=== PATIENT | male | born 1935 | race Caucasian/White ===

== ENCOUNTER 2021-08-17 06:39 | Inpatient (IN) | payer OTHER, MEDICARE ==
[~2021-08-17] VITALS: Ht 175.3 cm; Wt 100.8 kg
[2021-08-17] MEDS ORDERED: DOCUSATE SODIUM 100 MG (COLACE) CAP PO PRN (07:30)
[2021-08-17] MEDS ORDERED: MELATONIN 3 MG TABLET PO PRN (07:30)
[2021-08-17] MEDS ORDERED: morphine INJ 10 MG/ML 1ML (SYR OR VIAL) IVP PRN (07:30)
[2021-08-17] MEDS ORDERED: HYDROcodone/APAP 5 MG/325 MG (LORTAB) TAB PO PRN (07:30)
[2021-08-17] MEDS ORDERED: CALCIUM CARBONATE 500 MG (TUMS) TAB.CHEW PO PRN (07:30)
[2021-08-17] MEDS ORDERED: ACETAMINOPHEN 500 MG TAB (TYLENOL) PO PRN (07:30)
[2021-08-17] MEDS ORDERED: diphenhydrAMINE 25 MG TAB (BENADRYL) PO PRN (07:30)
[2021-08-17] MEDS ORDERED: LOPERAMIDE 2 MG (IMODIUM) TABLET PO PRN (07:30)
[2021-08-17] MEDS ORDERED: ALPRAZolam 0.25 MG (XANAX) TAB PO PRN (07:30)
[2021-08-17] MEDS ORDERED: ENOXAPARIN 100 MG/1 ML (LOVENOX) SYR SC SCH (07:30)
[2021-08-17] MEDS ORDERED: ONDANSETRON 4 MG/2 ML (SDV) Z0FRAN IVP PRN (07:30)
--- OUTSIDE RECORDS SUMMARY | 2021-08-17 08:42 | XMS REPORT | Clinical Summary ---
Author Author [facility] Organization [facility] Address Unknown Phone Unavailable Care Team Providers Care Electrical Accessories Ii Assembler Name Role Phone Ramone Davis MD Unavailable Source Comments Some departments are not documenting in the electronic medical record. If you d o not see the information that you expected, contact Release of Information in [facility] [employer] Information Management department at [phone] for further assistan ce in locating additional records.[facility] Allergies Comments Active Allergy Reactions Severity Noted Date Ciprofloxacin HIVES Medium 01/09/2015 Metformin HIVES Medium 01/09/2015 Benzalkonium Chloride HIVES Medium 01/10/20 15 Sulfa (Sulfonamide [facility] Medium 01/09/2015 Antibiotics) Medications End Date Status Medication Sig Dispensed Refills Start Date Active isosorbide mononitrate CR Take 120 mg 0 (IMDUR) 120 mg tablet by mouth every morning. Active clopiDOGrel (PLAVIX) 75 Take 75 mg by 0 mg tablet mouth daily. Active metoprolol (LOPRESSOR) 50 Take 50 mg by 0 mg tablet mouth twice daily. Active pioglitazone (ACTOS) 45 Take 45 mg by 0 mg tablet mouth daily. Active INSULIN Inject into 0 GLARGINE,HUM.REC.ANLOG area(s) as (LANTUS SC) directed. Active tamsulosin (FLOMAX) 0.4 Take 0.4 mg 0 mg capsule by mouth daily. Active pantoprazole DR Take 20 mg by 0 (PROTONIX) 20 mg tablet mouth daily. Active glipiZIDE CR (GLUCOTROL Take 10 mg by 0 XL) 10 mg tablet mouth daily. Active atorvastatin (LIPITOR) 40 Take 40 mg by 0 mg tablet mouth daily. Active aspirin EC 81 mg tablet Take 81 mg by 0 mouth daily. Active artificial Place 1 Drop 0 tears/hypromellose into or (ISOPTO TEARS) 0.5 % around eye(s) ophthalmic solution four times daily. Active DOCOSAHEXANOIC ACID/EPA Take by 0 (FISH OIL PO) mouth. 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 Surgical History Surgery Date Site/Laterality Comments TONSILLECTOMY APPENDECTOMY ANGIOPLASTY CORONARY ARTERY BYPASS GRAFT SEPTOPLASTY SPINAL FUSION PROSTATECTOMY HERNIA REPAIR CATARACT REMOVAL WITH IMPLANT PENILE PROSTHESIS Medical History Medical History Date Comments CAD (coronary artery disease) Diabetes (HCC) Polycythemia Hypertension Hiatal hernia PTSD (post-traumatic stress disorder) Depression Peripheral neuropathy Macular degeneration Gout Herniated disc Skin cancer Cataracts, bilateral ED (erectile dysfunction) Social History Date Tobacco Use Types Packs/Day Years Used Quit: 09/11/1986 Former Smoker Cigarettes 1 50 Smokeless Tobacco: Never Used Comments Alcohol Use Standard Drinks/Week No 0 (1 standard drink = 0.6 o z pure alcohol) Sex Assigned at Date Recorded Not on file Last Filed Vital Signs Reading Time Taken Comments Vital Sign 123/75 01/09/2015 2:26 PM CDT Blood Pressure 66 01/09/2015 2:26 PM CDT Pulse - - Temperature - - Respiratory Rate - - Oxygen Saturation - - Inhaled Oxygen Concentration 95.3 kg (210 lb) 01/09/2015 2:26 PM CDT Weight 175.3 cm (5' 9") 01/09/2015 2:26 PM CDT Height 31.01 01/09/2015 2:26 PM CDT Body Mass Index Plan of Treatment Health Maintenance Due Date Last Done Comments DTAP/TDAP VACCINES (1 - 1955 Tdap) PHYSICAL (COMPREHENSIVE) 1955 EXAM SHINGLES RECOMBINANT 1987 VACCINE (1 of 2) PNEUMONIA (PPSV23) 2002 VACCINE (1 of 1 - PPSV23) INFLUENZA VACCINE 04/11/2021 Results Not on filefrom Last 3 Months Care Teams Start Date End Date Electrical Accessories Ii Assembler Relationship Specialty 01/09/15 Ramone Davis MD [facility] [address] [address]
[2021-08-17] MEDS ORDERED: ASPIRIN E.C. 81 MG (ECOTRIN) TAB PO SCH (09:00)
[2021-08-17 09:03] VITALS: BP 183/87
[2021-08-17 09:12] LABS: BASOPHILS % (AUTO) 1 % (0-10); MEAN CORPUSCULAR VOLUME 96 fL (80-99)
[2021-08-17 09:14] LABS: EOSINOPHILS # (AUTO) 0.4 10^3/uL (0.0-0.3); EOSINOPHILS % (AUTO) 7 % (0-10); HEMATOCRIT 43 % (40-54); HEMOGLOBIN 14.7 g/dL (13.3-17.7); LYMPHOCYTES # (AUTO) 1.2 10^3/uL (1.0-4.0); LYMPHOCYTES % (AUTO) 24 % (12-44); MEAN CORPUSCULAR HEMOGLOBIN 33 pg (25-34); MEAN CORPUSCULAR HGB CONC 35 g/dL (32-36); MEAN PLATELET VOLUME 10.5 fL (9.0-12.2); MONOCYTES # (AUTO) 0.6 10^3/uL (0.0-1.0); MONOCYTES % (AUTO) 12 % (0-12); NEUTROPHILS # (AUTO) 2.7 10^3/uL (1.8-7.8); NEUTROPHILS % (AUTO) 55 % (42-75); PLATELET COUNT 103 10^3/uL (130-400); WHITE BLOOD COUNT 4.9 10^3/uL (4.3-11.0)
--- NOTE | 2021-08-17 09:15 | Consultation-Cardiology ---
HPI-Cardiology Cardiology Consultation: Date of Consultation 08/17/21 Time Seen by a Provider: 09:20 Date of Admission 08-17-21 Attending Physician Opal Leroy DO Admitting Physician Darline Preciado MD Consulting Physician ERIKA HOOKS HPI: Chief Complaint: Chest pain Mr. Carrasco is an 85 yr old male admitted to [facility] as a transfer from [facility]. 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 Willett whom he just saw in f/u last week. He states he woke up from sleep this morning around 2:30 with chest pressure radiating across his chest and down into both his upper arms. He reports he has chronic angina, but this discomfort felt different. He states he took 2 sublingual nitro and chewed 2 baby ASA. He reports by the time he arrived at the ED in [place] the discomfort was "almost gone". He is currently pain free. He denies any c/o SOB, palpitations, diaphoresis, nausea. He reports the discomfort was constant and did not change in relation to activity. No c/o LE swelling. He is a poor historian. He has an extensive list of his health conditions and surgeries with him. Review of Systems-Cardiology Review of Systems Constitutional: No chills, No lightheadedness, No malaise Eyes: No vision change Ears/Nose/Throat: No epistaxis, No recent hearing loss Respiratory: As described under HPI Cardiovascular: As described under HPI Gastrointestinal: As described under HPI Genitourinary: No dysuria, No hematuria Musculoskeletal: no symptoms reported Skin: No rash on exposed areas, No ulcerations on exposed areas Psychiatric/Neurological: No anxiety, No depression, No seizure, No focal weakness, No syncope Hematologic: No bleeding abnormalities CHZ-Sleprv-Ehlwly Hx Past Medical History PMH As described under Assessment. Family Medical History Family Medical History: He reports his father had CAD. Allergies and Home Medications Allergies Coded Allergies: ciprofloxacin (Verified Allergy, Severe, 08/17/21) Sulfa (Sulfonamide Antibiotics) (Verified Allergy, Unknown, 08/17/21) bacitracin (Verified Allergy, Unknown, 08/17/21) metformin (Verified Allergy, Unknown, 08/17/21) neomycin (Verified Allergy, Unknown, 08/17/21) polymyxin B (Verified Allergy, Unknown, 08/17/21) Patient Home Medication List Acetaminophen (Tylenol Arthritis) 650 Mg Tablet.er, 650-1,300 MG PO Q8H PRN for PAIN-MILD (1-4), (Reported) Entered as Reported by: CHELA MCCOY on 08/17/211424 Last Action: Reviewed Aspirin (Aspirin EC) 81 Mg Tablet.dr, 81 MG PO HS, (Reported) Entered as Reported by: CHELA MCCOY on 08/17/211424 Last Action: Reviewed Atorvastatin Calcium (Atorvastatin Calcium) 40 Mg Tablet, 40 MG PO HS, (Reported) Entered as Reported by: CHELA MCCOY on 08/17/211424 Last Action: Reviewed Buspirone HCl (Buspirone HCl) 10 Mg Tablet, 20 MG PO HS, (Reported) Entered as Reported by: CHELA MCCOY on 08/17/211424 Last Action: Reviewed Carboxymethylcellulose Sodium (Refresh Tears) 15 Ml Drops, 2 DROPS OU UD PRN for DRY EYES, (Reported) Entered as Reported by: CHELA MCCOY on 08/17/211424 Last Action: Reviewed Clopidogrel Bisulfate (Clopidogrel) 75 Mg Tablet, 75 MG PO HS, (Reported) Entered as Reported by: CHELA MCCOY on 08/17/211424 Last Action: Reviewed Diphenhydramine HCl (Benadryl Allergy) 25 Mg Tablet, 25 MG PO HS, (Reported) Entered as Reported by: CHELA MCCOY on 08/17/211424 Last Action: Reviewed Docusate Sodium (Docusate Sodium) 100 Mg Capsule, 100-200 MG PO BID, (Reported) Entered as Reported by: CHELA MCCOY on 08/17/211424 Last Action: Reviewed Ergocalciferol (Vitamin D2) (Vitamin D2) 1,250 Mcg Capsule, 1,250 MCG PO TUE, (Reported) Entered as Reported by: CHELA MCCOY on 08/17/211424 Last Action: Reviewed Fluticasone Propionate (Fluticasone Propionate) 16 Gm [place].susp, 2 SPRAYS NSEACH DAILY PRN for CONGESTION, (Reported) Entered as Reported by: CHELA MCCOY on 08/17/211424 Last Action: Reviewed Glipizide (Glipizide Xl) 10 Mg Tab.er.24, 10 MG PO BID, (Reported) Entered as Reported by: CHELA MCCOY on 08/17/211424 Last Action: Reviewed Imipramine HCl (Imipramine HCl) 10 Mg Tablet, 10 MG PO HS, (Reported) Entered as Reported by: CHELA MCCOY on 08/17/211424 Last Action: Reviewed Insulin Glargine,Hum.rec.anlog (Lantus Solostar) 100 Unit/1 Ml Insuln.pen, 45 UNITS SC HS, (Reported) Entered as Reported by: CHELA MCCOY on 08/17/211424 Last Action: Reviewed Isosorbide Mononitrate (Isosorbide Mononitrate ER) 120 Mg Tab.er.24h, 120 MG PO DAILY, (Reported) Entered as Reported by: CHELA MCCOY on 08/17/211424 Last Action: Reviewed Lansoprazole (Lansoprazole) 15 Mg Capsule.dr, 15 MG PO DAILY, (Reported) Entered as Reported by: CHELA MCCOY on 08/17/211424 Last Action: Reviewed Metoprolol Tartrate (Metoprolol Tartrate) 25 Mg Tablet, 25 MG PO BID, (Reported) Entered as Reported by: CHELA MCCOY on 08/17/211424 Last Action: Reviewed Multivitamin (Multivitamin) 1 Each Tablet, 1 EACH PO DAILY, (Reported) Entered as Reported by: CHELA MCCOY on 08/17/211424 Last Action: Reviewed Pioglitazone HCl (Pioglitazone HCl) 45 Mg Tablet, 45 MG PO DAILY, (Reported) Entered as Reported by: CHELA MCCOY on 08/17/211424 Last Action: Reviewed Ranolazine (Ranolazine ER) 1,000 Mg Tab.er.12h, 1,000 MG PO BID, (Reported) Entered as Reported by: CHELA MCCOY on 08/17/211424 Last Action: Reviewed Sertraline HCl (Sertraline HCl) 100 Mg Tablet, 50 MG PO HS, (Reported) Entered as Reported by: CHELA MCCOY on 08/17/211424 Last Action: Reviewed Physical Exam-Cardiology Physical Exam Vital Signs/I&O 08/17/21 08/18/21 08/18/21 08/18/21 23:51 01:00 04:00 07:00 Temp 36.2 Pulse 77 75 74 70 Resp 20 20 B/P (MAP) 172/83 (112) 156/70 (98) Pulse Ox 96 96 O2 Delivery Room Air Room Air 08/18/21 08/18/21 08/18/21 08:00 08:00 09:54 Temp 35.6 35.6 Pulse 75 75 Resp 14 B/P (MAP) 165/91 (115) Pulse Ox 97 97 O2 Delivery Room Air Room Air FiO2 21 08/18/21 00:00 Intake Total 840 ml Output Total 700 ml Balance 140 ml Capillary Refill : Constitutional: AAO x 3, well-developed, well-nourished HEENT: PERRL, hearing is well preserved Neck: No carotid bruit; carotid pulses are 2 + bilaterally Respiratory: No accessory muscle use, No respiratory distress; chest expansion is symmetric, chest is bilaterally symmetric, lungs clear to auscultation Cardiovascular: regular rate-rhythm; No JVD; S1 and S2, systolic murmur Gastrointestinal: No tender; soft, round, audible bowel sounds Extremities: no lower extremity edema bilateral Neurologic/Psychiatric: grossly intact (moves all extremities) Skin: No rash on exposed areas, No ulcerations on exposed areas Data Review Labs Laboratory Tests 08/17/21 11:09: Glucometer 84 08/17/21 16:32: Glucometer 169H 08/17/21 20:09: Glucometer 163H 08/18/21 05:23: Glucometer 147H 08/18/21 05:50: White Blood Count 5.8, Red Blood Count 5.05, Hemoglobin 16.6, Hematocrit 48, Mean Corpuscular Volume 96, Mean Corpuscular Hemoglobin 33, Mean Corpuscular Hemoglobin Concent 34, Red Cell Distribution Width 12.4, Platelet Count 114L, Mean Platelet Volume 10.5, Immature Granulocyte % (Auto) 1, Neutrophils (%) (Auto) 59, Lymphocytes (%) (Auto) 24, Monocytes (%) (Auto) 9, Eosinophils (%) (Auto) 7, Basophils (%) (Auto) 1, Neutrophils # (Auto) 3.4, Lymphocytes # (Auto) 1.4, Monocytes # (Auto) 0.5, Eosinophils # (Auto) 0.4H, Basophils # (Auto) 0.0, Immature Granulocyte # (Auto) 0.1, Percent Immature Platelet Fraction 3.4, Sodium Level 137, Potassium Level 4.1, Chloride Level 103, Carbon Dioxide Level 22, Anion Gap 12, Blood Urea Nitrogen 20H, Creatinine 1.62H, Estimat Glomerular Filtration Rate 41, BUN/Creatinine Ratio 12, Glucose Level 156H, Calcium Level 9.2, Corrected Calcium 9.4, Total Bilirubin 0.9, Aspartate Amino Transf (AST/SGOT) 21, Alanine Aminotransferase (ALT/SGPT) 26, Alkaline Phosphatase 57, Troponin I 0.212H, Total Protein 6.6, Albumin 3.8 Microbiology 08/17/21 MRSA Screen - Final, Complete MRSA not isolated A/P-Cardiology Assessment/Admission Diagnosis NSTEMI CAD (per pt report) - H/O CABG 2 vessel Sep 10, 1987 - H/O stent placement Oct 2004, March 2005, Jul 2005, Sep 2012. Most recent stent placement Sep 09, 2019 - reported 3 stents placed - H/O balloon angioplasty Jul 2017, November 2017, March 2019 Chronic angina - Imdur and Ranexa - managed by Dr. 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 Gallo Oncology - multiple skin melanoma removals - most recent to the left side of his face (stitches in place) Back surgeries - Yadav lynette in place Discussion and Recomendations NSTEMI - treat with BB, antiplatelet tx - advise cardiac cath. We have discussed the procedure, risks, benefits and potential complications of cardiac cath with possible ad hoc coronary intervention including worsening of renal function in the face CKD. He verbalizes understanding and provides informed consent. Echocardiogram today to eval structure and function Extensive cardiac history with numerous coronary interventions as noted above - request records Monitor lab closely Resume home medications Further recs will be based on his hospital course We have reviewed the records from [place] ED We would like to thank medical services for this consult ERIKA QUESADA Aug 17, 2021 09:15
[2021-08-17 09:44] LABS: ALBUMIN 3.5 GM/DL (3.2-4.5); BILIRUBIN,TOTAL 0.6 MG/DL (0.1-1.0); CALCIUM 8.7 MG/DL (8.5-10.1); CREATININE SERUM 1.63 MG/DL (0.60-1.30); POTASSIUM 4.2 MMOL/L (3.6-5.0); TOTAL PROTEIN 5.8 GM/DL (6.4-8.2)
[2021-08-17] MEDS ORDERED: CLOPIDOGREL 75 MG (PLAVIX) TABLET PO ONE (09:45)
[2021-08-17] MEDS ORDERED: meTOproloL SUCCINATE 50 MG (TOPROL XL) TAB PO SCH ×2 (09:45→21:00)
[2021-08-17] MEDS: NS IV 1000 ML 1,000 ML IV SCH ×2 (10:15→23:51)
[2021-08-17] MEDS: SENNA W/DOCUSATE (SENOKOT S) TABLET PO SCH ×2 (10:19→21:18)
[2021-08-17] MEDS ORDERED: NS IV 1000 ML 1,000 ML IV SCH (11:30)
[2021-08-17] MEDS: inSUlin ASPART (NovoLOG) 1 UNIT/0.01 ML (CHARGE PER UNIT) SC SCH ×3 (11:51→20:09)
[2021-08-17 12:00] VITALS: BP 173/85
--- NOTE | 2021-08-17 13:39 | Consultation-Cardiology ---
HPI-Cardiology Cardiology Consultation: Date of Consultation 08/17/21 Time Seen by a Provider: 11:00 Date of Admission Attending Physician Opal Leroy DO Admitting Physician Darline Preciado MD Consulting Physician STACEY STEVENSON MD, FACP, FACC, [facility], CCD[facility] HPI: Chief Complaint: Chest pain Mr. Carrasco is an 85 yr old male admitted to [facility] as a transfer from [facility]. He reports his primary oil burner installer is Dr. Willett whom he just saw in f/u last week. He states he woke up from sleep this morning around 2:30 with chest pressure radiating across his chest and down into both his upper arms. He reports he has chronic angina, but this discomfort felt different. He states he took 2 sublingual nitro and chewed 2 baby ASA. He reports by the time he arrived at the ED in [place] the discomfort was "almost gone". He is currently pain free. He denies any c/o SOB, palpitations, diaphoresis, nausea. He reports the discomfort was constant and did not change in relation to activity. No c/o LE swelling. He is a poor historian. He has an extensive list of his health conditions and surgeries with him. Review of Systems-Cardiology Review of Systems Constitutional: No chills, No lightheadedness, No malaise Eyes: No vision change Ears/Nose/Throat: No epistaxis, No recent hearing loss Respiratory: As described under HPI Cardiovascular: As described under HPI Gastrointestinal: As described under HPI Genitourinary: No dysuria, No hematuria Musculoskeletal: no symptoms reported Skin: No rash on exposed areas, No ulcerations on exposed areas Psychiatric/Neurological: No anxiety, No depression, No seizure, No focal weakness, No syncope Hematologic: No bleeding abnormalities QNB-Vrxpwy-Wgeoqd Hx Patient Social History Have you traveled recently?: No Alcohol Use?: No Pt feels they are or have been: No Immunizations Up To Date Date of Influenza Vaccine: Jul 29, 2021 Past Medical History PMH As described under Assessment. Family Medical History Family Medical History: He reports his father had CAD. Allergies and Home Medications Allergies Coded Allergies: ciprofloxacin (Verified Allergy, Severe, 08/17/21) Sulfa (Sulfonamide Antibiotics) (Verified Allergy, Unknown, 08/17/21) bacitracin (Verified Allergy, Unknown, 08/17/21) metformin (Verified Allergy, Unknown, 08/17/21) neomycin (Verified Allergy, Unknown, 08/17/21) polymyxin B (Verified Allergy, Unknown, 08/17/21) Patient Home Medication List Home Medication List Reviewed: Yes Physical Exam-Cardiology Physical Exam Vital Signs/I&O 08/17/21 08/17/21 08/17/21 08/17/21 09:03 11:09 11:23 12:00 Temp 35.9 35.8 Pulse 76 77 77 Resp 16 20 B/P (MAP) 183/87 (119) 173/85 (114) Pulse Ox 99 99 98 O2 Delivery Room Air Room Air Room Air 08/17/21 12:56 Pulse 70 Capillary Refill : Constitutional: AAO x 3, well-developed, well-nourished HEENT: PERRL, hearing is well preserved Neck: No carotid bruit; carotid pulses are 2 + bilaterally Respiratory: No accessory muscle use, No respiratory distress; chest expansion is symmetric, chest is bilaterally symmetric, lungs clear to auscultation Cardiovascular: regular rate-rhythm; No JVD; S1 and S2, systolic murmur Gastrointestinal: No tender; soft, round, audible bowel sounds Extremities: no lower extremity edema bilateral Neurologic/Psychiatric: grossly intact (moves all extremities) Skin: No rash on exposed areas, No ulcerations on exposed areas Data Review Labs Laboratory Tests 08/17/21 09:03: White Blood Count 4.9, Red Blood Count 4.43, Hemoglobin 14.7, Hematocrit 43, Mean Corpuscular Volume 96, Mean Corpuscular Hemoglobin 33, Mean Corpuscular Hemoglobin Concent 35, Red Cell Distribution Width 12.5, Platelet Count 103L, Mean Platelet Volume 10.5, Immature Granulocyte % (Auto) 1, Neutrophils (%) (Auto) 55, Lymphocytes (%) (Auto) 24, Monocytes (%) (Auto) 12, Eosinophils (%) (Auto) 7, Basophils (%) (Auto) 1, Neutrophils # (Auto) 2.7, Lymphocytes # (Auto) 1.2, Monocytes # (Auto) 0.6, Eosinophils # (Auto) 0.4H, Basophils # (Auto) 0.0, Immature Granulocyte # (Auto) 0.0, Percent Immature Platelet Fraction 4.0, Sodium Level 138, Potassium Level 4.2, Chloride Level 106, Carbon Dioxide Level 22, Anion Gap 10, Blood Urea Nitrogen 24H, Creatinine 1.63H, Estimat Glomerular Filtration Rate 41, BUN/Creatinine Ratio 15, Glucose Level 109H, Calcium Level 8.7, Corrected Calcium 9.1, Total Bilirubin 0.6, Aspartate Amino Transf (AST/SGOT) 21, Alanine Aminotransferase (ALT/SGPT) 22, Alkaline Phosphatase 63, Troponin I 0.271H, Total Protein 5.8L, Albumin 3.5, Triglycerides Level 167H, Cholesterol Level 142, LDL Cholesterol Direct 78, VLDL Cholesterol 33, HDL Cholesterol 30L 08/17/21 11:09: Glucometer 84 Laboratory Tests 08/17/21 09:03 A/P-Cardiology Assessment/Admission Diagnosis NSTEMI CAD (per pt report) - H/O CABG 2 vessel Sep 10, 1987 - H/O stent placement Oct 2004, March 2005, Jul 2005, Sep 2012. Most recent stent placement Sep 09, 2019 - he reports 3 stents placed - H/O balloon angioplasty Jul 2017, November 2017, March 2019 Chronic angina - Imdur and Ranexa - managed by Dr. 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 Gallo Oncology - multiple skin melanoma removals - most recent to the left side of his face (stitches in place) Back surgeries - Yadav lynette in place Discussion and Recomendations NSTEMI - treat with BB, antiplatelet tx. We discussed invasive and noninvasive treatment options. Risk of invasive management higher than usual, given CKD 3 and thrombocytopenia. All issues discussed. He wishes to wait on invasive management. We are trying to get records of his rather extensive cardiac history from [facility]. Will revisit the issue of invasive management once we have all records or if he has recurrent symptoms Echocardiogram today to eval structure and function Add beta-jono and amlodipine to regimen. Continue nitro and Ranexa. Continue DAPT while closely monitoring CBC Continue statins Monitor labs Further recs will be based on his hospital course We have reviewed the records from [place] ED We would like to thank Medical services for this consult STACEY STEVENSON MD FACP FAC CCDS Aug 17, 2021 13:39
--- NOTE | 2021-08-17 14:17 | History & Physical-Hospitalist ---
TAVIA PETERSEN 08/17/21 1417: History of Present Illness HPI/Chief Complaint The patient is an 85 YO male with a history of CAD, DM2, HTN, HLD, TIA, hiatal hernia, GERD, RODY, CKD3 and prostate cancer, who is in the hospital for chest pain. The patient reports that at 0230 this morning experiencing chest pain that radiated down both of his arms. He describes the pain as feeling like an elephant sitting on his chest. He reports taking two sublingual nitro, and two baby ASA after the pain started at home. He then went to the ER in [place], where his chest pain improved. The patient denies shortness of breath, chills, and fevers. Date Seen 08/17/21 Attending Physician Opal Leroy Gloria J MD Referring Physician Date of Admission Aug 17, 2021 at 08:25 Home Medications & Allergies Home Medications Reviewed patient Home Medication Reconciliation performed by pharmacy medication reconciliations central sterilization technician and/or nursing. Patients Allergies have been reviewed. Allergies Allergies Coded Allergies ciprofloxacin (Verified Allergy, Severe, 08/17/21) Sulfa (Sulfonamide Antibiotics) (Verified Allergy, Unknown, 08/17/21) bacitracin (Verified Allergy, Unknown, 08/17/21) metformin (Verified Allergy, Unknown, 08/17/21) neomycin (Verified Allergy, Unknown, 08/17/21) polymyxin B (Verified Allergy, Unknown, 08/17/21) Past Yxfgokv-Rovolx-Ykzijc Hx Patient Social History Tobacco Use?: No Use of E-Cig and/or Vaping dev: No Substance use?: No Alcohol Use?: No Pt feels they are or have been: No Immunizations Up To Date Date of Influenza Vaccine: Jul 29, 2021 First/Initial COVID19 Vaccinat: SEPTEMBER 2020 Second COVID19 Vaccination Sherif: 2020 Tetanus Booster (TDap): More Than 5 Years Hepatitis A: No Hepatitis B: No Current Status Advance Directives: No Communicates: Verbally Primary Language: [place] Preferred Spoken Language: [place] Is interpretation needed?: No Implanted or Applied Medical D: None Past Medical History Surgeries: CABG Sleep Apnea Coronary Artery Disease, Hypertension TIA Gastroesophageal Reflux, Hiatal Hernia Diabetes, Insulin dep Prostate Review of Systems Constitutional: No chills, No diaphoresis, No fever EENTM: No blurred vision, No double vision Respiratory: No cough, No dyspnea on exertion Cardiovascular: chest pain (early this morning); No palpitations Gastrointestinal: No constipation, No diarrhea, No nausea, No vomiting Musculoskeletal: No joint pain, No muscle pain Skin: No change in color, No rash Psychiatric/Neurological: Denies Anxiety, Denies Depressed, Denies Emotional Problems Physical Exam Physical Exam Vital Signs Vital Signs - First Documented 08/17/21 09:03 Temp 35.9 Pulse 76 Resp 16 B/P (MAP) 183/87 (119) Pulse Ox 99 O2 Delivery Room Air Capillary Refill : Height, Weight, BMI Height: '" Weight: lbs. oz. kg; 32.80 BMI Method: General Appearance: No Apparent Distress, WD/WN Eyes: Bilateral Eye Normal Inspection, Bilateral Eye PERRL, Bilateral Eye EOMI HEENT: PERRL/EOMI, Pharynx Normal, Moist Mucous Membranes Respiratory: Chest Non Tender, Lungs Clear, Normal Breath Sounds, No Accessory Muscle Use, No Respiratory Distress Cardiovascular: Regular Rate, Rhythm, No Edema, No Murmur Gastrointestinal: Normal Bowel Sounds, No Organomegaly, No Pulsatile Mass, Non Tender, Soft Rectal: Deferred Extremity: No Calf Tenderness, No Pedal Edema Neurologic/Psychiatric: Alert, Oriented x3, No Motor/Sensory Deficits, Normal Mood/Affect Skin: Normal Color, Warm/Dry Results Results/Procedures Labs Laboratory Tests 08/17/21 09:03 Patient resulted labs reviewed. Assessment/Plan Assessment and Plan 85 YO male with chest pain secondary to NSTEMI, CAD, DM2, HTN, HLD, TIA, hiatal hernia, GERD, RODY, CKD3 and prostate cancer. Chest pain secondary to NSTEMI CAD Continue ASA, Plavix, Lovenox. Cardiology consulted. Repeat Troponin tomorrow. Likely will undergo cardiac catheterization tomorrow. CKD3 DM2 Monitor labs, continue home meds HTN HLD GERD Continue home meds Hiatal hernia RODY Prostate cancer no acute management needed at this time LIAN MORALES MD 08/17/21 1740: History of Present Illness Source: patient Exam Limitations: no limitations Time Seen by a Provider: 12:30 Past Giejlfj-Qusndo-Facscb Hx Family Medical History No Pertinent Family Hx Assessment/Plan Admission Diagnosis NSTEMI Admission Status: Inpatient Order (span 2 midnights) Reason for Inpatient Admission: Acute coronary syndrome Cardiology evaluation Assessment and Plan Transferred with chest pain and mildly elevated troponin. Repeat troponin on arrival trending up. Cardiology following. Likely left heart cath tomorrow. Continue ASA and Lovenox. NPO at midnight. Diagnosis/Problems Diagnosis/Problems (1) NSTEMI (non-ST elevation myocardial infarction) Status: Acute (2) CAD (coronary artery disease) Status: Acute (3) HTN (hypertension) Status: Chronic (4) T2DM (type 2 diabetes mellitus) Status: Chronic (5) HLD (hyperlipidemia) Status: Chronic (6) GERD (gastroesophageal reflux disease) Status: Chronic (7) Obesity Status: Chronic Supervisory-Addendum Brief Verification & Attestation Participated in pt care: history, MDM, physical Personally performed: exam, history, MDM, supervision of care Care discussed with: Medical Student Procedures: n/a Results interpretation: Verified all documentation A medical student performed and documented this service in my presence. I reviewed and verified all information documented by the medical student and made modifications to such information, when appropriate. I personally performed the physical exam and medical decision making. TAVIA PETERSEN Aug 17, 2021 14:17 LIAN MORALES MD Aug 17, 2021 17:40
[2021-08-17] MEDS ORDERED: SERT-414 PO (14:25)
[2021-08-17] MEDS ORDERED: INSU100I10 SC (14:25)
[2021-08-17] MEDS ORDERED: CLOP75TA28 PO (14:25)
[2021-08-17] MEDS ORDERED: PIOG45TA65 PO (14:25)
[2021-08-17] MEDS ORDERED: ATOR40TA70 PO (14:25)
[2021-08-17] MEDS ORDERED: ASPI-1238 PO (14:25)
[2021-08-17] MEDS ORDERED: RANO10005 PO (14:25)
[2021-08-17] MEDS ORDERED: METO-333 PO (14:25)
[2021-08-17] MEDS ORDERED: DIPH25TA65 PO (14:25)
[2021-08-17] MEDS ORDERED: ERGO1250 PO (14:25)
[2021-08-17] MEDS ORDERED: LANS15CA5 PO (14:25)
[2021-08-17] MEDS ORDERED: CARB15DR OU (14:25)
[2021-08-17] MEDS ORDERED: MULT-1136 PO (14:25)
[2021-08-17] MEDS ORDERED: DOCU100C37 PO (14:25)
[2021-08-17] MEDS ORDERED: IMIP10TA3 PO (14:25)
[2021-08-17] MEDS ORDERED: GLIP-173 PO (14:25)
[2021-08-17] MEDS ORDERED: ACET-2650 PO (14:25)
[2021-08-17] MEDS ORDERED: FLUT16SP22 NSEACH (14:25)
[2021-08-17] MEDS ORDERED: ISOS120T9 PO (14:25)
[2021-08-17] MEDS ORDERED: BUSP10TA95 PO (14:25)
[2021-08-17] MEDS: ENOXAPARIN 100 MG/1 ML (LOVENOX) SYR SC SCH (14:29)
[2021-08-17 16:27] VITALS: BP 160/74
[2021-08-17 19:09] VITALS: BP 181/84
[2021-08-17] MEDS: RANOLAZINE ER 500 MG TAB (RANEXA) PO SCH (21:17)
[2021-08-17 23:51] VITALS: BP 172/83
[2021-08-18] MEDS: ENOXAPARIN 100 MG/1 ML (LOVENOX) SYR SC SCH ×2 (01:39→11:52)
[2021-08-18 04:00] VITALS: BP 156/70
[2021-08-18] MEDS: inSUlin ASPART (NovoLOG) 1 UNIT/0.01 ML (CHARGE PER UNIT) SC SCH ×4 (05:48→21:17)
[2021-08-18 06:07] LABS: BASOPHILS % (AUTO) 1 % (0-10); HEMOGLOBIN 16.6 g/dL (13.3-17.7); MONOCYTES # (AUTO) 0.5 10^3/uL (0.0-1.0)
[2021-08-18 06:09] LABS: EOSINOPHILS # (AUTO) 0.4 10^3/uL (0.0-0.3); EOSINOPHILS % (AUTO) 7 % (0-10); HEMATOCRIT 48 % (40-54); LYMPHOCYTES # (AUTO) 1.4 10^3/uL (1.0-4.0); LYMPHOCYTES % (AUTO) 24 % (12-44); MEAN CORPUSCULAR HEMOGLOBIN 33 pg (25-34); MEAN CORPUSCULAR HGB CONC 34 g/dL (32-36); MEAN CORPUSCULAR VOLUME 96 fL (80-99); MEAN PLATELET VOLUME 10.5 fL (9.0-12.2); MONOCYTES % (AUTO) 9 % (0-12); NEUTROPHILS # (AUTO) 3.4 10^3/uL (1.8-7.8); NEUTROPHILS % (AUTO) 59 % (42-75); PLATELET COUNT 114 10^3/uL (130-400); WHITE BLOOD COUNT 5.8 10^3/uL (4.3-11.0)
[2021-08-18 06:26] LABS: ALBUMIN 3.8 GM/DL (3.2-4.5); POTASSIUM 4.1 MMOL/L (3.6-5.0)
[2021-08-18 06:27] LABS: CALCIUM 9.2 MG/DL (8.5-10.1)
[2021-08-18 06:29] LABS: TOTAL PROTEIN 6.6 GM/DL (6.4-8.2)
[2021-08-18 06:30] LABS: BILIRUBIN,TOTAL 0.9 MG/DL (0.1-1.0)
[2021-08-18 06:32] LABS: CREATININE SERUM 1.62 MG/DL (0.60-1.30)
[2021-08-18 08:00] VITALS: BP 165/91
[2021-08-18] MEDS: ASPIRIN 81 MG CHEW (CHILDREN'S ASA) PO SCH (08:37)
[2021-08-18] MEDS: ISOSORBIDE MONONITRATE 60 MG (IMDUR) TAB PO SCH (08:37)
[2021-08-18] MEDS: SENNA W/DOCUSATE (SENOKOT S) TABLET PO SCH ×2 (08:38→21:18)
[2021-08-18] MEDS: RANOLAZINE ER 500 MG TAB (RANEXA) PO SCH ×2 (08:38→21:18)
[2021-08-18] MEDS: CLOPIDOGREL 75 MG (PLAVIX) TABLET PO SCH (08:38)
[2021-08-18] MEDS ORDERED: meTOproloL SUCCINATE 50 MG (TOPROL XL) TAB PO SCH ×2 (09:00)
[2021-08-18 09:54] VITALS: BP 165/91
[2021-08-18] MEDS ORDERED: meTOproloL SUCCINATE 50 MG (TOPROL XL) TAB PO ONE (10:15)
[2021-08-18] MEDS ORDERED: amLODIPine 5 MG (NORVASC) TAB PO ONE (10:15)
[2021-08-18] MEDS ORDERED: RT-ALBUTEROL SULF 2.5 MG/3 ML PRE-MIX VIAL INH PRN (10:15)
--- NOTE | 2021-08-18 10:16 | Progress Note - Cardiology ---
Cardiology SOAP Progress Note Subjective: Lying in bed No c/o CP States he has been up in the room and has been able to do so without chest pain No c/o palpitations, SOB, syncope or near syncope Objective: I&O/Vital Signs 08/18/21 08/18/21 08/19/21 08/19/21 20:00 20:00 00:00 01:00 Temp 35.8 36.1 Pulse 67 69 70 Resp 18 18 B/P (MAP) 134/68 (90) 127/66 (86) Pulse Ox 95 97 O2 Delivery Room Air Room Air Room Air 08/19/21 04:11 Temp 36.4 Pulse 76 Resp 18 B/P (MAP) 162/75 (104) Pulse Ox 97 O2 Delivery Room Air 08/19/21 00:00 Intake Total 1570 ml Output Total 800 ml Balance 770 ml Constitutional: AAO x 3, well-developed, well-nourished Respiratory: No accessory muscle use, No respiratory distress; chest expansion is symmetric, chest is bilaterally symmetric, lungs clear to auscultation Cardiovascular: regular rate-rhythm; No JVD; S1 and S2, systolic murmur Gastrointestional: No tender; soft, round, audible bowel sounds Extremities: no lower extremity edema bilateral Neurologic/Psychiatric: grossly intact (moves all extremities) Skin: No rash on exposed areas, No ulcerations on exposed areas Results/Procedures: Labs Laboratory Tests 08/18/21 11:22: Glucometer 244H 08/18/21 16:02: Glucometer 258H 08/18/21 20:08: Glucometer 173H 08/19/21 05:45: Sodium Level 136, Potassium Level 4.2, Chloride Level 106, Carbon Dioxide Level 19L, Anion Gap 11, Blood Urea Nitrogen 19H, Creatinine 1.42H, Estimat Glomerular Filtration Rate 48, BUN/Creatinine Ratio 13, Glucose Level 171H, Calcium Level 8.6 Microbiology 08/17/21 MRSA Screen - Final, Complete MRSA not isolated A/P: Assessment: NSTEMI CAD (per pt report) - H/O CABG 2 vessel Sep 10, 1987 - H/O stent placement Oct 2004, March 2005, Jul 2005, Sep 2012. Most recent stent placement Sep 09, 2019 - he reports 3 stents placed - H/O balloon angioplasty Jul 2017, November 2017, March 2019 Echocardiogram of 08-17-21 showed LVEF 55-65%. Mod concentric hypertrophy. Grade 2 diastolic dysfunction. LA mildly dilated. Mild calcification of mitral valve with mild MR. Mild to mod AoV stenosis Chronic angina - Imdur and Ranexa - managed by Dr. 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 Gallo Oncology - multiple skin melanoma removals - most recent to the left side of his face (stitches in place) Back surgeries - Yadav lynette in place Plan: NSTEMI - treat with BB, antiplatelet tx. We discussed invasive and noninvasive treatment options. Risk of invasive management higher than usual, given CKD 3 and thrombocytopenia. All issues discussed. He wishes to wait on invasive management. We are trying to get records of his rather extensive cardiac history from [facility]. Will revisit the issue of invasive management once we have all records or if he has recurrent symptoms WE have not received the records requested from [facility] despite requests BP not well controlled - increase BB and amlodipine Continue DAPT while closely monitoring CBC Continue statins Monitor labs ERIKA QUESADA Aug 18, 2021 10:16
[2021-08-18] MEDS: NS IV 1000 ML 1,000 ML IV SCH (11:52)
--- NOTE | 2021-08-18 11:53 | Progress Note - Hospitalist ---
TAVIA PETERSEN 08/18/21 1153: Subjective HPI/CC On Admission Date Seen by Provider: Aug 18, 2021 Time Seen by Provider: 08:20 The patient was laying in bed comfortably this morning. He denies any changes compared to yesterday. He denies chest pain. He denies shortness of breath. Review of Systems General: No Chills, No Night Sweats HEENT: No Head Aches, No Visual Changes Pulmonary: No Dyspnea, No Cough Cardiovascular: No: Chest Pain, Edema Gastrointestinal: No: Nausea, Vomiting, Abdominal Pain Genitourinary: No Dysuria, No Hematuria Musculoskeletal: No: shoulder pain, leg pain Neurological: No: Weakness, Numbness Objective Exam Vital Signs Vital Signs Date Time Temp Pulse Resp B/P (MAP) Pulse Ox O2 Delivery O2 Flow Rate FiO2 08/18/21 09:54 35.6 75 97 21 08/18/21 08:00 Room Air 08/18/21 08:00 14 165/91 (115) Capillary Refill : General Appearance: No Apparent Distress, Chronically ill, Obese HEENT: PERRL/EOMI, Pharynx Normal, Moist Mucous Membranes Respiratory: Chest Non Tender, Lungs Clear, Normal Breath Sounds, No Accessory Muscle Use, No Respiratory Distress Cardiovascular: Regular Rate, Rhythm, No Edema, Systolic Murmur Gastrointestinal: Normal Bowel Sounds, No Organomegaly, No Pulsatile Mass, Non Tender, Soft Rectal: Deferred Extremity: Normal Inspection, No Calf Tenderness, No Pedal Edema Neurologic/Psychiatric: Alert, Oriented x3, No Motor/Sensory Deficits, Normal Mood/Affect Skin: Normal Color, Warm/Dry Results/Procedures Lab Laboratory Tests 08/18/21 05:50 Patient resulted labs reviewed. Assessment/Plan Assessment and Plan Assess & Plan/Chief Complaint 85 YO male with chest pain secondary to NSTEMI, CAD, DM2, HTN, HLD, TIA, hiatal hernia, GERD, RODY, CKD3 and prostate cancer. Chest pain secondary to NSTEMI CAD Continue ASA, Plavix, Lovenox, Toprol, Ranexa, and Statin therapy. Troponin trending down. Cardiology is waiting for records from [facility] before they pursue a possible cardiac cath. CKD3 DM2 Monitor labs. Continue insulin for DM2. HTN HLD GERD Continue home meds Hiatal hernia RODY Prostate cancer no acute management needed at this time LIAN MORALES MD 08/18/21 1734: Subjective HPI/CC On Admission Time Seen by Provider: 10:50 Subjective/Events-last exam He is not having any pain. He is not short of breath. He has no complaints. Assessment/Plan Assessment and Plan Assess & Plan/Chief Complaint Admitted with NSTEMI. Cardiology following. Planning for non-invasive managem ent. Adjusting BP meds. Possible discharge tomorrow pending improvement. 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 I reviewed and verified all information documented by the medical student and made modifications to such information, when appropriate. I personally performed the physical exam and medical decision making. TAVIA PETERSEN Aug 18, 2021 11:53 LIAN MORALES MD Aug 18, 2021 17:34
[2021-08-18 12:00] VITALS: BP 150/75
--- NOTE | 2021-08-18 15:42 | Progress Note - Cardiology ---
Cardiology SOAP Progress Note Subjective: No cp or palp or syncope No shortness of breath at rest Gen malaise and weakness present No n/v/d Objective: I&O/Vital Signs 08/18/21 08/18/21 08/18/21 08/18/21 04:00 07:00 08:00 08:00 Temp 36.2 35.6 Pulse 74 70 75 Resp 20 14 B/P (MAP) 156/70 (98) 165/91 (115) Pulse Ox 96 97 O2 Delivery Room Air Room Air Room Air 08/18/21 08/18/21 08/18/21 08/18/21 09:54 12:00 12:12 12:48 Temp 35.6 36.0 Pulse 75 68 68 Resp 18 B/P (MAP) 150/75 (100) Pulse Ox 97 96 96 O2 Delivery Room Air Room Air FiO2 21 08/18/21 00:00 Intake Total 840 ml Output Total 700 ml Balance 140 ml Constitutional: AAO x 3, well-developed, well-nourished Respiratory: No accessory muscle use, No respiratory distress; chest expansion is symmetric, chest is bilaterally symmetric, lungs clear to auscultation Cardiovascular: regular rate-rhythm; No JVD; S1 and S2, systolic murmur Gastrointestional: No tender; soft, round, audible bowel sounds Extremities: no lower extremity edema bilateral Neurologic/Psychiatric: grossly intact (moves all extremities) Skin: No rash on exposed areas, No ulcerations on exposed areas Results/Procedures: Labs Laboratory Tests 08/17/21 16:32: Glucometer 169H 08/17/21 20:09: Glucometer 163H 08/18/21 05:23: Glucometer 147H 08/18/21 05:50: White Blood Count 5.8, Red Blood Count 5.05, Hemoglobin 16.6, Hematocrit 48, Mean Corpuscular Volume 96, Mean Corpuscular Hemoglobin 33, Mean Corpuscular Hemoglobin Concent 34, Red Cell Distribution Width 12.4, Platelet Count 114L, Mean Platelet Volume 10.5, Immature Granulocyte % (Auto) 1, Neutrophils (%) (Auto) 59, Lymphocytes (%) (Auto) 24, Monocytes (%) (Auto) 9, Eosinophils (%) (Auto) 7, Basophils (%) (Auto) 1, Neutrophils # (Auto) 3.4, Lymphocytes # (Auto) 1.4, Monocytes # (Auto) 0.5, Eosinophils # (Auto) 0.4H, Basophils # (Auto) 0.0, Immature Granulocyte # (Auto) 0.1, Percent Immature Platelet Fraction 3.4, Sodium Level 137, Potassium Level 4.1, Chloride Level 103, Carbon Dioxide Level 22, Anion Gap 12, Blood Urea Nitrogen 20H, Creatinine 1.62H, Estimat Glomerular Filtration Rate 41, BUN/Creatinine Ratio 12, Glucose Level 156H, Calcium Level 9.2, Corrected Calcium 9.4, Total Bilirubin 0.9, Aspartate Amino Transf (AST/SGOT) 21, Alanine Aminotransferase (ALT/SGPT) 26, Alkaline Phosphatase 57, Troponin I 0.212H, Total Protein 6.6, Albumin 3.8 08/18/21 11:22: Glucometer 244H Microbiology 08/17/21 MRSA Screen - Final, Complete MRSA not isolated Laboratory Tests 08/17/21 09:03 08/18/21 05:50 A/P: Assessment: NSTEMI CAD (per pt report) - H/O CABG 2 vessel Sep 10, 1987 - H/O stent placement Oct 2004, March 2005, Jul 2005, Sep 2012. Most recent stent placement Sep 09, 2019 - he reports 3 stents placed - H/O balloon angioplasty Jul 2017, November 2017, March 2019 Echocardiogram of 08-17-21 showed LVEF 55-65%. Mod concentric hypertrophy. Grade 2 diastolic dysfunction. LA mildly dilated. Mild calcification of mitral valve with mild MR. Mild to mod AoV stenosis Chronic angina - Imdur and Ranexa - managed by Dr. 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 Gallo Oncology - multiple skin melanoma removals - most recent to the left side of his face (stitches in place) Back surgeries - Yadav lynette in place Plan: NSTEMI - treat with BB, antiplatelet tx. We discussed invasive and noninvasive treatment options. Risk of invasive management higher than usual, given CKD 3 and thrombocytopenia. All issues discussed. He wishes to wait on invasive management. We have still not received the records requested from [facility] despite requests BP not well controlled - increase BB and amlodipine Continue DAPT while closely monitoring CBC Continue statins Monitor labs Increase ambulation Consider d/c tomorrow if bp is better control and there are no symptoms STACEY STEVENSON MD FACP FAC CCDS Aug 18, 2021 15:42
[2021-08-18 16:00] VITALS: BP 110/64
[2021-08-18 20:00] VITALS: BP 134/68
[2021-08-19] VITALS: BP 127/66
[2021-08-19] MEDS: ENOXAPARIN 100 MG/1 ML (LOVENOX) SYR SC SCH ×2 (01:00→14:05)
[2021-08-19 04:11] VITALS: BP 162/75
[2021-08-19] MEDS: NS IV 1000 ML 1,000 ML IV SCH (04:36)
[2021-08-19 06:12] LABS: POTASSIUM 4.2 MMOL/L (3.6-5.0)
[2021-08-19 06:13] LABS: CALCIUM 8.6 MG/DL (8.5-10.1)
[2021-08-19] MEDS: inSUlin ASPART (NovoLOG) 1 UNIT/0.01 ML (CHARGE PER UNIT) SC SCH ×3 (06:15→15:38)
[2021-08-19 06:17] LABS: CREATININE SERUM 1.42 MG/DL (0.60-1.30)
[2021-08-19 08:03] VITALS: BP 170/79
[2021-08-19] MEDS: SENNA W/DOCUSATE (SENOKOT S) TABLET PO SCH (08:22)
[2021-08-19] MEDS: RANOLAZINE ER 500 MG TAB (RANEXA) PO SCH (08:23)
[2021-08-19] MEDS: ISOSORBIDE MONONITRATE 60 MG (IMDUR) TAB PO SCH (08:23)
[2021-08-19] MEDS: ASPIRIN 81 MG CHEW (CHILDREN'S ASA) PO SCH (08:23)
[2021-08-19] MEDS: CLOPIDOGREL 75 MG (PLAVIX) TABLET PO SCH (08:23)
[2021-08-19] MEDS ORDERED: meTOprolol SUCCINATE 100 MG (TOPROL XL) TAB PO SCH (09:00)
[2021-08-19] MEDS ORDERED: amLODIPine 5 MG (NORVASC) TAB PO SCH (09:00)
--- NOTE | 2021-08-19 09:08 | Progress Note - Cardiology ---
Cardiology SOAP Progress Note Subjective: Sitting up in recliner at the bedside No c/o CP or SOB States overall he is feeling well Objective: I&O/Vital Signs 08/19/21 08/19/21 08/19/21 08/19/21 04:11 07:00 08:00 08:03 Temp 36.4 36.4 Pulse 76 79 76 Resp 18 18 B/P (MAP) 162/75 (104) 170/79 (109) Pulse Ox 97 95 95 O2 Delivery Room Air Room Air Room Air 08/19/21 08/19/21 12:07 12:19 Temp 36.0 36.0 Pulse 69 69 Resp 22 22 B/P (MAP) 176/87 (116) 176/87 Pulse Ox 97 97 O2 Delivery Room Air Room Air 08/19/21 00:00 Intake Total 1570 ml Output Total 800 ml Balance 770 ml Constitutional: AAO x 3, well-developed, well-nourished Respiratory: No accessory muscle use, No respiratory distress; chest expansion is symmetric, chest is bilaterally symmetric, lungs clear to auscultation Cardiovascular: regular rate-rhythm; No JVD; S1 and S2, systolic murmur Gastrointestional: No tender; soft, round, audible bowel sounds Extremities: no lower extremity edema bilateral Neurologic/Psychiatric: grossly intact (moves all extremities) Skin: No rash on exposed areas, No ulcerations on exposed areas Results/Procedures: Labs Laboratory Tests 08/18/21 16:02: Glucometer 258H 08/18/21 20:08: Glucometer 173H 08/19/21 05:45: Sodium Level 136, Potassium Level 4.2, Chloride Level 106, Carbon Dioxide Level 19L, Anion Gap 11, Blood Urea Nitrogen 19H, Creatinine 1.42H, Estimat Glomerular Filtration Rate 48, BUN/Creatinine Ratio 13, Glucose Level 171H, Calcium Level 8.6 08/19/21 08:07: Glucometer 198H 08/19/21 10:13: Glucometer 261H Microbiology 08/17/21 MRSA Screen - Final, Complete MRSA not isolated A/P: Assessment: NSTEMI CAD (per pt report) - Pt reports H/O CABG 2 vessel Sep 10, 1987 - H/O stent placement Oct 2004, March 2005, Jul 2005, Sep 2012. Most recent stent placement Sep 09, 2019 - he reports 3 stents placed - H/O balloon angioplasty Jul 2017, November 2017, March 2019 Records from [facility] received on 08-18-21 reviewed - Cardiac cath of 07-10-[address] Willett - PTCA of RCA lesion reduced from 80% to approx 40%. 100% occlusion of the LAD and cx. 100% occlusion of a vein graft. Patent CASTRO graft to the LAD with borderline lesion beyond. - Most recent Cardiac cath of 09-08-[address] Conway - severe MVD [place] coronaries including severe in-stent restenosis in the RCA. S/P placement of 3 Synergy JOSHUA with one in the prox vessel, one in the midvessel, and one in the distal vessel (not overlapping). S/P balloon angioplasty of the ostial to prox right PDA which appeared to be too small for stenting. Mild PAD. Echocardiogram of 08-17-21 showed LVEF 55-65%. Mod concentric hypertrophy. Grade 2 diastolic dysfunction. LA mildly dilated. Mild calcification of mitral valve with mild MR. Mild to mod AoV stenosis Chronic angina - Imdur and Ranexa - managed by Dr. 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 Gallo Oncology - multiple skin melanoma removals - most recent to the left side of his face (stitches in place) Back surgeries - Yadav lynette in place Plan: NSTEMI - treat with BB, antiplatelet tx. We discussed invasive and noninvasive treatment options. Risk of invasive management higher than usual, given CKD 3 and thrombocytopenia. All issues discussed. He wishes to wait on invasive management. We have received recent cardiac cath reports from [facility] (no CABG report) - we have reviewed BP remains not well controlled - further adjust medication regimen Continue DAPT while closely monitoring CBC Continue statins Monitor labs Increase ambulation Consider d/c tomorrow if bp is better control and there are no symptoms ERIKA QUESADA Aug 19, 2021 09:07
[2021-08-19] MEDS ORDERED: amLODIPine 5 MG (NORVASC) TAB PO NR (09:33)
[2021-08-19] MEDS ORDERED: MTP100TCR PO (11:33)
[2021-08-19] MEDS ORDERED: AMLO-250 PO (11:33)
--- NOTE | 2021-08-19 11:55 | Progress Note - Cardiology ---
Cardiology SOAP Progress Note Subjective: No cp or palp or syncope No shortness of breath at rest or with activity No swelling No n/v/d Denies malaise or weakness Wishes to go home Objective: I&O/Vital Signs 08/19/21 08/19/21 08/19/21 08/19/21 00:00 01:00 04:11 07:00 Temp 36.1 36.4 Pulse 69 70 76 79 Resp 18 18 B/P (MAP) 127/66 (86) 162/75 (104) Pulse Ox 97 97 O2 Delivery Room Air Room Air 08/19/21 08/19/21 08:00 08:03 Temp 36.4 Pulse 76 Resp 18 B/P (MAP) 170/79 (109) Pulse Ox 95 95 O2 Delivery Room Air Room Air 08/19/21 00:00 Intake Total 1570 ml Output Total 800 ml Balance 770 ml Constitutional: AAO x 3, well-developed, well-nourished Respiratory: No accessory muscle use, No respiratory distress; chest expansion is symmetric, chest is bilaterally symmetric, lungs clear to auscultation Cardiovascular: regular rate-rhythm; No JVD; S1 and S2, systolic murmur Gastrointestional: No tender; soft, round, audible bowel sounds Extremities: no lower extremity edema bilateral Neurologic/Psychiatric: grossly intact (moves all extremities) Skin: No rash on exposed areas, No ulcerations on exposed areas Results/Procedures: Labs Laboratory Tests 08/18/21 16:02: Glucometer 258H 08/18/21 20:08: Glucometer 173H 08/19/21 05:45: Sodium Level 136, Potassium Level 4.2, Chloride Level 106, Carbon Dioxide Level 19L, Anion Gap 11, Blood Urea Nitrogen 19H, Creatinine 1.42H, Estimat Glomerular Filtration Rate 48, BUN/Creatinine Ratio 13, Glucose Level 171H, Calcium Level 8.6 08/19/21 08:07: Glucometer 198H 08/19/21 10:13: Glucometer 261H Microbiology 08/17/21 MRSA Screen - Final, Complete MRSA not isolated Laboratory Tests 08/18/21 05:50 08/19/21 05:45 A/P: Assessment: NSTEMI on 08/17/21, no recurrence of symptoms in the hospital CAD - Pt reports H/O CABG 2 vessel Sep 10, 1987 - H/o multiple PCI Records from [facility] received on 08-18-21 reviewed - Cardiac cath of 07-10-[address] Willett - PTCA of RCA lesion reduced from 80% to approx 40%. 100% occlusion of the LAD and cx. 100% occlusion of a vein graft. Patent CASTRO graft to the LAD with borderline lesion beyond. - Most recent Cardiac cath of 09-08-[address] Conway - severe MVD [place] coronaries including severe in-stent restenosis in the RCA. S/P placement of 3 Synergy JOSHUA with one in the prox vessel, one in the midvessel, and one in the distal vessel (not overlapping). S/P balloon angioplasty of the ostial to prox right PDA which appeared to be too small for stenting. Mild PAD. Echocardiogram of 08-17-21 showed LVEF 55-65%. Mod concentric hypertrophy. Grade 2 diastolic dysfunction. LA mildly dilated. Mild calcification of mitral valve with mild MR. Mild to mod AoV stenosis Chronic angina - Imdur and Ranexa - managed by Dr. 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 Gallo Oncology - multiple skin melanoma removals - most recent to the left side of his face (stitches in place) Back surgeries - Yadav lynette in place Plan: NSTEMI - treat with BB, antiplatelet tx. We discussed invasive and noninvasive treatment options. Risk of invasive management higher than usual, given CKD 3 and thrombocytopenia. All issues again discussed. He wishes to wait on invasive management. We have received recent cardiac cath reports from [facility] (no CABG report) - we have reviewed For better bp control we have added amlodipine and have raised beta-blockers Continue DAPT while closely monitoring CBC Continue statins He wishes to go home. We have advised f/u with his regular director of industrial relations GISELA. Return to ER for any recurrence of symptoms or new symptoms. He understands and states will comply STACE[facility] STEVENSON MD [facility] Aug 19, 2021 11:55
[2021-08-19 12:07] VITALS: BP 176/87
[2021-08-19 12:19] VITALS: BP 176/87
--- NOTE | 2021-08-19 17:11 | Discharge Summary ---
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 Cardiology was consulted and assisted with his care. His troponin was elevated but stabilized. His symptoms resolved. After discussion, he elected to proceed with conservative management at this time. He follows with Dr. Wheat in [place]. His course was complicated by hypertension and his beta jono was increased. He was also started on Amlodipine. He was discharged home in stable condition. He will follow up with his PCP and search director. Labs and Pending Lab Test: Laboratory Tests 08/18/21 20:08: Glucometer 173H 08/19/21 05:45: Sodium Level 136, Potassium Level 4.2, Chloride Level 106, Carbon Dioxide Level 19L, Anion Gap 11, Blood Urea Nitrogen 19H, Creatinine 1.42H, Estimat Glomerular Filtration Rate 48, BUN/Creatinine Ratio 13, Glucose Level 171H, Calcium Level 8.6 08/19/21 08:07: Glucometer 198H 08/19/21 10:13: Glucometer 261H 08/19/21 15:21: Glucometer 238H Microbiology 08/17/21 MRSA Screen - Final, Complete MRSA not isolated Home Meds Active Amlodipine Besylate 5 Mg Tablet 10 Mg PO DAILY 30 Days Metoprolol Succinate 100 Mg Tab.er.24h 100 Mg PO DAILY 30 Days Reported Benadryl Allergy (Diphenhydramine HCl) 25 Mg Tablet 25 Mg PO HS Multivitamin 1 Each Tablet 1 Each PO DAILY Tylenol Arthritis (Acetaminophen) 650 Mg Tablet.er 650-1,300 Mg PO Q8H PRN Refresh Tears (Carboxymethylcellulose Sodium) 15 Ml Drops 2 Drops OU UD PRN Aspirin EC (Aspirin) 81 Mg Tablet.dr 81 Mg PO HS Glipizide Xl (Glipizide) 10 Mg Tab.er.24 10 Mg PO BID LAST FILELD 12-10-2020 #180/90 DAY SUPPLY Imipramine HCl 10 Mg Tablet 10 Mg PO HS Sertraline HCl 100 Mg Tablet 50 Mg PO HS TAKES OF A 100MG TAB Buspirone HCl 10 Mg Tablet 20 Mg PO HS TAKES 2 (10MG) TABS Pioglitazone HCl 45 Mg Tablet 45 Mg PO DAILY Lantus Solostar (Insulin Glargine,Hum.rec.anlog) 100 Unit/1 Ml Insuln.pen 45 Units SC HS Fluticasone Propionate 16 Gm Saxis.susp 2 Sprays NSEACH DAILY PRN Docusate Sodium 100 Mg Capsule 100-200 Mg PO BID Isosorbide Mononitrate ER (Isosorbide Mononitrate) 120 Mg Tab.er.24h 120 Mg PO DAILY Lansoprazole 15 Mg Capsule.dr 15 Mg PO DAILY Vitamin D2 (Ergocalciferol (Vitamin D2)) 1,250 Mcg Capsule 1,250 Mcg PO TUE Clopidogrel (Clopidogrel Bisulfate) 75 Mg Tablet 75 Mg PO HS Atorvastatin Calcium 40 Mg Tablet 40 Mg PO HS Ranolazine ER (Ranolazine) 1,000 Mg Tab.er.12h 1,000 Mg PO BID Assessment/Pt Instructions See instructions Discharge Planning: <30 minutes discharge planning Discharge Instructions Discharge Diet: ADA Diet Activity as Tolerated: Yes Consultations Cardiology Discharge Physical Examination Vital Signs Vital Signs Date Time Temp Pulse Resp B/P (MAP) Pulse Ox O2 Delivery O2 Flow Rate FiO2 08/19/21 12:19 36.0 69 22 176/87 97 Room Air 08/18/21 09:54 21 General Appearance: No Apparent Distress, Obese Respiratory: Lungs Clear, Normal Breath Sounds, No Respiratory Distress Cardiovascular: Regular Rate, Rhythm, No Edema, No Murmur Gastrointestinal: Normal Bowel Sounds, Non Tender, Soft Extremity: Normal Inspection, Non Tender, No Pedal Edema Skin: Normal Color, Warm/Dry Neurologic/Psychiatric: Alert, Oriented x3, No Motor/Sensory Deficits, Normal Mood/Affect Allergies: Coded Allergies: ciprofloxacin (Verified Allergy, Severe, 08/17/21) Sulfa (Sulfonamide Antibiotics) (Verified Allergy, Unknown, 08/17/21) bacitracin (Verified Allergy, Unknown, 08/17/21) metformin (Verified Allergy, Unknown, 08/17/21) neomycin (Verified Allergy, Unknown, 08/17/21) polymyxin B (Verified Allergy, Unknown, 08/17/21) Discharge Summary Date of Admission Aug 17, 2021 at 08:25 Date of Discharge Aug 19, 2021 at 17:00 Discharge Date: Aug 19, 2021 Discharge Time: 17:00 Admission Diagnosis NSTEMI Consults/Procedures Consulations Cardiology Discharge Diagnosis NSTEMI, CAD, HTN (1) NSTEMI (non-ST elevation myocardial infarction) Status: Acute (2) CAD (coronary artery disease) Status: Acute (3) HTN (hypertension) Status: Acute (4) T2DM (type 2 diabetes mellitus) Status: Chronic (5) HLD (hyperlipidemia) Status: Chronic (6) Obesity Status: Chronic (7) 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
[2021-08-20] MEDS ORDERED: amLODIPine 5 MG (NORVASC) TAB PO SCH (09:00)
== END 2021-08-19 17:00 | disposition home or self-care (01) | DRG 282 ==
LOC: 4TH 08:25
PROVIDERS: ADMIT Internal Medicine; ATTEND Internal Medicine
DX: I21.4 Non-ST elevation (NSTEMI) myocardial infarction (principal); I12.9 Hypertensive chronic kidney disease with stage 1 through stage 4 chronic kidney disease, or unspecified chronic kidney disease; E11.22 Type 2 diabetes mellitus with diabetic chronic kidney disease; E78.5 Hyperlipidemia, unspecified; E66.9 Obesity, unspecified; N18.32 Chronic kidney disease, stage 3b; I25.118 Atherosclerotic heart disease of native coronary artery with other forms of angina pectoris; Z86.73 Personal history of transient ischemic attack (TIA), and cerebral infarction without residual deficits; K21.9 Gastro-esophageal reflux disease without esophagitis; E11.42 Type 2 diabetes mellitus with diabetic polyneuropathy; C61 Malignant neoplasm of prostate; Z95.5 Presence of coronary angioplasty implant and graft; D69.6 Thrombocytopenia, unspecified; G47.33 Obstructive sleep apnea (adult) (pediatric); Z85.820 Personal history of malignant melanoma of skin; Z95.1 Presence of aortocoronary bypass graft; Z68.32 Body mass index [BMI] 32.0-32.9, adult
CPT/HCPCS: 36415; 80048; 80053; 80061; 82947; 84484; 85025; 87081; 93005; 93306; 94760; G0378

== ENCOUNTER 2021-09-23 10:24 | Inpatient (IN) | payer MEDICARE, OTHER ==
[~2021-09-23] VITALS: Ht 175.3 cm; Wt 98.5 kg
[~2021-09-23 10:24] MED LIST: ACET-2650 PO; AMLO-250 PO; ASPI-1238 PO; ATOR40TA70 PO; BUSP10TA95 PO; CARB15DR OU; CLOP75TA28 PO; DIPH25TA65 PO; DOCU100C37 PO; ERGO1250 PO; FLUT16SP22 NSEACH; GLIP-173 PO; IMIP10TA3 PO; INSU100I10 SC; ISOS120T9 PO; LANS15CA5 PO; METO-333 PO; MTP100TCR PO; MULT-1136 PO; PIOG45TA65 PO; RANO10005 PO; SERT-414 PO
[2021-09-23] MEDS ORDERED: CALCIUM CARBONATE 500 MG (TUMS) TAB.CHEW PO PRN (10:45)
[2021-09-23] MEDS ORDERED: LACTULOSE SYRUP 10GM/15ML (ENULOSE) 30ML UDC PO PRN (10:45)
[2021-09-23] MEDS ORDERED: DOCUSATE SODIUM 100 MG (COLACE) CAP PO PRN (10:45)
[2021-09-23] MEDS ORDERED: diphenhydrAMINE 25 MG TAB (BENADRYL) PO PRN (10:45)
[2021-09-23] MEDS ORDERED: LOPERAMIDE 2 MG (IMODIUM) TABLET PO PRN (10:45)
[2021-09-23] MEDS ORDERED: MELATONIN 3 MG TABLET PO PRN (10:45)
[2021-09-23] MEDS ORDERED: guaiFENesin/CODEINE (ROBITUSSIN AC) 10ML UDC PO PRN (10:45)
[2021-09-23] MEDS ORDERED: BISACODYL 10 MG SUPP (DULCOLAX) PR PRN (10:45)
[2021-09-23] MEDS ORDERED: FLEET ENEMA ADULT 1 EA BTL PR PRN (10:45)
[2021-09-23] MEDS ORDERED: ALPRAZolam 0.25 MG (XANAX) TAB PO PRN (10:45)
[2021-09-23 13:15] VITALS: BP 169/74
[2021-09-23] MEDS ORDERED: AMLO-251 PO (14:42)
[2021-09-23] MEDS ORDERED: MTP100TCR PO (14:42)
[2021-09-23] MEDS ORDERED: LEVE500T6 PO (14:42)
[2021-09-23] MEDS: ONDANSETRON 4 MG (ZOFRAN) ORAL DISSOLVE TAB PO PRN (15:07)
[2021-09-23] MEDS: ACETAMINOPHEN 325 MG TABLET PO PRN ×2 (15:08→20:51)
--- NOTE | 2021-09-23 15:38 | Occupational Therapy Eval ---
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 Pt alert and oriented x1. Poor historian, no family present to verify responses. Per chart, pt lives with his in a single story home with a basement. He was indep with adl. Per patient, he still drives and does most of the cooking. His manages all other iadls. 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 Reviewed History: Yes Social History Home: Multilevel Current Living Status: Spouse Entry Into Home: Stairs With Railing Steps Into Home: 2 ADL-Prior Level of Function SCALE: Activities may be completed with or without assistive devices. 8-Jewbyrmvzm-dtrkejk completes the activity by him/herself with no assistance from a helper. 5-Set-up or Clean-up Assistance-helper sets up or cleans up; patient completes activity. [place] assists only prior to or following the activity. 4-Supervision or Touching Assistance-helper provides verbal cues and/or touching/steadying and/or contact guard assistance as patient completes activity. Assistance may be provided throughout the activity or intermittently. 3-Partial/Moderate Assistance-helper does LESS THAN HALF the effort. [place] lifts, holds or supports trunk or limbs, but provides less than half the effort. 2-Substantial/Maximal Assistance-helper does MORE THAN HALF the effort. [place] lifts or holds trunk or limbs and provides more than half the effort. 2-Xigkrcvjb-sqihgi does ALL the effort. Patient does none of the effort to complete the activity. Or, the assistance of 2 or more helpers is required for the patient to complete the activity. If activity was not attempted, code reason: 7-Patient Refused. 9-Not Applicable-not attempted and the patient did not perform the activity before the current illness, exacerbation or injury. 10-Not Attempted due to Environmental Limitations-(lack of equipment, weather restraints, etc.). 88-Not Attempted due to Medical Conditions or Safety Concerns. Self Care: Independent Functional Cognition: Unknown DME/Equipment: Bath Chair, Grab Bars, Shower Drive Self: Yes OT Current Status Subjective Pt reports significant pain throughout entire body. Majority of pain in head and ears. RN notified, pain meds given. Co-treat with PT due to impulsivity, poor safety awareness, high fall risk, poor activity tolerance and need of 2 skilled clinicians to progress mobility and adls. Appearance Pt returned to supine in bed, all needs within reach. Mental Status/Objective Patient Orientation: Person, Confused Current Glasses/Contacts: Yes Hearing Aids: No Dentures/Partials: No Hand Dominance: Right Upper Extremity ROM WNL Upper Extremity Strength 3+/5 grossly ADL-Treatment Eating (QC): 4 Oral Hygiene (QC): 3 Shower/Bathe Self (QC): 3 Upper Body Dressing (QC): 3 Lower Body Dressing (QC): 3 On/Off Footwear (QC): 2 Toileting Hygiene (QC): 3 Pt resting in bed at therapy arrival. Confused, oriented to self only. Requires several cues to re-orient. Tangential with severe word finding difficulties. Pt declines shower, agreeable to sponge bath. Activity completed seated at EOB. Significant time and simplification of commands required to initiate sitting at EOB. Supine>sit: min A to elevate torso. Initially fair-good balance. With prolong sitting, pt requires 1-2 UE support to maintain balance. 2-3 mild LOB to Left, requiring min-mod a to maintain upright posture. Pt does well with balance when crossing feet initially to doff socks and wash feet, however loses balance when attempting to don socks. Thus, max a needed to complete. Assist to thread RLE into brief, again due to inability to maintain balance without support. He stood with CGA to wash stephanie area, buttocks, and pull brief over hips. No LOB in standing. He ambulated short distances within the room with min a. Poor safety and walker management. While in w/c, pt required mod cues for object avoidance, especially on L side or with distractions. Pt fatigues easily and requests often to return to room. Easy to redirect but not able to attend for long periods of time. Education OT Patient Education: Correct positioning, Energy conservation, Modified ADL techniques, Progress toward Goal/Update tx plan, Purpose of tx/functional activities, Rehab process, Safety issues, Transfer techniques, W/C management Teaching Recipient: Patient Teaching Methods: Demonstration, Discussion Response to Teaching: Reinforcement Needed OT Short Term Goals Short Term Goals Time Frame: Oct 01, 2021 Eatin Oral hygiene: 4 Toileting hygiene: 4 Shower/bathe self: 4 Upper body dressin Lower body dressin Putting on/taking off footwear: 3 OT Forensic Economist Goals Forensic Economist Goals Time Frame: Oct 08, 2021 Eating (QC): 6 Oral Hygiene (QC): 6 Toileting Hygiene (QC): 5 Shower/Bathe Self (QC): 5 Upper Body Dressing (QC): 5 Lower Body Dressing (QC): 5 On/Off Footwear (QC): 5 1=Demonstrate adherence to instructed precautions during ADL tasks. 2=Patient will verbalize/demonstrate understanding of assistive devices/modifications for ADL. 3=Patient will improve strength/tolerance for activity to enable patient to perf orm ADL's. OT Education/Plan Problem List/Assessment Assessment: Decreased Activ Tolerance, Decreased Safety Aware, Decreased UE Strength, Impaired Cognition, Impaired Funct Balance, Impaired I ADL's, Impaired Self-Care Skills Discharge Recommendations Plan/Recommendations: Continue POC Therapy Discharge Recommendati: Intermittent Supervision, Homemaker Support, Post Acute OT Treatment Plan/Plan of Care Treatment,Training & Education: Yes Patient would benefit from OT for education, treatment and training to promote independence in ADL's, mobility, safety and/or upper extremity function for ADL's. Plan of Care: ADL Retraining, Functional Mobility, UE Funct Exercise/Act, UE Neuromus Re-Ed/Coord, W/C Management Training Treatment Duration: Oct 08, 2021 Frequency: At least 5 of 7 days/Wk (IRF) Estimated Hrs Per Day: 1.5 hours per day Agreement: Yes Rehab Potential: Fair Time/GCodes Start Time: 13:50 Stop Time: 15:30 Total Time Billed (hr/min): 90 Billed Treatment Time 1 visit EVM (10 min) ADLx3 (45 min) FA x2 (35 min) OT eval/treatment ([id number]) PT eval ([id number]) Co-treat ([id number]) Gabrielle Joyner OT Sep 23, 2021 15:37
--- NOTE | 2021-09-23 15:38 | Physical Therapy Evaluation ---
PT Evaluation-General Medical Diagnosis Admission Date Sep 23, 2021 at 13:15 Medical Diagnosis: subdural hematoma, subarachnoid hemorrhage Onset Date: Sep 23, 2021 Therapy Diagnosis Therapy Diagnosis: impaired mobility, strength, endurance Precautions Precautions/Isolations: Fall Prevention, Standard Precautions Referral Physician: Opal Leroy DO Reason for Referral: Evaluation/Treatment Medical History Pertinent Medical History: Arthritis, CABG, CAD, DM, GERD, HTN, [place], Neuropathy Current History Gout, PTSD Reviewed History: Yes Social History Home: Multilevel (has basement) Current Living Status: Spouse Entry Into Home: Stairs With Railing PT Steps Into Home: 2 Prior Prior Level of Function SCALE: Activities may be completed with or without assistive devices. 7-Jhxtgnlscf-dmcnzfh completes the activity by him/herself with no assistance from a helper. 5-Set-up or Clean-up Assistance-helper sets up or cleans up; patient completes activity. [place] assists only prior to or following the activity. 4-Supervision or Touching Assistance-helper provides verbal cues and/or touching/steadying and/or contact guard assistance as patient completes activity. Assistance may be provided throughout the activity or intermittently. 3-Partial/Moderate Assistance-helper does LESS THAN HALF the effort. [place] lifts, holds or supports trunk or limbs, but provides less than half the effort. 2-Substantial/Maximal Assistance-helper does MORE THAN HALF the effort. [place] l ifts or holds trunk or limbs and provides more than half the effort. 3-Kuaporsox-fjnwhz does ALL the effort. Patient does none of the effort to complete the activity. Or, the assistance of 2 or more helpers is required for the patient to complete the activity. If activity was not attempted, code reason: 7-Patient Refused. 9-Not Applicable-not attempted and the patient did not perform the activity before the current illness, exacerbation or injury. 10-Not Attempted due to Environmental Limitations-(lack of equipment, weather restraints, etc.). 88-Not Attempted due to Medical Conditions or Safety Concerns. Bed Mobility: 6 Transfers (B,C,W/C): 6 Gait: 6 Stairs: 6 Indoor Mobility (Ambulation): Independent Stairs: Independent Patient states he used a SPC PT Evaluation-Current Subjective Patient in bed pre tx, agrees reluctantly to PT, has severe pain in head and ears, nurse notified. Will be co-treating with OT due to poor patient mobility, strength, endurance, severe pain with activity, coordinate UE and LE with activity, safety and reduce risk of falls. Pt/Family Goals none stated, he says he wants to go back to bed Objective Patient Orientation: Person, Confused ROM/Strength ROM Lower Extremities WNL Strength Lower Extremities LLE (hip flexion 4/5, knee flexion 4/5, knee extension 4/5, dorsiflexion 4+/5), RLE (hip flexion 4/5, knee flexion 4/5, knee extension 4/5, dorsiflexion 4+/5) Sensory Vision: Wears Glasses Hearing: Functional Sensation Right Lower Extremit: Intact Sensation Left Lower Extremity: Intact Transfers Roll Left & Right (QC): 6 Sit to Lying (QC): 4 Lying to Sitting/Side of Bed(Q: 3 Sit to Stand (QC): 3 Chair/Yzz-mr-Ghmih Xfer(QC): 4 Toilet Transfer (QC): 4 Car Transfer (QC): 3 Patient performs rolling with independence, supine to sit min assist, sit to supine SBA, sit <-> stand min assist, transfers CGA, car transfer min assist. Patient needs a lot of cues for positioning and safety. Gait Does the Patient Walk?: Yes Mode of Locomotion: Walk Anticipated Mode of Locomotion: Walk Walk 10 feet (QC): 4 Walk 50 ft with 2 Turns(QC): 4 Walk 150 ft (QC): 88 Walking 10ft/uneven surface-QC: 4 Distance: 60'x2, 20' Gait Assistive Device: FWW Comments/Gait Description Patient can ambulate 60' with a rolling walker with CGA (including 50' with at least 2 turns of 90 degrees and 10' over an uneven surface). Patient has a wandering gait, needs steadying assist Wheelchair Training Does the Pt Use a Wheelchair?: Yes Distance: 300', 120' Wheel 50 ft with 2 turns (QC): 3 Wheel 150 ft (QC): 3 Type of Wheelchair: Manual Patient can propel a manual WC 300' with min assist, needs assist sometimes with steering, going through doorways, needs many rest breaks Stairs #of Steps: 1 1 Step (curb) (QC): 3 4 Steps (QC): 88 12 Steps (QC): 88 Walking Assistive Device: Walker Patient can go up and down 1 step using a rolling walker with min assist. Cues for foot placement. Balance Sitting Static: Normal Sitting Dynamic: Good Standing Static: Poor Standing Dynamic: Poor Picking up an Object (QC): 3 Treatment Parallel bars exercises x15 (heel raises, mini-squats). PT worked on bed mobility and transfers, ambulation, WC mobility, LE strengthening, positioning and safety during bathing and dressing, OT performed bathing, dressing, UE strengthening, UE positioning and safety during activity. Assessment/Needs Patient in bed post tx with nurse call, phone, tray, bed alarm on. Patient has impaired mobility, strength, endurance, balance. Patient is very confused, not motivated, stated over and over that he wants to stop and just go back to bed. He is unsteady when on his feet and needs close guarding, assist with balance, and safety cues. Rehab Potential: Guarded PT Short Term Goals Short Term Goals Time Frame: Sep 30, 2021 Roll Left & Right: 6 Sit to lyin Lying to sitting on side of be: 4 Sit to stand: 4 Chair/dse-dy-oxaak transfer: 4 Walk 10 feet: 4 Walk 50 feet with two turns: 4 Walk 150 feet: 4 PT Head Porter Baggage Goals Alf Goals PT Alf Goals Time Frame: Oct 14, 2021 Roll Left & Right (QC): 6 Sit to Lying (QC): 6 Lying-Sitting on Side/Bed(QC): 6 Sit to Stand (QC): 5 Chair/Zab-tz-Yckcq Xfer(QC): 5 Toilet Transfer (QC): 5 Car Transfer (QC): 5 Does the Patient Walk: Yes Walk 10 feet (QC): 5 Walk 50ft with 2 Turns (QC): 5 Walk 150 ft (QC): 5 Walking 10ft on Uneven Surface: 5 1 Step (curb) (QC): 4 4 Steps (QC): 4 12 Steps (QC): 88 Picking up an Object (QC): 4 Wheel 50 feet with 2 turns (QC: 6 Wheel 150 feet: 6 PT Plan Problem List Problem List: Activity Tolerance, Functional Strength, Safety, Balance, Gait, Transfer, Bed Mobility, ROM Treatment/Plan Treatment Plan: Continue Plan of Care Treatment Plan: Bed Mobility, Education, Functional Activity Varun, Functional Strength, Group Therapy, Gait, Safety, Therapeutic Exercise, Transfers Treatment Duration: Oct 14, 2021 Frequency: At least 5 of 7 days/Wk (IRF) Estimated Hrs Per Day: 1.5 hours per day Patient and/or Family Agrees t: Yes Safety Risks/Education Patient Education: Gait Training, Transfer Techniques, Steps, Correct Positioning, W/C Management, Safety Issues Teaching Recipient: Patient Teaching Methods: Demonstration, Discussion Response to Teaching: Reinforcement Needed Discharge Recommendations Plan Patient will perform bed mobility and transfer training, balance and endurance training, functional strengthening, stair training, gait training, and education, to improve functional mobility and independence at home. Therapy Discharge Recommendati: 24 Hour Supervision Time/GCodes Time In: 1410 Time Out: 1540 Total Billed Treatment Time: 90 Total Billed Treatment 1 visit EVM 10' EX 15' FA 65' PT eval from [id number], co-treat from [id number], PT from [id number] MUNA ROBERTS PT Sep 23, 2021 15:38
[2021-09-23] MEDS ORDERED: VITAMIN D2 1.25 MG (50,000 UNITS) CAP PO SCH (16:30)
[2021-09-23] MEDS ORDERED: FLUTICASONE NASAL SPRAY (FLONASE) 16 GM BTL NS PRN (16:30)
[2021-09-23] MEDS ORDERED: ACETAMINOPHEN 325 MG TABLET PO PRN (17:00)
[2021-09-23] MEDS ORDERED: ARTIFICAL TEARS 0.4 ML UNIT DOSE (REFRESH PLUS) OU PRN (18:00)
--- NOTE | 2021-09-23 19:49 | PM&R Post Admission Assessment ---
PM&R HP Date of Visit: Sep 23, 2021 Time of Visit: 13:25 History of Present Illness Chief Complaint: Debility from Subarachnoid Hemorrhage HPI: This is an 86yoWM who suffered a fall and subsequent Subarachnoid Hemorrhage on 09-15-21 with a resultant seizure maintained on Keppra and had acute kidney injury with Diabetes Stage 1, Chronic Kidney Disease and HTN. At this current time, he is standby assist with grooming and gait is 2ft with a walker using sit to stand and moderate bed mobility. He will be going home with his spouse at discharge. Patient is a bit confused and needs heavy cues but I witnessed him standing up off EMS gurney and was able to be directed to sit on bed but has difficulty staying upright without support. Past Gqbgxjm-Njjuae-Klhpej Hx Past Med/Social Hx: Reviewed Nursing Past Med/Soc Hx, Reviewed and Corrections made Patient Social History Marrital Status: Employed/Student: retired Alcohol Use: Denies Use Smoking Status: Former Smoker Immunizations Up To Date Date of Influenza Vaccine: Jul 29, 2021 Past Medical History Surgeries: CABG Cardiac: Coronary Artery Disease, Hypertension Neurological: TIA Gastrointestinal: Gastroesophageal Reflux, Hiatal Hernia Endocrine: Diabetes, Insulin dep Cancer: Prostate Family History No Pertinent Family Hx Prior Level of Function Bed Mobility: 6 Transfers: 6 Gait: 6 Stairs: 6 Indoor Mobility (Ambulation): Independent Stairs: Independent Self Care: Independent Functional Cognition: Unknown Drive Self: Yes Current Level of Fuctioning Roll Left to Right: 6 Sit to Lyin Lying to Sitting/Side of Bed: 3 Sit to Stand: 3 Chair/Pai-pm-Rncrh Xfer: 4 Car Transfer: 3 Does the Patient Walk: Yes Mode of Locomotion: Walk Anticipated Mode of Locomotion: Walk Walk 10 feet: 4 Walk 50 ft with 2 Turns: 4 Walk 150 ft: 88 Walking 10ft on uneven surface: 4 Gait Assistive Device: FWW Does the Pt Use a Wheelchair: Yes Wheelchair Distance: 300', 120' Wheel 50 ft with 2 turns: 3 Wheel 150 ft: 3 Type of Wheelchair: Manual #of Steps: 1 1 Step (curb): 3 4 Steps: 88 Walking Assistive Device: Walker 12 Steps: 88 Picking up an Object: 3 Eatin Oral Hygiene: 3 Shower/Bathe Self: 3 Upper Body Dressin Lower Body Dressin On/Off Footwear: 2 Toileting Hygiene: 3 PM&R Allergy/Meds/Data Review Allergies Coded Allergies: ciprofloxacin (Verified Allergy, Severe, 08/17/21) Sulfa (Sulfonamide Antibiotics) (Verified Allergy, Unknown, 08/17/21) bacitracin (Verified Allergy, Unknown, 08/17/21) metformin (Verified Allergy, Unknown, 08/17/21) neomycin (Verified Allergy, Unknown, 08/17/21) polymyxin B (Verified Allergy, Unknown, 08/17/21) Home Medications Scheduled Amlodipine Besylate (Amlodipine Besylate), 10 MG PO DAILY, (Reported) Aspirin (Aspirin EC), 81 MG PO HS, (Reported) Atorvastatin Calcium (Atorvastatin Calcium), 40 MG PO HS, (Reported) Buspirone HCl (Buspirone HCl), 20 MG PO HS, (Reported) Clopidogrel Bisulfate (Clopidogrel), 75 MG PO HS, (Reported) Diphenhydramine HCl (Benadryl Allergy), 25 MG PO HS, (Reported) Docusate Sodium (Docusate Sodium), 100-200 MG PO BID, (Reported) Ergocalciferol (Vitamin D2) (Vitamin D2), 1,250 MCG PO TUE, (Reported) Glipizide (Glipizide Xl), 10 MG PO BID, (Reported) Imipramine HCl (Imipramine HCl), 10 MG PO HS, (Reported) Insulin Glargine,Hum.rec.anlog (Lantus Solostar), 40 UNITS SC HS, (Reported) Isosorbide Mononitrate (Isosorbide Mononitrate ER), 120 MG PO DAILY, (Reported) Lansoprazole (Lansoprazole), 15 MG PO DAILY, (Reported) Levetiracetam (Levetiracetam), 500 MG PO BID, (Reported) Metoprolol Succinate (Metoprolol Succinate), 100 MG PO DAILY, (Reported) Multivitamin (Multivitamin), 1 EACH PO DAILY, (Reported) Pioglitazone HCl (Pioglitazone HCl), 45 MG PO DAILY, (Reported) Ranolazine (Ranolazine ER), 1,000 MG PO BID, (Reported) Sertraline HCl (Sertraline HCl), 50 MG PO HS, (Reported) Scheduled PRN Acetaminophen (Tylenol Arthritis), 650-1,300 MG PO Q8H PRN for PAIN-MILD (1-4), (Reported) Carboxymethylcellulose Sodium (Refresh Tears), 2 DROPS OU UD PRN for DRY EYES, (Reported) Fluticasone Propionate (Fluticasone Propionate), 2 SPRAYS NSEACH DAILY PRN for CONGESTION, (Reported) Current Medications Current Medications Reviewed Laboratory Data Laboratory Tests 09/23/21 15:45: Glucometer 222H Review of Systems Constitutional: see HPI, malaise, weakness EENTM: no symptoms reported Respiratory: no symptoms reported Cardiovascular: no symptoms reported Gastrointestinal: no symptoms reported Genitourinary: no symptoms reported Musculoskeletal: back pain Skin: no symptoms reported Psychiatric/Neurological: Weakness, Other (confusion) Physical Exam Physical Exam Vital Signs Vital Signs - First Documented 09/23/21 13:15 Temp 36.2 Pulse 63 Resp 20 B/P (MAP) 169/74 (105) Pulse Ox 93 O2 Delivery Room Air Capillary Refill : Height, Weight, BMI Height: '" Weight: lbs. oz. kg; 32.80 BMI Method: General Appearance: No Apparent Distress, WD/WN, Chronically ill Eyes: Bilateral Eye Normal Inspection, Bilateral Eye PERRL HEENT: PERRL/EOMI, Normal ENT Inspection, Pharynx Normal Neck: Full Range of Motion, Normal Inspection, Non Tender, Supple, Carotid Bruit Respiratory: Chest Non Tender, Lungs Clear, Normal Breath Sounds, No Accessory Muscle Use, No Respiratory Distress Cardiovascular: Regular Rate, Rhythm, No Edema, No Gallop, No JVD, No Murmur, Normal Peripheral Pulses Gastrointestinal: Normal Bowel Sounds, No Organomegaly, No Pulsatile Mass, Non Tender, Soft Back: Normal Inspection, No CVA Tenderness, No Vertebral Tenderness Extremity: Normal Capillary Refill, Normal Inspection, Normal Range of Motion, Non Tender, No Calf Tenderness, No Pedal Edema Neurologic/Psychiatric: Alert, No Motor/Sensory Deficits, Normal Mood/Affect, 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 Norm as Tested, Abnormal Gait, Disoriented, Motor Weakness (generalized weakness, poor core strength) Skin: Normal Color, Warm/Dry Lymphatic: No Adenopathy PM&R Medical Assessment & Plan REHAB/MEDICAL ASSESSMENT AND PLAN: REHAB IMPAIRMENT GROUP: SAH ETIOLOGIC DIAGNOSIS: SAH The comorbidities that impact the patients function and/or functional outcome by: advanced age, DM, HTN, confusion, fall risk REHAB PLAN: The patient is being admitted to our comprehensive inpatient rehabilitation facility and can tolerate the intensity of service consisting of at least: 180 minutes of therapy a day, 5 out of 7 days a week Rehab treatment will consist of: PT OT will focus on regaining core strength and work on fall risk prevention and use of assistive devices and ST will focus on regaining cognition The patient/family has a good understanding of our discharge process and will benefit from an interdisciplinary inpatient rehabilitation program. The patient has potential to make improvement and is in need of at least two of the foll owing multidisciplinary therapies including but not limited to physical, occupational, speech, and prosthetics and orthotics. Additionally the patient will need services from respiratory, nutritional services, wound care, psychology, etc. (Customize this to each patient). Given the patients complex condition and risk of further medical complications, rehabilitation services cannot be safely or effectively provided at a lower level of care such as a jail facility. BARRIERS TO DISCHARGE: Confusion ESTIMATED LOS: 14 days DISPOSITION: Home RELEVANT CHANGES SINCE PREADMISSION SCREENING: I have compared the patients medical and functional status at the time of the preadmission screening and there are: no changes PROGNOSIS: Fair REHABILITATION GOALS: 1.PT OT will focus on regaining core strength and work on fall risk prevention and use of assistive devices and ST will focus on regaining cognition All the above goals were reviewed with the patient and he/she is in agreement. By signing this document, I acknowledge that I have personally performed a full physical examination on this patient within 24 hours of admission to this inpatient rehabilitation facility and have determined the patient to be able to tolerate the above course of treatment at an intensive level for a reasonable period of time. I will be completing a detailed individualized Plan of Care for this patient by day #4 of the patients stay based upon the Preadmission Screen, the Post-Admission Evaluation, and the therapy evaluations. Admission Dx/Comorbidities: (1) SAH (subarachnoid hemorrhage) ICD Codes: I60.9 - Nontraumatic subarachnoid hemorrhage, unspecified (2) CAD (coronary artery disease) Status: Acute ICD Codes: I25.10 - Atherosclerotic heart disease of [place] coronary artery without angina pectoris (3) Stage 3b chronic kidney disease Status: Chronic ICD Codes: N18.32 - Chronic kidney disease, stage 3b (4) HTN (hypertension) Status: Acute ICD Codes: I10 - Essential (primary) hypertension (5) T2DM (type 2 diabetes mellitus) Status: Chronic ICD Codes: E11.9 - Type 2 diabetes mellitus without complications (6) HLD (hyperlipidemia) Status: Chronic ICD Codes: E78.5 - Hyperlipidemia, unspecified (7) Obesity Status: Chronic ICD Codes: E66.9 - Obesity, unspecified (8) GERD (gastroesophageal reflux disease) Status: Chronic ICD Codes: K21.9 - Gastro-esophageal reflux disease without esophagitis Assessment/Plan Assessment and Plan Assess & Plan/Chief Complaint Assessment: SAH Recent NSTEMI 08/18/21 CAD CKD3 DM2 HTN HLD GERD Hiatal hernia RODY Prostate cancer Plan: Rehab protocol Monitor BP RAOUL AVITIA DO Sep 23, 2021 19:49
[2021-09-23 20:38] VITALS: BP 176/78
[2021-09-23] MEDS: glipiZIDE XL 10 MG (GLUCOTROL XL) TAB PO SCH (20:50)
[2021-09-23] MEDS: polyethylene glycoL POWDER 17 GM (MIRALAX) PACK PO SCH (20:50)
[2021-09-23] MEDS: CLOPIDOGREL 75 MG (PLAVIX) TABLET PO SCH (20:51)
[2021-09-23] MEDS: diphenhydrAMINE 25 MG TAB (BENADRYL) PO SCH (20:51)
[2021-09-23] MEDS: ASPIRIN E.C. 81 MG (ECOTRIN) TAB PO SCH (20:51)
[2021-09-23] MEDS: busPIRone 10 MG (BUSPAR) TAB PO SCH (20:51)
[2021-09-23] MEDS: IMIPRAMINE 10 MG PO SCH (20:51)
[2021-09-23] MEDS: SENNA W/DOCUSATE (SENOKOT S) TABLET PO SCH (20:51)
[2021-09-23] MEDS: DOCUSATE SODIUM 100 MG (COLACE) CAP PO SCH ×2 (20:51→21:03)
[2021-09-23] MEDS: SERTRALINE 100 MG (ZOLOFT) TAB PO SCH (20:51)
[2021-09-23] MEDS: inSUlin ASPART (NovoLOG) 1 UNIT/0.01 ML (CHARGE PER UNIT) SC SCH (20:52)
[2021-09-24] MEDS: ACETAMINOPHEN 325 MG TABLET PO PRN ×3 (02:44→20:20)
--- NOTE | 2021-09-24 05:49 | PM&R Progress Note ---
Subjective HPI/CC On Admission Date Seen by Provider: Sep 24, 2021 Time Seen by Provider: 10:00 Subjective/Events-last exam 09/24/2021: Patient doing very well Confused at night Check meds labs Patient sleeping currently No pain is reported except for headache last night which is expected with the intracranial processes Review of Systems General: Fatigue, Malaise Neurological: Confusion Objective Exam Vital Signs Vital Signs Date Time Temp Pulse Resp B/P (MAP) Pulse Ox O2 Delivery O2 Flow Rate FiO2 09/24/21 20:46 Room Air 09/24/21 20:00 37.6 88 20 112/56 (74) 91 Capillary Refill : General Appearance: No Apparent Distress, WD/WN, Chronically ill HEENT: PERRL/EOMI, Normal ENT Inspection, Pharynx Normal Neck: Full Range of Motion, Normal Inspection, Non Tender, Supple, Carotid Bruit Respiratory: Chest Non Tender, Lungs Clear, Normal Breath Sounds, No Accessory Muscle Use, No Respiratory Distress Cardiovascular: Regular Rate, Rhythm, No Edema, No Gallop, No JVD, No Murmur, Normal Peripheral Pulses Gastrointestinal: Normal Bowel Sounds, No Organomegaly, No Pulsatile Mass, Non Tender, Soft Back: Normal Inspection, No CVA Tenderness, No Vertebral Tenderness Extremity: Normal Capillary Refill, Normal Inspection, Normal Range of Motion, Non Tender, No Calf Tenderness, No Pedal Edema Neurologic/Psychiatric: Alert, No Motor/Sensory Deficits, Normal 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 FIM Transfers Therapy Code Descriptions/Definitions Functional [place] Measure: 0=Not Assessed/NA 4=Minimal Assistance 1=Total Assistance 5=Supervision or Setup 2=Maximal Assistance 6=Modified [place] 3=Moderate Assistance 7=Complete IndependenceSCALE: Activities may be completed with or without assistive devices. 1-Chcgkyuwih-elfdjwf completes the activity by him/herself with no assistance from a helper. 5-Set-up or Clean-up Assistance-helper sets up or cleans up; patient completes activity. [place] assists only prior to or following the activity. 4-Supervision or Touching Assistance-helper provides verbal cues and/or touching/steadying and/or contact guard assistance as patient completes activity. Assistance may be provided throughout the activity or intermittently. 3-Partial/Moderate Assistance-helper does LESS THAN HALF the effort. [place] lifts, holds or supports trunk or limbs, but provides less than half the effort. 2-Substantial/Maximal Assistance-helper does MORE THAN HALF the effort. [place] lifts or holds trunk or limbs and provides more than half the effort. 5-Pejyxpucl-wfxamu does ALL the effort. Patient does none of the effort to complete the activity. Or, the assistance of 2 or more helpers is required for the patient to complete the activity. If activity was not attempted, code reason: 7-Patient Refused. 9-Not Applicable-not attempted and the patient did not perform the activity before the current illness, exacerbation or injury. 10-Not Attempted due to Environmental Limitations-(lack of equipment, weather restraints, etc.). 88-Not Attempted due to Medical Conditions or Safety Concerns. Roll Left to Right (QC): 6 Sit to Lying (QC): 4 Sit to Stand (QC): 3 Chair/Qhb-hl-Lqxtw Xfer(QC): 4 Car Transfer (QC): 3 Gait Training Does the Patient Walk?: Yes Walk 10 feet (QC): 4 Walk 50 ft with 2 Turns(QC): 4 Walk 150 ft (QC): 88 Walking 10ft/uneven surface-QC: 4 Gait Assistive Device: FWW Wheelchair Training Does the Pt Use a Wheelchair?: Yes Distance: 300', 120' Wheel 50 ft with 2 turns (QC): 3 Wheel 150 ft (QC): 3 Type of Wheelchair: Manual Stair Training #of Steps: 1 1 Step (curb) (QC): 3 4 Steps (QC): 88 12 Steps (QC): 88 Balance Picking up an Object (QC): 3 ADL-Treatment Eating (QC): 4 Oral Hygiene (QC): 3 Shower/Bathe Self (QC): 3 Upper Body Dressing (QC): 3 Lower Body Dressing (QC): 3 On/Off Footwear (QC): 2 Toileting Hygiene (QC): 3 Assessment/Plan Assessment and Plan Assess & Plan/Chief Complaint Assessment: SAH Recent NSTEMI 08/18/21 CAD CKD3 DM2 HTN HLD GERD Hiatal hernia RODY Prostate cancer Confusion Hypokalemia Leukocytosis Plan: Rehab protocol Monitor BP 09/24/2021: Supportive care Potassium supplement (1) SAH (subarachnoid hemorrhage) (2) CAD (coronary artery disease) Status: Acute (3) Stage 3b chronic kidney disease Status: Chronic (4) HTN (hypertension) Status: Acute (5) T2DM (type 2 diabetes mellitus) Status: Chronic (6) HLD (hyperlipidemia) Status: Chronic (7) Obesity Status: Chronic (8) GERD (gastroesophageal reflux disease) Status: Chronic RAOUL AVITIA DO Sep 24, 2021 05:49
--- NOTE | 2021-09-24 05:49 | Individualized Plan of Care ---
Individualized Plan of Care Rehab Nursing IPOC Order Admission Date Sep 23, 2021 at 13:15 Current Orders Orders Admission Order(Inpt,Obs,Sdc) (09/23/21 10:41) Vital Signs: Per Unit Policy ( 08,16,00 (09/23/21 10:41) Louie Cody (09/23/21 10:41) Sequential Compression Device (09/23/21 10:41) Travel Coordinator-Inpt Rehab Con (09/23/21 10:41) Rehab Nursing Orders-Ipoc (09/23/21 10:41) Physical Therapy Rehab Orders (09/23/21 10:41) Occupational Therapy Rehab Ord (09/23/21 10:41) Speech Therapy Rehab Orders (09/23/21 10:41) Cbc With Automated Diff (09/24/21 06:00) Comprehensive Metabolic Panel (09/24/21 06:00) Precautions (Aru) (09/23/21 10:41) Weekly Weight WEEK (09/23/21 10:41) Rehab-Intensity Of Therapy (09/23/21 10:41) Alprazolam Tablet (Xanax Tablet) (09/23/21 10:45) Calcium Carbonate Chew Tablet (Antacid C (09/23/21 10:45) Diphenhydramine Tablet (Benadryl Tablet) (09/23/21 10:45) Docusate Sodium Capsule (Colace Capsule) (09/23/21 21:00) Docusate Sodium Capsule (Colace Capsule) (09/23/21 10:45) Bisacodyl Suppository (Dulcolax Supposit (09/23/21 10:45) Lactulose Oral Solution (Enulose Oral So (09/23/21 10:45) Na Phos/Na Biphos Enema (Fleet Enema Andrea (09/23/21 10:45) Guaifenesin/Codeine Syrup (Robitussin Ac (09/23/21 10:45) Loperamide Tablet (Imodium Tablet) (09/23/21 10:45) Melatonin Tablet (Melatonin Tablet) (09/23/21 10:45) Polyethylene Glycol Powder Pkt (Miralax (09/23/21 21:00) Ondansetron Oral Dissolve Tab (Zofran (09/23/21 10:45) Senna S Tablet (Senokot S Tablet) (09/23/21 21:00) Acetaminophen Tablet/Caplet (Tylenol T (09/23/21 10:45) Code/Resuscitation (09/23/21 10:41) Sequential Compression Device ONCE (09/23/21 10:41) Initiate Admission Nursing Pro .admission (09/23/21 10:41) Transfer - Bed/Room/Location (09/23/21 13:15) Cho 60g/M 1snack (16-2000 Ramesh) (09/23/21 Lunch) Patient Visit (09/23/21 ) Pt Eval Moderate Complexity (09/23/21 ) Exercise Therap, Ea 15 Min (09/23/21 ) Functional Activities, Ea 15 (09/23/21 ) Accucheck Achs ACHS (09/23/21 15:36) Amlodipine Tablet (Norvasc Tablet) (09/24/21 09:00) Aspirin Enteric Coated Tablet (Ecotrin T (09/23/21 21:00) Atorvastatin Tablet (Lipitor Tablet) (09/23/21 21:00) Buspirone Tablet (Buspar Tablet) (09/23/21 21:00) Clopidogrel Tablet (Plavix Tablet) (09/23/21 21:00) Diphenhydramine Tablet (Benadryl Tablet) (09/23/21 21:00) Docusate Sodium Capsule (Colace Capsule) (09/23/21 21:00) Ergocalciferol Capsule (Vitamin D2 Capsu (09/23/21 16:30) Fluticasone Nasal [place] (Flonase Nasal S (09/23/21 16:30) Glipizide Xl Tablet (Glucotrol Xl Tablet (09/23/21 21:00) Imipramine Tablet (Tofranil Tablet) (09/23/21 21:00) Levetiracetam Tablet (Keppra Tablet) (09/23/21 21:00) Metoprolol Succinate (Xl) Tab (Toprol Xl (09/24/21 09:00) Sertraline Tablet (Zoloft Tablet) (09/23/21 21:00) Acetaminophen Tablet/Caplet (Tylenol T (09/23/21 17:00) Carboxymethylcell Ophth Soln (Refresh Pl (09/23/21 18:00) Insulin Determir (Per Unit) (Levemir (Pe (09/23/21 21:00) Isosorbide Mononitrate Tablet (Imdur Tab (09/24/21 09:00) Pantoprazole Tablet (Protonix Tablet) (09/24/21 09:00) Therapeutic Multivitamin Tab (Vitamins, (09/24/21 09:00) Pioglitazone Tablet (Actos Tablet) (09/24/21 09:00) Cho 75g/M 1snack (21-2400 Ramesh) (09/23/21 Dinner) Insulin Aspart (Novolog) (Novolog (Charg (09/23/21 21:00) Follow-Up Appointment (09/23/21 16:01) Follow-Up Appointment (09/23/21 16:01) Vte Contraindication (09/23/21 20:06) Ranolazine Er Tablet (Ranexa Er Tablet) (09/24/21 09:00) Patient Visit (09/24/21 ) Exercise Therap, Ea 15 Min (09/24/21 ) Gait Training, Ea 15 Min (09/24/21 ) Patient Visit (09/24/21 ) Exercise Therap, Ea 15 Min (09/24/21 ) Functional Activities, Ea 15 (09/24/21 ) Ensure Plus [place] (09/24/21 14:40) Ensure Plus Butter Pecan (09/24/21 14:40) Ensure Plus Vanilla (09/24/21 14:40) Potassium Chloride (Tablet) (Klor Con Ta (09/25/21 07:00) Rehab Nursing Orders: Ongoing Assess. of Cognitive Status, Ongoing Assess. of Function Status, Bladder Management, Bladder Scan, Bladder Training, Bowel Management, Bowel Training, Disease Management & Educaiton, DVT Prophylaxis, Fall Prevention, Fluid/Electrolyte/Nutrition Mgmt, Infection Prevention, Medication Management & Education, Management of Risks & Complications, Management of Skin Intergrity, Nutrition Management, Pain Management, Patient/Family Support, Wound Management Intensity of Therapy to be met Patient to be seen: Min.3h per day/5 of 7d PT IPOC Problem List: Activity Tolerance, Functional Strength, Safety, Balance, Gait, Transfer, Bed Mobility, ROM Treatment Plan: Continue Plan of Care Bed Mobility, Education, Functional Activity Varun, Functional Strength, Group Therapy, Gait, Safety, Therapeutic Exercise, Transfers Treatment Duration: Oct 14, 2021 Frequency: At least 5 of 7 days/Wk (IRF) Estimated Hrs Per Day: 1.5 hours per day OT IPOC Problems: Decreased Activ Tolerance, Decreased Safety Aware, Decreased UE Strength, Impaired Cognition, Impaired Funct Balance, Impaired I ADL's, Impaired Self-Care Skills OT Treatment, Training and Edu: Yes Plan of Care: ADL Retraining, Functional Mobility, UE Funct Exercise/Act, UE Neuromus Re-Ed/Coord, W/C Management Training Treatment Duration: Oct 08, 2021 Frequency: At least 5 of 7 days/Wk (IRF) Estimated Hrs Per Day: 1.[address] IPOC Speech Therapy Treatment Plan: Continue Plan of Care Treatment Duration: Sep 24, 2021 Frequency: 3 times per week Estimated Hrs Per Day: .5 hour per day Travel Coordinator/Case Mgmt Travel Coordinator/Case Managemen: Discharge Planning Dietitian/Chemical Laboratory Chief Dietitian/Chemical Laboratory Chief to monitor nutritional status and make changes and/or recommendations as needed and work with speech pathology on dietary upgrades as the occur. Physician IPOC Medical Issues being managed closely and that require the 24 hour availability of a physician: Recent intracranial bleed with subsequent confusion and impulsiveness for close monitoring of blood pressure and management of residual headache and monitor for decompensation Medical Issues: Bowel/Bladder Function, DVT Prophylaxis, Falls Precautions, Fluid/Electrolyte/Nutrition Balance, Infection Protection, Pain Management Brief Synthesis of Preadmission Screen, Post-Admission Evaluation, and Therapy Evaluations: PT and OT will focus on regaining function with ambulatory devices and work on impulsivity and ST for cognitive cognitive processes in order to return back to baseline Medical Prognosis: Guarded Anticipated Length of Stay: 14 days RAOUL AVITIA DO Sep 24, 2021 05:49
[2021-09-24] MEDS: inSUlin ASPART (NovoLOG) 1 UNIT/0.01 ML (CHARGE PER UNIT) SC SCH ×4 (06:30→20:29)
[2021-09-24 06:48] LABS: BASOPHILS # (AUTO) 0.1 10^3/uL (0.0-0.1); BASOPHILS % (AUTO) 0 % (0-10); EOSINOPHILS # (AUTO) 0.1 10^3/uL (0.0-0.3); EOSINOPHILS % (AUTO) 1 % (0-10); HEMATOCRIT 47 % (40-54); HEMOGLOBIN 16.8 g/dL (13.3-17.7); LYMPHOCYTES # (AUTO) 1.4 10^3/uL (1.0-4.0); LYMPHOCYTES % (AUTO) 11 % (12-44); MEAN CORPUSCULAR HEMOGLOBIN 32 pg (25-34); MEAN CORPUSCULAR HGB CONC 35 g/dL (32-36); MEAN CORPUSCULAR VOLUME 91 fL (80-99); MEAN PLATELET VOLUME 10.3 fL (9.0-12.2); MONOCYTES # (AUTO) 1.5 10^3/uL (0.0-1.0); MONOCYTES % (AUTO) 12 % (0-12); NEUTROPHILS # (AUTO) 9.3 10^3/uL (1.8-7.8); NEUTROPHILS % (AUTO) 74 % (42-75); PLATELET COUNT 214 10^3/uL (130-400); WHITE BLOOD COUNT 12.7 10^3/uL (4.3-11.0)
[2021-09-24 07:09] LABS: ALBUMIN 3.7 GM/DL (3.2-4.5); BILIRUBIN,TOTAL 1.3 MG/DL (0.1-1.0); CALCIUM 9.6 MG/DL (8.5-10.1); CREATININE SERUM 1.15 MG/DL (0.60-1.30); POTASSIUM 3.3 MMOL/L (3.6-5.0); TOTAL PROTEIN 6.8 GM/DL (6.4-8.2)
[2021-09-24] MEDS: polyethylene glycoL POWDER 17 GM (MIRALAX) PACK PO SCH ×2 (07:20→20:16)
[2021-09-24] MEDS: SENNA W/DOCUSATE (SENOKOT S) TABLET PO SCH ×2 (07:20→20:17)
[2021-09-24] MEDS: glipiZIDE XL 10 MG (GLUCOTROL XL) TAB PO SCH ×2 (07:20→20:17)
[2021-09-24] MEDS: PIOGLITAZONE 30MG (ACTOS) TAB PO SCH (07:20)
[2021-09-24] MEDS: MULTIVIT W/MINERALS TAB (THERAGRAN M) PO SCH (07:21)
[2021-09-24] MEDS: amLODIPine 10 MG (NORVASC) TAB PO SCH (07:21)
[2021-09-24] MEDS: PANTOPRAZOLE 20 MG TABLET (PROTONIX) PO SCH (07:21)
[2021-09-24] MEDS: DOCUSATE SODIUM 100 MG (COLACE) CAP PO SCH ×4 (07:21→20:20)
[2021-09-24] MEDS: meTOprolol SUCCINATE 100 MG (TOPROL XL) TAB PO SCH (07:21)
[2021-09-24 07:26] VITALS: BP 174/84
[2021-09-24] MEDS: RANOLAZINE ER 500 MG TAB (RANEXA) PO SCH ×2 (07:26→20:19)
[2021-09-24] MEDS: ISOSORBIDE MONONITRATE 60 MG (IMDUR) TAB PO SCH (07:29)
[2021-09-24 08:30] VITALS: BP 125/68
--- NOTE | 2021-09-24 09:21 | Occupational Ther Daily Note ---
OT Current Status-Daily Note Subjective Continues to report pressure/pain in ears and head. Appearance Left sitting in recliner, all needs within reach, alarm set. Mental Status/Objective Patient Orientation: Person, Confused ADL-Treatment Therapy Code Descriptions/Definitions Functional Long Measure: 0=Not Assessed/NA 4=Minimal Assistance 1=Total Assistance 5=Supervision or Setup 2=Maximal Assistance 6=Modified Long 3=Moderate Assistance 7=Complete IndependenceSCALE: Activities may be completed with or without assistive devices. 9-Nabootcfem-jkwdlti completes the activity by him/herself with no assistance from a helper. 5-Set-up or Clean-up Assistance-helper sets up or cleans up; patient completes activity. [place] assists only prior to or following the activity. 4-Supervision or Touching Assistance-helper provides verbal cues and/or touching/steadying and/or contact guard assistance as patient completes activity. Assistance may be provided throughout the activity or intermittently. 3-Partial/Moderate Assistance-helper does LESS THAN HALF the effort. [place] lifts, holds or supports trunk or limbs, but provides less than half the effort. 2-Substantial/Maximal Assistance-helper does MORE THAN HALF the effort. [place] lifts or holds trunk or limbs and provides more than half the effort. 2-Dboyuilxj-lvzrje does ALL the effort. Patient does none of the effort to complete the activity. Or, the assistance of 2 or more helpers is required for the patient to complete the activity. If activity was not attempted, code reason: 7-Patient Refused. 9-Not Applicable-not attempted and the patient did not perform the activity before the current illness, exacerbation or injury. 10-Not Attempted due to Environmental Limitations-(lack of equipment, weather restraints, etc.). 88-Not Attempted due to Medical Conditions or Safety Concerns. Oral Hygiene (QC): 4 Shower/Bathe Self (QC): 3 Upper Body Dressing (QC): 3 Lower Body Dressing (QC): 3 On/Off Footwear: 3 Toileting Hygiene (QC): 3 Toilet Transfer (QC): 3 Pt sitting in recliner at therapy arrival. Continues to exhibit poor word finding abilities and topic maintenance. Significant time to complete all adls secondary to being easily distracted and needing several cues to redirect back to task. Partial sponge bath performed seated in chair. Several cues to initiate task and which body part to wash. With supported sitting in chair, no losses of balance this date. Poor ability to correctly identify orientation of clothing, needing mod cues for problem solving. Pt often will stop 1/2 [address] through task and need cues to continue. Assist needed to thread RUE through shirt sleeve as he continued to thread through incorrect opening. He was able to thread BUE's through long sleeve shirt without difficulty but did require cue to initiate. Cues also needed to initiate last step of pulling down around torso. He sat to thread BLE's into pants, no assist required. CGA-min a for balance as he stood to pull clothing up to waist. 2 Mild losses of balance needing min a to recover. He was able to utilize cross over method to don/doff socks/shoes but needed min- mod a for socks secondary to tight fit. Pt will often ask for assist before attempting and needs cues to try first. Pt fatigues easily with minimal activity and often requests breaks. He ambulated to/from bathroom with min A and use of walker. Poor walker safety, cues needed. He stood to brush teeth and wash hands/face with CGA. Education OT Patient Education: Correct positioning, Energy conservation, Modified ADL techniques, Progress toward Goal/Update tx plan, Purpose of tx/functional activities, Rehab process, Safety issues, Transfer techniques, W/C management Teaching Recipient: Patient Teaching Methods: Demonstration, Discussion Response to Teaching: Unable to Return Demonstration, Unable to Comprehend, Reinforcement Needed OT Short Term Goals Short Term Goals Time Frame: Oct 01, 2021 Eatin Oral hygiene: 4 Toileting hygiene: 4 Shower/bathe self: 4 Upper body dressin Lower body dressin Putting on/taking off footwear: 3 OT Boiler Shop Supervisor Goals Boiler Shop Supervisor Goals Time Frame: Oct 08, 2021 Eating (QC): 6 Oral Hygiene (QC): 6 Toileting Hygiene (QC): 5 Shower/Bathe Self (QC): 5 Upper Body Dressing (QC): 5 Lower Body Dressing (QC): 5 On/Off Footwear (QC): 5 1=Demonstrate adherence to instructed precautions during ADL tasks. 2=Patient will verbalize/demonstrate understanding of assistive devices/modifications for ADL. 3=Patient will improve strength/tolerance for activity to enable patient to perform ADL's. OT Education/Plan Problem List/Assessment Assessment: Decreased Activ Tolerance, Decreased Safety Aware, Decreased UE Strength, Impaired Cognition, Impaired Funct Balance, Impaired I ADL's, Impaired Self-Care Skills Discharge Recommendations Plan/Recommendations: Continue POC Treatment Plan/Plan of Care Treatment,Training & Education: Yes Patient would benefit from OT for education, treatment and training to promote independence in ADL's, mobility, safety and/or upper extremity function for ADL's. Plan of Care: ADL Retraining, Functional Mobility, UE Funct Exercise/Act, UE Neuromus Re-Ed/Coord, W/C Management Training Treatment Duration: Oct 08, 2021 Frequency: At least 5 of 7 days/Wk (IRF) Estimated Hrs Per Day: 1.5 hours per day Agreement: Yes Rehab Potential: Fair Time/GCodes Start Time: 07:45 Stop Time: 09:15 Total Time Billed (hr/min): 90 Billed Treatment Time 1 visit ADL x6 Gabrielle Joyner OT Sep 24, 2021 09:21
--- NOTE | 2021-09-24 09:28 | IRF PAI BIMS ---
BIMS BIMS IRF OTF BIMS: IRF OTF BIMS Response (Comments) Value Expression of Ideas and Wants (Verbal/Non Verbal) Frequently 1 Understanding Verbal Content Sometimes Understands 1 Should Brief Interview for Mental Status be Conducted Yes Repitition of Three Words None 0 What year is it right now? Missed Year 0 What month is it right now? Accurate within 5 days 0 What week is it now? Incorrect or N/A 0 Recalls Socks No, Could Not Recall 0 Recalls Blue No, Could Not Recall 0 Recalls Bed No, Could Not Recall 0 Total 2 Brief Interview/Mental Status: No Notes: Score of 4 Gabrielle Joyner OT Sep 24, 2021 09:28
[2021-09-24] MEDS: ONDANSETRON 4 MG (ZOFRAN) ORAL DISSOLVE TAB PO PRN (09:34)
--- NOTE | 2021-09-24 11:39 | Physical Therapy Daily Note ---
PT Daily Note-Current Subjective Pt asleep in bed upon arrival but awakens and agrees to PT. Reports he is tired and has headache at end of treatment. Pain Numeric Pain Scale: 6 Location Body Site: Head Pain Description: Ache Mental Status Patient Orientation: Person, Confused Transfers SCALE: Activities may be completed with or without assistive devices. 6-Hugwrmvryq-qybjkdu completes the activity by him/herself with no assistance from a helper. 5-Set-up or Clean-up Assistance-helper sets up or cleans up; patient completes activity. [place] assists only prior to or following the activity. 4-Supervision or Touching Assistance-helper provides verbal cues and/or touching/steadying and/or contact guard assistance as patient completes activity. Assistance may be provided throughout the activity or intermittently. 3-Partial/Moderate Assistance-helper does LESS THAN HALF the effort. [place] lifts, holds or supports trunk or limbs, but provides less than half the effort. 2-Substantial/Maximal Assistance-helper does MORE THAN HALF the effort. [place] lifts or holds trunk or limbs and provides more than half the effort. 2-Wfsrigskg-kzscnw does ALL the effort. Patient does none of the effort to complete the activity. Or, the assistance of 2 or more helpers is required for the patient to complete the activity. If activity was not attempted, code reason: 7-Patient Refused. 9-Not Applicable-not attempted and the patient did not perform the activity before the current illness, exacerbation or injury. 10-Not Attempted due to Environmental Limitations-(lack of equipment, weather restraints, etc.). 88-Not Attempted due to Medical Conditions or Safety Concerns. Roll Left & Right (QC): 4 Sit to Lying (QC): 3 Lying to Sitting/Side of Bed(Q: 3 Sit to Stand (QC): 4 Gait Training Does the Patient Walk?: Yes Distance: 100' x 1, 60' x 1, 40' x 1 Walk 10 feet (QC): 4 Walk 50 ft with 2 Turns(QC): 3 Gait Persons Needed: 1 Gait Assistive Device: FWW Very slow need recurrent cues in order to stay within FWW. Exercises Supine Ex: Bridging, Ankle pumps, Heel Slides, Scooting, Hip abd/add Supine Reps: 15 Seated Therapy Exercises: Ankle pumps, Long arc quads Seated Reps: 15 Standing: Heel/toe raises, 3 way Ex=Flex, Abd, Ext, Sit to Stand, Side steps Standing Reps: 10 NuStep Minutes: 10 NuStep Workload: 3 Treatments Pt performs lying to sitting w/ [place]/modA from FLIGHT ATTENDANT RAMP. Pt then requires maxA in order to put on shoes. Pt performs sit to stand TF w/ CGA/SBA and amb 100' to therapy gym and TFs to nustep. Pt requires approx. 2 min rest break after 7 min on nustep but then able to go another 3 min before getting off nustep. Pt then stands and amb to // bars and performs standing exs but requires rest breaks between each different ex. Following standing exs pts amb 40' before needing to sit down for rest break. Pt then amb back to room and TFs back to EOB. Pt then performs seated exs at EOB and then TFs to bed and performs supine exs. Pt in bed upon PT departure w/ all needs met guard rails up and family present. Assessment Current Status: Good Progress Pt requires recurrent cues in order to stay on task and to stay within FWW during amb. When going to sit down pt requires cues to pull FWW back w/ him until he sits all the way down. PT Short Term Goals Short Term Goals Time Frame: Sep 30, 2021 Roll Left & Right: 6 Sit to lyin Lying to sitting on side of be: 4 Sit to stand: 4 Chair/edu-ow-cxlhc transfer: 4 Walk 10 feet: 4 Walk 50 feet with two turns: 4 Walk 150 feet: 4 PT Fiberglass Bonding Machine Tender Goals [facility] Goals PT [facility] Goals Time Frame: Oct 14, 2021 Roll Left & Right (QC): 6 Sit to Lying (QC): 6 Lying-Sitting on Side/Bed(QC): 6 Sit to Stand (QC): 5 Chair/Eig-yu-Jfznd Xfer(QC): 5 Toilet Transfer (QC): 5 Car Transfer (QC): 5 Does the Patient Walk: Yes Walk 10 feet (QC): 5 Walk 50ft with 2 Turns (QC): 5 Walk 150 ft (QC): 5 Walking 10ft on Uneven Surface: 5 1 Step (curb) (QC): 4 4 Steps (QC): 4 12 Steps (QC): 88 Picking up an Object (QC): 4 Wheel 50 feet with 2 turns (QC: 6 Wheel 150 feet: 6 PT Plan Problem List Problem List: Activity Tolerance, Functional Strength, Safety, Transfer Treatment/Plan Treatment Plan: Continue Plan of Care Treatment Plan: Bed Mobility, Education, Functional Activity Varun, Functional Strength, Group Therapy, Gait, Safety, Therapeutic Exercise, Transfers Treatment Duration: Oct 14, 2021 Frequency: At least 5 of 7 days/Wk (IRF) Estimated Hrs Per Day: 1.5 hours per day Patient and/or Family Agrees t: Yes Safety Risks/Education Patient Education: Gait Training, Transfer Techniques, Correct Positioning Teaching Recipient: Patient Teaching Methods: Discussion Response to Teaching: Return Demonstration, Reinforcement Needed Time/GCodes Time In: 1030 Time Out: 1130 Total Billed Treatment Time: 60 Total Billed Treatment 1, EX x 3 (45 min), GT x 1 (15 min) MARY ANNE NETTLES PTA Sep 24, 2021 11:39
--- NOTE | 2021-09-24 14:27 | Physical Therapy Daily Note ---
PT Daily Note-Current Subjective Pt. agrees to Rx but is difficult to keep him on task and understanding goal of task. Likes to talk Pain Numeric Pain Scale: 5-Moderate Pain Location: Right, Medial Location Body Site: Head Pain Description: Ache Mental Status Patient Orientation: Person Transfers SCALE: Activities may be completed with or without assistive devices. 8-Sjgguppeav-ayhmsxl completes the activity by him/herself with no assistance from a helper. 5-Set-up or Clean-up Assistance-helper sets up or cleans up; patient completes activity. [place] assists only prior to or following the activity. 4-Supervision or Touching Assistance-helper provides verbal cues and/or touching/steadying and/or contact guard assistance as patient completes activity. Assistance may be provided throughout the activity or intermittently. 3-Partial/Moderate Assistance-helper does LESS THAN HALF the effort. [place] lifts, holds or supports trunk or limbs, but provides less than half the effort. 2-Substantial/Maximal Assistance-helper does MORE THAN HALF the effort. [place] lifts or holds trunk or limbs and provides more than half the effort. 2-Geinslgyt-mfaoou does ALL the effort. Patient does none of the effort to complete the activity. Or, the assistance of 2 or more helpers is required for the patient to complete the activity. If activity was not attempted, code reason: 7-Patient Refused. 9-Not Applicable-not attempted and the patient did not perform the activity before the current illness, exacerbation or injury. 10-Not Attempted due to Environmental Limitations-(lack of equipment, weather restraints, etc.). 88-Not Attempted due to Medical Conditions or Safety Concerns. rolling left to right mod I, scooting up in bed mod I, sup to side to sit to side to sup SBA. with rolling left and right pt. c/o dizziness that dissipated within 20 sec or less Gait Training pt. stood at bedside and scooted to left and right and then to head of bed CGA Exercises Supine Ex: Bridging, Ankle pumps, Quad Set, Rolling, Glut sets, Lower trunk rotation, Heel Slides, Short Arc Quads, Scooting, Straight leg raise, Hip abd/add Supine Reps: 20 Seated Therapy Exercises: Sit to stand Seated Reps: 3 Assessment Current Status: Good Progress PT Short Term Goals Short Term Goals Time Frame: Sep 30, 2021 Roll Left & Right: 6 Sit to lyin Lying to sitting on side of be: 4 Sit to stand: 4 Chair/jos-iu-ccezn transfer: 4 Walk 10 feet: 4 Walk 50 feet with two turns: 4 Walk 150 feet: 4 PT Documentation Clerk Goals Assisted Goals PT Documentation Clerk Goals Time Frame: Oct 14, 2021 Roll Left & Right (QC): 6 Sit to Lying (QC): 6 Lying-Sitting on Side/Bed(QC): 6 Sit to Stand (QC): 5 Chair/Zrh-zc-Lccjw Xfer(QC): 5 Toilet Transfer (QC): 5 Car Transfer (QC): 5 Does the Patient Walk: Yes Walk 10 feet (QC): 5 Walk 50ft with 2 Turns (QC): 5 Walk 150 ft (QC): 5 Walking 10ft on Uneven Surface: 5 1 Step (curb) (QC): 4 4 Steps (QC): 4 12 Steps (QC): 88 Picking up an Object (QC): 4 Wheel 50 feet with 2 turns (QC: 6 Wheel 150 feet: 6 PT Plan Treatment/Plan Treatment Plan: Continue Plan of Care Treatment Plan: Bed Mobility, Education, Functional Activity Varun, Functional Strength, Group Therapy, Gait, Safety, Therapeutic Exercise, Transfers Treatment Duration: Oct 14, 2021 Frequency: At least 5 of 7 days/Wk (IRF) Estimated Hrs Per Day: 1.5 hours per day Patient and/or Family Agrees t: Yes Safety Risks/Education Patient Education: Transfer Techniques, Correct Positioning, Safety Issues Response to Teaching: Reinforcement Needed Time/GCodes Time In: 1345 Time Out: 1415 Total Billed Treatment Time: 30 Total Billed Treatment 1,FA15m,EX15m ROLY TO PASSENGER SERVICE SUPERVISOR Sep 24, 2021 14:27
[2021-09-24 20:00] VITALS: BP 112/56
[2021-09-24] MEDS: busPIRone 10 MG (BUSPAR) TAB PO SCH (20:16)
[2021-09-24] MEDS: ASPIRIN E.C. 81 MG (ECOTRIN) TAB PO SCH (20:17)
[2021-09-24] MEDS: IMIPRAMINE 10 MG PO SCH (20:17)
[2021-09-24] MEDS: diphenhydrAMINE 25 MG TAB (BENADRYL) PO SCH (20:18)
[2021-09-24] MEDS: CLOPIDOGREL 75 MG (PLAVIX) TABLET PO SCH (20:19)
[2021-09-24] MEDS: SERTRALINE 100 MG (ZOLOFT) TAB PO SCH (20:19)
--- NOTE | 2021-09-25 06:06 | PM&R Progress Note ---
Subjective HPI/CC On Admission Date Seen by Provider: Sep 25, 2021 Time Seen by Provider: 12:15 Subjective/Events-last exam 09/25/21: Patient was in good spirits today Complaining of headache in evening Eating lunch today Starting having headache in afternoon so I ordered Hydrocodone 1/2 pill to prevent delirium and worsened hallucinations he was having last night when nurse contacted me at 1700. Noted he had received 2 doses of Plavix and ASA on 09/23 and 09/24 which I held and reviewed [facility] records and the DC summary had no recommendations on when we could start anti-platelet agents back again so will hold until I clarify this with NSG. CT reports were stable they obtained in serial fashion at [facility]. RN contacted me with worsened headache pain severe in type at 1850 so placed order for stat CT scan and sent pic of CT scan report from 09/18/21 in order to compare with current stat CT since he does have both SAH and subdural hematoma. Vomiting in CT scan prompted Zofran IV 8mg IV x 1 and he did receive 1/2 tablet of Lortab prior to worsened OCAMPO. VSS remains stable. Dilaudid 0.25mg IV ordered. Will give partial dose 0.125mg to be sure he is able to handle the pain meds without side effects and may give the 2nd half if needed. Patient back on the unit and vitals remain stable and he was not complaining of headache pain and was joking around a bit. Spoke to radiologist and he stated the SAH was almost gone after I updated him on the previous report from 09/18/21 and SDH was same size. Checked on patient again at 2100 and patient denies any pain and no more nausea 09/24/2021: Patient doing very well Confused at night Check meds labs Patient sleeping currently No pain is reported except for headache last night which is expected with the intracranial processes Review of Systems General: Fatigue, Malaise Neurological: Confusion, Other (Headache) Objective Exam Vital Signs Vital Signs Date Time Temp Pulse Resp B/P (MAP) Pulse Ox O2 Delivery O2 Flow Rate FiO2 09/26/21 01:00 36.4 72 20 106/52 (70) 94 Nasal Cannula 2.00 Capillary Refill : General Appearance: No Apparent Distress, WD/WN, Chronically ill HEENT: PERRL/EOMI, Normal ENT Inspection, Pharynx Normal Neck: Full Range of Motion, Normal Inspection, Non Tender, Supple, Carotid Bruit Respiratory: Chest Non Tender, Lungs Clear, Normal Breath Sounds, No Accessory Muscle Use, No Respiratory Distress Cardiovascular: Regular Rate, Rhythm, No Edema, No Gallop, No JVD, No Murmur, Normal Peripheral Pulses Gastrointestinal: Normal Bowel Sounds, No Organomegaly, No Pulsatile Mass, Non Tender, Soft Back: Normal Inspection, No CVA Tenderness, No Vertebral Tenderness Extremity: Normal Capillary Refill, Normal Inspection, Normal Range of Motion, Non Tender, No Calf Tenderness, No Pedal Edema Neurologic/Psychiatric: Alert, No Motor/Sensory Deficits, Normal Mood/Affect, manager sas II-XII Norm as Tested, Abnormal Gait, Disoriented, Motor Weakness (gener alized weakness, poor core strength) Skin: Normal Color, Warm/Dry Lymphatic: No Adenopathy Results/Procedures Lab Patient resulted labs reviewed. FIM Transfers Therapy Code Descriptions/Definitions Functional [place] Measure: 0=Not Assessed/NA 4=Minimal Assistance 1=Total Assistance 5=Supervision or Setup 2=Maximal Assistance 6=Modified [place] 3=Moderate Assistance 7=Complete IndependenceSCALE: Activities may be completed with or without assistive devices. 7-Yqmzqtlvwl-iczjtdg completes the activity by him/herself with no assistance from a helper. 5-Set-up or Clean-up Assistance-helper sets up or cleans up; patient completes activity. [place] assists only prior to or following the activity. 4-Supervision or Touching Assistance-helper provides verbal cues and/or touching/steadying and/or contact guard assistance as patient completes activity. Assistance may be provided throughout the activity or intermittently. 3-Partial/Moderate Assistance-helper does LESS THAN HALF the effort. [place] lifts, holds or supports trunk or limbs, but provides less than half the effort. 2-Substantial/Maximal Assistance-helper does MORE THAN HALF the effort. [place] lifts or holds trunk or limbs and provides more than half the effort. 7-Uieztatnb-uygepq does ALL the effort. Patient does none of the effort to compl ete the activity. Or, the assistance of 2 or more helpers is required for the patient to complete the activity. If activity was not attempted, code reason: 7-Patient Refused. 9-Not Applicable-not attempted and the patient did not perform the activity before the current illness, exacerbation or injury. 10-Not Attempted due to Environmental Limitations-(lack of equipment, weather restraints, etc.). 88-Not Attempted due to Medical Conditions or Safety Concerns. Roll Left to Right (QC): 4 Sit to Lying (QC): 3 Sit to Stand (QC): 4 Chair/Qbn-xc-Ceabg Xfer(QC): 4 Car Transfer (QC): 3 Gait Training Does the Patient Walk?: Yes Distance: 100' x 1, 60' x 1, 40' x 1 Walk 10 feet (QC): 4 Walk 50 ft with 2 Turns(QC): 3 Walk 150 ft (QC): 88 Walking 10ft/uneven surface-QC: 4 Gait Persons Needed: 1 Gait Assistive Device: FWW Wheelchair Training Does the Pt Use a Wheelchair?: Yes Distance: 300', 120' Wheel 50 ft with 2 turns (QC): 3 Wheel 150 ft (QC): 3 Type of Wheelchair: Manual Stair Training #of Steps: 1 1 Step (curb) (QC): 3 4 Steps (QC): 88 12 Steps (QC): 88 Balance Picking up an Object (QC): 3 ADL-Treatment Eating (QC): 4 Oral Hygiene (QC): 4 Shower/Bathe Self (QC): 3 Upper Body Dressing (QC): 3 Lower Body Dressing (QC): 3 On/Off Footwear (QC): 3 Toileting Hygiene (QC): 3 Toilet Transfer (QC): 3 Assessment/Plan Assessment and Plan Assess & Plan/Chief Complaint Assessment: SAH Subdural hematoma Recent NSTEMI 08/18/21 holding Plavix and aspirin CAD CKD3 DM2 HTN HLD GERD Hiatal hernia RODY Prostate cancer Confusion Hypokalemia Leukocytosis Subarachnoid headache Plan: Rehab protocol Monitor BP 09/24/2021: Supportive care Potassium supplement 09/25/2021: Pain control Hold Plavix and aspirin even though recent non-STEMI on 08/18/2021 (1) SAH (subarachnoid hemorrhage) (2) CAD (coronary artery disease) Status: Acute (3) Stage 3b chronic kidney disease Status: Chronic (4) HTN (hypertension) Status: Acute (5) T2DM (type 2 diabetes mellitus) Status: Chronic (6) HLD (hyperlipidemia) Status: Chronic (7) Obesity Status: Chronic (8) GERD (gastroesophageal reflux disease) Status: Chronic RAOUL AVITIA DO Sep 25, 2021 06:06
[2021-09-25] MEDS: inSUlin ASPART (NovoLOG) 1 UNIT/0.01 ML (CHARGE PER UNIT) SC SCH ×4 (06:49→20:12)
[2021-09-25 07:44] VITALS: BP 136/63
[2021-09-25] MEDS: glipiZIDE XL 10 MG (GLUCOTROL XL) TAB PO SCH ×2 (08:02→20:06)
[2021-09-25] MEDS: DOCUSATE SODIUM 100 MG (COLACE) CAP PO SCH ×4 (08:02→20:13)
[2021-09-25] MEDS: PANTOPRAZOLE 20 MG TABLET (PROTONIX) PO SCH (08:02)
[2021-09-25] MEDS: RANOLAZINE ER 500 MG TAB (RANEXA) PO SCH ×2 (08:02→20:02)
[2021-09-25] MEDS: MULTIVIT W/MINERALS TAB (THERAGRAN M) PO SCH (08:02)
[2021-09-25] MEDS: ISOSORBIDE MONONITRATE 60 MG (IMDUR) TAB PO SCH (08:02)
[2021-09-25] MEDS: meTOprolol SUCCINATE 100 MG (TOPROL XL) TAB PO SCH (08:02)
[2021-09-25] MEDS: amLODIPine 10 MG (NORVASC) TAB PO SCH (08:03)
[2021-09-25] MEDS: KCL 10 MEQ TAB (MICRO K) PO SCH (08:03)
[2021-09-25] MEDS: PIOGLITAZONE 30MG (ACTOS) TAB PO SCH (08:04)
[2021-09-25] MEDS: SENNA W/DOCUSATE (SENOKOT S) TABLET PO SCH ×2 (08:06→20:11)
[2021-09-25] MEDS: polyethylene glycoL POWDER 17 GM (MIRALAX) PACK PO SCH ×2 (08:06→20:11)
[2021-09-25] MEDS: ACETAMINOPHEN 325 MG TABLET PO PRN ×2 (09:49→15:51)
--- NOTE | 2021-09-25 10:48 | Physical Therapy Daily Note ---
PT Daily Note-Current Subjective Pt up in recliner and agreeable to PT. Pt denies pain. Pain Numeric Pain Scale: 0-No Pain Mental Status Patient Orientation: Person, Confused Transfers SCALE: Activities may be completed with or without assistive devices. 3-Mynkodjitp-fdyynex completes the activity by him/herself with no assistance from a helper. 5-Set-up or Clean-up Assistance-helper sets up or cleans up; patient completes activity. Canones assists only prior to or following the activity. 4-Supervision or Touching Assistance-helper provides verbal cues and/or touching/steadying and/or contact guard assistance as patient completes activity. Assistance may be provided throughout the activity or intermittently. 3-Partial/Moderate Assistance-helper does LESS THAN HALF the effort. Canones lifts, holds or supports trunk or limbs, but provides less than half the effort. 2-Substantial/Maximal Assistance-helper does MORE THAN HALF the effort. Canones lifts or holds trunk or limbs and provides more than half the effort. 1-Fqfktavwn-omuysg does ALL the effort. Patient does none of the effort to complete the activity. Or, the assistance of 2 or more helpers is required for the patient to complete the activity. If activity was not attempted, code reason: 7-Patient Refused. 9-Not Applicable-not attempted and the patient did not perform the activity before the current illness, exacerbation or injury. 10-Not Attempted due to Environmental Limitations-(lack of equipment, weather restraints, etc.). 88-Not Attempted due to Medical Conditions or Safety Concerns. PT mod (I) with transfers Gait Training Gait Assistive Device: FWW Pt amb with FWW and CGA x 150ft. Pt required continual vc's to maintain close proximity to walker. Pt tends to push walker out in front and walk to the (L) side of the walker, run into obstacle on the (L) which worsened as he fatigued. Pt did not follow corrective cueing very well. Pt did experience 1 episode of unsteadiness to the (L) which he was able to self right without issue. Exercises Seated Therapy Exercises: Ankle pumps, Long arc quads, Hip flexion Seated Reps: 10 Treatments Pt back to recliner with ambu alarm activated and call light in reach. All needs met. Assessment Current Status: Good Progress Pt showing good functional mobility but fatigues easily becoming unsafe as he fatigues. Pt would benefit from continued strengthening for safe mobility. PT Short Term Goals Short Term Goals Time Frame: Sep 30, 2021 Roll Left & Right: 6 Sit to lyin Lying to sitting on side of be: 4 Sit to stand: 4 Chair/ofs-ap-ljfaw transfer: 4 Walk 10 feet: 4 Walk 50 feet with two turns: 4 Walk 150 feet: 4 PT Usp Goals Usp Goals PT Bull Gang Supervisor Goals Time Frame: Oct 14, 2021 Roll Left & Right (QC): 6 Sit to Lying (QC): 6 Lying-Sitting on Side/Bed(QC): 6 Sit to Stand (QC): 5 Chair/Cwc-tz-Samnu Xfer(QC): 5 Toilet Transfer (QC): 5 Car Transfer (QC): 5 Does the Patient Walk: Yes Walk 10 feet (QC): 5 Walk 50ft with 2 Turns (QC): 5 Walk 150 ft (QC): 5 Walking 10ft on Uneven Surface: 5 1 Step (curb) (QC): 4 4 Steps (QC): 4 12 Steps (QC): 88 Picking up an Object (QC): 4 Wheel 50 feet with 2 turns (QC: 6 Wheel 150 feet: 6 PT Plan Treatment/Plan Treatment Plan: Continue Plan of Care Treatment Plan: Bed Mobility, Education, Functional Activity Varun, Functional Strength, Group Therapy, Gait, Safety, Therapeutic Exercise, Transfers Treatment Duration: Oct 14, 2021 Frequency: At least 5 of 7 days/Wk (IRF) Estimated Hrs Per Day: 1.5 hours per day Patient and/or Family Agrees t: Yes Time/GCodes Time In: 818 Time Out: 833 Total Billed Treatment Time: 15 Total Billed Treatment 1, FA x 15' LOW GLASS CPTA Sep 25, 2021 10:48
[2021-09-25 16:35] VITALS: BP 138/66
[2021-09-25] MEDS ORDERED: HYDROcodone/APAP 5 MG/325 MG (LORTAB) TAB ONE (17:23)
[2021-09-25] MEDS: HYDROcodone/APAP 5 MG/325 MG (LORTAB) TAB PO PRN (17:26)
[2021-09-25] MEDS ORDERED: ONDANSETRON 4 MG/2 ML (SDV) Z0FRAN ONE ×2 (19:22→19:24)
[2021-09-25 19:30] VITALS: BP 124/57
[2021-09-25] MEDS ORDERED: ONDANSETRON 4 MG/2 ML (SDV) Z0FRAN IVP PRN (19:30)
--- NOTE | 2021-09-25 19:32 | Diagnostic Imaging Report ---
PROCEDURE: CT head without contrast. TECHNIQUE: Multiple contiguous axial images were obtained through the brain without the use of intravenous contrast. Auto Exposure Controls were utilized during the CT exam to meet ALARA standards for radiation dose reduction. INDICATION: Confusion. COMPARISON: None. FINDINGS: There is a mixed density left convexity subdural hemorrhage measuring up to 11.5 mm. There is some slight mass effect on the cerebral cortex without shift. There is a secondary subarachnoid hemorrhage involving the left frontal lobe. There is an area of encephalomalacia in the left anterior frontal lobe and medial aspect compatible with a prior ischemic infarct. There is no acute ischemia identified. There is no skull fracture. There is a moderate amount of mucosal thickening and fluid in the paranasal sinuses. There is nonspecific effusion in the right mastoid. IMPRESSION: 1. 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 2. No midline shift. 3. Sinus disease. Dictated by: Dictated on workstation # [id number]
[2021-09-25] MEDS ORDERED: HYDROmorphone 2 MG/ML VIAL (DILAUDID) ONE (19:45)
[2021-09-25 20:00] VITALS: BP 104/51
[2021-09-25] MEDS: diphenhydrAMINE 25 MG TAB (BENADRYL) PO SCH (20:01)
[2021-09-25] MEDS: OLANZapine 5 MG (ZyPREXA) TAB PO SCH (20:01)
[2021-09-25] MEDS: IMIPRAMINE 10 MG PO SCH (20:01)
[2021-09-25] MEDS: busPIRone 10 MG (BUSPAR) TAB PO SCH (20:02)
[2021-09-25] MEDS: SERTRALINE 100 MG (ZOLOFT) TAB PO SCH (20:02)
[2021-09-25] MEDS: HYDROmorphone 2 MG/ML VIAL (DILAUDID) IVP PRN (20:07)
[2021-09-26 01:00] VITALS: BP 106/52
[2021-09-26 04:00] VITALS: BP 105/55
[2021-09-26] MEDS: inSUlin ASPART (NovoLOG) 1 UNIT/0.01 ML (CHARGE PER UNIT) SC SCH ×4 (06:23→21:05)
[2021-09-26] MEDS: KCL 10 MEQ TAB (MICRO K) PO SCH (06:25)
--- NOTE | 2021-09-26 06:25 | PM&R Progress Note ---
Subjective HPI/CC On Admission Date Seen by Provider: Sep 26, 2021 Time Seen by Provider: 12:45 Subjective/Events-last exam 09/26/2021: Patient doing pretty well Improved headache pain Echocardiogram and Dr. Rosales consult indicated Sundowning in the evening Mechanically altered diet due to possible high risk for aspiration Speech therapy will see 09/25/21: Patient was in good spirits today Complaining of headache in evening Eating lunch today Starting having headache in afternoon so I ordered Hydrocodone 1/2 pill to prevent delirium and worsened hallucinations he was having last night when nurse contacted me at 1700. Noted he had received 2 doses of Plavix and ASA on 09/23 and 09/24 which I held and reviewed [facility] records and the DC summary had no recommendations on when we could start anti-platelet agents back again so will hold until I clarify this with NSG. CT reports were stable they obtained in serial fashion at [facility]. RN contacted me with worsened headache pain severe in type at 1850 so placed order for stat CT scan and sent pic of CT scan report from 09/18/21 in order to compare with current stat CT since he does have both SAH and subdural hematoma. Vomiting in CT scan prompted Zofran IV 8mg IV x 1 and he did receive 1/2 tablet of Lortab prior to worsened OCAMPO. VSS remains stable. Dilaudid 0.25mg IV ordered. Will give partial dose 0.125mg to be sure he is able to handle the pain meds without side effects and may give the 2nd half if needed. Patient back on the unit and vitals remain stable and he was not complaining of headache pain and was joking around a bit. Spoke to radiologist and he stated the SAH was almost gone after I updated him on the previous report from 09/18/21 and SDH was same size. Checked on patient again at 2100 and patient denies any pain and no more nausea 09/24/2021: Patient doing very well Confused at night Check meds labs Patient sleeping currently No pain is reported except for headache last night which is expected with the intracranial processes Review of Systems General: Fatigue, Malaise Neurological: Confusion Objective Exam Vital Signs Vital Signs Date Time Temp Pulse Resp B/P (MAP) Pulse Ox O2 Delivery O2 Flow Rate FiO2 09/27/21 03:11 37.0 79 20 110/53 (72) 92 Nasal Cannula 2.00 Capillary Refill : General Appearance: No Apparent Distress, WD/WN, Chronically ill HEENT: PERRL/EOMI, Normal ENT Inspection, Pharynx Normal Neck: Full Range of Motion, Normal Inspection, Non Tender, Supple, Carotid Bruit Respiratory: Chest Non Tender, Lungs Clear, Normal Breath Sounds, No Accessory Muscle Use, No Respiratory Distress Cardiovascular: Regular Rate, Rhythm, No Edema, No Gallop, No JVD, No Murmur, Normal Peripheral Pulses Gastrointestinal: Normal Bowel Sounds, No Organomegaly, No Pulsatile Mass, Non Tender, Soft Back: Normal Inspection, No CVA Tenderness, No Vertebral Tenderness Extremity: Normal Capillary Refill, Normal Inspection, Normal Range of Motion, Non Tender, No Calf Tenderness, No Pedal Edema Neurologic/Psychiatric: Alert, No Motor/Sensory Deficits, Normal Mood/Affect, deputy united states marshal II-XII Norm as Tested, Abnormal Gait, Disoriented, Motor Weakness (generalized weakness, poor core strength) Skin: Normal Color, Warm/Dry Lymphatic: No Adenopathy Results/Procedures Lab Patient resulted labs reviewed. FIM Transfers Therapy Code Descriptions/Definitions Functional Mercer Measure: 0=Not Assessed/NA 4=Minimal Assistance 1=Total Assistance 5=Supervision or Setup 2=Maximal Assistance 6=Modified Mercer 3=Moderate Assistance 7=Complete IndependenceSCALE: Activities may be completed with or without assistive devices. 2-Hayhrnnmqt-dizjdxr completes the activity by him/herself with no assistance from a helper. 5-Set-up or Clean-up Assistance-helper sets up or cleans up; patient completes activity. [place] assists only prior to or following the activity. 4-Supervision or Touching Assistance-helper provides verbal cues and/or touching/steadying and/or contact guard assistance as patient completes activity . Assistance may be provided throughout the activity or intermittently. 3-Partial/Moderate Assistance-helper does LESS THAN HALF the effort. [place]ague lifts, holds or supports trunk or limbs, but provides less than half the effort. 2-Substantial/Maximal Assistance-helper does MORE THAN HALF the effort. [place] lifts or holds trunk or limbs and provides more than half the effort. 6-Csgfclsuj-kkxhmj does ALL the effort. Patient does none of the effort to complete the activity. Or, the assistance of 2 or more helpers is required for the patient to complete the activity. If activity was not attempted, code reason: 7-Patient Refused. 9-Not Applicable-not attempted and the patient did not perform the activity before the current illness, exacerbation or injury. 10-Not Attempted due to Environmental Limitations-(lack of equipment, weather restraints, etc.). 88-Not Attempted due to Medical Conditions or Safety Concerns. Roll Left to Right (QC): 4 Sit to Lying (QC): 3 Sit to Stand (QC): 4 Chair/Dse-uz-Grkgy Xfer(QC): 4 Car Transfer (QC): 3 Gait Training Does the Patient Walk?: Yes Distance: 100' x 1, 60' x 1, 40' x 1 Walk 10 feet (QC): 4 Walk 50 ft with 2 Turns(QC): 3 Walk 150 ft (QC): 88 Walking 10ft/uneven surface-QC: 4 Gait Persons Needed: 1 Gait Assistive Device: FWW Wheelchair Training Does the Pt Use a Wheelchair?: Yes Distance: 300', 120' Wheel 50 ft with 2 turns (QC): 3 Wheel 150 ft (QC): 3 Type of Wheelchair: Manual Stair Training #of Steps: 1 1 Step (curb) (QC): 3 4 Steps (QC): 88 12 Steps (QC): 88 Balance Picking up an Object (QC): 3 ADL-Treatment Eating (QC): 4 Oral Hygiene (QC): 4 Shower/Bathe Self (QC): 3 Upper Body Dressing (QC): 3 Lower Body Dressing (QC): 3 On/Off Footwear (QC): 3 Toileting Hygiene (QC): 3 Toilet Transfer (QC): 3 Assessment/Plan Assessment and Plan Assess & Plan/Chief Complaint Assessment: SAH Subdural hematoma Recent NSTEMI 08/18/21 holding Plavix and aspirin and consulting Dr. Rosales CAD CKD3 DM2 HTN HLD GERD Hiatal hernia RODY Prostate cancer Confusion Hypokalemia Leukocytosis Subarachnoid headache Plan: Rehab protocol Monitor BP 09/24/2021: Supportive care Potassium supplement 09/25/2021: Pain control Hold Plavix and aspirin even though recent non-STEMI on 08/18/2021 09/26/2021: Consult Dr. Rosales to decide Plavix and aspirin maintenance Check meds labs (1) SAH (subarachnoid hemorrhage) (2) CAD (coronary artery disease) Status: Acute (3) Stage 3b chronic kidney disease Status: Chronic (4) HTN (hypertension) Status: Acute (5) T2DM (type 2 diabetes mellitus) Status: Chronic (6) HLD (hyperlipidemia) Status: Chronic (7) Obesity Status: Chronic (8) GERD (gastroesophageal reflux disease) Status: Chronic RAOUL AVITIA DO Sep 26, 2021 06:25
[2021-09-26 07:30] VITALS: BP 114/55
[2021-09-26] MEDS: polyethylene glycoL POWDER 17 GM (MIRALAX) PACK PO SCH ×2 (08:00→21:00)
[2021-09-26] MEDS: SENNA W/DOCUSATE (SENOKOT S) TABLET PO SCH ×2 (08:00→20:20)
[2021-09-26] MEDS: DOCUSATE SODIUM 100 MG (COLACE) CAP PO SCH ×4 (08:00→21:00)
[2021-09-26] MEDS: glipiZIDE XL 10 MG (GLUCOTROL XL) TAB PO SCH ×2 (08:02→20:21)
[2021-09-26] MEDS: ISOSORBIDE MONONITRATE 60 MG (IMDUR) TAB PO SCH (08:03)
[2021-09-26] MEDS: RANOLAZINE ER 500 MG TAB (RANEXA) PO SCH ×2 (08:03→20:20)
[2021-09-26] MEDS: MULTIVIT W/MINERALS TAB (THERAGRAN M) PO SCH (08:03)
[2021-09-26] MEDS: amLODIPine 10 MG (NORVASC) TAB PO SCH (08:03)
[2021-09-26] MEDS: meTOprolol SUCCINATE 100 MG (TOPROL XL) TAB PO SCH (08:03)
[2021-09-26] MEDS: PANTOPRAZOLE 20 MG TABLET (PROTONIX) PO SCH (08:14)
[2021-09-26] MEDS: PIOGLITAZONE 30MG (ACTOS) TAB PO SCH (08:14)
[2021-09-26] MEDS: ACETAMINOPHEN 325 MG TABLET PO PRN ×2 (09:36→17:30)
--- NOTE | 2021-09-26 17:19 | Consultation-Cardiology ---
HPI-Cardiology Cardiology Consultation: Date of Consultation 09/26/21 Time Seen by a Provider: 16:40 Date of Admission Attending Physician Opal Leroy DO Admitting Physician Darline Preciado MD Consulting Physician STACEY STEVENSON MD, MA, FACP, FACC, FSCAI, CCDS Physician requesting Card consult: Dr Leroy HPI: Chief Complaint: Reason for Card consult: H/o CAD 86 yo man with an extensive h/o CAD who took a nonsyncopal fall in early Sep 2021 and sustained ic bleed that was treated in [place] and he is currently in rehab under Dr Leroy at this hospital. He denies cp or palp or syncope or shortness of breath of swelling. He says he tends to get confused. Has gen malaise and weakness, denies focal weakness Review of Systems-Cardiology Review of Systems Constitutional: malaise; No weight loss, No weight gain Eyes: No vision change Ears/Nose/Throat: No ear discharge, No nasal drainage, No recent hearing loss Respiratory: As described under HPI Cardiovascular: As described under HPI Gastrointestinal: No diarrhea, No nausea, No vomiting Genitourinary: No dysuria, No hematuria, No urine frequency changes Musculoskeletal: No back pain, No joint pain Skin: No rash, No ulcerations Psychiatric/Neurological: seizure (one episode of seizure shortly following fall that had led to ic bleed in early Sep 2021); No focal weakness, No syncope EER-Baedjy-Abcvhz Hx Patient Social History Marrital Status: Employed/Student: retired Smoking Status: Former Smoker Have you traveled recently?: No Alcohol Use?: Yes Pt feels they are or have been: No Immunizations Up To Date Date of Influenza Vaccine: Jul 29, 2021 Past Medical History PMH As described under Assessment. Family Medical History Family Medical History: He reports his father had CAD. Allergies and Home Medications Allergies Coded Allergies: ciprofloxacin (Verified Allergy, Severe, 08/17/21) Sulfa (Sulfonamide Antibiotics) (Verified Allergy, Unknown, 08/17/21) bacitracin (Verified Allergy, Unknown, 08/17/21) metformin (Verified Allergy, Unknown, 08/17/21) neomycin (Verified Allergy, Unknown, 08/17/21) polymyxin B (Verified Allergy, Unknown, 08/17/21) Patient Home Medication List Home Medication List Reviewed: Yes Acetaminophen (Tylenol Arthritis) 650 Mg Tablet.er, 650-1,300 MG PO Q8H PRN for PAIN-MILD (1-4), (Reported) Entered as Reported by: CHELA MCCOY on 08/17/211424 Last Action: Converted Amlodipine Besylate (Amlodipine Besylate) 10 Mg Tablet, 10 MG PO DAILY, (Reported) Entered as Reported by: CHELA MCCOY on 09/23/21 144 Last Action: Continued Aspirin (Aspirin EC) 81 Mg Tablet.dr, 81 MG PO HS, (Reported) Entered as Reported by: CHELA MCCOY on 08/17/211424 Last Action: Continued Atorvastatin Calcium (Atorvastatin Calcium) 40 Mg Tablet, 40 MG PO HS, (Reported) Entered as Reported by: CHELA MCCOY on 08/17/211424 Last Action: Continued Buspirone HCl (Buspirone HCl) 10 Mg Tablet, 20 MG PO HS, (Reported) Entered as Reported by: CHELA MCCOY on 08/17/211424 Last Action: Continued Carboxymethylcellulose Sodium (Refresh Tears) 15 Ml Drops, 2 DROPS OU UD PRN for DRY EYES, (Reported) Entered as Reported by: CHELA MCCOY on 08/17/211424 Last Action: Converted Clopidogrel Bisulfate (Clopidogrel) 75 Mg Tablet, 75 MG PO HS, (Reported) Entered as Reported by: CHELA MCCOY on 08/17/211424 Last Action: Continued Diphenhydramine HCl (Benadryl Allergy) 25 Mg Tablet, 25 MG PO HS, (Reported) Entered as Reported by: CHELA MCCOY on 08/17/211424 Last Action: Continued Docusate Sodium (Docusate Sodium) 100 Mg Capsule, 100-200 MG PO BID, (Reported) Entered as Reported by: CHELA MCCOY on 08/17/211424 Last Action: Continued Ergocalciferol (Vitamin D2) (Vitamin D2) 1,250 Mcg Capsule, 1,250 MCG PO TUE, (Reported) Entered as Reported by: CHELA MCCOY on 08/17/211424 Last Action: Continued Fluticasone Propionate (Fluticasone Propionate) 16 Gm [place].susp, 2 SPRAYS NSEACH DAILY PRN for CONGESTION, (Reported) Entered as Reported by: CHELA MCCOY on 08/17/211424 Last Action: Continued Glipizide (Glipizide Xl) 10 Mg Tab.er.24, 10 MG PO BID, (Reported) Entered as Reported by: CHELA MCCOY on 08/17/211424 Last Action: Continued Imipramine HCl (Imipramine HCl) 10 Mg Tablet, 10 MG PO HS, (Reported) Entered as Reported by: CHELA MCCOY on 08/17/211424 Last Action: Continued Insulin Glargine,Hum.rec.anlog (Lantus Solostar) 100 Unit/1 Ml Insuln.pen, 40 UNITS SC HS, (Reported) Entered as Reported by: CHELA MCCOY on 08/17/211424 Last Action: Converted Isosorbide Mononitrate (Isosorbide Mononitrate ER) 120 Mg Tab.er.24h, 120 MG PO DAILY, (Reported) Entered as Reported by: CHELA MCCOY on 08/17/211424 Last Action: Converted Lansoprazole (Lansoprazole) 15 Mg Capsule.dr, 15 MG PO DAILY, (Reported) Entered as Reported by: CHELA MCCOY on 08/17/211424 Last Action: Converted Levetiracetam (Levetiracetam) 500 Mg Tablet, 500 MG PO BID, (Reported) Entered as Reported by: CHELA MCCOY on 09/23/211441 Last Action: Continued Metoprolol Succinate (Metoprolol Succinate) 100 Mg Tab.er.24h, 100 MG PO DAILY, (Reported) Entered as Reported by: CHELA MCCOY on 09/23/211441 Last Action: Continued Multivitamin (Multivitamin) 1 Each Tablet, 1 EACH PO DAILY, (Reported) Entered as Reported by: CHELA MCCOY on 08/17/211424 Last Action: Converted Pioglitazone HCl (Pioglitazone HCl) 45 Mg Tablet, 45 MG PO DAILY, (Reported) Entered as Reported by: CHELA MCCOY on 08/17/211424 Last Action: Converted Ranolazine (Ranolazine ER) 1,000 Mg Tab.er.12h, 1,000 MG PO BID, (Reported) Entered as Reported by: CHELA MCCOY on 08/17/211424 Last Action: Converted Sertraline HCl (Sertraline HCl) 100 Mg Tablet, 50 MG PO HS, (Reported) Entered as Reported by: CHELAMichael MCCOY on 08/17/21 3059 Last Action: Continued Physical Exam-Cardiology Physical Exam Vital Signs/I&O 09/26/21 09/26/21 09/26/21 09/26/21 06:29 07:30 09:12 15:31 Temp 36.4 Pulse 74 77 Resp 20 18 B/P (MAP) 114/55 (74) Pulse Ox 97 95 O2 Delivery Nasal Cannula Nasal Cannula Nasal Cannula Room Air O2 Flow Rate 2.00 2.00 2.00 Capillary Refill : Constitutional: well-developed, well-nourished, other (mildly confused) HEENT: EOMI, hearing is well preserved; No xanthelasmas are seen Neck: carotid pulses are 2 + bilaterally, with good upstrokes Respiratory: No accessory muscle use; other (good, bilateral air entry) Cardiovascular: regular rate-rhythm, S1 and S2, systolic murmur (soft JESUS at the card base) Gastrointestinal: No tender; soft; No guarding, No rebound; audible bowel sounds Extremities: No clubbing, No cyanosis, No significant edema Neurologic/Psychiatric: other (moves all limbs equally) Skin: No rash on exposed areas, No ulcerations on exposed areas Data Review Labs Laboratory Tests 09/25/21 20:05: Glucometer 114H 09/26/21 06:04: Glucometer 82 09/26/21 10:55: Glucometer 219H 09/26/21 15:39: Glucometer 232H A/P-Cardiology Assessment/Admission Diagnosis Recent (early Sep 2021) ic bleed (subdural and subarachnoid) following a nonsyncopal fall CAD - Pt reports 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 Willett - PTCA of RCA lesion reduced from 80% to approx 40%. 100% occlusion of the LAD and cx. 100% occlusion of a vein graft. Patent CASTRO graft to the LAD with borderline lesion beyond. - Most recent Cardiac cath of 09-08-[address] Conway - severe MVD ekwok coronaries including severe in-stent restenosis in the RCA. S/P placement of 3 Synergy JOSHUA with one in the prox vessel, one in the midvessel, and one in the distal vessel (not overlapping). S/P balloon angioplasty of the ostial to prox right PDA which appeared to be too small for stenting. - NSTEMI on 08/17/21, pt followed with Dr Willett. Pt family reports that a subsequent nuclear stress was ok and no card cath or interventions were undertaken Echocardiogram of 08-17-21 showed LVEF 55-65%. Mod concentric hypertrophy. Grade 2 diastolic dysfunction. LA mildly dilated. Mild calcification of mitral valve with mild MR. Mild to mod AoV stenosis Echocardiogram of 09-26-21 showed LVEF 55-65%. Mod concentric hypertrophy. Grade 2 diastolic dysfunction. Mild calcification of mitral valve. Mild to mod AoV stenosis. PASP 25-30 mmHg Chronic angina - Imdur and Ranexa - managed by Dr. Willett DM 2 HTN - uncontrolled HLD H/O TIA - May 2019 while in [place], [place] Mild thrombocytopenia (lab 08-17-21) - undetermined etiology - mildly improved on lab of 08-18-21 GI - HH - GERD Peripheral neuropathy RODY CKD 3 - Dr. 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 Gallo Oncology - multiple skin melanoma removals - most recent to the left side of his face (stitches in place) Back surgeries - Yadav lynette in place Discussion and Recomendations * Complex management due to multiple comorbidities * Low-dose ASA (ASA 81 mg qod) recommended, given his extensive CAD history, if approved by Dr Leroy * Echo today is unchanged compared to a study of early Aug 2021 * Monitor labs Clinical Quality Measures DVT/VTE Risk/Contraindication: Contraindications-Pharm: Other *list below* Other: STACEY Perkins MD FACP FAC CCDS Sep 26, 2021 17:19
[2021-09-26 19:38] VITALS: BP 112/62
[2021-09-26] MEDS: IMIPRAMINE 10 MG PO SCH (20:20)
[2021-09-26] MEDS: busPIRone 10 MG (BUSPAR) TAB PO SCH (20:20)
[2021-09-26] MEDS: diphenhydrAMINE 25 MG TAB (BENADRYL) PO SCH (20:20)
[2021-09-26] MEDS: OLANZapine 5 MG (ZyPREXA) TAB PO SCH (20:21)
[2021-09-26] MEDS: SERTRALINE 100 MG (ZOLOFT) TAB PO SCH (20:21)
[2021-09-26] MEDS: HYDROcodone/APAP 5 MG/325 MG (LORTAB) TAB PO PRN (21:37)
[2021-09-27 03:11] VITALS: BP 110/53
[2021-09-27] MEDS: inSUlin ASPART (NovoLOG) 1 UNIT/0.01 ML (CHARGE PER UNIT) SC SCH ×4 (05:25→21:10)
[2021-09-27 06:23] LABS: BASOPHILS % (AUTO) 0 % (0-10); EOSINOPHILS # (AUTO) 0.2 10^3/uL (0.0-0.3); EOSINOPHILS % (AUTO) 2 % (0-10); HEMATOCRIT 37 % (40-54); HEMOGLOBIN 12.9 g/dL (13.3-17.7); LYMPHOCYTES # (AUTO) 0.9 10^3/uL (1.0-4.0); LYMPHOCYTES % (AUTO) 7 % (12-44); MEAN CORPUSCULAR HEMOGLOBIN 32 pg (25-34); MEAN CORPUSCULAR HGB CONC 35 g/dL (32-36); MEAN CORPUSCULAR VOLUME 92 fL (80-99); MEAN PLATELET VOLUME 10.5 fL (9.0-12.2); MONOCYTES % (AUTO) 8 % (0-12); NEUTROPHILS # (AUTO) 10.7 10^3/uL (1.8-7.8); NEUTROPHILS % (AUTO) 82 % (42-75); PLATELET COUNT 216 10^3/uL (130-400); WHITE BLOOD COUNT 13.1 10^3/uL (4.3-11.0)
[2021-09-27] MEDS: KCL 10 MEQ TAB (MICRO K) PO SCH (06:42)
[2021-09-27 06:46] LABS: EOSINOPHILS % (MANUAL) 2 %; LYMPHOCYTES % (MANUAL) 10 %; MONOCYTES % (MANUAL) 10 %; NEUTROPHILS % (MANUAL) 78 %
[2021-09-27 06:56] LABS: POTASSIUM 4.1 MMOL/L (3.6-5.0)
[2021-09-27 06:57] LABS: CALCIUM 8.7 MG/DL (8.5-10.1)
[2021-09-27 06:58] LABS: TOTAL PROTEIN 5.6 GM/DL (6.4-8.2)
[2021-09-27 07:00] LABS: BILIRUBIN,TOTAL 0.8 MG/DL (0.1-1.0)
[2021-09-27 07:02] LABS: CREATININE SERUM 1.82 MG/DL (0.60-1.30)
[2021-09-27 07:25] VITALS: BP 122/61
[2021-09-27] MEDS: PANTOPRAZOLE 20 MG TABLET (PROTONIX) PO SCH (07:41)
[2021-09-27] MEDS: glipiZIDE XL 10 MG (GLUCOTROL XL) TAB PO SCH ×2 (07:41→21:08)
[2021-09-27] MEDS: PIOGLITAZONE 30MG (ACTOS) TAB PO SCH (07:41)
[2021-09-27] MEDS: RANOLAZINE ER 500 MG TAB (RANEXA) PO SCH ×2 (07:41→21:07)
[2021-09-27] MEDS: amLODIPine 10 MG (NORVASC) TAB PO SCH (07:41)
[2021-09-27] MEDS: MULTIVIT W/MINERALS TAB (THERAGRAN M) PO SCH (07:42)
[2021-09-27] MEDS: ISOSORBIDE MONONITRATE 60 MG (IMDUR) TAB PO SCH (07:42)
[2021-09-27] MEDS: DOCUSATE SODIUM 100 MG (COLACE) CAP PO SCH ×4 (07:42→21:20)
[2021-09-27] MEDS: ONDANSETRON 4 MG (ZOFRAN) ORAL DISSOLVE TAB PO PRN (08:02)
[2021-09-27] MEDS: polyethylene glycoL POWDER 17 GM (MIRALAX) PACK PO SCH ×4 (08:27→21:20)
[2021-09-27] MEDS: SENNA W/DOCUSATE (SENOKOT S) TABLET PO SCH ×2 (08:27→21:20)
--- NOTE | 2021-09-27 08:47 | Occupational Ther Daily Note ---
OT Current Status-Daily Note Subjective Pt often resting head in his hands but unable to verbalize if he is having pain. RN in room, aware. Appearance Pt left sitting in recliner, BLE's elevated, all needs within reach, alarm set, RN notified. Mental Status/Objective Patient Orientation: Person, Confused Attachments: IV ADL-Treatment Therapy Code Descriptions/Definitions Functional [place] Measure: 0=Not Assessed/NA 4=Minimal Assistance 1=Total Assistance 5=Supervision or Setup 2=Maximal Assistance 6=Modified [place] 3=Moderate Assistance 7=Complete IndependenceSCALE: Activities may be completed with or without assistive devices. 4-Frxnhpgzva-ftgboqq completes the activity by him/herself with no assistance from a helper. 5-Set-up or Clean-up Assistance-helper sets up or cleans up; patient completes activity. [employer] assists only prior to or following the activity. 4-Supervision or Touching Assistance-helper provides verbal cues and/or touching/steadying and/or contact guard assistance as patient completes activity. Assistance may be provided throughout the activity or intermittently. 3-Partial/Moderate Assistance-helper does LESS THAN HALF the effort. [employer] lifts, holds or supports trunk or limbs, but provides less than half the effort. 2-Substantial/Maximal Assistance-helper does MORE THAN HALF the effort. [employer] lifts or holds trunk or limbs and provides more than half the effort. 0-Hteggyjzm-eioyci does ALL the effort. Patient does none of the effort to complete the activity. Or, the assistance of 2 or more helpers is required for the patient to complete the activity. If activity was not attempted, code reason: 7-Patient Refused. 9-Not Applicable-not attempted and the patient did not perform the activity before the current illness, exacerbation or injury. 10-Not Attempted due to Environmental Limitations-(lack of equipment, weather restraints, etc.). 88-Not Attempted due to Medical Conditions or Safety Concerns. Oral Hygiene (QC): 2 Shower/Bathe Self (QC): 2 Upper Body Dressing (QC): 2 Lower Body Dressing (QC): 2 On/Off Footwear: 1 Toileting Hygiene (QC): 3 Toilet Transfer (QC): 3 Shower performed; majority completed in sitting. Pt very confused this date. Requires simplification and step by step cues. Significant increase in word finding difficulties. Pt very impulsive and will stand multiple times without warning. Verbal and tactile cues to initiate sitting throughout session. During shower, pt needed max cues for initiating, sequencing, attention, safety and completion. 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 Pt only able to ph ysically wash L arm and upper thighs after max cues were given. All other body parts washed by OT secondary to cognitive issues. In standing, CGA needed for safety with BUE support. Clothing donned seated in w/c. Assist needed with all steps of donning shirt after max cues were given. Pt often attempting to use shirt as a towel after body had already been dried off. Pt standing >10 times during LB dressing. Consistent cues to remain seated to thread BLE's. Dependent to thread feet into brief after pt unable to follow simple 1 step cues. When given extended amount of time, pt was able to thread LLE into pants but needed assist to thread Right after multiple failed attempts to don through correct leg hole. When standing for clothing management, verbal and tactile cues needed to initiate. Pt often attempting to take steps or reach for items out of his reach. OT had to rearrange room to limit distractions. With max cues and distractions removed, he was able to pull clothing up to waist with steadying assist. Education OT Patient Education: Correct positioning, Modified ADL techniques, Purpose of tx/functional activities, Reviewed precautions, Safety issues, Transfer techniques, W/C management Teaching Recipient: Patient Teaching Methods: Demonstration, Discussion Response to Teaching: Unable to Return Demonstration, Unable to Comprehend, Reinforcement Needed OT Short Term Goals Short Term Goals Time Frame: Oct 01, 2021 Eatin Oral hygiene: 4 Toileting hygiene: 4 Shower/bathe self: 4 Upper body dressin Lower body dressin Putting on/taking off footwear: 3 OT [facility] Goals [facility] Goals Time Frame: Oct 08, 2021 Eating (QC): 6 Oral Hygiene (QC): 6 Toileting Hygiene (QC): 5 Shower/Bathe Self (QC): 5 Upper Body Dressing (QC): 5 Lower Body Dressing (QC): 5 On/Off Footwear (QC): 5 1=Demonstrate adherence to instructed precautions during ADL tasks. 2=Patient will verbalize/demonstrate understanding of assistive devices/modifications for ADL. 3=Patient will improve strength/tolerance for activity to enable patient to perform ADL's. OT Education/Plan Problem List/Assessment Assessment: Decreased Activ Tolerance, Decreased Safety Aware, Decreased UE Strength, Impaired Cognition, Impaired Funct Balance, Impaired I ADL's, Impaired Self-Care Skills Discharge Recommendations Plan/Recommendations: Continue POC Therapy Discharge Recommendati: Intermittent Supervision, Scheduled Assistance, Post Acute OT Treatment Plan/Plan of Care Treatment,Training & Education: Yes Patient would benefit from OT for education, treatment and training to promote independence in ADL's, mobility, safety and/or upper extremity function for ADL's. Plan of Care: ADL Retraining, Functional Mobility, UE Funct Exercise/Act, UE Neuromus Re-Ed/Coord, W/C Management Training Treatment Duration: Oct 08, 2021 Frequency: At least 5 of 7 days/Wk (IRF) Estimated Hrs Per Day: 1.5 hours per day Agreement: Yes Rehab Potential: Fair Time/GCodes Start Time: 07:45 Stop Time: 09:00 Total Time Billed (hr/min): 75 Billed Treatment Time 1 visit ADL x5 Gabrielle Joyner OT Sep 27, 2021 08:47
[2021-09-27] MEDS ORDERED: ASPIRIN E.C. 81 MG (ECOTRIN) TAB PO SCH (09:00)
[2021-09-27] MEDS: meTOprolol SUCCINATE 100 MG (TOPROL XL) TAB PO SCH (09:10)
--- NOTE | 2021-09-27 10:18 | PM&R Progress Note ---
Subjective HPI/CC On Admission Date Seen by Provider: Sep 27, 2021 Time Seen by Provider: 10:00 Subjective/Events-last exam 09/27/2021: Patient doing about the same Aspirin every 48 hours that has been restarted per cardiology Cough is noted so chest x-ray obtained revealing pneumonia so started on antibiotics and tested for COVID which requested it was negative Confusion is noted Swallowing is an issue crushed his meds Bowels moved yesterday 09/26/2021: Patient doing pretty well Improved headache pain Echocardiogram and Dr. Rosales consult indicated owning in the evening Mechanically altered diet due to possible high risk for aspiration Speech therapy will see 09/25/21: Patient was in good spirits today Complaining of headache in evening Eating lunch today Starting having headache in afternoon so I ordered Hydrocodone 1/2 pill to prevent delirium and worsened hallucinations he was having last night when nurse contacted me at 1700. Noted he had received 2 doses of Plavix and ASA on 09/23 a nd 09/24 which I held and reviewed [facility] records and the DC summary had no recommendations on when we could start anti-platelet agents back again so will hold until I clarify this with NSG. CT reports were stable they obtained in serial fashion at [facility]. RN contacted me with worsened headache pain severe in type at 1850 so placed order for stat CT scan and sent pic of CT scan report from 09/18/21 in order to compare with current stat CT since he does have both SAH and subdural hematoma. Vomiting in CT scan prompted Zofran IV 8mg IV x 1 and he did receive 1/2 tablet of Lortab prior to worsened OCAMPO. VSS remains stable. Dilaudid 0.25mg IV ordered. Will give partial dose 0.125mg to be sure he is able to handle the pain meds without side effects and may give the 2nd half if needed. Patient back on the unit and vitals remain stable and he was not complaining of headache pain and was joking around a bit. Spoke to radiologist and he stated the SAH was almost gone after I updated him on the previous report from 09/18/21 and SDH was same size. Checked on patient again at 2100 and patient denies any pain and no more nausea 09/24/2021: Patient doing very well Confused at night Check meds labs Patient sleeping currently No pain is reported except for headache last night which is expected with the intracranial processes Review of Systems General: Fatigue, Malaise Pulmonary: Cough Neurological: Confusion Focused Exam Lactate Level 09/27/21 13:00: Lactic Acid Level 1.70 Objective Exam Vital Signs Vital Signs Date Time Temp Pulse Resp B/P (MAP) Pulse Ox O2 Delivery O2 Flow Rate FiO2 09/27/21 21:10 97 Room Air 09/27/21 20:00 36.8 86 18 113/62 (79) 09/27/21 07:27 2.00 Capillary Refill : General Appearance: No Apparent Distress, WD/WN, Chronically ill HEENT: PERRL/EOMI, Normal ENT Inspection, Pharynx Normal Neck: Full Range of Motion, Normal Inspection, Non Tender, Supple, Carotid Bruit Respiratory: Chest Non Tender, No Accessory Muscle Use, No Respiratory Distress, Crackles, Decreased Breath Sounds, Wheezing Cardiovascular: Regular Rate, Rhythm, No Edema, No Gallop, No JVD, No Murmur, Normal Peripheral Pulses Gastrointestinal: Normal Bowel Sounds, No Organomegaly, No Pulsatile Mass, Non Tender, Soft Back: Normal Inspection, No CVA Tenderness, No Vertebral Tenderness Extremity: Normal Capillary Refill, Normal Inspection, Normal Range of Motion, Non Tender, No Calf Tenderness, No Pedal Edema Neurologic/Psychiatric: Alert, No Motor/Sensory Deficits, Normal Mood/Affect, receiving checker II-XII Norm as Tested, Abnormal Gait, Disoriented, Motor Weakness (generalized weakness, poor core strength) Skin: Normal Color, Warm/Dry Lymphatic: No Adenopathy Results/Procedures Lab Laboratory Tests 09/27/21 05:40 09/27/21 06:00 Patient resulted labs reviewed. FIM Transfers Therapy Code Descriptions/Definitions Functional [place] Measure: 0=Not Assessed/NA 4=Minimal Assistance 1=Total Assistance 5=Supervision or Setup 2=Maximal Assistance 6=Modified [place] 3=Moderate Assistance 7=Complete IndependenceSCALE: Activities may be completed with or without assistive devices. 9-Qwysliclmg-vqluvnz completes the activity by him/herself with no assistance from a helper. 5-Set-up or Clean-up Assistance-helper sets up or cleans up; patient completes activity. [place] assists only prior to or following the activity. 4-Supervision or Touching Assistance-helper provides verbal cues and/or to uching/steadying and/or contact guard assistance as patient completes activity. Assistance may be provided throughout the activity or intermittently. 3-Partial/Moderate Assistance-helper does LESS THAN HALF the effort. [place] lifts, holds or supports trunk or limbs, but provides less than half the effort. 2-Substantial/Maximal Assistance-helper does MORE THAN HALF the effort. [place] lifts or holds trunk or limbs and provides more than half the effort. 2-Vruouruzg-wjcnjl does ALL the effort. Patient does none of the effort to complete the activity. Or, the assistance of 2 or more helpers is required for the patient to complete the activity. If activity was not attempted, code reason: 7-Patient Refused. 9-Not Applicable-not attempted and the patient did not perform the activity before the current illness, exacerbation or injury. 10-Not Attempted due to Environmental Limitations-(lack of equipment, weather restraints, etc.). 88-Not Attempted due to Medical Conditions or Safety Concerns. Roll Left to Right (QC): 4 Sit to Lying (QC): 3 Sit to Stand (QC): 4 Chair/Dsy-hq-Qahop Xfer(QC): 4 Car Transfer (QC): 3 Gait Training Does the Patient Walk?: Yes Distance: 100' x 1, 60' x 1, 40' x 1 Walk 10 feet (QC): 4 Walk 50 ft with 2 Turns(QC): 3 Walk 150 ft (QC): 88 Walking 10ft/uneven surface-QC: 4 Gait Persons Needed: 1 Gait Assistive Device: FWW Wheelchair Training Does the Pt Use a Wheelchair?: Yes Distance: 300', 120' Wheel 50 ft with 2 turns (QC): 3 Wheel 150 ft (QC): 3 Type of Wheelchair: Manual Stair Training #of Steps: 1 1 Step (curb) (QC): 3 4 Steps (QC): 88 12 Steps (QC): 88 Balance Picking up an Object (QC): 3 ADL-Treatment Eating (QC): 4 Oral Hygiene (QC): 2 Shower/Bathe Self (QC): 2 Upper Body Dressing (QC): 2 Lower Body Dressing (QC): 2 On/Off Footwear (QC): 1 Toileting Hygiene (QC): 3 Toilet Transfer (QC): 3 Assessment/Plan Assessment and Plan Assess & Plan/Chief Complaint Assessment: SAH Subdural hematoma Recent NSTEMI 08/18/21 holding Plavix and aspirin and consulting Dr. Rosales restarting aspirin 81 mg every 48 hours on 09/26/2021 CAD CKD3 DM2 HTN HLD GERD Hiatal hernia RODY Prostate cancer Confusion Hypokalemia Leukocytosis Subarachnoid headache Pneumonia started on cefepime 09/27/2021 Plan: Rehab protocol Monitor BP 09/24/2021: Supportive care Potassium supplement 09/25/2021: Pain control Hold Plavix and aspirin even though recent non-STEMI on 08/18/2021 09/26/2021: Consult Dr. Rosales to decide Plavix and aspirin maintenance Check meds labs 09/27/2021: Cefepime Incentive spirometer (1) SAH (subarachnoid hemorrhage) (2) CAD (coronary artery disease) Status: Acute (3) Stage 3b chronic kidney disease Status: Chronic (4) HTN (hypertension) Status: Acute (5) T2DM (type 2 diabetes mellitus) Status: Chronic (6) HLD (hyperlipidemia) Status: Chronic (7) Obesity Status: Chronic (8) GERD (gastroesophageal reflux disease) Status: Chronic RAOUL AVITIA DO Sep 27, 2021 10:18
--- NOTE | 2021-09-27 10:52 | Physical Therapy Daily Note ---
PT Daily Note-Current Subjective Patient in recliner pre tx, agrees to PT, has a headache, unrated pain. Appearance Patient in recliner post tx with nurse call, phone, tray, all needs met, chair alarm on. Mental Status Patient Orientation: Person, Confused Attachments: Oxygen Transfers SCALE: Activities may be completed with or without assistive devices. 4-Hcbjxubsoc-wjvxfty completes the activity by him/herself with no assistance from a helper. 5-Set-up or Clean-up Assistance-helper sets up or cleans up; patient completes activity. [place] assists only prior to or following the activity. 4-Supervision or Touching Assistance-helper provides verbal cues and/or touching/steadying and/or contact guard assistance as patient completes activi ty. Assistance may be provided throughout the activity or intermittently. 3-Partial/Moderate Assistance-helper does LESS THAN HALF the effort. [place] lifts, holds or supports trunk or limbs, but provides less than half the effort. 2-Substantial/Maximal Assistance-helper does MORE THAN HALF the effort. [place] lifts or holds trunk or limbs and provides more than half the effort. 7-Qkhniofrl-pkinnr does ALL the effort. Patient does none of the effort to complete the activity. Or, the assistance of 2 or more helpers is required for the patient to complete the activity. If activity was not attempted, code reason: 7-Patient Refused. 9-Not Applicable-not attempted and the patient did not perform the activity before the current illness, exacerbation or injury. 10-Not Attempted due to Environmental Limitations-(lack of equipment, weather restraints, etc.). 88-Not Attempted due to Medical Conditions or Safety Concerns. Sit to Stand (QC): 3 Chair/Jne-ce-Rwvcg Xfer(QC): 4 Patient needs min assist to stand from lower surfaces, cues for positioning and safety during almost every transfer, patient has a tendency to not turn completely before sitting and sometimes will almost sit on the armrest. Gait Training Distance: 120'x2, 100' Walk 10 feet (QC): 4 Walk 50 ft with 2 Turns(QC): 4 Gait Persons Needed: 1 Gait Assistive Device: FWW Patient ambulates slowly, has poor foot clearance and step through, has short steps but not a festinating gait, slumps forward onto walker, needs cues for proper walker placement and cues for direction Exercises Standing: Hip Abduction, Heel/toe raises, Marching, Mini squats Standing Reps: 15 NuStep Minutes: 15 NuStep Workload: 5 Treatments ambulation, transfers, functional strengthening Assessment Current Status: Poor Progress patient very confused, needs cues for safety with any mobility PT Short Term Goals Short Term Goals Time Frame: Sep 30, 2021 Roll Left & Right: 6 Sit to lyin Lying to sitting on side of be: 4 Sit to stand: 4 Chair/mcv-nn-invnd transfer: 4 Walk 10 feet: 4 Walk 50 feet with two turns: 4 Walk 150 feet: 4 PT Child Protective Services Social Worker Goals [employer] Services Social Worker Goals PT [facility] Goals Time Frame: Oct 14, 2021 Roll Left & Right (QC): 6 Sit to Lying (QC): 6 Lying-Sitting on Side/Bed(QC): 6 Sit to Stand (QC): 5 Chair/Uzu-mi-Sukbp Xfer(QC): 5 Toilet Transfer (QC): 5 Car Transfer (QC): 5 Does the Patient Walk: Yes Walk 10 feet (QC): 5 Walk 50ft with 2 Turns (QC): 5 Walk 150 ft (QC): 5 Walking 10ft on Uneven Surface: 5 1 Step (curb) (QC): 4 4 Steps (QC): 4 12 Steps (QC): 88 Picking up an Object (QC): 4 Wheel 50 feet with 2 turns (QC: 6 Wheel 150 feet: 6 PT Plan Problem List Problem List: Activity Tolerance, Functional Strength, Safety, Balance, Gait, Transfer, Bed Mobility, ROM Treatment/Plan Treatment Plan: Continue Plan of Care Treatment Plan: Bed Mobility, Education, Functional Activity Varun, Functional Strength, Group Therapy, Gait, Safety, Therapeutic Exercise, Transfers Treatment Duration: Oct 14, 2021 Frequency: At least 5 of 7 days/Wk (IRF) Estimated Hrs Per Day: 1.5 hours per day Patient and/or Family Agrees t: Yes Safety Risks/Education Patient Education: Gait Training, Transfer Techniques, Correct Positioning, Safety Issues Teaching Recipient: Patient Teaching Methods: Demonstration, Discussion Response to Teaching: Reinforcement Needed Time/GCodes Time In: 1000 Time Out: 1100 Total Billed Treatment Time: 60 Total Billed Treatment 1 visit EX 30' FA 30' MUNA ROBERTS PT Sep 27, 2021 10:52
--- NOTE | 2021-09-27 11:48 | Occupational Ther Daily Note ---
OT Current Status-Daily Note Subjective Pt slightly more alert this session but still very confused. Appearance Left sitting in recliner, alarm set, all needs within reach. Mental Status/Objective Patient Orientation: Person, Confused ADL-Treatment Therapy Code Descriptions/Definitions Functional [place] Measure: 0=Not Assessed/NA 4=Minimal Assistance 1=Total Assistance 5=Supervision or Setup 2=Maximal Assistance 6=Modified [place] 3=Moderate Assistance 7=Complete IndependenceSCALE: Activities may be completed with or without assistive devices. 0-Ieseupggtt-oxrhpda completes the activity by him/herself with no assistance from a helper. 5-Set-up or Clean-up Assistance-helper sets up or cleans up; patient completes activity. [place] assists only prior to or following the activity. 4-Supervision or Touching Assistance-helper provides verbal cues and/or touching/steadying and/or contact guard assistance as patient completes ac tivity. Assistance may be provided throughout the activity or intermittently. 3-Partial/Moderate Assistance-helper does LESS THAN HALF the effort. [place] lifts, holds or supports trunk or limbs, but provides less than half the effort. 2-Substantial/Maximal Assistance-helper does MORE THAN HALF the effort. [place] lifts or holds trunk or limbs and provides more than half the effort. 0-Ethaidzjl-betwmx does ALL the effort. Patient does none of the effort to complete the activity. Or, the assistance of 2 or more helpers is required for the patient to complete the activity. If activity was not attempted, code reason: 7-Patient Refused. 9-Not Applicable-not attempted and the patient did not perform the activity before the current illness, exacerbation or injury. 10-Not Attempted due to Environmental Limitations-(lack of equipment, weather restraints, etc.). 88-Not Attempted due to Medical Conditions or Safety Concerns. Other Treatment Pt more alert this session. He was Able to follow simple 1 step commands but unable to carry over, thus needing consistent reminders. Pt participated in UE exercises with 1# hand held weight. Consistent verbal, visual and tactile cues needed as he often gets sidetracked and will perform incorrectly after first 3-4 reps. Pt often going back to bicep curl and needing cues on what movement he needed to complete (ex: shoulder flex). Pt is able to complete all movements through full range, 10 x1 in all planes. Education OT Patient Education: Correct positioning, Exercise program, Purpose of tx/functional activities Teaching Recipient: Patient Teaching Methods: Demonstration, Discussion Response to Teaching: Reinforcement Needed OT Short Term Goals Short Term Goals Time Frame: Oct 01, 2021 Eatin Oral hygiene: 4 Toileting hygiene: 4 Shower/bathe self: 4 Upper body dressin Lower body dressin Putting on/taking off footwear: 3 OT [facility] Goals [facility] Goals Time Frame: Oct 08, 2021 Eating (QC): 6 Oral Hygiene (QC): 6 Toileting Hygiene (QC): 5 Shower/Bathe Self (QC): 5 Upper Body Dressing (QC): 5 Lower Body Dressing (QC): 5 On/Off Footwear (QC): 5 1=Demonstrate adherence to instructed precautions during ADL tasks. 2=Patient will verbalize/demonstrate understanding of assistive devices/modifications for ADL. 3=Patient will improve strength/tolerance for activity to enable patient to perform ADL's. OT Education/Plan Problem List/Assessment Assessment: Decreased Activ Tolerance, Decreased Safety Aware, Decreased UE Strength, Impaired Cognition, Impaired Funct Balance, Impaired I ADL's, Impaired Self-Care Skills Discharge Recommendations Plan/Recommendations: Continue POC Treatment Plan/Plan of Care Treatment,Training & Education: Yes Patient would benefit from OT for education, treatment and training to promote independence in ADL's, mobility, safety and/or upper extremity function for ADL's. Plan of Care: ADL Retraining, Functional Mobility, UE Funct Exercise/Act, UE Neuromus Re-Ed/Coord, W/C Management Training Treatment Duration: Oct 08, 2021 Frequency: At least 5 of 7 days/Wk (IRF) Estimated Hrs Per Day: 1.5 hours per day Agreement: Yes Rehab Potential: Fair Time/GCodes Start Time: 11:28 Stop Time: 11:43 Total Time Billed (hr/min): 15 Billed Treatment Time 1 visit EX Gabrielle Joyner OT Sep 27, 2021 11:48
--- NOTE | 2021-09-27 11:50 | Diagnostic Imaging Report ---
CLINICAL INDICATIONS: Patient with history of aspiration. EXAM: Portable chest x-ray upright view. COMPARISON: None. FINDINGS: Low lung volumes are noted. There is curvilinear and amorphous airspace opacities in both lung bases. There are patchy airspace opacities in the right midlung field as well. There is no definite pleural effusion. There is no pneumothorax. Pulmonary vasculature and cardiac silhouette within normal limits. Postop change to the chest with sternotomy wires and surgical clips noted. There are degenerative spurs involving the spine. IMPRESSION: There are bibasilar curvilinear and amorphous opacities and small amount of airspace opacities in the right midlung field concerning for lung infiltrates and/or atelectasis. Dictated by: Dictated on workstation # [id number]
[2021-09-27] MEDS: ACETAMINOPHEN 325 MG TABLET PO PRN ×2 (12:26→18:13)
[2021-09-27] MEDS: CEFEPIME INJECTION 1,000 MG in NS (IVPB) 50 ML IV SCH ×2 (12:52→21:00)
--- NOTE | 2021-09-27 14:26 | Physical Therapy Daily Note ---
PT Daily Note-Current Subjective Patient in recliner pre tx, agrees to PT, has unrated headache, nurse notified. Appearance Patient in recliner post tx with nurse call, phone, tray, all needs met, chair alarm on. Mental Status Patient Orientation: Person, Confused Transfers SCALE: Activities may be completed with or without assistive devices. 1-Klgayvkynm-neaoqzh completes the activity by him/herself with no assistance from a helper. 5-Set-up or Clean-up Assistance-helper sets up or cleans up; patient completes activity. [place] assists only prior to or following the activity. 4-Supervision or Touching Assistance-helper provides verbal cues and/or touching/steadying and/or contact guard assistance as patient completes activity. Assistance may be provided throughout the activity or intermittently. 3-Partial/Moderate Assistance-helper does LESS THAN HALF the effort. [place] lifts, holds or supports trunk or limbs, but provides less than half the effort. 2-Substantial/Maximal Assistance-helper does MORE THAN HALF the effort. [place] lifts or holds trunk or limbs and provides more than half the effort. 7-Twowunzti-cfccxd does ALL the effort. Patient does none of the effort to complete the activity. Or, the assistance of 2 or more helpers is required for the patient to complete the activity. If activity was not attempted, code reason: 7-Patient Refused. 9-Not Applicable-not attempted and the patient did not perform the activity before the current illness, exacerbation or injury. 10-Not Attempted due to Environmental Limitations-(lack of equipment, weather restraints, etc.). 88-Not Attempted due to Medical Conditions or Safety Concerns. Sit to Stand (QC): 4 Chair/Ave-pk-Burib Xfer(QC): 4 Patient sometimes has some difficulty with sit to stand but can to it without assist. He often needs safety cues when turning to sit, he will often sit too soon. Gait Training Distance: 120'x2 Walk 10 feet (QC): 4 Walk 50 ft with 2 Turns(QC): 4 Gait Persons Needed: 1 Gait Assistive Device: FWW CGA, slow ambulation, short steps but not a festinating gait, tends to keep walker too far in front, slumped posture Exercises Seated Therapy Exercises: Ankle pumps, Long arc quads, Hip flexion, Hip abd/add (with ball and RTB) Standing: Sit to Stand Standing Reps: 5 Treatments transfers, ambulation, LE strengthening Assessment Current Status: Poor Progress patient was more confused this afternoon, needs constant cues to stay on task especially during LE exercise PT Short Term Goals Short Term Goals Time Frame: Sep 30, 2021 Roll Left & Right: 6 Sit to lyin Lying to sitting on side of be: 4 Sit to stand: 4 Chair/nrd-ua-kqipx transfer: 4 Walk 10 feet: 4 Walk 50 feet with two turns: 4 Walk 150 feet: 4 PT Intermediate Goals Intermediate Goals PT Heat Treating Bluer Goals Time Frame: Oct 14, 2021 Roll Left & Right (QC): 6 Sit to Lying (QC): 6 Lying-Sitting on Side/Bed(QC): 6 Sit to Stand (QC): 5 Chair/Qjq-sp-Lxcyw Xfer(QC): 5 Toilet Transfer (QC): 5 Car Transfer (QC): 5 Does the Patient Walk: Yes Walk 10 feet (QC): 5 Walk 50ft with 2 Turns (QC): 5 Walk 150 ft (QC): 5 Walking 10ft on Uneven Surface: 5 1 Step (curb) (QC): 4 4 Steps (QC): 4 12 Steps (QC): 88 Picking up an Object (QC): 4 Wheel 50 feet with 2 turns (QC: 6 Wheel 150 feet: 6 PT Plan Problem List Problem List: Activity Tolerance, Functional Strength, Safety, Balance, Gait, Transfer, Bed Mobility, ROM Treatment/Plan Treatment Plan: Continue Plan of Care Treatment Plan: Bed Mobility, Education, Functional Activity Varun, Functional Strength, Group Therapy, Gait, Safety, Therapeutic Exercise, Transfers Treatment Duration: Oct 14, 2021 Frequency: At least 5 of 7 days/Wk (IRF) Estimated Hrs Per Day: 1.5 hours per day Patient and/or Family Agrees t: Yes Safety Risks/Education Patient Education: Gait Training, Transfer Techniques, Correct Positioning, Safety Issues Teaching Recipient: Patient Teaching Methods: Demonstration, Discussion Response to Teaching: Reinforcement Needed Time/GCodes Time In: 1400 Time Out: 1430 Total Billed Treatment Time: 30 Total Billed Treatment 1 visit EX 10' GT 20' MUNA ROBERTS PT Sep 27, 2021 14:26
[2021-09-27] MEDS: HYDROcodone/APAP 5 MG/325 MG (LORTAB) TAB PO PRN (15:20)
[2021-09-27 20:00] VITALS: BP 113/62
[2021-09-27] MEDS ORDERED: CEFEPIME 1 GM/10 ML (MAXIPIME) VIAL ONE (20:10)
[2021-09-27] MEDS ORDERED: NS (IVPB) 50 ML ONE (20:12)
[2021-09-27] MEDS: diphenhydrAMINE 25 MG TAB (BENADRYL) PO SCH (21:06)
[2021-09-27] MEDS: IMIPRAMINE 10 MG PO SCH (21:06)
[2021-09-27] MEDS: OLANZapine 5 MG (ZyPREXA) TAB PO SCH (21:08)
[2021-09-27] MEDS: busPIRone 10 MG (BUSPAR) TAB PO SCH (21:08)
[2021-09-27] MEDS: SERTRALINE 100 MG (ZOLOFT) TAB PO SCH (21:09)
[2021-09-28] MEDS: CEFEPIME INJECTION 1,000 MG in NS (IVPB) 50 ML IV SCH ×2 (05:10→12:08)
[2021-09-28] MEDS: inSUlin ASPART (NovoLOG) 1 UNIT/0.01 ML (CHARGE PER UNIT) SC SCH ×2 (06:02→10:45)
[2021-09-28] MEDS: KCL 10 MEQ TAB (MICRO K) PO SCH (06:52)
[2021-09-28] MEDS: glipiZIDE XL 10 MG (GLUCOTROL XL) TAB PO SCH (07:33)
[2021-09-28] MEDS: DOCUSATE SODIUM 100 MG (COLACE) CAP PO SCH ×2 (07:33→07:58)
[2021-09-28] MEDS: RANOLAZINE ER 500 MG TAB (RANEXA) PO SCH (07:34)
[2021-09-28] MEDS: PIOGLITAZONE 30MG (ACTOS) TAB PO SCH (07:34)
[2021-09-28] MEDS: MULTIVIT W/MINERALS TAB (THERAGRAN M) PO SCH (07:34)
[2021-09-28] MEDS: amLODIPine 10 MG (NORVASC) TAB PO SCH (07:35)
[2021-09-28] MEDS: meTOprolol SUCCINATE 100 MG (TOPROL XL) TAB PO SCH (07:35)
[2021-09-28] MEDS: ISOSORBIDE MONONITRATE 60 MG (IMDUR) TAB PO SCH (07:35)
[2021-09-28 07:45] VITALS: BP 152/70
[2021-09-28 07:52] LABS: BASOPHILS % (AUTO) 0 % (0-10); EOSINOPHILS # (AUTO) 0.3 10^3/uL (0.0-0.3); EOSINOPHILS % (AUTO) 2 % (0-10); HEMATOCRIT 38 % (40-54); HEMOGLOBIN 13.2 g/dL (13.3-17.7); LYMPHOCYTES # (AUTO) 0.9 10^3/uL (1.0-4.0); LYMPHOCYTES % (AUTO) 7 % (12-44); MEAN CORPUSCULAR HEMOGLOBIN 33 pg (25-34); MEAN CORPUSCULAR HGB CONC 35 g/dL (32-36); MEAN CORPUSCULAR VOLUME 93 fL (80-99); MONOCYTES # (AUTO) 1.1 10^3/uL (0.0-1.0); MONOCYTES % (AUTO) 9 % (0-12); NEUTROPHILS # (AUTO) 9.5 10^3/uL (1.8-7.8); NEUTROPHILS % (AUTO) 79 % (42-75); PLATELET COUNT 250 10^3/uL (130-400)
[2021-09-28] MEDS: polyethylene glycoL POWDER 17 GM (MIRALAX) PACK PO SCH (07:58)
[2021-09-28 08:18] LABS: ALBUMIN 3.1 GM/DL (3.2-4.5); BILIRUBIN,TOTAL 0.8 MG/DL (0.1-1.0); CALCIUM 9.1 MG/DL (8.5-10.1); CREATININE SERUM 1.58 MG/DL (0.60-1.30); POTASSIUM 4.8 MMOL/L (3.6-5.0)
--- NOTE | 2021-09-28 08:18 | Occupational Ther Daily Note ---
OT Current Status-Daily Note Subjective Pt having difficult time expressing thoughts, aphasia? Appearance Left supine in bed, all needs within reach, bed alarm set, RN notified. Mental Status/Objective Patient Orientation: Person, Confused Attachments: IV, Oxygen ADL-Treatment Therapy Code Descriptions/Definitions Functional [place] Measure: 0=Not Assessed/NA 4=Minimal Assistance 1=Total Assistance 5=Supervision or Setup 2=Maximal Assistance 6=Modified [place] 3=Moderate Assistance 7=Complete IndependenceSCALE: Activities may be completed with or without assistive devices. 3-Xjosxhcmel-llqgswg completes the activity by him/herself with no assistance from a helper. 5-Set-up or Clean-up Assistance-helper sets up or cleans up; patient completes activity. [place] assists only prior to or following the activity. 4-Supervision or Touching Assistance-helper provides verbal cues and/or touching/steadying and/or contact guard assistance as patient completes activity. Assistance may be provided throughout the activity or intermittently. 3-Partial/Moderate Assistance-helper does LESS THAN HALF the effort. [place] lifts, holds or supports trunk or limbs, but provides less than half the effort. 2-Substantial/Maximal Assistance-helper does MORE THAN HALF the effort. [place] lifts or holds trunk or limbs and provides more than half the effort. 0-Jngtnpbns-kwxvuz does ALL the effort. Patient does none of the effort to complete the activity. Or, the assistance of 2 or more helpers is required for the patient to complete the activity. If activity was not attempted, code reason: 7-Patient Refused. 9-Not Applicable-not attempted and the patient did not perform the activity before the current illness, exacerbation or injury. 10-Not Attempted due to Environmental Limitations-(lack of equipment, weather restraints, etc.). 88-Not Attempted due to Medical Conditions or Safety Concerns. Upper Body Dressing (QC): 3 Lower Body Dressing (QC): 2 On/Off Footwear: 1 RN reports patient had been up since 4 am. Pt transferring back to bed at OT arrival. Min a for balance and mod cues for safety as pt has tendency to sit prior to reaching surface. Dressing tasks performed sitting at EOB. Intermittent min a for balance with cues to keep feet supported on floor. Poor comprehension/initiation exhibited when asked to wash his face. HOHA required to bring washcloth to face. Tactile cues then needed to wash R side. Improved sequencing noted when donning shirt, yet cues still needed for correct helen entation and to complete last step of pulling down around torso. Pt often attempting to lay back down before finishing dressing tasks and needs several cues/assist to shift weight anteriorly. Pt attempting multiple times to lift bilateral feet off floor in order to thread both legs into his pants at the same time. Cues needed for preferred method to increase balance safety. Assist needed to thread RLE. Steadying assist and tactile cues required when pulling clothing up to waist. Min a needed to pull pants completely over hips. When sitting, pt demonstrates several coughing spells which causes him to desat into the 80's. He quickly recovers with rest and once coughing subsides. Dep to don rony hose and sock due to fatigue. Education OT Patient Education: Correct positioning, Energy conservation, Modified ADL techniques, Purpose of tx/functional activities, Reviewed precautions, Safety issues, Transfer techniques Teaching Recipient: Patient Teaching Methods: Demonstration, Discussion Response to Teaching: Unable to Return Demonstration, Unable to Comprehend, Reinforcement Needed OT Short Term Goals Short Term Goals Time Frame: Oct 01, 2021 Eatin Oral hygiene: 4 Toileting hygiene: 4 Shower/bathe self: 4 Upper body dressin Lower body dressin Putting on/taking off footwear: 3 OT Wheel Press Clerk Goals Wheel Press Clerk Goals Time Frame: Oct 08, 2021 Eating (QC): 6 Oral Hygiene (QC): 6 Toileting Hygiene (QC): 5 Shower/Bathe Self (QC): 5 Upper Body Dressing (QC): 5 Lower Body Dressing (QC): 5 On/Off Footwear (QC): 5 1=Demonstrate adherence to instructed precautions during ADL tasks. 2=Patient will verbalize/demonstrate understanding of assistive devices/modif ications for ADL. 3=Patient will improve strength/tolerance for activity to enable patient to perform ADL's. OT Education/Plan Problem List/Assessment Assessment: Decreased Activ Tolerance, Decreased Safety Aware, Decreased UE Strength, Edema, Impaired Cognition, Impaired Funct Balance, Impaired I ADL's, Impaired Self-Care Skills Discharge Recommendations Plan/Recommendations: Continue POC Therapy Discharge Recommendati: 24 Hour Supervision, Post Acute OT Treatment Plan/Plan of Care Treatment,Training & Education: Yes Patient would benefit from OT for education, treatment and training to promote independence in ADL's, mobility, safety and/or upper extremity function for ADL's. Plan of Care: ADL Retraining, Functional Mobility, UE Funct Exercise/Act, UE Neuromus Re-Ed/Coord, W/C Management Training Treatment Duration: Oct 08, 2021 Frequency: At least 5 of 7 days/Wk (IRF) Estimated Hrs Per Day: 1.5 hours per day Agreement: Yes Rehab Potential: Fair Time/GCodes Start Time: 07:30 Stop Time: 08:20 Total Time Billed (hr/min): 50 Billed Treatment Time 1 visit ADL x3 Gabrielle Joyner OT Sep 28, 2021 08:18
[2021-09-28] MEDS: SENNA W/DOCUSATE (SENOKOT S) TABLET PO SCH (08:21)
[2021-09-28] MEDS: PANTOPRAZOLE 20 MG TABLET (PROTONIX) PO SCH (08:22)
--- NOTE | 2021-09-28 08:44 | PM&R Progress Note ---
Subjective HPI/CC On Admission Date Seen by Provider: Sep 28, 2021 Time Seen by Provider: 10:00 Subjective/Events-last exam 09/28/21: Transferring to ICU 09/27/2021: Patient doing about the same Aspirin every 48 hours that has been restarted per cardiology Cough is noted so chest x-ray obtained revealing pneumonia so started on antibiotics and tested for COVID which requested it was negative Confusion is noted Swallowing is an issue crushed his meds Bowels moved yesterday 09/26/2021: Patient doing pretty well Improved headache pain Echocardiogram and Dr. Rosales consult indicated [employer] in the evening Mechanically altered diet due to possible high risk for aspiration Speech therapy will see 09/25/21: Patient was in good spirits today Complaining of headache in evening Eating lunch today Starting having headache in afternoon so I ordered Hydrocodone 1/2 pill to prevent delirium and worsened hallucinations he was having last night when nurse contacted me at 1700. Noted he had received 2 doses of Plavix and ASA on 09/23 and 09/24 which I held and reviewed [facility] records and the DC summary had no recommendations on when we could start anti-platelet agents back again so will hold until I clarify this with NSG. CT reports were stable they obtained in serial fashion at [facility]. RN contacted me with worsened headache pain severe in type at 1850 so placed order for stat CT scan and sent pic of CT scan report from 09/18/21 in order to compare with current stat CT since he does have both SAH and subdural hematoma. Vomiting in CT scan prompted Zofran IV 8mg IV x 1 and he did receive 1/2 tablet of Lortab prior to worsened OCAMPO. VSS remains stable. Dilaudid 0.25mg IV ordered. Will give partial dose 0.125mg to be sure he is able to handle the pain meds without side effects and may give the 2nd half if needed. Patient back on the unit and vitals remain stable and he was not complaining of headache pain and was joking around a bit. Spoke to radiologist and he stated the SAH was almost gone after I updated him on the previous report from 09/18/21 and SDH was same size. Checked on patient again at 2100 and patient denies any pain and no more nausea 09/24/2021: Patient doing very well Confused at night Check meds labs Patient sleeping currently No pain is reported except for headache last night which is expected with the intracranial processes Review of Systems Pulmonary: Dyspnea, Cough Focused Exam Lactate Level 09/27/21 13:00: Lactic Acid Level 1.70 09/28/21 09:17: Lactic Acid Level 0.94 Objective Exam Vital Signs Vital Signs Date Time Temp Pulse Resp B/P (MAP) Pulse Ox O2 Delivery O2 Flow Rate FiO2 09/28/21 18:18 37.6 88 91 21 09/28/21 11:27 Nasal Cannula 2.00 09/28/21 07:45 18 152/70 (97) Capillary Refill : General Appearance: WD/WN, Anxious, Chronically ill, Mild Distress HEENT: PERRL/EOMI, Normal ENT Inspection, Pharynx Normal Neck: Full Range of Motion, Normal Inspection, Non Tender, Supple, Carotid Bruit Respiratory: Chest Non Tender, No Accessory Muscle Use, No Respiratory Distress, Crackles, Decreased Breath Sounds, Wheezing Cardiovascular: Regular Rate, Rhythm, No Edema, No Gallop, No JVD, No Murmur, Normal Peripheral Pulses Gastrointestinal: Normal Bowel Sounds, No Organomegaly, No Pulsatile Mass, Non Tender, Soft Back: Normal Inspection, No CVA Tenderness, No Vertebral Tenderness Extremity: Normal Capillary Refill, Normal Inspection, Normal Range of Motion, Non Tender, No Calf Tenderness, No Pedal Edema Neurologic/Psychiatric: Alert, No Motor/Sensory Deficits, Normal Mood/Affect, deliverer food II-XII Norm as Tested, Abnormal Gait, Disoriented, Motor Weakness (generalized weakness, poor core strength) Skin: Normal Color, Warm/Dry Lymphatic: No Adenopathy Results/Procedures Lab Laboratory Tests 09/28/21 07:45 Patient resulted labs reviewed. FIM Transfers Therapy Code Descriptions/Definitions Functional [place] Measure: 0=Not Assessed/NA 4=Minimal Assistance 1=Total Assistance 5=Supervision or Setup 2=Maximal Assistance 6=Modified [place] 3=Moderate Assistance 7=Complete IndependenceSCALE: Activities may be completed with or without assistive devices. 2-Rpjpouqtua-bfasmxe completes the activity by him/herself with no assistance from a helper. 5-Set-up or Clean-up Assistance-helper sets up or cleans up; patient completes activity. [place] assists only prior to or following the activity. 4-Supervision or Touching Assistance-helper provides verbal cues and/or touc nola/steadying and/or contact guard assistance as patient completes activity. Assistance may be provided throughout the activity or intermittently. 3-Partial/Moderate Assistance-helper does LESS THAN HALF the effort. [place] lifts, holds or supports trunk or limbs, but provides less than half the effort. 2-Substantial/Maximal Assistance-helper does MORE THAN HALF the effort. [place] lifts or holds trunk or limbs and provides more than half the effort. 3-Vmohtvdeb-nwlxqm does ALL the effort. Patient does none of the effort to complete the activity. Or, the assistance of 2 or more helpers is required for the patient to complete the activity. If activity was not attempted, code reason: 7-Patient Refused. 9-Not Applicable-not attempted and the patient did not perform the activity be fore the current illness, exacerbation or injury. 10-Not Attempted due to Environmental Limitations-(lack of equipment, weather restraints, etc.). 88-Not Attempted due to Medical Conditions or Safety Concerns. Roll Left to Right (QC): 4 Sit to Lying (QC): 3 Sit to Stand (QC): 4 Chair/Qsu-jc-Iagdg Xfer(QC): 4 Car Transfer (QC): 3 Gait Training Does the Patient Walk?: Yes Distance: 120'x2 Walk 10 feet (QC): 4 Walk 50 ft with 2 Turns(QC): 4 Walk 150 ft (QC): 88 Walking 10ft/uneven surface-QC: 4 Gait Persons Needed: 1 Gait Assistive Device: FWW Wheelchair Training Does the Pt Use a Wheelchair?: Yes Distance: 300', 120' Wheel 50 ft with 2 turns (QC): 3 Wheel 150 ft (QC): 3 Type of Wheelchair: Manual Stair Training #of Steps: 1 1 Step (curb) (QC): 3 4 Steps (QC): 88 12 Steps (QC): 88 Balance Picking up an Object (QC): 3 ADL-Treatment Eating (QC): 4 Oral Hygiene (QC): 2 Shower/Bathe Self (QC): 2 Upper Body Dressing (QC): 3 Lower Body Dressing (QC): 2 On/Off Footwear (QC): 1 Toileting Hygiene (QC): 3 Toilet Transfer (QC): 3 Assessment/Plan Assessment and Plan Assess & Plan/Chief Complaint Assessment: SAH Subdural hematoma Recent NSTEMI 08/18/21 holding Plavix and aspirin and consulting Dr. Rosales restarting aspirin 81 mg every 48 hours on 09/26/2021 CAD CKD3 DM2 HTN HLD GERD Hiatal hernia RODY Prostate cancer Confusion Hypokalemia Leukocytosis Subarachnoid headache Pneumonia started on cefepime 09/27/2021 Plan: Rehab protocol Monitor BP 09/24/2021: Supportive care Potassium supplement 09/25/2021: Pain control Hold Plavix and aspirin even though recent non-STEMI on 08/18/2021 09/26/2021: Consult Dr. Rosales to decide Plavix and aspirin maintenance Check meds labs 09/27/2021: Cefepime Incentive spirometer 09/28/21: Transfer to ICU Full code (1) SAH (subarachnoid hemorrhage) (2) CAD (coronary artery disease) Status: Acute (3) Stage 3b chronic kidney disease Status: Chronic (4) HTN (hypertension) Status: Acute (5) T2DM (type 2 diabetes mellitus) Status: Chronic (6) HLD (hyperlipidemia) Status: Chronic (7) Obesity Status: Chronic (8) GERD (gastroesophageal reflux disease) Status: Chronic RAOUL AVITIA DO Sep 28, 2021 08:44
--- NOTE | 2021-09-28 09:06 | Diagnostic Imaging Report ---
CHEST 1 VIEW, AP/PA ONLY Indication: Pneumonia Comparison: 09/27/2021 Findings: New ill-defined opacities in the right mid and upper lung zones. Patchy ill-defined opacities lung bases are similar. No pneumothorax. Stable cardiac silhouette status post CABG. Impression: 1. Worsening of bilateral multifocal pneumonia. Dictated by: Dictated on workstation # [id number]
[2021-09-28] MEDS ORDERED: methylPREDNISolone 40 MG/ML (Solu-MEDROL) VIAL IV ONE (09:30)
[2021-09-28] MEDS ORDERED: VANCOMYCIN INJECTION 0.1 MG in NS (IVPB) 250 ML IV SCH (09:45)
[2021-09-28 09:51] LABS: ABG BASE EXCESS 3.2 MMOL/L (-2.5-2.5); ABG OXYGEN SATURATION 95 % (94-100); ABG PCO2 37 MMHG (35-45); ABG PH 7.47 (7.37-7.43); ABG PO2 64 MMHG (79-93)
[2021-09-28 09:53] LABS: ALLENS TEST YES-POS; INSPIRED O2 2; PATIENT TEMP 36.6; VENTILATOR NO
[2021-09-28] MEDS ORDERED: VANCOMYCIN 1500 MG/NS 500 ML IVPB IV SCH ×2 (11:00)
[2021-09-28] MEDS ORDERED: CLINDAMYCIN 600 MG/50 ML IVPB 50 ML IV SCH (11:00)
--- NOTE | 2021-09-28 11:15 | Discharge Summary ---
Diagnosis/Chief Complaint Date of Admission Sep 23, 2021 at 13:15 Date of Discharge Discharge Diagnosis Assessment: Worsened pneumonia started on cefepime 09/27/2021 but requiring transfer to ICU SAH Subdural hematoma Recent NSTEMI 08/18/21 holding Plavix and aspirin and consulting Dr. Rosales restarting aspirin 81 mg every 48 hours on 09/26/2021 CAD CKD3 DM2 HTN HLD GERD Hiatal hernia RODY Prostate cancer Confusion Hypokalemia Leukocytosis Subarachnoid headache Pneumonia started on cefepime 09/27/2021 Plan: Rehab protocol Monitor BP 09/24/2021: Supportive care Potassium supplement 09/25/2021: Pain control Hold Plavix and aspirin even though recent non-STEMI on 08/18/2021 09/26/2021: Consult Dr. Rosales to decide Plavix and aspirin maintenance Check meds labs 09/27/2021: Cefepime Incentive spirometer (1) SAH (subarachnoid hemorrhage) (2) CAD (coronary artery disease) Status: Acute (3) Stage 3b chronic kidney disease Status: Chronic (4) HTN (hypertension) Status: Acute (5) T2DM (type 2 diabetes mellitus) Status: Chronic (6) HLD (hyperlipidemia) Status: Chronic (7) Obesity Status: Chronic (8) GERD (gastroesophageal reflux disease) Status: Chronic Discharge Summary Discharge Physical Examination Allergies: Coded Allergies: ciprofloxacin (Verified Allergy, Severe, 08/17/21) Sulfa (Sulfonamide Antibiotics) (Verified Allergy, Unknown, 08/17/21) bacitracin (Verified Allergy, Unknown, 08/17/21) metformin (Verified Allergy, Unknown, 08/17/21) neomycin (Verified Allergy, Unknown, 08/17/21) polymyxin B (Verified Allergy, Unknown, 08/17/21) Vitals & I&Os Vital Signs Date Time Temp Pulse Resp B/P (MAP) Pulse Ox O2 Delivery O2 Flow Rate FiO2 09/28/21 18:18 37.6 88 91 21 09/28/21 11:27 Nasal Cannula 2.00 09/28/21 07:45 18 152/70 (97) General Appearance: Alert Respiratory: Other (coarse) Hospital Course Was the Problem List Reviewed?: Yes Pt had a short hospital course after being admitted for subdural and subarachnoid hemorrhoids. After he fell [place] truck stop on the concrete. He had neurosurgery evaluate him to be a non-surgical candidate. He actually was admitted and had done very well but apparently he had some high risk for aspiration and it appears the pneumonia has worsened. I had started him on Cefepime yesterday and no evidence of sepsis. His lungs are a lot more coarse, he is coughing more, and he is at high risk for intubation. I did speak with his and he remains a full code although the prognosis is poor. Labs (last 24 hrs) Laboratory Tests 09/23/21 15:45: Glucometer 222H 09/23/21 20:38: Glucometer 239H 09/24/21 06:10: White Blood Count 12.7H, Red Blood Count 5.21, Hemoglobin 16.8, Hematocrit 47, Mean Corpuscular Volume 91, Mean Corpuscular Hemoglobin 32, Mean Corpuscular Hemoglobin Concent 35, Red Cell Distribution Width 11.8, Platelet Count 214, Mean Platelet Volume 10.3, Immature Granulocyte % (Auto) 2, Neutrophils (%) (Auto) 74, Lymphocytes (%) (Auto) 11L, Monocytes (%) (Auto) 12, Eosinophils (%) (Auto) 1, Basophils (%) (Auto) 0, Neutrophils # (Auto) 9.3H, Lymphocytes # (Auto) 1.4, Monocytes # (Auto) 1.5H, Eosinophils # (Auto) 0.1, Basophils # (Auto) 0.1, Immature Granulocyte # (Auto) 0.3H, Sodium Level 134L, Potassium Level 3.3L, Chloride Level 99, Carbon Dioxide Level 19L, Anion Gap 16H, Blood Urea Nitrogen 18, Creatinine 1.15, Estimat Glomerular Filtration Rate 63, BUN/Creatinine Ratio 16, Glucose Level 86, Calcium Level 9.6, Corrected Calcium 9.8, Total Bilirubin 1.3H, Aspartate Amino Transf (AST/SGOT) 33, Alanine Am inotransferase (ALT/SGPT) 42, Alkaline Phosphatase 77, Total Protein 6.8, Albumin 3.7 09/24/21 06:14: Glucometer 95 09/24/21 10:57: Glucometer 133H 09/24/21 16:09: Glucometer 131H 09/24/21 20:16: Glucometer 217H 09/25/21 06:46: Glucometer 66L 09/25/21 11:00: Glucometer 291H 09/25/21 15:17: Glucometer 204H 09/25/21 20:05: Glucometer 114H 09/26/21 06:04: Glucometer 82 09/26/21 10:55: Glucometer 219H 09/26/21 15:39: Glucometer 232H 09/26/21 20:04: Glucometer 246H 09/27/21 05:23: Glucometer 138H 09/27/21 05:40: White Blood Count 13.1H, Red Blood Count 4.01L, Hemoglobin 12.9#L, Hematocrit 37L, Mean Corpuscular Volume 92, Mean Corpuscular Hemoglobin 32, Mean Corpuscular Hemoglobin Concent 35, Red Cell Distribution Width 11.9, Platelet Count 216, Mean Platelet Volume 10.5, Immature Granulocyte % (Auto) 2, Neutrophils (%) (Auto) 82H, Lymphocytes (%) (Auto) 7L, Monocytes (%) (Auto) 8, Eosinophils (%) (Auto) 2, Basophils (%) (Auto) 0, Neutrophils # (Auto) 10.7H, Lymphocytes # (Auto) 0.9L, Monocytes # (Auto) 1.0, Eosinophils # (Auto) 0.2, Basophils # (Auto) 0.0, Immature Granulocyte # (Auto) 0.2H, Neutrophils % (Manual) 78, Lymphocytes % (Manual) 10, Monocytes % (Manual) 10, Eosinophils % (Manual) 2 09/27/21 06:00: Sodium Level 132L, Potassium Level 4.1, Chloride Level 99, Carbon Dioxide Level 22, Anion Gap 11, Blood Urea Nitrogen 30H, Creatinine 1.82H, Estimat Glomerular Filtration Rate 36, BUN/Creatinine Ratio 16, Glucose Level 140H, Calcium Level 8.7, Corrected Calcium 9.5, Total Bilirubin 0.8, Aspartate Amino Transf (AST/SGOT) 28, Alanine Aminotransferase (ALT/SGPT) 32, Alkaline Phosphatase 79, Total Protein 5.6L, Albumin 3.0L, Procalcitonin 0.09 09/27/21 10:49: Glucometer 262H 09/27/21 11:20: Influenza Type A (RT-PCR) Not Detected, Influenza Type B (RT-PCR) Not Detected, SARS-CoV-2 RNA (RT-PCR) Not Detected 09/27/21 13:00: Lactic Acid Level 1.70 09/27/21 15:56: Glucometer 309H 09/27/21 20:38: Glucometer 262H 09/28/21 06:04: Glucometer 122H 09/28/21 07:45: White Blood Count 12.0H, Red Blood Count 4.06L, Hemoglobin 13.2L, Hematocrit 38L , Mean Corpuscular Volume 93, Mean Corpuscular Hemoglobin 33, Mean Corpuscular Hemoglobin Concent 35, Red Cell Distribution Width 11.9, Platelet Count 250, Charito n Platelet Volume 10.0, Immature Granulocyte % (Auto) 2, Neutrophils (%) (Auto) 79H, Lymphocytes (%) (Auto) 7L, Monocytes (%) (Auto) 9, Eosinophils (%) (Auto) 2, Basophils (%) (Auto) 0, Neutrophils # (Auto) 9.5H, Lymphocytes # (Auto) 0.9L, Monocytes # (Auto) 1.1H, Eosinophils # (Auto) 0.3, Basophils # (Auto) 0.0, Immature Granulocyte # (Auto) 0.2H, Sodium Level 136, Potassium Level 4.8, Chloride Level 100, Carbon Dioxide Level 25, Anion Gap 11, Blood Urea Nitrogen 33H, Creatinine 1.58H, Estimat Glomerular Filtration Rate 43, BUN/Creatinine Ratio 21, Glucose Level 149H, Calcium Level 9.1, Corrected Calcium 9.8, Total Bilirubin 0.8, Aspartate Amino Transf (AST/SGOT) 27, Alanine Aminotransferase (ALT/SGPT) 33, Alkaline Phosphatase 76, Total Protein 6.0L, Albumin 3.1L, Procal citonin 0.11H 09/28/21 09:17: Lactic Acid Level 0.94 09/28/21 09:28: Blood Gas Puncture Site LR, Blood Gas Patient Temperature 36.6, Arterial Blood pH 7.47H, Arterial Blood Partial Pressure CO2 37, Arterial Blood Partial Pressure O2 64L, Arterial Blood HCO3 27, Arterial Blood Total CO2 28.0, Arterial Blood Oxygen Saturation 95, Arterial Blood Base Excess 3.2H, [place] Test YES-POS, Blood Gas Ventilator Setting NO, Blood Gas Inspired Oxygen 2 09/28/21 10:40: Glucometer 176H Pending Labs Laboratory Tests 09/23/21 15:45: Glucometer 222 09/23/21 20:38: Glucometer 239 09/24/21 06:10: White Blood Count 12.7, Red Blood Count 5.21, Hemoglobin 16.8, Hematocrit 47, Mean Corpuscular Volume 91, Mean Corpuscular Hemoglobin 32, Mean Corpuscular Hemoglobin Concent 35, Red Cell Distribution Width 11.8, Platelet Count 214, Mean Platelet Volume 10.3, Immature Granulocyte % (Auto) 2, Neutrophils (%) (Auto) 74, Lymphocytes (%) (Auto) 11, Monocytes (%) (Auto) 12, Eosinophils (%) (Auto) 1, Basophils (%) (Auto) 0, Neutrophils # (Auto) 9.3, Lymphocytes # (Auto) 1.4, Monocytes # (Auto) 1.5, Eosinophils # (Auto) 0.1, Basophils # (Auto) 0.1, Immature Granulocyte # (Auto) 0.3, Sodium Level 134, Potassium Level 3.3, Chloride Level 99, Carbon Dioxide Level 19, Anion Gap 16, Blood Urea Nitrogen 18, Creatinine 1.15, Estimat Glomerular Filtration Rate 63, BUN/Creatinine Ratio 16, Glucose Level 86, Calcium Level 9.6, Corrected Calcium 9.8, Total Bilirubin 1.3, Aspartate Amino Transf (AST/SGOT) 33, Alanine Aminotransferase (ALT/SGPT) 42, Alkaline Phosphatase 77, Total Protein 6.8, Albumin 3.7 09/24/21 06:14: Glucometer 95 09/24/21 10:57: Glucometer 133 09/24/21 16:09: Glucometer 131 09/24/21 20:16: Glucometer 217 09/25/21 06:46: Glucometer 66 09/25/21 11:00: Glucometer 291 09/25/21 15:17: Glucometer 204 09/25/21 20:05: Glucometer 114 09/26/21 06:04: Glucometer 82 09/26/21 10:55: Glucometer 219 09/26/21 15:39: Glucometer 232 09/26/21 20:04: Glucometer 246 09/27/21 05:23: Glucometer 138 09/27/21 05:40: White Blood Count 13.1, Red Blood Count 4.01, Hemoglobin 12.9, Hematocrit 37, Mean Corpuscular Volume 92, Mean Corpuscular Hemoglobin 32, Mean Corpuscular Hemoglobin Concent 35, Red Cell Distribution Width 11.9, Platelet Count 216, Mean Platelet Volume 10.5, Immature Granulocyte % (Auto) 2, Neutrophils (%) (Auto) 82, Lymphocytes (%) (Auto) 7, Monocytes (%) (Auto) 8, Eosinophils (%) (Auto) 2, Basophils (%) (Auto) 0, Neutrophils # (Auto) 10.7, Lymphocytes # (Auto) 0.9, Monocytes # (Auto) 1.0, Eosinophils # (Auto) 0.2, Basophils # (Auto) 0.0, Immature Granulocyte # (Auto) 0.2, Neutrophils % (Manual) 78, Lymphocytes % (Manual) 10, Monocytes % (Manual) 10, Eosinophils % (Manual) 2 09/27/21 06:00: Sodium Level 132, Potassium Level 4.1, Chloride Level 99, Carbon Dioxide Level 22, Anion Gap 11, Blood Urea Nitrogen 30, Creatinine 1.82, Estimat Glomerular Filtration Rate 36, BUN/Creatinine Ratio 16, Glucose Level 140, Calcium Level 8.7, Corrected Calcium 9.5, Total Bilirubin 0.8, Aspartate Amino Transf (AST/SGOT) 28, Alanine Aminotransferase (ALT/SGPT) 32, Alkaline Phosphatase 79, Total Protein 5.6, Albumin 3.0, Procalcitonin 0.09 09/27/21 10:49: Glucometer 262 09/27/21 11:20: Influenza Type A (RT-PCR) Not Detected, Influenza Type B (RT-PCR) Not Detected, SARS-CoV-2 RNA (RT-PCR) Not Detected 09/27/21 13:00: Lactic Acid Level 1.70 09/27/21 15:56: Glucometer 309 09/27/21 20:38: Glucometer 262 09/28/21 06:04: Glucometer 122 09/28/21 07:45: White Blood Count 12.0, Red Blood Count 4.06, Hemoglobin 13.2, Hematocrit 38, Mean Corpuscular Volume 93, Mean Corpuscular Hemoglobin 33, Mean Corpuscular Hemoglobin Concent 35, Red Cell Distribution Width 11.9, Platelet Count 250, Mean Platelet Volume 10.0, Immature Granulocyte % (Auto) 2, Neutrophils (%) (Auto) 79, Lymphocytes (%) (Auto) 7, Monocytes (%) (Auto) 9, Eosinophils (%) (Auto) 2, Basophils (%) (Auto) 0, Neutrophils # (Auto) 9.5, Lymphocytes # (Auto) 0.9, Monocytes # (Auto) 1.1, Eosinophils # (Auto) 0.3, Basophils # (Auto) 0.0, Immature Granulocyte # (Auto) 0.2, Sodium Level 136, Potassium Level 4.8, Chloride Level 100, Carbon Dioxide Level 25, Anion Gap 11, Blood Urea Nitrogen 33, Creatinine 1.58, Estimat Glomerular Filtration Rate 43, BUN/Creatinine Ratio 21, Glucose Level 149, Calcium Level 9.1, Corrected Calcium 9.8, Total Bilirubin 0.8, Aspartate Amino Transf (AST/SGOT) 27, Alanine Aminotransferase (ALT/SGPT) 33, Alkaline Phosphatase 76, Total Protein 6.0, Albumin 3.1, Procalcitonin 0.11 09/28/21 09:17: Lactic Acid Level 0.94 09/28/21 09:28: Blood Gas Puncture Site LR, Blood Gas Patient Temperature 36.6, Arterial Blood pH 7.47, Arterial Blood Partial Pressure CO2 37, Arterial Blood Partial Pressure O2 64, Arterial Blood HCO3 27, Arterial Blood Total CO2 28.0, Arterial Blood Oxygen Saturation 95, Arterial Blood Base Excess 3.2, [place] Test YES-POS, Blood Gas Ventilator Setting NO, Blood Gas Inspired Oxygen 2 09/28/21 10:40: Glucometer 176 Discharge Home Medications: Active Scripts Active Reported Amlodipine Besylate 10 Mg Tablet 10 Mg PO DAILY Metoprolol Succinate 100 Mg Tab.er.24h 100 Mg PO DAILY Levetiracetam 500 Mg Tablet 500 Mg PO BID Benadryl Allergy (Diphenhydramine HCl) 25 Mg Tablet 25 Mg PO HS Multivitamin 1 Each Tablet 1 Each PO DAILY Tylenol Arthritis (Acetaminophen) 650 Mg Tablet.er 650-1,300 Mg PO Q8H PRN Refresh Tears (Carboxymethylcellulose Sodium) 15 Ml Drops 2 Drops OU UD PRN Aspirin EC (Aspirin) 81 Mg Tablet.dr 81 Mg PO HS Glipizide Xl (Glipizide) 10 Mg Tab.er.24 10 Mg PO BID LAST FILELD 12-10-2020 #180/90 DAY SUPPLY Imipramine HCl 10 Mg Tablet 10 Mg PO HS Sertraline HCl 100 Mg Tablet 50 Mg PO HS TAKES OF A 100MG TAB Buspirone HCl 10 Mg Tablet 20 Mg PO HS TAKES 2 (10MG) TABS Pioglitazone HCl 45 Mg Tablet 45 Mg PO DAILY Lantus Solostar (Insulin Glargine,Hum.rec.anlog) 100 Unit/1 Ml Insuln.pen 40 Units SC HS Fluticasone Propionate 16 Gm Ray.susp 2 Sprays NSEACH DAILY PRN Docusate Sodium 100 Mg Capsule 100-200 Mg PO BID Isosorbide Mononitrate ER (Isosorbide Mononitrate) 120 Mg Tab.er.24h 120 Mg PO DAILY Lansoprazole 15 Mg Capsule.dr 15 Mg PO DAILY Vitamin D2 (Ergocalciferol (Vitamin D2)) 1,250 Mcg Capsule 1,250 Mcg PO TUE Clopidogrel (Clopidogrel Bisulfate) 75 Mg Tablet 75 Mg PO HS Atorvastatin Calcium 40 Mg Tablet 40 Mg PO HS Ranolazine ER (Ranolazine) 1,000 Mg Tab.er.12h 1,000 Mg PO BID Instructions to patient/family Please see electronic discharge instructions given to patient. Diagnosis/Problems Diagnosis/Problems (1) SAH (subarachnoid hemorrhage) (2) CAD (coronary artery disease) Status: Acute (3) Stage 3b chronic kidney disease Status: Chronic (4) HTN (hypertension) Status: Acute (5) T2DM (type 2 diabetes mellitus) Status: Chronic (6) HLD (hyperlipidemia) Status: Chronic (7) Obesity Status: Chronic (8) GERD (gastroesophageal reflux disease) Status: Chronic Clinical Quality Measures DVT/VTE Risk/Contraindication: Contraindications-Pharm: Other *list below* Other: RAOUL Wang DO Sep 28, 2021 11:15
--- NOTE | 2021-09-28 11:29 | Occupational Ther Daily Note ---
OT Current Status-Daily Note Subjective Pt with significant decline in cognitive and speech function this session. RN notified regarding change in status. Appearance Pt left supine in bed, pt's lever tender in room at OT departure. Mental Status/Objective Patient Orientation: Confused Attachments: IV ADL-Treatment Therapy Code Descriptions/Definitions Functional [place] Measure: 0=Not Assessed/NA 4=Minimal Assistance 1=Total Assistance 5=Supervision or Setup 2=Maximal Assistance 6=Modified [place] 3=Moderate Assistance 7=Complete IndependenceSCALE: Activities may be completed with or without assistive devices. 3-Zlysywlwhs-zejpdwd completes the activity by him/herself with no assistance from a helper. 5-Set-up or Clean-up Assistance-helper sets up or cleans up; patient completes activity. [place] assists only prior to or following the activity. 4-Supervision or Touching Assistance-helper provides verbal cues and/or touching/steadying and/or contact guard assistance as patient completes activity. Assistance may be provided throughout the activity or intermittently. 3-Partial/Moderate Assistance-helper does LESS THAN HALF the effort. [place] lifts, holds or supports trunk or limbs, but provides less than half the effort. 2-Substantial/Maximal Assistance-helper does MORE THAN HALF the effort. [place] lifts or holds trunk or limbs and provides more than half the effort. 6-Perzecnde-eajhuj does ALL the effort. Patient does none of the effort to complete the activity. Or, the assistance of 2 or more helpers is required for the patient to complete the activity. If activity was not attempted, code reason: 7-Patient Refused. 9-Not Applicable-not attempted and the patient did not perform the activity before the current illness, exacerbation or injury. 10-Not Attempted due to Environmental Limitations-(lack of equipment, weather restraints, etc.). 88-Not Attempted due to Medical Conditions or Safety Concerns. Other Treatment Pt with significant decline in function this session. Unable to get intelligible words out, garbled speech. Pt incontinent of urine at OT arrival. (pt is usually continent). Dependent to clean and re don new briefs at bed level. Education OT Patient Education: Correct positioning, Purpose of tx/functional activities, Safety issues Teaching Recipient: Patient Teaching Methods: Discussion Response to Teaching: Unable to Return Demonstration, Unable to Comprehend, Reinforcement Needed OT Short Term Goals Short Term Goals Time Frame: Oct 01, 2021 Eatin Oral hygiene: 4 Toileting hygiene: 4 Shower/bathe self: 4 Upper body dressin Lower body dressin Putting on/taking off footwear: 3 OT Halfway Goals Halfway Goals Time Frame: Oct 08, 2021 Eating (QC): 6 Oral Hygiene (QC): 6 Toileting Hygiene (QC): 5 Shower/Bathe Self (QC): 5 Upper Body Dressing (QC): 5 Lower Body Dressing (QC): 5 On/Off Footwear (QC): 5 1=Demonstrate adherence to instructed precautions during ADL tasks. 2=Patient will verbalize/demonstrate understanding of assistive devices/modifications for ADL. 3=Patient will improve strength/tolerance for activity to enable patient to perform ADL's. OT Education/Plan Problem List/Assessment Assessment: Decreased Activ Tolerance, Decreased Safety Aware, Decreased UE Strength, Impaired Bed Mobility, Impaired Cognition, Impaired Funct Balance, Impaired I ADL's, Impaired Self-Care Skills Discharge Recommendations Plan/Recommendations: Continue POC Therapy Discharge Recommendati: Post Acute OT Treatment Plan/Plan of Care Treatment,Training & Education: Yes Patient would benefit from OT for education, treatment and training to promote independence in ADL's, mobility, safety and/or upper extremity function for ADL's. Plan of Care: ADL Retraining, Functional Mobility, UE Funct Exercise/Act, UE Neuromus Re-Ed/Coord, W/C Management Training Treatment Duration: Oct 08, 2021 Frequency: At least 5 of 7 days/Wk (IRF) Estimated Hrs Per Day: 1.5 hours per day Agreement: Yes Rehab Potential: Fair Time/GCodes Start Time: 11:02 Stop Time: 11:27 Total Time Billed (hr/min): 25 Billed Treatment Time 1 visit ADL x2 NaomikitaGabrielle OT Sep 28, 2021 11:29
--- NOTE | 2021-09-28 11:48 | Physical Therapy Daily Note ---
PT Daily Note-Current Subjective Pt remains very confused this date but in bed upon arrival and agrees to PT. Mental Status Patient Orientation: Confused Attachments: Oxygen Transfers SCALE: Activities may be completed with or without assistive devices. 2-Rouhhcepcg-tozhatx completes the activity by him/herself with no assistance from a helper. 5-Set-up or Clean-up Assistance-helper sets up or cleans up; patient completes activity. [place] assists only prior to or following the activity. 4-Supervision or Touching Assistance-helper provides verbal cues and/or touching/steadying and/or contact guard assistance as patient completes act ivity. Assistance may be provided throughout the activity or intermittently. 3-Partial/Moderate Assistance-helper does LESS THAN HALF the effort. [place] lifts, holds or supports trunk or limbs, but provides less than half the effort. 2-Substantial/Maximal Assistance-helper does MORE THAN HALF the effort. [place] lifts or holds trunk or limbs and provides more than half the effort. 6-Wvjgnmkks-uphyak does ALL the effort. Patient does none of the effort to complete the activity. Or, the assistance of 2 or more helpers is required for the patient to complete the activity. If activity was not attempted, code reason: 7-Patient Refused. 9-Not Applicable-not attempted and the patient did not perform the activity before the current illness, exacerbation or injury. 10-Not Attempted due to Environmental Limitations-(lack of equipment, weather restraints, etc.). 88-Not Attempted due to Medical Conditions or Safety Concerns. Roll Left & Right (QC): 5 Sit to Lying (QC): 4 Lying to Sitting/Side of Bed(Q: 4 Sit to Stand (QC): 3 Chair/Lhl-jy-Ynfxo Xfer(QC): 3 Gait Training Does the Patient Walk?: No and Walking Goal IS indicated Wheelchair Training Does the Pt Use a Wheelchair?: Yes Type of Wheelchair: Manual [employer] has to propel WCH for pt this date as pt is unable to following cues in order to push WCH manually. Exercises Supine Ex: Ankle pumps, Quad Set, Rolling, Glut sets, Heel Slides, Scooting, Straight leg raise, Hip abd/add Supine Reps: 12 Standing: Sit to Stand Standing Reps: 4 NuStep Minutes: 10 NuStep Workload: 2 Treatments Pt in bed and able to sit up EOB w/ SBA and then performs sit to stand w/ Byron and TFs to WCH. [employer]TS [employer]N then pushed pt in WCH to therapy gym as pt is unable to following directions to push WCH. Pt then TFs to nustep w/ Byron. Pt then TFs to back to WCH w/ Byron. [employer] pushed pt back to room and pt TFs back to EOB w/ Byron. Pt able lay down in bed w/ SBA/CGA. SP[employer]TS INTERN and nurse move pt up in bed. Pt then performs supine exs w/ PROM/AAROM. Pt in bed upon departure w/ all needs met call light nearby and guard rails up. Assessment Current Status: Poor Progress Pt unable to following verbal and tactile cues for TFs and WCH management this date. Requires PROM/AAROM for supine exs as pt is confused and unable to follow directions. PT Short Term Goals Short Term Goals Time Frame: Sep 30, 2021 Roll Left & Right: 6 Sit to lyin Lying to sitting on side of be: 4 Sit to stand: 4 Chair/sse-la-sjpwp transfer: 4 Walk 10 feet: 4 Walk 50 feet with two turns: 4 Walk 150 feet: 4 PT Intermediate Goals Kidney Puller Goals PT Intermediate Goals Time Frame: Oct 14, 2021 Roll Left & Right (QC): 6 Sit to Lying (QC): 6 Lying-Sitting on Side/Bed(QC): 6 Sit to Stand (QC): 5 Chair/Zpr-qo-Quovj Xfer(QC): 5 Toilet Transfer (QC): 5 Car Transfer (QC): 5 Does the Patient Walk: Yes Walk 10 feet (QC): 5 Walk 50ft with 2 Turns (QC): 5 Walk 150 ft (QC): 5 Walking 10ft on Uneven Surface: 5 1 Step (curb) (QC): 4 4 Steps (QC): 4 12 Steps (QC): 88 Picking up an Object (QC): 4 Wheel 50 feet with 2 turns (QC: 6 Wheel 150 feet: 6 PT Plan Problem List Problem List: Activity Tolerance, Functional Strength, Safety, Transfer Treatment/Plan Treatment Plan: Continue Plan of Care Treatment Plan: Bed Mobility, Education, Functional Activity Varun, Functional Strength, Group Therapy, Gait, Safety, Therapeutic Exercise, Transfers Treatment Duration: Oct 14, 2021 Frequency: At least 5 of 7 days/Wk (IRF) Estimated Hrs Per Day: 1.5 hours per day Patient and/or Family Agrees t: Yes Safety Risks/Education Patient Education: Transfer Techniques, Correct Positioning Teaching Recipient: Patient Teaching Methods: Demonstration, Discussion Response to Teaching: Unable to Comprehend, Reinforcement Needed Time/GCodes Time In: 915 Time Out: 1000 Total Billed Treatment Time: 45 Total Billed Treatment 1, Ex x 3 45 min MARY ANNE NETTLES PTA Sep 28, 2021 11:48
--- NOTE | 2021-09-28 12:01 | Diagnostic Imaging Report ---
CLINICAL INDICATION: Patient with subarachnoid hemorrhage and subdural hemorrhage. EXAM: Axial CT scan of the brain without IV contrast with coronal and sagittal reformatted images. Auto Exposure Controls were utilized during the CT exam to meet ALARA standards for radiation dose reduction. COMPARISON: Head CT without contrast dated 09/25/2021. FINDINGS: There is no significant change in size of a roughly 12 mm in greatest width mixed density left cerebral convexity subdural hematoma. There is interval slight decrease in the hyperdensity of the acute blood component, but otherwise similar configuration. There is interval slight decrease in the small amount of subarachnoid blood in the left frontal lobe region and minimal amount scattered along the right cerebral convexity. There is roughly similar 3-4 mm of left to right midline shift. There is no intraventricular blood. There is no hydrocephalus. There are stable patchy and confluent areas of low-attenuation white matter changes involving both cerebral hemispheres and periventricular regions. The extracranial soft tissues, skull, and orbits are unremarkable. There is minimal mucosal thickening involving the right maxillary sinus. There is a large amount of fluid involving the sphenoid sinus. There is mild mucosal thickening involving the left ethmoid sinus. There is a large amount of fluid in the right mastoid air cells and moderate amount involving the right middle ear region. Left mastoid air cells are clear. IMPRESSION: 1: There is interval decreased density of the hyperdense blood involving the left cerebral convexity subdural hematoma. Otherwise, left subdural hematoma is stable in size. 2: There is minimal amount of subarachnoid blood involving the right cerebral convexity and right frontal region, which has minimally decreased in the interim. 3: The remainder of this exam shows no significant interval change compared to the prior study of comparison. Results of this report were discussed with Dr. Leroy via the telephone on 09/28/2021 at 1155 hours. Dictated by: Dictated on workstation # [id number]
[2021-09-28] MEDS: HYDROmorphone 2 MG/ML VIAL (DILAUDID) IVP PRN (13:10)
--- NOTE | 2021-09-28 14:14 | Speech Therapy Progress Note ---
Therapy Progress Note Speech pathology received consult for completion of a clinical bedside swallowing evaluation due to concern regarding aspiration. The clinician attempted to complete the assessment at 1215. Per RN, the patient is in the process of transferring to ICU. As the patient is transferring to a higher level of care, an updated consult/order will need to be placed for completion of the swallowing assessment. Please place consult for the clinical bedside swallowing evaluation. Speech pathology will following the patient's care in ICU and monitor for the placement of appropriate evaluations so the service can be provided for the patient. Thank you. MASSIEL HOUSE Sep 28, 2021 14:14
[2021-09-28 18:18] VITALS: BP 112/56
[2021-09-28] MEDS ORDERED: RT-ALBUTEROL SULF 2.5 MG/3 ML PRE-MIX VIAL INH PRN (18:30)
--- NOTE | 2021-09-29 15:03 | Therapy Team Discharge Summary ---
Therapy Discharge Summary Discharge Recommendations Date of Discharge Sep 28, 2021 at 14:30 Physical Therapy Patient came to rehab with subdural hematoma, subarachnoid hemorrhage. Upon evaluation patient performed rolling with independence, supine to sit min assist, sit to supine SBA, sit <-> stand min assist, transfers CGA, car transfer min assist, ambulated 60' with a rolling walker with CGA (including 50' with at least 2 turns of 90 degrees and 10' over an uneven surface), propelled a manual WC 300' with min assist, went up and down 1 step using a rolling walker with min assist, and picked up an object from the floor using a cafeteria or lunchroom checker with min assist. Patient has been performing bed mobility and transfer training, balance and endurance training, functional strengthening, gait training, and education. Patient has had medical issues and has been transferred to ICU. He has declined in functional mobility and now performs rolling with independence, supine <-> sit CGA, sit <-> stand and transfers min assist. Patient will be discharged from PT at this time. Occupational Therapy Decreased Activ Tolerance, Decreased Safety Aware, Decreased UE Strength, Impaired Bed Mobility, Impaired Cognition, Impaired Funct Balance, Impaired I ADL's, Impaired Self-Care Skills PT Care Home Goals Solution Sales Senior Executive Goals PT Solution Sales Senior Executive Goals Time Frame: Oct 14, 2021 Roll Left to Right (QC): 6 Sit to Lying (QC): 6 Lying-Sitting on Side/Bed(QC): 6 Sit to Stand (QC): 5 Chair/Fpy-jk-Dmmdr Xfer(QC): 5 Car Transfer (QC): 5 Does the Patient Walk: Yes Walk 10 feet (QC): 5 Walk 10ft-Uneven Surface(QC): 5 Walk 50ft with 2 Turns (QC): 5 Walk 150 ft (QC): 5 Wheel 50 feet with 2 turns (QC: 6 1 Step (curb) (QC): 4 4 Steps (QC): 4 12 Steps (QC): 88 Picking up an Object (QC): 4 OT Care Home Goals Solution Sales Senior Executive Goals Time Frame: Oct 08, 2021 Eating (QC): 6 Oral Hygiene (QC): 6 Shower/Bathe Self (QC): 5 Upper Body Dressing (QC): 5 Lower Body Dressing (QC): 5 On/Off Footwear (QC): 5 Toileting Hygiene (QC): 5 Toilet/Commode Transfer (QC): 5 1=Demonstrate adherence to instructed precautions during ADL tasks. 2=Patient will verbalize/demonstrate understanding of assistive devices/modifications for ADL. 3=Patient will improve strength/tolerance for activity to enable patient to perform ADL's. MUNA ROBERTS PT Sep 29, 2021 15:03
[2021-09-30] MEDS ORDERED: TROUGH ORDER-PHARMACY XX ONE (10:00)
== END 2021-09-28 14:30 | disposition short-term general hospital (02) | DRG 949 ==
PROVIDERS: ADMIT Internal Medicine; ATTEND Internal Medicine
DX: S06.6X9D Traumatic subarachnoid hemorrhage with loss of consciousness of unspecified duration, subsequent encounter (principal); J18.9 Pneumonia, unspecified organism; S06.5X9D Traumatic subdural hemorrhage with loss of consciousness of unspecified duration, subsequent encounter; R53.81 Other malaise; R53.1 Weakness; R41.0 Disorientation, unspecified; E11.22 Type 2 diabetes mellitus with diabetic chronic kidney disease; I12.9 Hypertensive chronic kidney disease with stage 1 through stage 4 chronic kidney disease, or unspecified chronic kidney disease; Z20.822 Contact with and (suspected) exposure to COVID-19; N18.32 Chronic kidney disease, stage 3b; D69.6 Thrombocytopenia, unspecified; E78.5 Hyperlipidemia, unspecified; E66.9 Obesity, unspecified; E87.6 Hypokalemia; I25.119 Atherosclerotic heart disease of native coronary artery with unspecified angina pectoris; K21.9 Gastro-esophageal reflux disease without esophagitis; I25.2 Old myocardial infarction; Z68.32 Body mass index [BMI] 32.0-32.9, adult; Z79.84 Long term (current) use of oral hypoglycemic drugs; Z79.4 Long term (current) use of insulin; Z87.891 Personal history of nicotine dependence; Z95.1 Presence of aortocoronary bypass graft; Z86.73 Personal history of transient ischemic attack (TIA), and cerebral infarction without residual deficits; Z85.46 Personal history of malignant neoplasm of prostate; Z79.82 Long term (current) use of aspirin; Z88.1 Allergy status to other antibiotic agents; Z88.2 Allergy status to sulfonamides; Z88.8 Allergy status to other drugs, medicaments and biological substances; W19.XXXD Unspecified fall, subsequent encounter
CPT/HCPCS: 36415; 70450; 71045; 80053; 82805; 82947; 83605; 84145; 85007; 85025; 85027; 87636; 93306

== ENCOUNTER 2021-09-28 11:06 | Inpatient (IN) | payer MEDICARE, OTHER ==
[~2021-09-28] VITALS: Ht 175.3 cm; Wt 91.6 kg
[~2021-09-28 11:06] MED LIST changes: +AMLO-251 PO; +LEVE500T6 PO
[2021-09-28] MEDS: NS IV 1000 ML 1,000 ML IV SCH ×2 (15:22→20:22)
[2021-09-28] MEDS: methylPREDNISolone 125 MG (Solu-MEDROL) VIAL IVP SCH ×3 (15:22→23:18)
[2021-09-28] MEDS: inSUlin ASPART (NovoLOG) 1 UNIT/0.01 ML (CHARGE PER UNIT) SC SCH ×2 (15:37→21:00)
--- NOTE | 2021-09-28 17:32 | Tele-ICU Progress Note ---
Subjective Date Seen by a Provider: Sep 28, 2021 Time Seen by a Provider: 17:31 Sepsis Event Evaluation Height, Weight, BMI Height: '" Weight: lbs. oz. kg; 32.05 BMI Method: Exam Exam Patient acknowledged, consented, and participated in this virtual visit which was conducted using real time audio/video Vital Signs Date Time Temp Pulse Resp B/P (MAP) Pulse Ox O2 Delivery O2 Flow Rate FiO2 09/28/21 15:58 Nasal Cannula 3.00 09/28/21 15:06 36.2 09/28/21 14:45 89 31 149/73 96 Nasal Cannula 3.00 09/28/21 14:31 94 09/28/21 14:30 Nasal Cannula 3.00 09/28/21 14:30 92 22 145/75 99 Nasal Cannula 3.00 09/28/21 14:14 92 147/76 Nasal Cannula 3.00 Height & Weight Height: '" Weight: lbs. oz. kg; 32.05 BMI Method: General Appearance: No Apparent Distress Assessment/Plan Assessment/Plan (Tele-ICU Physician , consultation) Available chart/ vitals / labs / Images reviewed H&P is from ER notes Patient's information available about PMH, Shx, Fhx allergy reviewed in EMR. ROS as per chart and RN report Now in ICU, hemodynamically stable Video assessment done using teleICU camera, rest of exam as per RN Discussed with RN. Consultants: A/P ASp PNA , whitnessed - started on ABX , cxr to follow JUANITO - hydration Worsenign mental status - recent SDH , SAH - in rechab - - CTH 09/28 - not changed from 09/25 - received one dose ASA only - on Keppra - no signs of clinical sz activity - not on opioids - monitor closely ECHO 09/26 - ef 55% Plans in collaboration with bedside consultants and IM MDs. , discussed with Dr Leroy Discussed with RN to reach out if any questions or concerns A total of 31 minutes of critical care time was devoted to this patient today, required to treat and/or prevent further deterioration of critical care condition ( as above LEO HARRIS MD Sep 28, 2021 17:32
[2021-09-28] MEDS: CLINDAMYCIN 600 MG/50 ML IVPB 50 ML IV SCH (17:34)
--- NOTE | 2021-09-28 20:48 | History & Physical ---
History of Present Illness HPI/Chief Complaint CC: worsening pneumonia with hypoxemia and confusion HPI: 86 yr old WM admitted to in-patient rehab six days ago after a subdural hematoma with subarachnoid hemorrhage after a fall at a truck stop and hit his head on the concrete. Neurosurgery assessed him to be a non-surgical candidate. He was doing pretty well in in-patient rehab but began having SOB and coarse breath sounds. Chest x-ray checked along with Covid swab which revealed bi- lateral lower lobe pneumonia but Covid was negative. He was placed on Cefepime after no evidence of any sepsis and breathing treatments. He worsened and required coverage of aspiration with Clindamycin maintained on Cefepime due to allergy to Penicillin and Zosyn. He will be monitored closely and placed on NPO status. He remains at high risk for respiratory failure. Source: old records Exam Limitations: clinical condition Date Seen 09/28/21 Time Seen by a Provider: 13:00 Attending Physician Opal Leroy Gloria J MD Referring Physician Date of Admission Sep 28, 2021 at 14:22 Home Medications & Allergies Home Medications Reviewed patient Home Medication Reconciliation performed by pharmacy medication reconciliations laboratory mechanical technician and/or nursing. Patients Allergies have been reviewed. Allergies Allergies Coded Allergies ciprofloxacin (Verified Allergy, Severe, 08/17/21) Sulfa (Sulfonamide Antibiotics) (Verified Allergy, Unknown, 08/17/21) bacitracin (Verified Allergy, Unknown, 08/17/21) metformin (Verified Allergy, Unknown, 08/17/21) neomycin (Verified Allergy, Unknown, 08/17/21) polymyxin B (Verified Allergy, Unknown, 08/17/21) Past Cbxqcqu-Ctkiqb-Sajnxo Hx Past Med/Social Hx: Reviewed Nursing Past Med/Soc Hx, Reviewed and Corrections made Patient Social History Marrital Status: Employed/Student: retired Smoking Status: Former Smoker Immunizations Up To Date Date of Influenza Vaccine: Jul 29, 2021 Past Medical History Surgeries: CABG Respiratory: COPD, Pneumonia Cardiac: Coronary Artery Disease, Hypertension Neurological: Stroke (SDH SAH 09/15/21), TIA Gastrointestinal: Gastroesophageal Reflux, Hiatal Hernia Endocrine: Diabetes, Insulin dep Cancer: Prostate Family History No Pertinent Family Hx Review of Systems ROS-Unable to Obtain: critically ill Constitutional: see HPI Physical Exam Physical Exam Vital Signs Vital Signs - First Documented 09/28/21 09/28/21 14:14 15:06 Temp 36.2 Pulse 92 B/P (MAP) 147/76 O2 Delivery Nasal Cannula O2 Flow Rate 3.00 Capillary Refill : Height, Weight, BMI Height: '" Weight: lbs. oz. kg; 32.05 BMI Method: General Appearance: No Apparent Distress, Anxious, Chronically ill Respiratory: Accessory Muscle Use, Crackles, Wheezing Cardiovascular: Regular Rate, Rhythm Neurologic/Psychiatric: Alert, Disoriented Results Results/Procedures Labs Laboratory Tests 09/29/21 04:23 Patient resulted labs reviewed. Assessment/Plan Admission Diagnosis Assessment: Pneumonia started on cefepime 09/27/2021 but worsened on CXR and clinically requiring transfer to ICU 09/28/21 SAH Subdural hematoma Recent NSTEMI 08/18/21 holding Plavix and aspirin and consulting Dr. Rosales restarting aspirin 81 mg every 48 hours on 09/26/2021 CAD CKD3 DM2 HTN HLD GERD Hiatal hernia RODY Prostate cancer Confusion Hypokalemia Leukocytosis Subarachnoid headache Plan: ICU IV abx DIscussed with EICU Admission Status: Inpatient Order (span 2 midnights) Reason for Inpatient Admission: PNA Clinical Quality Measures DVT/VTE Risk/Contraindication: Contraindications-Pharm: Other *list below* Other: recent SAH OPAL LEROY DO Sep 28, 2021 20:47
[2021-09-28] MEDS: CEFEPIME INJECTION 1,000 MG in NS (IVPB) 50 ML IV SCH (20:53)
[2021-09-29] MEDS: NS IV 1000 ML 1,000 ML IV SCH ×4 (00:24→11:06)
[2021-09-29] MEDS: CLINDAMYCIN 600 MG/50 ML IVPB 50 ML IV SCH ×3 (01:58→17:55)
[2021-09-29 04:46] LABS: BASOPHILS % (AUTO) 0 % (0-10); EOSINOPHILS % (AUTO) 0 % (0-10); HEMATOCRIT 39 % (40-54); HEMOGLOBIN 13.1 g/dL (13.3-17.7); LYMPHOCYTES # (AUTO) 0.4 10^3/uL (1.0-4.0); LYMPHOCYTES % (AUTO) 3 % (12-44); MEAN CORPUSCULAR HEMOGLOBIN 32 pg (25-34); MEAN CORPUSCULAR HGB CONC 34 g/dL (32-36); MEAN CORPUSCULAR VOLUME 94 fL (80-99); MEAN PLATELET VOLUME 10.4 fL (9.0-12.2); MONOCYTES # (AUTO) 0.1 10^3/uL (0.0-1.0); MONOCYTES % (AUTO) 1 % (0-12); NEUTROPHILS # (AUTO) 11.7 10^3/uL (1.8-7.8); NEUTROPHILS % (AUTO) 94 % (42-75); PLATELET COUNT 260 10^3/uL (130-400); WHITE BLOOD COUNT 12.4 10^3/uL (4.3-11.0)
[2021-09-29 04:58] LABS: ALBUMIN 3.2 GM/DL (3.2-4.5); POTASSIUM 4.9 MMOL/L (3.6-5.0)
[2021-09-29 04:59] LABS: CALCIUM 8.8 MG/DL (8.5-10.1)
[2021-09-29 05:01] LABS: TOTAL PROTEIN 6.1 GM/DL (6.4-8.2)
[2021-09-29 05:02] LABS: BILIRUBIN,TOTAL 0.9 MG/DL (0.1-1.0)
[2021-09-29 05:04] LABS: CREATININE SERUM 1.41 MG/DL (0.60-1.30); PHOSPHORUS 3.6 MG/DL (2.3-4.7)
[2021-09-29 05:07] LABS: MAGNESIUM 1.6 MG/DL (1.6-2.4)
[2021-09-29] MEDS: CEFEPIME INJECTION 1,000 MG in NS (IVPB) 50 ML IV SCH ×3 (05:15→20:06)
[2021-09-29] MEDS: methylPREDNISolone 125 MG (Solu-MEDROL) VIAL IVP SCH ×3 (05:15→20:06)
[2021-09-29] MEDS: inSUlin ASPART (NovoLOG) 1 UNIT/0.01 ML (CHARGE PER UNIT) SC SCH ×5 (05:20→20:11)
[2021-09-29] MEDS ORDERED: MAGNESIUM 1 GM/100 ML IVPB 100 ML IV SCH (06:00)
[2021-09-29] MEDS ORDERED: KCL 20 MEQ TAB (K-DUR) PO SCH (06:00)
[2021-09-29] MEDS ORDERED: POTASSIUM CL 10MEQ/50ML IVPB 50 ML IV SCH (06:00)
--- NOTE | 2021-09-29 07:53 | Diagnostic Imaging Report ---
INDICATION: Pneumonia. Comparison with 09/28/2021. FINDINGS: Patchy alveolar infiltrates throughout the right lung are again noted. There has been development of some atelectasis in the right lung base. Left lung remains relatively clear. No pneumothorax. Heart is not enlarged. Median sternotomy changes noted. IMPRESSION: Persistent right lung infiltrates with mild atelectasis now present. Dictated by: Dictated on workstation # [id number]
[2021-09-29] MEDS ORDERED: ACETAMINOPHEN 500 MG TAB (TYLENOL) PO PRN ×2 (08:15→12:45)
--- NOTE | 2021-09-29 08:17 | Tele-ICU Progress Note ---
Subjective Date Seen by a Provider: Sep 29, 2021 Time Seen by a Provider: 08:17 Subjective/Events-last exam He recently suffered subdural hematoma, subarachnoid hemorrhage and non-STEMI following a fall. He is now transferred to ICU because of bilateral pneumonia. Currently he is on a nasal cannula 3 to 4 L and he is hemodynamically stable. He complains of headache. He kept NPO. I have ordered a swallow study. Suggested to start on Tylenol if he is able to swallow until then we will give him low-dose morphine for headache Sepsis Event Evaluation Height, Weight, BMI Height: '" Weight: lbs. oz. kg; 32.05 BMI Method: Exam Exam Patient acknowledged, consented, and participated in this virtual visit which was conducted using real time audio/video Vital Signs Date Time Temp Pulse Resp B/P (MAP) Pulse Ox O2 Delivery O2 Flow Rate FiO2 09/29/21 07:45 Nasal Cannula 3.00 09/29/21 06:00 105 14 154/81 95 Nasal Cannula 3.00 09/29/21 05:00 97 19 127/68 95 Nasal Cannula 3.00 09/29/21 04:00 Nasal Cannula 3.00 09/29/21 04:00 95 19 138/78 99 Nasal Cannula 3.00 09/29/21 03:00 96 19 122/70 100 Nasal Cannula 3.00 09/29/21 02:00 105 34 125/73 95 Nasal Cannula 3.00 09/29/21 01:00 89 09/29/21 01:00 89 13 125/58 97 Nasal Cannula 3.00 09/29/21 00:00 101 15 132/60 98 Nasal Cannula 3.00 09/28/21 23:59 Nasal Cannula 3.00 09/28/21 23:51 36.0 09/28/21 23:00 96 27 154/77 93 Nasal Cannula 3.00 09/28/21 22:00 101 21 143/78 96 Nasal Cannula 3.00 09/28/21 21:00 100 11 142/82 97 Nasal Cannula 3.00 09/28/21 20:00 Nasal Cannula 3.00 09/28/21 20:00 36.5 09/28/21 20:00 101 17 148/73 96 Nasal Cannula 3.00 09/28/21 19:00 92 20 148/68 97 Nasal Cannula 3.00 09/28/21 19:00 92 09/28/21 18:00 92 25 143/74 97 Nasal Cannula 3.00 09/28/21 17:00 93 17 162/78 97 Nasal Cannula 3.00 09/28/21 16:00 91 11 147/70 97 Nasal Cannula 3.00 09/28/21 15:58 Nasal Cannula 3.00 09/28/21 15:06 36.2 09/28/21 15:00 95 16 148/77 96 Nasal Cannula 3.00 09/28/21 14:45 89 31 149/73 96 Nasal Cannula 3.00 09/28/21 14:31 94 09/28/21 14:30 Nasal Cannula 3.00 09/28/21 14:30 92 22 145/75 99 Nasal Cannula 3.00 09/28/21 14:14 92 147/76 Nasal Cannula 3.00 I & O 09/29/21 07:00 Intake Total 50 ml Balance 50 ml Height & Weight Height: '" Weight: lbs. oz. kg; 32.05 BMI Method: General Appearance: No Apparent Distress, Anxious, Chronically ill Respiratory: Accessory Muscle Use, Crackles, Wheezing Cardiovascular: Regular Rate, Rhythm Neurologic/Psychiatric: Alert, Disoriented Other comments PE PER RN Results Lab Laboratory Tests 09/29/21 04:23 Assessment/Plan Assessment/Plan 1. Bilateral pneumonia possibly healthcare associated. 2. Recent subdural and subarachnoid hemorrhage following a fall. 3. Recent STEMI requiring PCI currently on aspirin and Plavix prior to the admission. Currently Plavix is on hold and aspirin low-dose being given every other day. Recommendations 1. Continue IV antibiotics per primary care. 2. Aspirin and statins per cardiology 3. We will have bedside swallow study done 3. We will consider giving Tylenol as needed for headache 4. IV morphine for as needed for severe headache. 5. Hold any anticoagulants for now.. Critical Care: Critically Ill Patient Time spent with patient (mins): 20 ELENI RO MD Sep 29, 2021 08:17
[2021-09-29] MEDS: NS IV SCH ×2 (10:26)
[2021-09-29] MEDS: VANCOMYCIN IV SCH ×2 (10:26)
[2021-09-29] MEDS ORDERED: WATER (STERILE) FOR INJ 10 ML BTL INJ PRN (10:30)
[2021-09-29] MEDS ORDERED: ZIPRASIDONE 20 MG INJ (GEODON) VIAL IM PRN (10:30)
[2021-09-29] MEDS ORDERED: inSUlin (REGULAR) HUMAN 1 UNIT/0.01 ML (CHARGE PER UNIT) SC PRN ×2 (10:30→20:30)
[2021-09-29] MEDS ORDERED: ASPIRIN E.C. 81 MG (ECOTRIN) TAB PO SCH (10:30)
[2021-09-29] MEDS ORDERED: NON-FORMULARY MEDICATION 1 EA EA (Acetaminophen (Tylenol Arthritis) 1,300 MG) PO PRN (10:45)
[2021-09-29] MEDS ORDERED: NON-FORMULARY MEDICATION 1 EA EA (Carboxymethylcellulose Sodium (Refresh Tears) 2 DROPS) OU PRN (10:45)
[2021-09-29] MEDS ORDERED: FLUTICASONE NASAL SPRAY (FLONASE) 16 GM BTL NS PRN (10:45)
--- NOTE | 2021-09-29 11:18 | ST Dysphagia Evaluation ---
Speech Evaluation-General Medical Diagnosis Pneumonia Onset Date: Sep 28, 2021 Therapy Diagnosis Therapy Diagnosis: Suspected Mild Oropharyngeal Dysphagia Precautions Precautions: Fall, Aspiration Precautions/Isolations: Standard Precautions Referral Referring Physician: Dr. Opal Leroy Reason for Referral: Evaluation/Treatment Medical History Pertinent Medical History: Arthritis, CABG, CAD, DM, GERD, HTN, MO, Neuropathy Current History The patient is an 86 year-old male with a past medical history of subdural hematoma with subarachnoid hemorrhage following a fall (with recent admission (09/15/21) to acute inpatient rehabilitation and current transfer to ICU), CABG, COPD, pneumonia, CAD, HTN, GERD, hiatal hernia, prostate cancer, and diabetes, who developed increasing shortness of breath throughout his acute inpatient rehabilitation stay. Per chart review, two separate RNs documented suspected aspiration events following PO intake (hamburger and water). Due to the patient's worsening respiratory state, he was transferred to ICU. CXR: 09/29/2021: Persistent right lung infiltrates with mild atelectasis now present. Reviewed History: Yes Speech PLF/Current-Dysphagia Prior Level of Function Per chart review, the patient was independent prior to his recent admission (stroke, 09/15/2021). Information regarding prior PO intake could not be obtained secondary to the patient's expressive aphasia. Subjective As suspected aspiration events were observed and due to the patient's worsening respiratory status, speech language pathology was consulted for completion of a clinical bedside swallowing evaluation. The patient is currently NPO. Upon entrance to the room, the patient has a sitter present. The sitter aids the clinician in repositioning the patient safely upright in bed. The patient is currently receiving 4L NC with SpO2% at 100% and respirations at 26 bpm. Prior to PO intake, the patient presents with a rigorous, productive cough at baseline. Per sitter, the patient has had the cough since waking. As the patient is currently NPO, the cough does not appear secondary to PO intake. The patient remains pleasant and cooperative throughout the evaluation. Cognitive Status Patient Orientation: Person, Eyes Open The patient's orientation was assessed through simple yes and no questions. The patient was able to respond accurately to simple yes and no questions including his name, where his home was located, and the current month. Oral Motor Skills Dentition: Natural Ability to Follow Directions: Good Oral Expression Ability: Moderate Impairment Voice Voice Phonatory-Based Quality: Hoarse Voice Pitch: Normal Voice Loudness: Mildly Soft/Quiet Face Facial Symmetry: Symmetrical Oral-Facial Assessment Oral-Facial Dentition: Normal Labial Seal Description: Normal Smile: Normal Puff Cheeks: Normal Lingual Protrusion: Normal Lingual ROM: Normal Lingual Strength: Normal Volitional Dry Swallow: Yes Voluntary Cough: Yes Can Clear Throat Volitionally: Yes Productive Cough: Yes Productive Throat Clear: Yes Dysphagia Evaluation Consistencies Presented: Thin Liquid (Ice chip, Teaspoons, and Straw Drinks), Pureed Oral Phase: Reduced Oral Transit (Poorly coordinated oral transit.) Dietary Recommendations: Full Liq. Liquid Recommendations: Thin Recommendations: - Full liquid (thin liquid) consistency, as tolerated. - Fully upright and alert for PO intake. - Small, single sips (only). - Slow rate of oral intake. Cease oral intake during periods of fatigue or increased respiratory effort. - 1:1 staff supervision during oral intake, only (discussed with the RN the necessity to evaluate for respiratory fatigue throughout PO intake. If demonstrated, PO intake should cease pending a return to baseline respiratory status). - Crush medication and place in puree for administration. - Monitor for s/s of suspected aspiration with PO intake (including a decrease in respiratory function). If demonstrated, place the patient NPO and contact speech pathology for re-evaluation. - Speech pathology to re-assess the oropharyngeal swallow function three to four times per week. If a worsening of the patient's respiratory status is exhibited, a video swallow examination may be appropriate to assess for the presence of silent aspiration with PO intake due to the patient's co-morbidities which could increase his likelihood of aspiration (COPD). Swallowing Precautions: Decreased Bolus 1/4 Tsp, Decreased Rate of Oral Intake, Oral Supervision Staff, Small Bites and Sips, Sitting 90 Degrees 30 Post Intake Dysphagia Evaluation Summary The patient presented with suspected mild oropharyngeal dysphagia characterized by decreased oral coordination and a delayed onset of the pharyngeal swallow trigger. Overt s/s of suspected aspiration were not demonstrated with three ice chips, five teaspoons of water, single straw drinks of water, consecutive (large) straw drinks of water, or teaspoons of puree. The patient's SpO2% and respirations remained stabled throughout PO intake. The patient's vocal quality remained clear following each swallow. Following the fifth teaspoon of puree, the clinician ceased PO intake as the p atient appeared fatigued. Throughout unstructured conversation (in the absence of PO intake), the patient displayed a rigorous, productive cough, clearing phlegm and expectorating the phlegm into a tissue. As there was significant time between the final trial of PO and the rigorous cough and the patient's SpO2% remained stable, the clinician does not suspect the coughing episode was secondary to aspiration. Due to the visualized fatigue, PO trials were eliminated to reduce the patient's risk of aspiration throughout the swallow response. Speech Short Term Goals Short Term Goals Short Term Goals 1. The patient will tolerate trials of the least restricted consistency without s/s of suspected aspiration with 90% accuracy. Speech Pharmacometrician Goals Pharmacometrician Goals 1. The patient will tolerate the least restrictive diet consistency without the presence of s/s of suspected aspiration with 90% accuracy or greater. Speech-Plan Treatment Plan Speech Therapy Treatment Plan: Continue Plan of Care Treatment Duration: Oct 13, 2021 Frequency: 3 times per week (Three to four times per week.) Estimated Hrs Per Day: .25 hour per day Rehab Potential: Fair Pt/Family Agrees to Plan: Yes Safety Risks/Education Teaching Recipient: Patient Teaching Methods: Discussion Response to Teaching: Verbalize Understanding, Reinforcement Needed Education Topics Provided: The patient, the patient's sitter, and the patient's RN were provided oropharyngeal swallowing recommendations and safe swallowing strategies. All present verbalized comprehension, including the patient. Additionally, the swallowing evaluation was discussed in detail with the patient. Time Speech Therapy Time In: 08:45 Speech Therapy Time Out: 09:01 Total Billed Time: 16 Billed Treatment Time 1, EDIN SHE[facility] Sep 29, 2021 11:18
[2021-09-29] MEDS ORDERED: ARTIFICAL TEARS 0.4 ML UNIT DOSE (REFRESH PLUS) OU PRN (12:00)
--- NOTE | 2021-09-29 12:44 | Consultation-Cardiology ---
HPI-Cardiology Cardiology Consultation: Date of Consultation 09/29/21 Time Seen by a Provider: 09:45 Date of Admission Attending Physician Opal Leroy DO Admitting Physician Darline Preciado MD Consulting Physician STACEY STEVENSON MD, MA, FACP, FACC, [facility], CCDS Physician requesting Card consult: Dr Leroy HPI: Chief Complaint: Reason for Card consult: CAD 86 yo man admitted to in rehab to Dr Leroy's service a few days after he was d/c'd from [place] where he had been for treatment of a head bleed following a non-syncopal fall a few weeks ago. He was getting more short of breath with increasing mental confusion, as well. He was diagnosed with pneumonia and transferred to acute care by Dr Leroy on 09/28/21. He has not reported cp or palp or syncope. Currently, he is confused and not able to provide a reliable history or a review of systems Review of Systems-Cardiology Review of Systems Constitutional: other (confused, unable to provide ROS) WBO-Qxtsog-Eoyfye Hx Patient Social History Marrital Status: Employed/Student: retired Smoking Status: Former Smoker Have you traveled recently?: No Alcohol Use?: Yes Pt feels they are or have been: No Immunizations Up To Date Date of Influenza Vaccine: Jul 29, 2021 Past Medical History PMH As described under Assessment. Family Medical History Family Medical History: He reports his father had CAD. Allergies and Home Medications Allergies Coded Allergies: ciprofloxacin (Verified Allergy, Severe, 08/17/21) Sulfa (Sulfonamide Antibiotics) (Verified Allergy, Unknown, 08/17/21) bacitracin (Verified Allergy, Unknown, 08/17/21) metformin (Verified Allergy, Unknown, 08/17/21) neomycin (Verified Allergy, Unknown, 08/17/21) polymyxin B (Verified Allergy, Unknown, 08/17/21) Patient Home Medication List Home Medication List Reviewed: Yes Acetaminophen (Tylenol Arthritis) 650 Mg Tablet.er, 650-1,300 MG PO Q8H PRN for PAIN-MILD (1-4), (Reported) Entered as Reported by: CHELA MCCOY on 08/17/21 9752 Last Action: Converted Amlodipine Besylate (Amlodipine Besylate) 10 Mg Tablet, 10 MG PO DAILY, (Reported) Entered as Reported by: CHELA MCCOY on 09/23/211441 Last Action: Continued Aspirin (Aspirin EC) 81 Mg Tablet.dr, 81 MG PO HS, (Reported) Entered as Reported by: CHELA MCCOY on 08/17/211424 Last Action: Held Atorvastatin Calcium (Atorvastatin Calcium) 40 Mg Tablet, 40 MG PO HS, (Reported) Entered as Reported by: CHELA MCCOY on 08/17/211424 Last Action: Continued Buspirone HCl (Buspirone HCl) 10 Mg Tablet, 20 MG PO HS, (Reported) Entered as Reported by: CHELA MCCOY on 08/17/211424 Last Action: Continued Carboxymethylcellulose Sodium (Refresh Tears) 15 Ml Drops, 2 DROPS OU UD PRN for DRY EYES, (Reported) Entered as Reported by: CHELA MCCOY on 08/17/211424 Last Action: Converted Clopidogrel Bisulfate (Clopidogrel) 75 Mg Tablet, 75 MG PO HS, (Reported) Entered as Reported by: CHELA MCCOY on 08/17/211424 Last Action: Held Diphenhydramine HCl (Benadryl Allergy) 25 Mg Tablet, 25 MG PO HS, (Reported) Entered as Reported by: CHELA MCCOY on 08/17/211424 Last Action: Continued Docusate Sodium (Docusate Sodium) 100 Mg Capsule, 100-200 MG PO BID, (Reported) Entered as Reported by: CHELA MCCOY on 08/17/211424 Last Action: Continued Ergocalciferol (Vitamin D2) (Vitamin D2) 1,250 Mcg Capsule, 1,250 MCG PO TUE, (Reported) Entered as Reported by: CHELA MCCOY on 08/17/211424 Last Action: Continued Fluticasone Propionate (Fluticasone Propionate) 16 Gm [place].susp, 2 SPRAYS NSEACH DAILY PRN for CONGESTION, (Reported) Entered as Reported by: CHELA CMCOY on 08/17/211424 Last Action: Continued Glipizide (Glipizide Xl) 10 Mg Tab.er.24, 10 MG PO BID, (Reported) Entered as Reported by: CHELA MCCOY on 08/17/211424 Last Action: Continued Imipramine HCl (Imipramine HCl) 10 Mg Tablet, 10 MG PO HS, (Reported) Entered as Reported by: CHELA MCCOY on 08/17/211424 Last Action: Continued Insulin Glargine,Hum.rec.anlog (Lantus Solostar) 100 Unit/1 Ml Insuln.pen, 40 UNITS SC HS, (Reported) Entered as Reported by: CHELA MCCOY on 08/17/211424 Last Action: Held Isosorbide Mononitrate (Isosorbide Mononitrate ER) 120 Mg Tab.er.24h, 120 MG PO DAILY, (Reported) Entered as Reported by: CHELA MCCOY on 08/17/211424 Last Action: Converted Lansoprazole (Lansoprazole) 15 Mg Capsule.dr, 15 MG PO DAILY, (Reported) Entered as Reported by: CHELA MCCOY on 08/17/211424 Last Action: Converted Levetiracetam (Levetiracetam) 500 Mg Tablet, 500 MG PO BID, (Reported) Entered as Reported by: CHELA MCCOY on 09/23/211441 Last Action: Continued Metoprolol Succinate (Metoprolol Succinate) 100 Mg Tab.er.24h, 100 MG PO DAILY, (Reported) Entered as Reported by: CHELA MCCOY on 09/23/211441 Last Action: Continued Multivitamin (Multivitamin) 1 Each Tablet, 1 EACH PO DAILY, (Reported) Entered as Reported by: CHELA MCCOY on 08/17/211424 Last Action: Converted Pioglitazone HCl (Pioglitazone HCl) 45 Mg Tablet, 45 MG PO DAILY, (Reported) Entered as Reported by: CHELA MCCOY on 08/17/211424 Last Action: Converted Ranolazine (Ranolazine ER) 1,000 Mg Tab.er.12h, 1,000 MG PO BID, (Reported) Entered as Reported by: CHELA MCCOY on 08/17/211424 Last Action: Converted Sertraline HCl (Sertraline HCl) 100 Mg Tablet, 50 MG PO HS, (Reported) Entered as Reported by: CHELA MCCOY on 08/17/211424 Last Action: Continued Physical Exam-Cardiology Physical Exam Vital Signs/I&O 09/29/21 09/29/21 09/29/21 09/29/21 01:00 01:00 02:00 03:00 Pulse 89 89 105 96 Resp 13 34 19 B/P (MAP) 125/58 125/73 122/70 Pulse Ox 97 95 100 O2 Delivery Nasal Cannula Nasal Cannula Nasal Cannula O2 Flow Rate 3.00 3.00 3.00 09/29/21 09/29/21 09/29/21 09/29/21 04:00 04:00 05:00 06:00 Pulse 95 97 105 Resp 19 19 14 B/P (MAP) 138/78 127/68 154/81 Pulse Ox 99 95 95 O2 Delivery Nasal Cannula Nasal Cannula Nasal Cannula Nasal Cannula O2 Flow Rate 3.00 3.00 3.00 3.00 09/29/21 09/29/21 09/29/21 09/29/21 07:00 07:00 07:45 08:00 Pulse 99 99 103 Resp 21 24 B/P (MAP) 142/70 157/77 Pulse Ox 92 99 O2 Delivery Nasal Cannula Nasal Cannula Nasal Cannula O2 Flow Rate 3.00 3.00 3.00 09/29/21 09/29/21 09/29/21 09:00 09:26 12:00 Temp 35.8 36.4 Pulse 105 100 106 Resp 22 20 B/P (MAP) 147/76 147/76 151/74 Pulse Ox 100 98 92 O2 Delivery Nasal Cannula Nasal Cannula Nasal Cannula O2 Flow Rate 3.00 3.00 3.00 09/29/21 00:00 Intake Total 50 ml Balance 50 ml Capillary Refill : Constitutional: No AAO x 3; well-developed, well-nourished HEENT: No xanthelasmas are seen Neck: carotid pulses are 2 + bilaterally Respiratory: other (diminished air entry at the bases) Cardiovascular: regular rate-rhythm, S1 and S2, systolic murmur (soft JESUS at card base) Gastrointestinal: No tender; soft; No guarding, No rebound; audible bowel sounds Extremities: No clubbing, No significant edema Neurologic/Psychiatric: other (moves all limbs equally) Skin: No rash on exposed areas, No ulcerations on exposed areas Data Review Labs Laboratory Tests 09/28/21 15:26: Glucometer 196H 09/28/21 20:57: Glucometer 249H 09/29/21 04:23: White Blood Count 12.4H, Red Blood Count 4.14L, Hemoglobin 13.1L, Hematocrit 39L , Mean Corpuscular Volume 94, Mean Corpuscular Hemoglobin 32, Mean Corpuscular Hemoglobin Concent 34, Red Cell Distribution Width 11.9, Platelet Count 260, Mean Platelet Volume 10.4, Immature Granulocyte % (Auto) 1, Neutrophils (%) (Auto) 94H, Lymphocytes (%) (Auto) 3L, Monocytes (%) (Auto) 1, Eosinophils (%) (Auto) 0, Basophils (%) (Auto) 0, Neutrophils # (Auto) 11.7H, Lymphocytes # (Auto) 0.4L, Monocytes # (Auto) 0.1, Eosinophils # (Auto) 0.0, Basophils # (Auto) 0.0, Immature Granulocyte # (Auto) 0.2H, Sodium Level 134L, Potassium Level 4.9, Chloride Level 102, Carbon Dioxide Level 19L, Anion Gap 13, Blood Urea Nitrogen 30H, Creatinine 1.41H, Estimat Glomerular Filtration Rate 49, BUN/Creatinine Ratio 21, Glucose Level 312H, Calcium Level 8.8, Corrected Calci um 9.4, Phosphorus Level 3.6, Magnesium Level 1.6, Total Bilirubin 0.9, Aspartate Amino Transf (AST/SGOT) 19, Alanine Aminotransferase (ALT/SGPT) 32, Alkaline Phosphatase 76, Total Protein 6.1L, Albumin 3.2 09/29/21 10:14: Glucometer 323H Laboratory Tests 09/29/21 04:23 A/P-Cardiology Assessment/Admission Diagnosis Pneumonia Confusion Recent (early Sep 2021) ic bleed (subdural and subarachnoid) following a nonsyncopal fall CAD - Pt reports 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 Willett - PTCA of RCA lesion reduced from 80% to approx 40%. 100% occlusion of the LAD and cx. 100% occlusion of a vein graft. Patent CASTRO graft to the LAD with borderline lesion beyond. - Most recent Cardiac cath of 09-08-[address] Conway - severe MVD red devil coronaries including severe in-stent restenosis in the RCA. S/P placement of 3 Synergy JOSHUA with one in the prox vessel, one in the midvessel, and one in the distal vessel (not overlapping). S/P balloon angioplasty of the ostial to prox right PDA which appeared to be too small for stenting. - NSTEMI on 08/17/21, pt followed with Dr Willett. Pt family reports that a subsequent nuclear stress was ok and no card cath or interventions were undertaken Echocardiogram of 08-17-21 showed LVEF 55-65%. Mod concentric hypertrophy. Grade 2 diastolic dysfunction. LA mildly dilated. Mild calcification of mitral valve with mild MR. Mild to mod AoV stenosis Echocardiogram of 09-26-21 showed LVEF 55-65%. Mod concentric hypertrophy. Grade 2 diastolic dysfunction. Mild calcification of mitral valve. Mild to mod AoV stenosis. PASP 25-30 mmHg Chronic angina - Imdur and Ranexa - managed by Dr. 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 Gallo Oncology - multiple skin melanoma removals - most recent to the left side of his face (stitches in place) Back surgeries - Yadav lynette in place Discussion and Recomendations * From a cardiac standpoint, given h/o cor stents, ASA 81 qod is recommended. However, if there is suspicion active bleed, it would be reasonable to hold. Will defer to Dr Leroy * Monitor labs Clinical Quality Measures DVT/VTE Risk/Contraindication: Contraindications-Pharm: Other *list below* Other: recent ST[facility] HOFFMAN MD [facility] Sep 29, 2021 12:44
--- NOTE | 2021-09-29 12:48 | ST Cognitive Linguistic Eval ---
Speech Evaluation-General Medical Diagnosis Pneumonia Onset Date: Sep 28, 2021 Therapy Diagnosis Therapy Diagnosis: Moderate to Severe Expressive Aphasia Precautions Precautions: Fall Precautions/Isolations: Standard Precautions Referral Referring Physician: Dr. Opal Leroy Reason for Referral: Evaluation/Treatment Medical History Pertinent Medical History: Arthritis, CABG, CAD, DM, GERD, HTN, PR, Neuropathy Current History The patient is an 86 year-old male with a past medical history of subdural hematoma with subarachnoid hemorrhage following a fall (with recent admission (09/15/21) to acute inpatient rehabilitation and current transfer to ICU), CABG, COPD, pneumonia, CAD, HTN, GERD, hiatal hernia, prostate cancer, and diabetes, who developed increasing shortness of breath throughout his acute inpatient rehabilitation stay. Per chart review, two separate RNs documented suspected asp iration events following PO intake (hamburger and water). Due to the patient's worsening respiratory state, he was transferred to ICU. CXR: 09/29/2021: Persistent right lung infiltrates with mild atelectasis now present. Reviewed History: Yes Speech PLF-Current Status Prior Level of Function Per chart review, the patient was independent prior to recent hospitalization (09/15/21). Subjective Upon entrance to the room, the patient has a sitter present. The sitter aids the clinician in repositioning the patient safely upright in bed. The patient is currently receiving 4L NC with SpO2% at 100% and respirations at 26 bpm. The patient smiles at the clinician and completes a verbal greeting accurately. The patient states, "I'm great." Language Eval: Auditory Comprehends Simple Yes/No Ques: Functional Indent/Objects Multiple Flores: Functional Follows 1-Step Commands: Functional Follows General Conversations: Moderate Language Eval: Verbal Language Completes Spontaneous Greeting: Functional Imitates Simple Words/Phrases: Moderate (The patient is able to repeat single words, however, is unable to repeat short phrases.) Word Finding: Severe (The patient's severe anomia may be exacerbated by the patient's marked expressive aphasia.) Requests Basic Needs: Moderate (Through gesturing and pointing, the patient is able to request basic needs.) States Basic Personal Info: Severe Expresses Complex Ideas: Severe Cognitive Patient Orientation The patient is oriented to self, location, and month via yes and no questions (simple). Objective Cognitive Domain An assessment of the patient's cognition did not take place on this date, as the patient's cognitive function/results are greatly impacted by the patient's expressive language deficit. Objective Oral Motor/Speech Production The patient does not present with dysarthria at the single word level. Increased expressive language will be necessary to provide a full assessment regarding oral motor involvement. The patient is able to complete basic oral motor com mands accurately. Impression The patient presents with moderate to severe expressive aphasia. The patient p resents with intact, basic comprehension, specifically of simple yes and no questions. As language rehabilitation continues, the clinician recommends staff and conversation partners communicate in simple yes and no questions to reduce frustration the patient exhibits with expression. Continued and ongoing language and cognitive assessment are warranted with increased rehabilitation. Speech Short Term Goals Short Term Goals Short Term Goals 1. The patient will tolerate trials of the least restricted consistency without s/s of suspected aspiration with 90% accuracy. 2. The patient will repeat short phrases with 80% accuracy and mild clinician verbal cueing. 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 The patient will tolerate the least restrictive diet consistency without the presence of s/s of suspected aspiration with 90% accuracy or greater. 2. The patient will display improved expressive communication for safe discharge to the least restrictive environment. Speech-Plan Treatment Plan Speech Therapy Treatment Plan: Continue Plan of Care Treatment Duration: Oct 13, 2021 Frequency: 3 times per week (Three to four times per week.) Estimated Hrs Per Day: .25 hour per day Rehab Potential: Fair Pt/Family Agrees to Plan: Yes Safety Risks/Education Teaching Recipient: Patient Teaching Methods: Discussion Response to Teaching: Reinforcement Needed Education Topics Provided: Plan of Care, Results of Evaluation Time Speech Therapy Time In: 09:02 Speech Therapy Time Out: 09:18 Total Billed Time: 16 Billed Treatment Time 1, EDIN SHELBY [facility] Sep 29, 2021 12:47
--- NOTE | 2021-09-29 12:59 | Progress Note ---
CLARISAGUERLINE [facility] 09/29/21 1259: Subjective Date Seen by a Provider: Sep 29, 2021 Time Seen by a Provider: 09:00 Subjective/Events-last exam Information was collected from nurse and patient during encounter Patient appears to forget the question during response Alert and oriented to self and time Reports that his shortness of breath is the same States he has worsening headache Currently on 3L NC at 95% WBC at 12,4 and glucose at 312 Poor Prognosis Review of Systems General: No Chills, No Other (fevers) Pulmonary: Dyspnea, Cough Cardiovascular: No: Chest Pain, Palpitations Gastrointestinal: No: Nausea, Vomiting, Abdominal Pain Musculoskeletal: other (Headache) Objective Exam Last Set of Vital Signs Vital Signs Date Time Temp Pulse Resp B/P (MAP) Pulse Ox O2 Delivery O2 Flow Rate FiO2 09/29/21 12:00 36.4 106 20 151/74 92 Nasal Cannula 3.00 Capillary Refill : I&O Intake and Output 09/29/21 00:00 Intake Total 50 ml Balance 50 ml IV Total 50 ml # Voids 2 Daily Weight Change No General: Alert, Cooperative, Other (Oriented x 2) HEENT: Atraumatic, PERRLA Neck: Supple, No JVD Lungs: Other (Decreased on the Right, normal air movement on the left) Heart: Normal S1, Normal S2, No Murmurs, Rubs, Other (Tachycardia) Abdomen: Normal Bowel Sounds, Soft Extremities: No Clubbing, No Cyanosis Neuro: Normal Speech, Sensation Intact Psych/Mental Status: Mood NL Results Lab Laboratory Tests 09/28/21 15:26: Glucometer 196H 09/28/21 20:57: Glucometer 249H 09/29/21 04:23: White Blood Count 12.4H, Red Blood Count 4.14L, Hemoglobin 13.1L, Hematocrit 39L , Mean Corpuscular Volume 94, Mean Corpuscular Hemoglobin 32, Mean Corpuscular Hemoglobin Concent 34, Red Cell Distribution Width 11.9, Platelet Count 260, Mean Platelet Volume 10.4, Immature Granulocyte % (Auto) 1, Neutrophils (%) (Auto) 94H, Lymphocytes (%) (Auto) 3L, Monocytes (%) (Auto) 1, Eosinophils (%) (Auto) 0, Basophils (%) (Auto) 0, Neutrophils # (Auto) 11.7H, Lymphocytes # (Auto) 0.4L, Monocytes # (Auto) 0.1, Eosinophils # (Auto) 0.0, Basophils # (Auto) 0.0, Immature Granulocyte # (Auto) 0.2H, Sodium Level 134L, Potassium Level 4.9, Chloride Level 102, Carbon Dioxide Level 19L, Anion Gap 13, Blood Urea Nitrogen 30H, Creatinine 1.41H, Estimat Glomerular Filtration Rate 49, BUN/Creatinine Ratio 21, Glucose Level 312H, Calcium Level 8.8, Corrected Calcium 9.4, Phosphorus Level 3.6, Magnesium Level 1.6, Total Bilirubin 0.9, Aspartate Amino Transf (AST/SGOT) 19, Alanine Aminotransferase (ALT/SGPT) 32, Alkaline Phosphatase 76, Total Protein 6.1L, Albumin 3.2 09/29/21 10:14: Glucometer 323H Assessment/Plan Assessment/Plan Assess & Plan/Chief Complaint Assessment: Pneumonia started on cefepime 09/27/2021 but worsened on CXR and clinically requiring transfer to ICU 09/28/21 [facility] Subdural hematoma Recent NSTEMI 08/18/21 holding Plavix and aspirin and consulting Dr. Rosales restarting aspirin 81 mg every 48 hours on 09/26/2021 CAD CKD3 DM2 HTN HLD GERD Hiatal hernia RODY Prostate cancer Confusion Leukocytosis Subarachnoid headache Plan: Will move to the 4th floor Incontinence care Speech evaluation Swallow study Full liquid diet Tighter glucose control, difficult due to steroids Continue IV abx Begin DNR discussion with family due to prognosis Appreciate Cardiology Clinical Quality Measures DVT/VTE Risk/Contraindication: Contraindications-Pharm: Other *list below* Other: recent [facility] OPAL LEROY DO 09/30/21 0550: Subjective Subjective/Events-last exam Pt is doing a little better Transferring to 4th floor On 3L of oxygen at 95% [place] x2 Dyspnea improved Subarachnoid headache noted Updated daughter outside the room about the need for serious discussion about a DNR Will close out account in in-patient rehab He really needs skilled care Review of Systems General: Fatigue, Malaise Pulmonary: Dyspnea, Cough Neurological: Confusion Objective Exam General: Alert, Cooperative Lungs: Other (Decreased on the Right, normal air movement on the left) Heart: Regular Rate Assessment/Plan Assessment/Plan Assess & Plan/Chief Complaint Assessment: Pneumonia started on cefepime 09/27/2021 but worsened on CXR and clinically requiring transfer to ICU 09/28/21 [facility] Subdural hematoma Recent NSTEMI 08/18/21 holding Plavix and aspirin and consulting Dr. Rosales restarting aspirin 81 mg every 48 hours on 09/26/2021 CAD CKD3 DM2 HTN HLD GERD Hiatal hernia RODY Prostate cancer Confusion Leukocytosis Subarachnoid headache Plan: Transfer to fourth floor Needs DNR Poor prognosis Needs skilled care Supervisory-Addendum Brief Verification & Attestation Participated in pt care: history, MDM, physical Personally performed: exam, history, MDM, supervision of care Care discussed with: Medical Student Procedures: n/a Results interpretation: Verified all documentation Verification and Attestation of Medical Student E/M Service A medical student performed and documented this service in my presence. I reviewed and verified all information documented by the medical student and made modifications to such information, when appropriate. I personally performed the physical exam and medical decision making. Opal Leroy, Sep 30, 2021,05:48 GUERLINE MCKENNA [facility] Sep 29, 2021 12:59 OPAL LEROY DO Sep 30, 2021 05:50
--- NOTE | 2021-09-29 14:06 | Occupational Therapy Eval ---
OT Evaluation-General/PLF Medical Diagnosis Admission Date Sep 28, 2021 at 14:22 Medical Diagnosis: Pneumonia Onset Date: Sep 28, 2021 Therapy Diagnosis Therapy Diagnosis: Impaired cognition, safety, adls Precautions Precautions/Isolations: Fall Prevention, Standard Precautions Referral Physician: Rad Norton Reason: Evaluation/Treatment Medical History Pertinent Medical History: Arthritis, CABG, CAD, DM, GERD, HTN, [place], Neuropathy Current History Pt with recent admission (09/23/21) to ARU and was transferred to ICU after developing increased SOB and cognitive decline. Per family, pt lives with his in a single story home with a basement. He was indep with adls and his completes all the iadls. He was using a [facility]. reports pt has been having a decline in STM this past year. Reviewed History: Yes Social History Home: Single Level Current Living Status: Spouse ADL-Prior Level of Function SCALE: Activities may be completed with or without assistive devices. 9-Uanfolavuq-czbqsmd completes the activity by him/herself with no assistance from a helper. 5-Set-up or Clean-up Assistance-helper sets up or cleans up; patient completes activity. [place] assists only prior to or following the activity. 4-Supervision or Touching Assistance-helper provides verbal cues and/or touching/steadying and/or contact guard assistance as patient completes activity. Assistance may be provided throughout the activity or intermittently. 3-Partial/Moderate Assistance-helper does LESS THAN HALF the effort. [place] l ifts, holds or supports trunk or limbs, but provides less than half the effort. 2-Substantial/Maximal Assistance-helper does MORE THAN HALF the effort. [place] lifts or holds trunk or limbs and provides more than half the effort. 5-Xhowsglep-azirtf does ALL the effort. Patient does none of the effort to complete the activity. Or, the assistance of 2 or more helpers is required for t he patient to complete the activity. If activity was not attempted, code reason: 7-Patient Refused. 9-Not Applicable-not attempted and the patient did not perform the activity before the current illness, exacerbation or injury. 10-Not Attempted due to Environmental Limitations-(lack of equipment, weather restraints, etc.). 88-Not Attempted due to Medical Conditions or Safety Concerns. Self Care: Independent Functional Cognition: Needed Some Help DME/Equipment: Bath Chair, Grab Bars, Shower Drive Self: Yes OT Current Status Subjective Pt denies pain, alert, oriented to self only. Appearance Returned to supine in bed, all needs within reach. Family in room. Mental Status/Objective Patient Orientation: Person, Confused Attachments: Boateng Catheter, IV, Oxygen Current Glasses/Contacts: Yes Hearing Aids: No Dentures/Partials: No Hand Dominance: Right Upper Extremity ROM WNL Upper Extremity Coordination Impaired Upper Extremity Strength 3+/5 shoulders Fair inventory clerk strength ADL-Treatment Eating (QC): 4 On/Off Footwear (QC): 3 Toileting Hygiene (QC): 1 Pt supine at OT arrival. Improved command following from last session with this therapist. Able to sit EOB with CGA due to initial unsteadiness. Intermittent 1- 2 UE support required to maintain balance. Dependent to don rony hose. Extra time to thread [place] socks onto feet with min a for dynamic sitting balance. Pt wheezing with exertion. Cues for proper breathing techniques. He was able to stand with min A and take 1-2 steps towards HOB with hand held assist. Anticipate steadying assist will be required at this time during functional tasks such as clothing management. Education OT Patient Education: Correct positioning, Energy conservation, Instructions to caregiver, Modified ADL techniques, Progress toward Goal/Update tx plan, Purpose of tx/functional activities, Safety issues, Transfer techniques Teaching Recipient: Patient, Family Teaching Methods: Demonstration, Discussion Response to Teaching: Verbalize Understanding, Reinforcement Needed OT Elevator Repairer Goals Elevator Repairer Goals Time Frame: Oct 09, 2021 Oral Hygiene (QC): 4 Toileting Hygiene (QC): 4 Shower/Bathe Self (QC): 4 Upper Body Dressing (QC): 4 Lower Body Dressing (QC): 4 On/Off Footwear (QC): 4 1=Demonstrate adherence to instructed precautions during ADL tasks. 2=Patient will verbalize/demonstrate understanding of assistive devices/modifications for ADL. 3=Patient will improve strength/tolerance for activity to enable patient to perform ADL's. OT Education/Plan Problem List/Assessment Assessment: Decreased Activ Tolerance, Decreased Safety Aware, Decreased UE Strength, Impaired Bed Mobility, Impaired Cognition, Impaired Funct Balance, Impaired I ADL's, Impaired Self-Care Skills Discharge Recommendations Plan/Recommendations: Continue POC Therapy Discharge Recommendati: Post Acute OT Treatment Plan/Plan of Care Treatment,Training & Education: Yes Patient would benefit from OT for education, treatment and training to promote independence in ADL's, mobility, safety and/or upper extremity function for ADL's. Plan of Care: ADL Retraining, Functional Mobility, Group Exercise/Act as Ind, UE Funct Exercise/Act Treatment Duration: Oct 09, 2021 Frequency: 3 times per week Estimated Hrs Per Day: .25 hour per day Rehab Potential: Fair 3-5x/week Time/GCodes Start Time: 13:26 Stop Time: 13:49 Total Time Billed (hr/min): 23 Billed Treatment Time 1 visit EVM (13 min) ADL (10 min) Gabrielle Joyner OT Sep 29, 2021 14:06
--- NOTE | 2021-09-29 14:23 | Physical Therapy Evaluation ---
PT Evaluation-General Medical Diagnosis Admission Date Sep 28, 2021 at 14:22 Medical Diagnosis: Pneumonia Onset Date: Sep 28, 2021 Therapy Diagnosis Therapy Diagnosis: Gait deficit, strength deficit Precautions Precautions/Isolations: Fall Prevention, Standard Precautions Referral Physician: Rad Reason for Referral: Evaluation/Treatment Medical History Pertinent Medical History: Arthritis, CABG, CAD, DM, GERD, HTN, [place], Neuropathy Reviewed History: Yes Social History Home: Single Level Current Living Status: Spouse Entry Into Home: Stairs With Railing PT Steps Into Home: 2 Prior Prior Level of Function SCALE: Activities may be completed with or without assistive devices. 7-Bmfuvmxjgp-pvbdqfc completes the activity by him/herself with no assistance from a helper. 5-Set-up or Clean-up Assistance-helper sets up or cleans up; patient completes activity. [place] assists only prior to or following the activity. 4-Supervision or Touching Assistance-helper provides verbal cues and/or touching/steadying and/or contact guard assistance as patient completes activity. Assistance may be provided throughout the activity or intermittently. 3-Partial/Moderate Assistance-helper does LESS THAN HALF the effort. [place] lifts, holds or supports trunk or limbs, but provides less than half the effort. 2-Substantial/Maximal Assistance-helper does MORE THAN HALF the effort. [place] lifts or holds trunk or limbs and provides more than half the effort. 2-Zjynankuf-vfvpvr does ALL the effort. Patient does none of the effort to complete the activity. Or, the assistance of 2 or more helpers is required for the patient to complete the activity. If activity was not attempted, code reason: 7-Patient Refused. 9-Not Applicable-not attempted and the patient did not perform the activity before the current illness, exacerbation or injury. 10-Not Attempted due to Environmental Limitations-(lack of equipment, weather restraints, etc.). 88-Not Attempted due to Medical Conditions or Safety Concerns. Bed Mobility: 6 Transfers (B,C,W/C): 6 Gait: 6 Stairs: 6 Indoor Mobility (Ambulation): Independent Stairs: Independent Prior Device Use: cane PT Evaluation-Current Subjective Patient lying supine in bed with his daughter and in the room. Patient reports pain in the back of his head, but is unable to rate. Objective Patient Orientation: Person Attachments: Oxygen, Boateng Catheter, IV ROM/Strength ROM Lower Extremities WFLs bilaterally all planes Strength Lower Extremities 3+/5 bilaterally all planes Sensory Vision: Functional Hearing: Functional Hand Dominance: Right Sensation Left Lower Extremity: Intact Transfers Roll Left to Right (QC): 4 Sit to Lying (QC): 4 Lying to Sitting/Side of Bed(Q: 4 Sit to Stand (QC): 3 Chair/Drr-yv-Ngzur Xfer(QC): 3 Gait Does the Patient Walk?: Yes Mode of Locomotion: Walk Anticipated Mode of Locomotion: Walk Distance: 3 Gait Assistive Device: FWW Balance Sitting Static: Fair Sitting Dynamic: Fair Standing Static: Fair Standing Dynamic: Fair Assessment/Needs Patient tolerated treatment fair. He is able to perform all observed bed mobility and transfers with SBA/min A. Patient is able to stand with CGA and sidesteps left 2-3 feet so that he his higher in the bed upon lying supine. Patient requires CGA for sit to supine and he is able to move himself up in the bed with verbal cues. Patient in bed post treatment with all needs met, nursing notified, call light in hand, with and daughter in the room. Rehab Potential: Good PT Short Term Goals Short Term Goals Time Frame: Oct 08, 2021 Roll Left & Right: 5 Sit to lyin Lying to sitting on side of be: 5 Sit to stand: 5 Chair/fjp-rh-fxlmp transfer: 5 Toilet transfer: 5 Car transfer: 5 Walk 10 feet: 5 Walk 50 feet with two turns: 4 Walk 150 feet: 4 PT Fci Goals Fci Goals PT Fci Goals Time Frame: Oct 29, 2021 Roll Left & Right (QC): 6 Sit to Lying (QC): 6 Lying-Sitting on Side/Bed(QC): 6 Sit to Stand (QC): 6 Chair/Xoy-pe-Mujqj Xfer(QC): 6 Toilet Transfer (QC): 6 Car Transfer (QC): 6 Does the Patient Walk: Yes Walk 10 feet (QC): 6 Walk 50ft with 2 Turns (QC): 5 Walk 150 ft (QC): 5 1 Step (curb) (QC): 4 4 Steps (QC): 4 PT Plan Problem List Problem List: Activity Tolerance, Functional Strength, Safety, Balance, Gait, Transfer, Bed Mobility, ROM Treatment/Plan Treatment Plan: Continue Plan of Care Treatment Plan: Bed Mobility, Education, Functional Activity Varun, Functional Strength, Group Therapy, Gait, Safety, Therapeutic Exercise, Transfers Treatment Duration: Nov 05, 2021 Frequency: 6 times per week Estimated Hrs Per Day: .25 hour per day Patient and/or Family Agrees t: Yes Safety Risks/Education Patient Education: Transfer Techniques, Safety Issues Teaching Recipient: Patient, Family Teaching Methods: Demonstration, Discussion Response to Teaching: Verbalize Understanding, Return Demonstration Time/GCodes Time In: 1400 Time Out: 1415 Total Billed Treatment Time: 15 Total Billed Treatment Visit, SURAJ Garcia PT Sep 29, 2021 14:23
[2021-09-29] MEDS: ASPIRIN 81 MG CHEW (CHILDREN'S ASA) PO SCH (14:30)
[2021-09-29] MEDS: morphine INJ 4 MG/ML 1 ML (VIAL/SYRINGE) IVP PRN (14:38)
[2021-09-29] MEDS ORDERED: meTOprolol SUCCINATE 100 MG (TOPROL XL) TAB PO NR (16:15)
[2021-09-29] MEDS: HYDROcodone/APAP 5 MG/325 MG (LORTAB) TAB PO PRN ×2 (16:21→20:27)
[2021-09-29] MEDS: NITROGLYCERIN 2% OINT 1 GM UNIT DOSE PACKET TOP SCH ×2 (16:27→21:35)
[2021-09-29] MEDS: VITAMIN D2 1.25 MG (50,000 UNITS) CAP PO SCH (16:55)
[2021-09-29] MEDS: glipiZIDE XL 10 MG (GLUCOTROL XL) TAB PO SCH (17:55)
[2021-09-29] MEDS ORDERED: FUROSEMIDE 40 MG/4 ML INJ (LASIX) IVP ONE (18:15)
[2021-09-29] MEDS ORDERED: FUROSEMIDE 40 MG/4 ML INJ (LASIX) ONE (18:21)
[2021-09-29] MEDS ORDERED: RT-ALBUTEROL SULF 2.5 MG/3 ML PRE-MIX VIAL ONE (18:37)
[2021-09-29 19:28] VITALS: BP 147/76
[2021-09-29] MEDS ORDERED: RT-ALBUTEROL/IPRATROPIUM 3 ML (DUONEB) VIAL INH PRN (19:45)
[2021-09-29] MEDS: IMIPRAMINE 10 MG PO SCH (20:13)
[2021-09-29] MEDS: diphenhydrAMINE 25 MG TAB (BENADRYL) PO SCH (20:13)
[2021-09-29] MEDS: busPIRone 10 MG (BUSPAR) TAB PO SCH (20:13)
[2021-09-29] MEDS: DOCUSATE SODIUM 100 MG (COLACE) CAP PO SCH (20:13)
[2021-09-29] MEDS: RANOLAZINE ER 500 MG TAB (RANEXA) PO SCH (20:13)
[2021-09-29] MEDS: SERTRALINE 100 MG (ZOLOFT) TAB PO SCH (20:19)
--- NOTE | 2021-09-29 20:49 | Diagnostic Imaging Report ---
INDICATION: Shortness of breath. COMPARISON: 09/29/2021 at 5:35 a.m. EXAMINATION: Single view of the chest. FINDINGS: Worsening of bilateral pulmonary infiltrates. There is no pneumothorax. The heart is stable. Osseous structures are age-appropriate. Sternal wires are midline. IMPRESSION: New and/or worsening bilateral pulmonary infiltrates compatible with pneumonia. Dictated by: Dictated on workstation # [id number]
[2021-09-29] MEDS ORDERED: NON-FORMULARY MEDICATION 1 EA EA (Ranolazine (Ranolazine ER) 1,000 MG) PO SCH (21:00)
[2021-09-29] MEDS: RT-ALBUTEROL/IPRATROPIUM 3 ML (DUONEB) VIAL INH SCH (21:45)
[2021-09-29] MEDS ORDERED: NITROGLYCERIN 2% OINT 1 GM UNIT DOSE PACKET TOP SCH (22:00)
[2021-09-29 22:06] LABS: ABG BASE EXCESS -2.9 MMOL/L (-2.5-2.5); ABG OXYGEN SATURATION 86 % (94-100); ABG PCO2 34 MMHG (35-45); ABG PH 7.41 (7.37-7.43); ABG PO2 54 MMHG (79-93); ABG TCO2 22.2 MMOL/L (21.0-31.0); ALLENS TEST YES-POS; INSPIRED O2 12L; PATIENT TEMP 36.4; VENTILATOR NO
[2021-09-30] MEDS: CLINDAMYCIN 600 MG/50 ML IVPB 50 ML IV SCH ×3 (01:35→17:14)
[2021-09-30 02:55] VITALS: BP 128/74
[2021-09-30] MEDS: RT-ALBUTEROL/IPRATROPIUM 3 ML (DUONEB) VIAL INH SCH ×6 (02:59→22:21)
[2021-09-30] MEDS: CEFEPIME INJECTION 1,000 MG in NS (IVPB) 50 ML IV SCH ×3 (04:23→21:04)
[2021-09-30 05:35] LABS: BASOPHILS % (AUTO) 0 % (0-10); EOSINOPHILS % (AUTO) 0 % (0-10); HEMATOCRIT 41 % (40-54); HEMOGLOBIN 13.8 g/dL (13.3-17.7); LYMPHOCYTES # (AUTO) 0.3 10^3/uL (1.0-4.0); LYMPHOCYTES % (AUTO) 2 % (12-44); MEAN CORPUSCULAR HEMOGLOBIN 32 pg (25-34); MEAN CORPUSCULAR HGB CONC 34 g/dL (32-36); MEAN CORPUSCULAR VOLUME 94 fL (80-99); MEAN PLATELET VOLUME 10.3 fL (9.0-12.2); MONOCYTES % (AUTO) 5 % (0-12); NEUTROPHILS # (AUTO) 18.5 10^3/uL (1.8-7.8); NEUTROPHILS % (AUTO) 93 % (42-75); PLATELET COUNT 299 10^3/uL (130-400)
[2021-09-30 06:10] LABS: LYMPHOCYTES % (MANUAL) 1 %; MONOCYTES % (MANUAL) 10 %; NEUTROPHILS % (MANUAL) 89 %
[2021-09-30 06:11] LABS: RBC MORPH NORMAL
[2021-09-30 06:18] LABS: ALBUMIN 3.1 GM/DL (3.2-4.5); POTASSIUM 4.3 MMOL/L (3.6-5.0)
[2021-09-30 06:20] LABS: CALCIUM 8.7 MG/DL (8.5-10.1)
[2021-09-30 06:21] LABS: TOTAL PROTEIN 5.9 GM/DL (6.4-8.2)
[2021-09-30 06:24] LABS: PHOSPHORUS 3.3 MG/DL (2.3-4.7)
[2021-09-30 06:25] LABS: CREATININE SERUM 1.51 MG/DL (0.60-1.30)
[2021-09-30] MEDS: NITROGLYCERIN 2% OINT 1 GM UNIT DOSE PACKET TOP SCH ×4 (06:27→22:00)
[2021-09-30 06:28] LABS: MAGNESIUM 1.9 MG/DL (1.6-2.4)
[2021-09-30] MEDS: inSUlin ASPART (NovoLOG) 1 UNIT/0.01 ML (CHARGE PER UNIT) SC SCH ×4 (06:28→21:07)
--- NOTE | 2021-09-30 07:01 | Occ Therapy Progress Note ---
Therapy Progress Note Due to change in medical status, OT will need new orders. YOON ODOM Sep 30, 2021 07:01
[2021-09-30 07:08] VITALS: BP 132/72
--- NOTE | 2021-09-30 07:33 | Physical Therapy Progress Note ---
Therapy Progress Note Due to transfer to ICU, PT will require new orders to resume therapy. BRENTON DUNBAR PT Sep 30, 2021 07:33
--- NOTE | 2021-09-30 08:39 | Progress Note - Cardiology ---
Cardiology SOAP Progress Note Objective: I&O/Vital Signs 09/30/21 10/01/21 10/01/21 10/01/21 22:22 00:00 00:00 01:00 Temp 37.2 Pulse 93 93 Resp 18 B/P (MAP) 140/67 Pulse Ox 96 99 O2 Delivery Nasal Cannula NIV Bilevel NIV Bilevel O2 Flow Rate 5.00 30.00 30.00 10/01/21 10/01/21 10/01/21 10/01/21 02:57 04:00 07:00 07:21 Pulse 88 88 Resp 18 B/P (MAP) 128/77 Pulse Ox 97 96 97 O2 Delivery Nasal Cannula NIV Bilevel Nasal Cannula O2 Flow Rate 5.00 30.00 7.00 10/01/21 08:06 Temp 36.5 Pulse 103 Resp 24 B/P (MAP) 159/80 Pulse Ox 92 O2 Delivery Nasal Cannula O2 Flow Rate 5.00 10/01/21 00:00 Intake Total 620 ml Output Total 350 ml Balance 270 ml Constitutional: No AAO x 3; well-developed, well-nourished Respiratory: other (diminished air entry at the bases) Cardiovascular: regular rate-rhythm, S1 and S2, systolic murmur (soft JESUS at card base) Gastrointestional: No tender; soft; No guarding, No rebound; audible bowel sounds Extremities: No clubbing, No significant edema Neurologic/Psychiatric: other (moves all limbs equally) Skin: No rash on exposed areas, No ulcerations on exposed areas Results/Procedures: Labs Laboratory Tests 09/30/21 11:14: Glucometer 264H 09/30/21 15:37: Glucometer 243H 10/01/21 04:15: White Blood Count 12.6H, Red Blood Count 3.80L, Hemoglobin 11.9L, Hematocrit 36L , Mean Corpuscular Volume 94, Mean Corpuscular Hemoglobin 31, Mean Corpuscular Hemoglobin Concent 33, Red Cell Distribution Width 12.0, Platelet Count 248, Mean Platelet Volume 10.3, Immature Granulocyte % (Auto) 1, Neutrophils (%) (Auto) 94H, Lymphocytes (%) (Auto) 1L, Monocytes (%) (Auto) 3, Eosinophils (%) (Auto) 0, Basophils (%) (Auto) 0, Neutrophils # (Auto) 11.9H, Lymphocytes # (Auto) 0.2L, Monocytes # (Auto) 0.4, Eosinophils # (Auto) 0.0, Basophils # (Auto) 0.0, Immature Granulocyte # (Auto) 0.2H, Sodium Level 136, Potassium Level 3.9, Chloride Level 106, Carbon Dioxide Level 20L, Anion Gap 10, Blood Urea Nitrogen 40H, Creatinine 1.53H, Estimat Glomerular Filtration Rate 45, BUN/Creatinine Ratio 26, Glucose Level 295H, Calcium Level 8.4L, Corrected Calcium 9.4, Phosphorus Level 3.1, Magnesium Level 1.7, Total Bilirubin 0.8, Aspartate Amino Transf (AST/SGOT) 27, Alanine Aminotransferase (ALT/SGPT) 38, Alkaline Phosphatase 61, Total Protein 5.3L, Albumin 2.8L 10/01/21 05:53: Glucometer 235H Microbiology 09/28/21 MRSA Screen - Final, Complete MRSA not isolated A/P: Assessment: Pneumonia - management per medical/eICU services Confusion Recent (early Sep 2021) ic bleed (subdural and subarachnoid) following a nonsyncopal fall CAD - Pt reports 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 Willett - PTCA of RCA lesion reduced from 80% to approx 40%. 100% occlusion of the LAD and cx. 100% occlusion of a vein graft. Patent CASTRO graft to the LAD with borderline lesion beyond. - Most recent Cardiac cath of 09-08-[address] Conway - severe MVD [place] coronaries including severe in-stent restenosis in the RCA. S/P placement of 3 Synergy JOSHUA with one in the prox vessel, one in the midvessel, and one in the distal vessel (not overlapping). S/P balloon angioplasty of the ostial to prox right PDA which appeared to be too small for stenting. - NSTEMI on 08/17/21, pt followed with Dr Willett. Pt family reports that a subsequent nuclear stress was ok and no card cath or interventions were undertaken Echocardiogram of 08-17-21 showed LVEF 55-65%. Mod concentric hypertrophy. Grade 2 diastolic dysfunction. LA mildly dilated. Mild calcification of mitral valve with mild MR. Mild to mod AoV stenosis Echocardiogram of 09-26-21 showed LVEF 55-65%. Mod concentric hypertrophy. Grade 2 diastolic dysfunction. Mild calcification of mitral valve. Mild to mod AoV stenosis. PASP 25-30 mmHg Chronic angina - Imdur and Ranexa - managed by Dr. 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 Gallo Oncology - multiple skin melanoma removals - most recent to the left side of his face (stitches in place) Back surgeries - Yadav lynette in place Plan: * From a cardiac standpoint, given h/o cor stents, ASA 81 qod is recommended. However, if there is suspicion active bleed, it would be reasonable to hold. W ill defer to Dr Leroy * Monitor labs ERIKA QUESADA Sep 30, 2021 08:39
[2021-09-30] MEDS: amLODIPine 10 MG (NORVASC) TAB PO SCH (08:41)
[2021-09-30] MEDS: methylPREDNISolone 125 MG (Solu-MEDROL) VIAL IVP SCH ×2 (08:41→21:05)
[2021-09-30] MEDS: PANTOPRAZOLE 20 MG TABLET (PROTONIX) PO SCH (08:41)
[2021-09-30] MEDS: ISOSORBIDE MONONITRATE 60 MG (IMDUR) TAB PO SCH (08:41)
[2021-09-30] MEDS: meTOprolol SUCCINATE 100 MG (TOPROL XL) TAB PO SCH (08:41)
[2021-09-30] MEDS: RANOLAZINE ER 500 MG TAB (RANEXA) PO SCH ×2 (08:43→21:06)
--- NOTE | 2021-09-30 08:54 | Diagnostic Imaging Report ---
INDICATION: Pneumonia and increased oxygen requirement. TIME OF EXAM: 8:40 AM CORRELATION is made with prior chest one day earlier. Changes of median sternotomy are noted. Bilateral pulmonary infiltrates persist, are similar to perhaps minimally improved in the upper lung more. There are also patchy infiltrates in the bilateral lung bases, similar. There is no effusion or pneumothorax. IMPRESSION: Continued diffuse bilateral pulmonary infiltrates consistent with pneumonia. Dictated by: Dictated on workstation # [id number]
--- NOTE | 2021-09-30 08:55 | Tele-ICU Progress Note ---
Subjective Date Seen by a Provider: Sep 30, 2021 Time Seen by a Provider: 09:50 Subjective/Events-last exam Patient today is feeling somewhat better. His BiPAP is converted to nasal cannula and tolerated well. He does have expressive aphasia and dysphagia for which she is being followed by speech therapy Sepsis Event Evaluation Height, Weight, BMI Height: '" Weight: lbs. oz. kg; 32.05 BMI Method: Exam Exam Patient acknowledged, consented, and participated in this virtual visit which was conducted using real time audio/video Vital Signs Date Time Temp Pulse Resp B/P (MAP) Pulse Ox O2 Delivery O2 Flow Rate FiO2 09/30/21 07:49 36.1 09/30/21 07:30 OxyMask 5.00 09/30/21 07:19 97 Nasal Cannula 5.00 09/30/21 07:08 87 21 100 40.00 09/30/21 06:56 OxyMask 12.00 09/30/21 06:00 82 24 128/66 98 NIV Bilevel 40.00 09/30/21 05:00 81 21 125/62 94 NIV Bilevel 40.00 09/30/21 04:00 36.2 09/30/21 04:00 82 19 102/57 94 NIV Bilevel 40.00 09/30/21 03:00 84 20 116/66 95 NIV Bilevel 40.00 09/30/21 02:55 85 29 96 40.00 09/30/21 02:30 NIV Bilevel 40.00 09/30/21 02:00 79 17 111/64 95 OxyMask 12.00 09/30/21 01:00 84 09/30/21 01:00 84 18 109/61 94 OxyMask 12.00 09/30/21 00:00 87 18 100/63 95 OxyMask 12.00 09/30/21 00:00 36.5 09/29/21 23:00 92 19 113/59 93 OxyMask 12.00 09/29/21 22:30 96 22 119/64 93 OxyMask 12.00 09/29/21 22:00 101 18 127/65 94 OxyMask 12.00 09/29/21 21:55 92 OxyMask 12.00 09/29/21 21:30 98 19 126/68 94 OxyMask 12.00 09/29/21 21:08 100 09/29/21 21:00 98 19 122/65 95 OxyMask 12.00 09/29/21 20:30 90 OxyMask 12.00 09/29/21 19:40 36.3 111 20 132/63 91 OxyMask 10.00 09/29/21 19:28 36.2 108 90 100 09/29/21 18:48 90 OxyMask 15.00 100 09/29/21 16:44 36.1 116 20 154/77 93 Nasal Cannula 3.00 09/29/21 12:00 36.4 106 20 151/74 92 Nasal Cannula 3.00 09/29/21 12:00 Nasal Cannula 3.00 09/29/21 09:26 35.8 100 22 147/76 98 Nasal Cannula 3.00 09/29/21 09:00 105 147/76 100 Nasal Cannula 3.00 I & O 09/30/21 07:00 Intake Total 1200 ml Output Total 1275 ml Balance -75 ml Height & Weight Height: '" Weight: lbs. oz. kg; 32.05 BMI Method: General Appearance: No Apparent Distress, Anxious, Chronically ill Respiratory: Accessory Muscle Use, Crackles, Wheezing Cardiovascular: Regular Rate, Rhythm Neurologic/Psychiatric: Alert, Disoriented Other comments pe per rn Results Lab Laboratory Tests 09/29/21 04:23 09/30/21 04:45 Assessment/Plan Assessment/Plan 1. Bilateral pneumonia possibly healthcare associated. 2. Recent subdural and subarachnoid hemorrhage following a fall. 3. Recent STEMI requiring PCI currently on aspirin and Plavix prior to the admission. Currently Plavix is on hold and aspirin low-dose being given every other day 4. hypoxia improving Recommendations 1. Continue IV antibiotics per primary care. 2. Aspirin and statins per cardiology 3. speech therapy to follow for swallow eval 4. IV morphine for as needed for severe headache. 5. Hold any anticoagulants for now 6. ok to transfer to step down unit. Critical Care: Critically Ill Patient Time spent with patient (mins): 20 ELENI RO MD Sep 30, 2021 08:55
[2021-09-30] MEDS ORDERED: NON-FORMULARY MEDICATION 1 EA EA (Multivitamin 1 EACH) PO SCH (09:00)
[2021-09-30] MEDS ORDERED: NON-FORMULARY MEDICATION 1 EA EA (Isosorbide Mononitrate (Isosorbide Mononitrate ER) 120 M PO SCH (09:00)
[2021-09-30] MEDS ORDERED: NON-FORMULARY MEDICATION 1 EA EA (Pioglitazone HCl 45 MG) PO SCH (09:00)
[2021-09-30] MEDS ORDERED: NON-FORMULARY MEDICATION 1 EA EA (Lansoprazole 15 MG) PO SCH (09:00)
[2021-09-30] MEDS: glipiZIDE XL 10 MG (GLUCOTROL XL) TAB PO SCH ×2 (10:45→17:14)
[2021-09-30] MEDS: MULTIVIT W/MINERALS TAB (THERAGRAN M) PO SCH (10:45)
[2021-09-30] MEDS: PIOGLITAZONE 30MG (ACTOS) TAB PO SCH (10:45)
[2021-09-30] MEDS: DOCUSATE SODIUM 100 MG (COLACE) CAP PO SCH ×2 (10:45→21:07)
--- NOTE | 2021-09-30 11:01 | Progress Note - Cardiology ---
Cardiology SOAP Progress Note Subjective: He remains confused and is not able to provide a meaningful history Does not report cp or palp or shortness of breath Objective: I&O/Vital Signs 09/29/21 09/30/21 09/30/21 09/30/21 23:00 00:00 00:00 01:00 Temp 36.5 Pulse 92 87 84 Resp 19 18 18 B/P (MAP) 113/59 100/63 109/61 Pulse Ox 93 95 94 O2 Delivery OxyMask OxyMask OxyMask O2 Flow Rate 12.00 12.00 12.00 09/30/21 09/30/21 09/30/21 09/30/21 01:00 02:00 02:30 02:55 Pulse 84 79 85 Resp 17 29 B/P (MAP) 111/64 Pulse Ox 95 96 O2 Delivery OxyMask NIV Bilevel O2 Flow Rate 12.00 40.00 40.00 09/30/21 09/30/21 09/30/21 09/30/21 03:00 04:00 04:00 05:00 Temp 36.2 Pulse 84 82 81 Resp 21 B/P (MAP) 116/66 102/57 125/62 Pulse Ox 95 94 94 O2 Delivery NIV Bilevel NIV Bilevel NIV Bilevel O2 Flow Rate 40.00 40.00 40.00 09/30/21 09/30/21 09/30/21 09/30/21 06:00 06:56 07:00 07:08 Pulse 82 83 87 Resp 24 21 B/P (MAP) 128/66 Pulse Ox 98 100 O2 Delivery NIV Bilevel OxyMask O2 Flow Rate 40.00 12.00 40.00 09/30/21 09/30/21 09/30/21 07:19 07:30 07:49 Temp 36.1 Pulse Ox 97 O2 Delivery Nasal Cannula OxyMask O2 Flow Rate 5.00 5.00 09/30/21 00:00 Intake Total 1200 ml Output Total 600 ml Balance 600 ml Constitutional: No AAO x 3; well-developed, well-nourished Respiratory: other (diminished air entry at the bases) Cardiovascular: regular rate-rhythm, S1 and S2, systolic murmur (soft JESUS at card base) Gastrointestional: No tender; soft; No guarding, No rebound; audible bowel sounds Extremities: No clubbing, No significant edema Neurologic/Psychiatric: other (moves all limbs equally) Skin: No rash on exposed areas, No ulcerations on exposed areas Results/Procedures: Labs Laboratory Tests 09/29/21 15:37: Glucometer 381H 09/29/21 19:54: Glucometer 321H 09/29/21 21:50: Blood Gas Puncture Site R RAD, Blood Gas Patient Temperature 36.4, Arterial Blood pH 7.41, Arterial Blood Partial Pressure CO2 34L, Arterial Blood Partial Pressure O2 54L, Arterial Blood HCO3 21L, Arterial Blood Total CO2 22.2, Arterial Blood Oxygen Saturation 86L, Arterial Blood Base Excess -2.9L, [place] Test YES-POS, Blood Gas Ventilator Setting NO, Blood Gas Inspired Oxygen 12L 09/30/21 04:45: White Blood Count 20.0H, Red Blood Count 4.30, Hemoglobin 13.8, Hematocrit 41, Mean Corpuscular Volume 94, Mean Corpuscular Hemoglobin 32, Mean Corpuscular Hemoglobin Concent 34, Red Cell Distribution Width 12.0, Platelet Count 299, Mean Platelet Volume 10.3, Immature Granulocyte % (Auto) 1, Neutrophils (%) ( Auto) 93H, Lymphocytes (%) (Auto) 2L, Monocytes (%) (Auto) 5, Eosinophils (%) (Auto) 0, Basophils (%) (Auto) 0, Neutrophils # (Auto) 18.5H, Lymphocytes # (Auto) 0.3L, Monocytes # (Auto) 1.0, Eosinophils # (Auto) 0.0, Basophils # (Auto) 0.0, Immature Granulocyte # (Auto) 0.2H, Neutrophils % (Manual) 89, Ly mphocytes % (Manual) 1, Monocytes % (Manual) 10, Blood Morphology Comment NORMAL, Sodium Level 135, Potassium Level 4.3, Chloride Level 103, Carbon Dioxide Level 18L, Anion Gap 14, Blood Urea Nitrogen 40H, Creatinine 1.51H, Estimat Glomerular Filtration Rate 45, BUN/Creatinine Ratio 26, Glucose Level 267H, Calcium Level 8.7, Corrected Calcium 9.4, Phosphorus Level 3.3, Magnesium Level 1.9, Total Bilirubin 1.0, Aspartate Amino Transf (AST/SGOT) 53H, Alanine Aminotransferase (ALT/SGPT) 45, Alkaline Phosphatase 78, Total Protein 5.9L, Albumin 3.1L Microbiology 09/28/21 MRSA Screen - Final, Complete MRSA not isolated Laboratory Tests 09/29/21 04:23 09/30/21 04:45 A/P: Assessment: Pneumonia - management per medical/eICU services Confusion Recent (early Sep 2021) ic bleed (subdural and subarachnoid) following a n onsyncopal fall CAD - Pt reports 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 Willett - PTCA of RCA lesion reduced from 80% to approx 40%. 100% occlusion of the LAD and cx. 100% occlusion of a vein graft. Patent CASTRO graft to the LAD with borderline lesion beyond. - Most recent Cardiac cath of 09-08-[address] Conway - severe MVD [place] coronaries including severe in-stent restenosis in the RCA. S/P placement of 3 Synergy JOSHUA with one in the prox vessel, one in the midvessel, and one in the distal vessel (not overlapping). S/P balloon angioplasty of the ostial to prox right PDA which appeared to be too small for stenting. - NSTEMI on 08/17/21, pt followed with Dr Willett. Pt family reports that a subsequent nuclear stress was ok and no card cath or interventions were undertaken Echocardiogram of 08-17-21 showed LVEF 55-65%. Mod concentric hypertrophy. Grade 2 diastolic dysfunction. LA mildly dilated. Mild calcification of mitral valve with mild MR. Mild to mod AoV stenosis Echocardiogram of 09-26-21 showed LVEF 55-65%. Mod concentric hypertrophy. Grade 2 diastolic dysfunction. Mild calcification of mitral valve. Mild to mod AoV stenosis. PASP 25-30 mmHg Chronic angina - Imdur and Ranexa - managed by Dr. 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 Gallo Oncology - multiple skin melanoma removals - most recent to the left side of his face (stitches in place) Back surgeries - Yadav lynette in place Plan: * Was having symptoms yesterday that were suggestive of angina. BB and topical nitrates were added. Has since not had such symptoms * Discussed with his daughter his CV issues and our treatment plan * Monitor labs STACEY STEVENSON MD FACP FAC CCDS Sep 30, 2021 11:01
--- NOTE | 2021-09-30 11:18 | Diagnostic Imaging Report ---
INDICATION: Dysphagia. TECHNIQUE: The study was performed in conjunction with Speech Pathology. Video fluoroscopy was performed during the swallowing of barium in multiple consistencies. Patient was administered thin liquid as well as nectar and honey consistency and pudding consistency. 2.4 minutes of fluoroscopic time was utilized. FINDINGS: Oral phase is unremarkable. There was episode of penetration during sipping of thin liquid. There is also deep laryngeal penetration to the level of the cords with nectar consistency. No definite aspiration was observed. There is normal epiglottic tilt and laryngeal elevation. There was some residue with multiple consistencies, which typically cleared with repeat swallow. IMPRESSION: Abnormal video swallow demonstrating deep laryngeal penetration without aspiration, as described. Dictated by: Dictated on workstation # [id number]
[2021-09-30] MEDS: VANCOMYCIN IV SCH ×2 (11:21)
[2021-09-30] MEDS: NS IV SCH ×2 (11:21)
--- NOTE | 2021-09-30 11:39 | ST Dysphagia Evaluation ---
Speech Evaluation-General Medical Diagnosis Pneumonia Onset Date: Sep 28, 2021 Therapy Diagnosis Therapy Diagnosis: Moderate to Severe Oropharyngeal Dysphagia Precautions Precautions: Fall, Aspiration Precautions/Isolations: Standard Precautions Referral Referring Physician: Dr. Opal Leroy Reason for Referral: Evaluation/Treatment Medical History Pertinent Medical History: Arthritis, CABG, CAD, DM, GERD, HTN, [place], Neuropathy Current History The patient is an 86 year-old male with a past medical history of subdural hematoma with subarachnoid hemorrhage following a fall (with recent admission (09/15/21) to acute inpatient rehabilitation and current transfer to ICU), CABG, COPD, pneumonia, CAD, HTN, GERD, hiatal hernia, prostate cancer, and diabetes, who developed increasing shortness of breath throughout his acute inpatient rehabilitation stay. As suspected aspiration events were observed and due to the patient's worsening respiratory status, speech language pathology was consulted for completion of a clinical bedside swallowing evaluation on 09/29/2021. As the patient did not display overt s/s of suspected aspiration throughout the clini surinder bedside evaluation, however, did display fatigue, speech language pathology recommended:- Full liquid (thin liquid) consistency, as tolerated.- Fully upright and alert for PO intake.- Small, single sips (only).- Slow rate of oral intake. Cease oral intake during periods of fatigue or increased respiratory effort. - 1:1 staff supervision during oral intake, only (discussed with the RN the necessity to evaluate for respiratory fatigue throughout PO intake. If demonstrated, PO intake should cease pending a return to baseline respiratory status). -Crush medication and place in puree for administration.- Monitor for s/s of suspected aspiration with PO intake (including a decrease in respiratory function). If demonstrated, place the patient NPO and contact speech pathology for re-evaluation.- If a worsening of the patient's respiratory status is exhibited, a video swallow examination may be appropriate to assess for the presence of silent aspiration with PO intake due to the patient's co-morbidities which could increase his likelihood of aspiration (COPD). The patient was transferred to floor four throughout the evening with a return t o ICU for worsening respiratory status. The clinician's recommendation to return to the patient to NPO if worsening respiratory status was experienced did not occur. At this time, the patient remains on an oral diet. Upon entrance to the room, the clinician discussed with the RN and present family member, the patient would be placed NPO and a video swallow would be recommended to further investigate the possibility of silent aspiration (recommendation from the initial evaluation documented). A clinical bedside evaluation of the swallowing function will occur prior to the modified barium swallowing evaluation to ensure the patient is appropriate and stable for participation. Reviewed History: Yes Social History Current Living Status: Spouse Speech PLF/Current-Dysphagia Prior Level of Function Prior to hospitalization, the patient did not have diet consistency modifications. Subjective The patient was seated upright in bed, awake and alert upon entrance. The patient has his daughter, Henny, present at bedside. The patient greeted the clinician appropriately and was agreeable to participation in the oropharyngeal swallow re-assessment. The recommendations from the prior date were discussed with the patient's daughter. Per patient's daughter, the patient appeared "more short of breath" following "eating." Additionally, the patient's daughter stated the patient displayed s/s of suspected aspiration (coughing) following the swallow with water throughout his prior meal. The clinician discussed with the daughter the necessity of placing the patient NPO for increased safety with his respiratory status and the appropriateness of completion of the modified barium swallowing evaluation. The oropharyngeal swallowing function, risk factors for pneumonia, and the modified barium swallowing evaluation and process were thoroughly discussed. The daughter's questions were answered and addressed within this clinician's scope of practice. The patient is currently receiving 5L supplemental oxygen via nasal cannula with SpO2% a5 91% and respirations at 22 bpm. Cognitive Status Patient Orientation: Person, Place Oral Motor Skills Dentition: Natural Oral Expression Ability: Moderate Impairment Voice Voice Phonatory-Based Quality: Harsh Voice Loudness: Mildly Soft/Quiet Face Facial Symmetry: Symmetrical Oral-Facial Assessment Oral-Facial Dentition: Normal Labial Seal Description: Normal Smile: Normal Puff Cheeks: Normal Lingual Protrusion: Normal Lingual ROM: Normal Lingual Strength: Normal Volitional Dry Swallow: Yes Voluntary Cough: Yes Can Clear Throat Volitionally: Yes Productive Cough: Yes Productive Throat Clear: Yes Dysphagia Evaluation Consistencies Presented: Thin Liquid (Ice chips.), Pureed (With crushed medication.) Dietary Recommendations: NPO Liquid Recommendations: NPO Recommendations: - The patient should remain NPO pending completion of a modified barium swallowing evaluation. - Frequent and thorough oral care should be completed to reduce the transfer of oral bacteria to the lungs should aspiration of secretions occur. - Following oral care, the patient may continue ice chips (sparingly) and moist oral sponges for comfort. - Crush medication and place in puree for administration. - Additional recommendations to follow completion of the scheduled video swallow. Swallowing Precautions: Oral Supervision Staff, Sitting Upright 90 Degrees Dysphagia Evaluation Summary To assess the patient's appropriateness for participation in the modified barium swallowing evaluation, the clinician attempted ice chips and medication crushed in puree (RN administered). The patient appropriately removed the ice chip from the spoon and displayed adequate mastication, bolus formation, and pharyngeal swallow trigger. Additionally, the patient was able to form a cohesive bolus with the puree and transfer posterior in the oral cavity for a pharyngeal swallow trigger. Overt s/s of suspected aspiration were not demonstrated and the patient's vocal quality remained clear. The patient's SpO2% remained stable at 95% throughout the swallowing assessment. Speech Short Term Goals Short Term Goals Short Term Goals 1. The patient will tolerate trials of the least restricted consistency without s/s of suspected aspiration (clinical or medical) with 90% accuracy. 2. The patient will repeat short phrases with 80% accuracy and mild clinician verbal cueing. Speech Dockmaster Goals Dockmaster Goals 1. The patient will tolerate the least restrictive diet consistency without s/s of suspected aspiration (clinical or medical) with 90% accuracy or greater. 2. The patient will display improved expressive communication for safe discharge to the least restrictive environment. Speech-Plan Patient/Family Goals Patient/Family Goals: The patient wishes to return to a diet consistency without modifications or restrictions. Treatment Plan Speech Therapy Treatment Plan: Continue Plan of Care Treatment Duration: Oct 13, 2021 Frequency: 3 times per week (Three to four times per week.) Estimated Hrs Per Day: .25 hour per day Rehab Potential: Guarded Pt/Family Agrees to Plan: Yes Safety Risks/Education Teaching Recipient: Patient, Family Teaching Methods: Discussion Response to Teaching: Verbalize Understanding, Reinforcement Needed Education Topics Provided: Oropharyngeal swallowing recommendations, Process of Modified Barium Swallowing Evaluation, Education re: Oropharyngeal Swallow Time Speech Therapy Time In: 08:15 Speech Therapy Time Out: 09:15 Total Billed Time: 60 Billed Treatment Time 1, CURLY YODER [facility] ST Sep 30, 2021 11:39
--- NOTE | 2021-09-30 11:55 | ST Mod Barium Swallow ---
Speech Evaluation-General Medical Diagnosis Pneumonia Onset Date: Sep 28, 2021 Therapy Diagnosis Therapy Diagnosis: Moderate to Severe Oropharyngeal Dysphagia Precautions Precautions: Fall, Aspiration Precautions/Isolations: Aspiration, Standard Precautions Referral Referring Physician: Dr. Opal Leroy Reason for Referral: Evaluation/Treatment Medical History Pertinent Medical History: Arthritis, CABG, CAD, DM, GERD, HTN, [place], Neuropathy Current History The patient is an 86 year-old male with a past medical history of subdural hematoma with subarachnoid hemorrhage following a fall (with recent admission (09/15/21) to acute inpatient rehabilitation and current transfer to ICU), CABG, COPD, pneumonia, CAD, HTN, GERD, hiatal hernia, prostate cancer, and diabetes, who developed increasing shortness of breath throughout his acute inpatient rehabilitation stay. As suspected aspiration events were observed and due to the patient's worsening respiratory status, speech language pathology was consulted for completion of a clinical bedside swallowing evaluation on 09/29/2021. As the patient did not display overt s/s of suspected aspiration throughout the clinical bedside evaluation, however, did display fatigue, speech language pathology recommended:- Full liquid (thin liquid) consistency, as tolerated.- Fully upright and alert for PO intake.- Small, single sips (only).- Slow rate of oral intake. Cease oral intake during periods of fatigue or increased respiratory effort. - 1:1 staff supervision during oral intake, only (discussed with the RN the necessity to evaluate for respiratory fatigue throughout PO intake. If demonstrated, PO intake should cease pending a return to baseline respiratory status). -Crush medication and place in puree for administration.- Monitor for s/s of suspected aspiration with PO intake (including a decrease in respiratory function). If demonstrated, place the patient NPO and contact speech pathology for re-evaluation.- If a worsening of the patient's respiratory status is exhibited, a video swallow examination may be appropriate to assess for the presence of silent aspiration with PO intake due to the patient's co-morbidities which could increase his likelihood of aspiration (COPD). The patient was transferred to floor four throughout the evening with a return to ICU for worsening respiratory status. The clinician's recommendation to return to the patient to NPO if worsening respiratory status was experienced did not occur. At this time, the patient remains on an oral diet. Upon entrance to the room, the clinician discussed with the RN and present family member, the patient would be placed NPO and a video swallow would be re commended to further investigate the possibility of silent aspiration (recommendation from the initial evaluation documented). A clinical bedside evaluation of the swallowing function occurred on this date and the patient remains appropriate for participation in the modified barium swallowing evaluation at this time. Reviewed History: Yes Social History Current Living Status: Spouse Speech Mod Barium Swallow Prior Level of Function Prior to admission to the hospital (please read past medical history for information regarding hospitalization), the patient consumed a regular diet with thin liquids. The patient does not report prior oropharyngeal swallowing difficulties or concerns to this clinician. The patient does present with expressive aphasia. however, does communicate efficiently to this clinician through yes and no responses (simple). Oral Motor Skills Dentition Comments: The patient has full, natural dentition. Lingual Protrusion: Normal Lingual ROM: Normal Lingual Strength: Normal Volitional Dry Swallow: Yes Voluntary Cough: Yes Can Clear Throat Volitionally: Yes Textures-Lateral View Lateral View Food Presentation: Thin Liquid via Spoon, Thin Liquid via Straw, [place] Liquid via Spoon, [place] Liquid via Straw, Honey Liquid via Spoon, Honey Liquid via Cup, Pureed Solids Oral Phase Labial Closure: No Impairment (WFL) Bolus Formation Pooling L/R: No Impairment (WFL) Bolus Formation Placement: No Impairment (WFL) A/P Lingual Propulsion: No Impairment (WFL) Lingual Movement: No Impairment (WFL) Oral Phase Residue: Mild Impairment Pharyngeal Phase Swallow Response: Moderate Impairment Base of Tongue: Moderate Impairment Epiglottic Movement: Mild Impairment Laryngeal Elevation: Mild Impairment Vallecular Residue: Moderate Pharyngeal Wall Residue: Mild Piriform Sinus Residue: Moderate Laryngeal Penetration: Severe Aspiration Observations: Mild Performed-A/P View Not Applicable/Performed Summary/Impressions Oral Phase Impression: Moderate Impairment (Moderate to severe oropharyngeal dysphagia.) The patient presents with moderate to severe oropharyngeal dysphagia characterized by the following: The patient presented with appropriate oral removal of consistencies from the teaspoon, cup edge, and straw. Appropriate oral bolus formation and manipulation were demonstrated with transfer posterior in the oral cavity. Premature spillage was present with all consistencies (thin liquid, nectar-thick liquid, honey- thick liquid, and puree) to the pyriform sinuses. The pharyngeal swallow response occurred as bolus material reached the level of the pyriform sinuses (moderately delayed onset). Decreased hyo-laryngeal excursion and laryngeal elevation (moderate) resulted in intermittently absent epiglottic inversion resulting in poor airway protection during the swallow. Deep laryngeal penetration (to the level of the vocal cords- moderate) with suspected trace SILENT aspiration occurred with thin liquid and nectar-thick liquid during the swallow. A protective response was not provided by the patient. A cued cough was elicited which was effective at clearing the deeply penetrated material from the vocal cords. Mild laryngeal penetration (to the level of the laryngeal surface of the epiglottis) was appreciated with honey-th ick liquids during the swallow. NO aspiration was suspected with honey-thick liquids. Moderate vallecular and pyriform sinus residue remained following the swallow with all consistencies tested. A cued second swallow was effective at reducing the pharyngeal residue present. Additional solid consistencies were not provided due to the current level of fatigue the patient was displaying. Recommendations: - Dysphagia one (pureed) with MODERATELY thickened (honey-thickened) liquids, as tolerated. - Fully upright and alert for PO intake. - Small, single bites and sips (only). - Swallow twice with each bite and sip. - Slow rate of oral intake. Cease oral intake during periods of fatigue or increased respiratory effort. - 1:1 staff supervision during oral intake, only (discussed with the RN the necessity to evaluate for respiratory fatigue throughout PO intake. If demonstrated, PO intake should cease pending a return to baseline respiratory status). - Crush medication and place in puree for administration. - Monitor for s/s of suspected aspiration with PO intake (including a decrease in respiratory function). If demonstrated, place the patient NPO and contact speech pathology for re-evaluation. - Speech pathology to provide oropharyngeal swallowing treatment and re- evaluations four to five times per week. The results and recommendations were thoroughly discussed with the patient, the patient's daughter, and the RN. The patient remains at a high risk for aspiration with PO consistencies secondary to his elevated fatigue and poor respiratory status. The patient should be monitored closely throughout PO intake for fatigue. If fatigue is present, the patient should return to a NPO status. Speech Short Term Goals Short Term Goals Short Term Goals 1. The patient will tolerate trials of the least restricted consistency without s/s of suspected aspiration (clinical or medical) with 90% accuracy. 2. The patient will repeat short phrases with 80% accuracy and mild clinician verbal cueing. Speech Mcfp Goals Mcfp Goals 1. The patient will tolerate the least restrictive diet consistency without s/s of suspected aspiration (clinical or medical) with 90% accuracy or greater. 2. The patient will display improved expressive communication for safe discharge to the least restrictive environment. Speech-Plan Treatment Plan Speech Therapy Treatment Plan: Continue Plan of Care Treatment Duration: Oct 13, 2021 Frequency: 3 times per week (Three to four times per week.) Estimated Hrs Per Day: .25 hour per day Rehab Potential: Guarded Pt/Family Agrees to Plan: Yes Safety Risks/Education Teaching Recipient: Patient, Family Teaching Methods: Discussion Response to Teaching: Verbalize Understanding, Reinforcement Needed Education Topics Provided: MBS Results, Safe Swallowing Strategies, Plan of Care Time Speech Therapy Time In: 09:15 Speech Therapy Time Out: 09:45 Total Billed Time: 30 Billed Treatment Time ARASELI Landon [facility]SHMASSI[facility] ST Sep 30, 2021 11:55
--- NOTE | 2021-09-30 12:12 | Progress Note ---
[facility] 09/30/21 1212: Subjective Date Seen by a Provider: Sep 30, 2021 Time Seen by a Provider: 09:00 Subjective/Events-last exam Complained of chest pain last night and brought back to the ICU Daughter at bedside this morning Short term memory appears to be worse Receiving different modes of oxygen therapy including BIPAP, Oxygen mask or Nasal cannula CXR reveals new and/or worsening bilateral pulmonary infiltrates Modified Barium swallow showed: Abnormal video swallow demonstrating deep laryngeal penetration without aspiration, as described. WBC at 20. Does not appear to be improving Review of Systems General: No Chills, No Other (fevers) Objective Exam Last Set of Vital Signs Vital Signs Date Time Temp Pulse Resp B/P (MAP) Pulse Ox O2 Delivery O2 Flow Rate FiO2 09/30/21 11:28 76 18 95/53 93 Nasal Cannula 09/30/21 11:25 5.00 09/30/21 07:49 36.1 09/29/21 19:28 100 Capillary Refill : I&O Intake and Output 09/30/21 00:00 Intake Total 1200 ml Output Total 700 ml Balance 500 ml Intake Oral 150 ml IV Total 1050 ml Output Urine Total 700 ml # Voids 4 General: Alert, No Acute Distress, Other (Disoriented) HEENT: Atraumatic, PERRLA Neck: Supple, No JVD Lungs: Other (Coarse breath sounds throughout) Heart: Regular Rate, Normal S1, Normal S2 Abdomen: Normal Bowel Sounds, Soft Psych/Mental Status: Mood NL, Other (Confused, Repetitive questioning) Results Lab Laboratory Tests 09/29/21 15:37: Glucometer 381H 09/29/21 19:54: Glucometer 321H 09/29/21 21:50: Blood Gas Puncture Site R RAD, Blood Gas Patient Temperature 36.4, Arterial Blood pH 7.41, Arterial Blood Partial Pressure CO2 34L, Arterial Blood Partial Pressure O2 54L, Arterial Blood HCO3 21L, Arterial Blood Total CO2 22.2, Arterial Blood Oxygen Saturation 86L, Arterial Blood Base Excess -2.9L, [place] Test YES-POS, Blood Gas Ventilator Setting NO, Blood Gas Inspired Oxygen 12L 09/30/21 04:45: White Blood Count 20.0H, Red Blood Count 4.30, Hemoglobin 13.8, Hematocrit 41, Mean Corpuscular Volume 94, Mean Corpuscular Hemoglobin 32, Mean Corpuscular Hemoglobin Concent 34, Red Cell Distribution Width 12.0, Platelet Count 299, Mean Platelet Volume 10.3, Immature Granulocyte % (Auto) 1, Neutrophils (%) (Auto) 93H, Lymphocytes (%) (Auto) 2L, Monocytes (%) (Auto) 5, Eosinophils (%) (Auto) 0, Basophils (%) (Auto) 0, Neutrophils # (Auto) 18.5H, Lymphocytes # (Auto) 0.3L, Monocytes # (Auto) 1.0, Eosinophils # (Auto) 0.0, Basophils # (Auto) 0.0, Immature Granulocyte # (Auto) 0.2H, Neutrophils % (Manual) 89, Lymphocytes % (Manual) 1, Monocytes % (Manual) 10, Blood Morphology Comment NORMAL, Sodium Level 135, Potassium Level 4.3, Chloride Level 103, Carbon Dioxide Level 18L, Anion Gap 14, Blood Urea Nitrogen 40H, Creatinine 1.51H, Estimat Glomerular Filtration Rate 45, BUN/Creatinine Ratio 26, Glucose Level 267H, Calcium Level 8.7, Corrected Calcium 9.4, Phosphorus Level 3.3, Magnesium Level 1.9, Total Bilirubin 1.0, Aspartate Amino Transf (AST/SGOT) 53H, Alanine Aminotransferase (ALT/SGPT) 45, Alkaline Phosphatase 78, Total Protein 5.9L, Albumin 3.1L 09/30/21 11:14: Glucometer 264H Microbiology 09/28/21 MRSA Screen - Final, Complete MRSA not isolated Assessment/Plan Assessment/Plan Assess & Plan/Chief Complaint Assessment: Pneumonia started on cefepime 09/27/2021 but worsened on CXR and clinically requiring transfer to ICU 09/28/21 SAH Subdural hematoma Recent NSTEMI 08/18/21 holding Plavix and aspirin and consulting Dr. Rosales restarting aspirin 81 mg every 48 hours on 09/26/2021 CAD CKD3 DM2 HTN HLD GERD Hiatal hernia RODY Prostate cancer Confusion Leukocytosis Subarachnoid headache Plan: Currently in Cardiac Step Down Boateng placed Puree diet Tighter glucose control, difficult due to steroids Continue IV abx Begin DNR discussion as well as Skilled care facilitywith family due to prognosis Appreciate Cardiology Clinical Quality Measures DVT/VTE Risk/Contraindication: Contraindications-Pharm: Other *list below* Other: recent SAH OPAL AVITIA DO 10/01/21 0610: Subjective Subjective/Events-last exam Chest x-ray worse Confusion noted Had an in-depth conversation with the after daughter with palliative care nurse and obtained the DNR overall poor prognosis Review of Systems General: Fatigue, Malaise Objective Exam General: Alert, No Acute Distress, Other (Disoriented) Lungs: Other (Coarse breath sounds throughout) Heart: Regular Rate Psych/Mental Status: Other (Confused, Repetitive questioning) Assessment/Plan Assessment/Plan Assess & Plan/Chief Complaint Aspiration pneumonia Supportive care DNR Supervisory-Addendum Brief Verification & Attestation Participated in pt care: history, MDM, physical Personally performed: exam, history, MDM, supervision of care Care discussed with: Medical Student Procedures: n/a Results interpretation: Verified all documentation Verification and Attestation of Medical Student E/M Service A medical student performed and documented this service in my presence. I reviewed and verified all information documented by the medical student and made modifications to such information, when appropriate. I personally performed the physical exam and medical decision making. Opal Avitia, Oct 01, 2021,06:08 GUERLINE MCKENNA [facility] Sep 30, 2021 12:12 OPAL AVITIA DO Oct 01, 2021 06:10
[2021-09-30] MEDS: HYDROcodone/APAP 5 MG/325 MG (LORTAB) TAB PO PRN ×2 (13:56→23:57)
--- NOTE | 2021-09-30 15:16 | Physician Query Clarification ---
Physician Query-General Query to Physician: Clinical Validation Clarification DrArtemio : Rayshawn Leroy Aspiration Pneumonia, "ASp PNA , witnessed" has been documented in the medical record. After study, do you consider Aspiration Pneumonia a clinically valid diagnosis? If not clinically valid, please document "Aspiration Pneumonia, ruled out" on the progress notes and/or discharge summary. 1. No, Aspiration Pneumonia, not clinically valid/ruled out 2. Yes, Aspiration Pneumonia is a clinically valid diagnosis 3. Other, with explanation of the clinical findings 4. Clinically undetermined, no explanation for the clinical findings Additional information: Recent Hx SAH, SDH, per Speech therapy: modified barium swallow Abnormal video swallow demonstrating deep laryngeal penetration without aspiration, as described. Placed on Dysphagia pureed diet, Weak cough, Speech therapy eval Please remember a lack of response to the above will prompt a phone page by CDI/coding staff. In responding to this query, please exercise your independent professional judgment. The purpose of this communication is to more accurately reflect the complexity of your patients condition. The fact that a question is asked does not imply that any particular answer is desired or expected. Thank you for timely response to this clarification. Jennifer Campo MSN, RN Clinical Composition Weatherboard Installer [email or web address] PHYSICIAN RESPONSE: Based on the clinical findings in the record, please respond to the query above on this document as an addendum. Physician Response: Physician Response 2 If you have questions please contact: Manager Clinical Research: Ext: Thank you for your time and cooperation. Clinical Composition Weatherboard Installer/Manager Clinical Research This is a permanent part of the medical record JENNIFER CAMPO Sep 30, 2021 15:16 RAOUL LEROY DO Sep 30, 2021 18:12
--- NOTE | 2021-09-30 15:31 | Physician Query Clarification ---
Physician Query-General Query to Physician: The medical record reflects the following clinical evidence: Clinical Indicators: Admission RR 22 increased to 31, then frequently 20-30's, 02 sats 92% on 3L on admission (P/F=203) later 02 up to 100% 10 -15L with Sats 90-91% (P/F= 60-75), 02 was able to be decreased to 5L currently (09/30/2020) Risk Factor(s): No documentation of home 02, Pneumonia, Weak cough Treatment: Supplemental 02, Duonebs, IV ABX, Monitoring in Cardiac step down unit, Bipap 1. Acute respiratory failure, with hypoxia, present on admission 2. Other explanation of clinical findings 3. Unable to determine (no explanation for clinical findings) Please clarify and document your clinical opinion in the progress notes and discharge summary including the definitive and/or presumptive diagnosis, (suspected or probable), related to the above clinical findings. Please include clinical findings supporting your diagnosis. Jennifer Lorenz MSN, RN Clinical Respiratory Therapy Technician [phone] [email or web address] PHYSICIAN RESPONSE: Based on the clinical findings in the record, please respond to the query above on this document as an addendum. Physician Response: Physician Response 1 If you have questions please contact: Certified Meeting Professional: Ext: Thank you for your time and cooperation. Clinical Respiratory Therapy Technician/Certified Meeting Professional This is a permanent part of the medical record JENNIFER LORENZ Sep 30, 2021 15:31 RAOUL AVITIA DO Sep 30, 2021 18:12
[2021-09-30] MEDS: SERTRALINE 100 MG (ZOLOFT) TAB PO SCH (21:05)
[2021-09-30] MEDS: IMIPRAMINE 10 MG PO SCH (21:05)
[2021-09-30] MEDS: diphenhydrAMINE 25 MG TAB (BENADRYL) PO SCH (21:05)
[2021-09-30] MEDS: busPIRone 10 MG (BUSPAR) TAB PO SCH (21:06)
[2021-10-01] MEDS: CLINDAMYCIN 600 MG/50 ML IVPB 50 ML IV SCH ×3 (02:51→17:26)
[2021-10-01] MEDS: RT-ALBUTEROL/IPRATROPIUM 3 ML (DUONEB) VIAL INH SCH ×6 (02:57→22:26)
[2021-10-01 04:27] LABS: BASOPHILS % (AUTO) 0 % (0-10); EOSINOPHILS % (AUTO) 0 % (0-10); HEMATOCRIT 36 % (40-54); HEMOGLOBIN 11.9 g/dL (13.3-17.7); LYMPHOCYTES # (AUTO) 0.2 10^3/uL (1.0-4.0); LYMPHOCYTES % (AUTO) 1 % (12-44); MEAN CORPUSCULAR HEMOGLOBIN 31 pg (25-34); MEAN CORPUSCULAR HGB CONC 33 g/dL (32-36); MEAN CORPUSCULAR VOLUME 94 fL (80-99); MEAN PLATELET VOLUME 10.3 fL (9.0-12.2); MONOCYTES # (AUTO) 0.4 10^3/uL (0.0-1.0); MONOCYTES % (AUTO) 3 % (0-12); NEUTROPHILS # (AUTO) 11.9 10^3/uL (1.8-7.8); NEUTROPHILS % (AUTO) 94 % (42-75); PLATELET COUNT 248 10^3/uL (130-400); WHITE BLOOD COUNT 12.6 10^3/uL (4.3-11.0)
[2021-10-01 04:45] LABS: ALBUMIN 2.8 GM/DL (3.2-4.5); POTASSIUM 3.9 MMOL/L (3.6-5.0)
[2021-10-01 04:46] LABS: CALCIUM 8.4 MG/DL (8.5-10.1)
[2021-10-01 04:48] LABS: TOTAL PROTEIN 5.3 GM/DL (6.4-8.2)
[2021-10-01 04:49] LABS: BILIRUBIN,TOTAL 0.8 MG/DL (0.1-1.0)
[2021-10-01 04:51] LABS: CREATININE SERUM 1.53 MG/DL (0.60-1.30); PHOSPHORUS 3.1 MG/DL (2.3-4.7)
[2021-10-01 04:54] LABS: MAGNESIUM 1.7 MG/DL (1.6-2.4)
[2021-10-01] MEDS ORDERED: NS (IVPB) 250 ML ONE (04:55)
[2021-10-01] MEDS: CEFEPIME INJECTION 1,000 MG in NS (IVPB) 50 ML IV SCH ×3 (05:00→20:40)
[2021-10-01] MEDS: NITROGLYCERIN 2% OINT 1 GM UNIT DOSE PACKET TOP SCH ×3 (05:56→20:45)
[2021-10-01] MEDS: inSUlin ASPART (NovoLOG) 1 UNIT/0.01 ML (CHARGE PER UNIT) SC SCH ×4 (06:02→20:52)
--- NOTE | 2021-10-01 08:07 | Diagnostic Imaging Report ---
INDICATION: Pneumonia, follow-up. TECHNIQUE: Single view chest 6:21 AM. CORRELATION STUDY: 09/30/2021 FINDINGS: Poststernotomy changes. Heart size and mediastinal structures generally stable. Scattered multilobe pulmonary infiltrate is again demonstrated. Overall stable to slightly increased in severity. IMPRESSION: 1. Continued diffuse bilateral pulmonary infiltrates consistent with pneumonia. Stable to perhaps slightly increased from prior. Dictated by: Dictated on workstation # [id number]
[2021-10-01] MEDS: glipiZIDE XL 10 MG (GLUCOTROL XL) TAB PO SCH ×2 (08:10→17:26)
[2021-10-01] MEDS: HYDROcodone/APAP 5 MG/325 MG (LORTAB) TAB PO PRN ×2 (08:10→14:08)
[2021-10-01] MEDS: ISOSORBIDE MONONITRATE 60 MG (IMDUR) TAB PO SCH (08:11)
[2021-10-01] MEDS: PANTOPRAZOLE 20 MG TABLET (PROTONIX) PO SCH (08:11)
[2021-10-01] MEDS: meTOprolol SUCCINATE 100 MG (TOPROL XL) TAB PO SCH (08:11)
[2021-10-01] MEDS: amLODIPine 10 MG (NORVASC) TAB PO SCH (08:11)
[2021-10-01] MEDS: RANOLAZINE ER 500 MG TAB (RANEXA) PO SCH ×2 (08:12→20:37)
[2021-10-01] MEDS: methylPREDNISolone 125 MG (Solu-MEDROL) VIAL IVP SCH ×2 (08:12→20:40)
--- NOTE | 2021-10-01 08:33 | Progress Note - Cardiology ---
Cardiology SOAP Progress Note Subjective: Sitting up in bed Daughter at the bedside assisting with morning meal He is oriented to self and place Reports gen pain Objective: I&O/Vital Signs 09/30/21 10/01/21 10/01/21 10/01/21 22:22 00:00 00:00 01:00 Temp 37.2 Pulse 93 93 Resp 18 B/P (MAP) 140/67 Pulse Ox 96 99 O2 Delivery Nasal Cannula NIV Bilevel NIV Bilevel O2 Flow Rate 5.00 30.00 30.00 10/01/21 10/01/21 10/01/21 10/01/21 02:57 04:00 07:00 07:21 Pulse 88 88 Resp 18 B/P (MAP) 128/77 Pulse Ox 97 96 97 O2 Delivery Nasal Cannula NIV Bilevel Nasal Cannula O2 Flow Rate 5.00 30.00 7.00 10/01/21 10/01/21 08:06 08:12 Temp 36.5 Pulse 103 Resp 24 B/P (MAP) 159/80 Pulse Ox 92 94 O2 Delivery Nasal Cannula Nasal Cannula O2 Flow Rate 5.00 5.00 10/01/21 00:00 Intake Total 620 ml Output Total 350 ml Balance 270 ml Constitutional: No AAO x 3; well-developed, well-nourished Respiratory: other (coarse breath sounds) Cardiovascular: regular rate-rhythm, S1 and S2, systolic murmur (soft JESUS at card base) Gastrointestional: No tender; soft; No guarding, No rebound; audible bowel sounds Extremities: No clubbing, No significant edema Neurologic/Psychiatric: No oriented x 3 (oriented to self and place); other (moves all limbs equally) Skin: No rash on exposed areas, No ulcerations on exposed areas Results/Procedures: Labs Laboratory Tests 09/30/21 11:14: Glucometer 264H 09/30/21 15:37: Glucometer 243H 10/01/21 04:15: White Blood Count 12.6H, Red Blood Count 3.80L, Hemoglobin 11.9L, Hematocrit 36L , Mean Corpuscular Volume 94, Mean Corpuscular Hemoglobin 31, Mean Corpuscular Hemoglobin Concent 33, Red Cell Distribution Width 12.0, Platelet Count 248, Mean Platelet Volume 10.3, Immature Granulocyte % (Auto) 1, Neutrophils (%) (Auto) 94H, Lymphocytes (%) (Auto) 1L, Monocytes (%) (Auto) 3, Eosinophils (%) (Auto) 0, Basophils (%) (Auto) 0, Neutrophils # (Auto) 11.9H, Lymphocytes # (Auto) 0.2L, Monocytes # (Auto) 0.4, Eosinophils # (Auto) 0.0, Basophils # (Auto) 0.0, Immature Granulocyte # (Auto) 0.2H, Sodium Level 136, Potassium Level 3.9, Chloride Level 106, Carbon Dioxide Level 20L, Anion Gap 10, Blood Urea Nitrogen 40H, Creatinine 1.53H, Estimat Glomerular Filtration Rate 45, BUN/Creatinine Ratio 26, Glucose Level 295H, Calcium Level 8.4L, Corrected Calcium 9.4, Phosphorus Level 3.1, Magnesium Level 1.7, Total Bilirubin 0.8, Aspartate Amino Transf (AST/SGOT) 27, Alanine Aminotransferase (ALT/SGPT) 38, Alkaline Phosphatase 61, Total Protein 5.3L, Albumin 2.8L 10/01/21 05:53: Glucometer 235H Microbiology 09/28/21 MRSA Screen - Final, Complete MRSA not isolated Procedures NAME: PHILIP CARRASCO MED REC#: [id number] PT STATUS: ADM IN : 1935 PHYSICIAN: RAOUL AVITIA DO ADMIT DATE: 09/28/21/[facility] Draft Date of Exam:10/01/21 CHEST 1 VIEW, AP/PA ONLY INDICATION: Pneumonia, follow-up. TECHNIQUE: Single view chest 6:21 AM. CORRELATION STUDY: 09/30/2021 FINDINGS: Poststernotomy changes. Heart size and mediastinal structures generally stable. Scattered multilobe pulmonary infiltrate is again demonstrated. Overall stable to slightly increased in severity. IMPRESSION: 1. Continued diffuse bilateral pulmonary infiltrates consistent with pneumonia. Stable to perhaps slightly increased from prior. 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 Willett - PTCA of RCA lesion reduced from 80% to approx 40%. 100% occlusion of the LAD and cx. 100% occlusion of a vein graft. Patent CASTRO graft to the LAD with borderline lesion beyond. - Most recent Cardiac cath of 09-08-[address] Conway - severe MVD [place] coronaries including severe in-stent restenosis in the RCA. S/P placement of 3 Synergy JOSHUA with one in the prox vessel, one in the midvessel, and one in the distal vessel (not overlapping). S/P balloon angioplasty of the ostial to prox right PDA which appeared to be too small for stenting. - NSTEMI on 08/17/21, pt followed with Dr Willett. Pt family reports that a subsequent nuclear stress was ok and no card cath or interventions were undertaken Echocardiogram of 08-17-21 showed LVEF 55-65%. Mod concentric hypertrophy. Grade 2 diastolic dysfunction. LA mildly dilated. Mild calcification of mitral valve with mild MR. Mild to mod AoV stenosis Echocardiogram of 09-26-21 showed LVEF 55-65%. Mod concentric hypertrophy. Grade 2 diastolic dysfunction. Mild calcification of mitral valve. Mild to mod AoV stenosis. PASP 25-30 mmHg Chronic angina - Imdur and Ranexa - managed by Dr. Willett DM 2 HTN - uncontrolled HLD H/O TIA - May 2019 while in [place], [place] Mild thrombocytopenia (lab 08-17-21) - undetermined etiology - mildly improved on lab of 08-18-21 GI - HH - GERD Peripheral neuropathy RODY CKD 3 - Dr. Montemayor in [place], [place] - devulcanizer charger Prostate cancer - managed by Dr. Gallo Oncology - multiple skin melanoma removals - most recent to the left side of his face (stitches in place) Back surgeries - Vicenta lynette in place Plan: * D/t probable aspiration with pneumonia we will change as many cardiac medications to IV or topical as indicated to reduce oral medication burden (which he has been receiving crushed medications, some of which are long acti ng medications) * C/O gen discomfort for which he is receiving oral pain medications * Discussed with his daughter his CV issues and our treatment plan * Monitor labs ERIKA QUESADA Oct 01, 2021 08:33
[2021-10-01] MEDS ORDERED: ONDANSETRON 4 MG/2 ML (SDV) Z0FRAN ONE (08:45)
[2021-10-01] MEDS ORDERED: ONDANSETRON 4 MG/2 ML (SDV) Z0FRAN IVP PRN (09:00)
[2021-10-01] MEDS: PIOGLITAZONE 30MG (ACTOS) TAB PO SCH (09:10)
[2021-10-01] MEDS: MULTIVIT W/MINERALS TAB (THERAGRAN M) PO SCH (09:10)
[2021-10-01] MEDS: DOCUSATE SODIUM 100 MG (COLACE) CAP PO SCH ×2 (09:11→20:45)
--- NOTE | 2021-10-01 10:18 | Occupational Therapy Eval ---
OT Evaluation-General/PLF Medical Diagnosis Admission Date Sep 28, 2021 at 14:22 Medical Diagnosis: Pneumonia Onset Date: Sep 28, 2021 Therapy Diagnosis Therapy Diagnosis: Reduced adl status, cognition, safety, balance Precautions Precautions/Isolations: Seizure, Fall Prevention, Standard Precautions Referral Physician: Rad Norton Reason: Evaluation/Treatment Medical History Pertinent Medical History: Arthritis, CABG, CAD, DM, GERD, HTN, [place], Neuropathy Current History Pt with recent admission (09/23/21) to ARU and was transferred to ICU after developing increased SOB and cognitive decline. He was on medical floor and then transferred again to ICU, thus new orders provided. Per family, pt lives with his in a single story home with a basement. He was indep with adls and his completes all the iadls. He was using a SPC ELECTRICAL WIRING LINEMAN. reports pt has been having a decline in STM this past year. Social History Home: Single Level Current Living Status: Spouse Entry Into Home: Stairs With Railing Steps Into Home: 2 ADL-Prior Level of Function SCALE: Activities may be completed with or without assistive devices. 9-Rrytpkmuro-bbiopyd completes the activity by him/herself with no assistance from a helper. 5-Set-up or Clean-up Assistance-helper sets up or cleans up; patient completes activity. [place] assists only prior to or following the activity. 4-Supervision or Touching Assistance-helper provides verbal cues and/or touching/steadying and/or contact guard assistance as patient completes activity. Assistance may be provided throughout the activity or intermittently. 3-Partial/Moderate Assistance-helper does LESS THAN HALF the effort. [place] lifts, holds or supports trunk or limbs, but provides less than half the effort. 2-Substantial/Maximal Assistance-helper does MORE THAN HALF the effort. [place] lifts or holds trunk or limbs and provides more than half the effort. 8-Wjpntxxpt-jzrpvt does ALL the effort. Patient does none of the effort to complete the activity. Or, the assistance of 2 or more helpers is required for the patient to complete the activity. If activity was not attempted, code reason: 7-Patient Refused. 9-Not Applicable-not attempted and the patient did not perform the activity before the current illness, exacerbation or injury. 10-Not Attempted due to Environmental Limitations-(lack of equipment, weather restraints, etc.). 88-Not Attempted due to Medical Conditions or Safety Concerns. Self Care: Independent Functional Cognition: Needed Some Help DME/Equipment: Bath Chair, Grab Bars, Shower Drive Self: Yes OT Current Status Subjective Pt continues to have expressive aphasia, requires extra time to verbalize single word. Appearance Left supine in bed, physical therapy entering room. Mental Status/Objective Patient Orientation: Person, Confused Attachments: Boateng Catheter, IV, Oxygen, Telemetry Current Glasses/Contacts: Yes Hearing Aids: No Dentures/Partials: No Hand Dominance: Right Upper Extremity ROM WNL Upper Extremity Strength /Difficulty following directions this date. On 09/29/21, pt was: 3+/5 shoulders Fair psychology professor strength ADL-Treatment Oral Hygiene (QC): 3 On/Off Footwear (QC): 1 Toileting Hygiene (QC): 1 Pt supine at OT arrival. With very little movement, he expresses signs that he may be sick/nauseous. Assist to return to supine, RN administers Zofran. Oral care completed sitting upright in bed. Extra time and verbal cues for correct sequencing when applying toothpaste to brush. Initial HOHA to bring toothbrush to mouth. Mod Verbal cues to spit throughout task due to desat to mid 80's. Dependent to don rony hose and socks at bed level. Pt left in bed, physical therapy entering room. Eval 09/29/21: Able to sit EOB with CGA due to initial unsteadiness. Intermittent 1-2 UE support required to maintain balance. Dependent to don rony hose. Extra time to thread [place] socks onto feet with min a for dynamic sitting balance. Pt wheezing with exertion. Cues for proper breathing techniques. He was able to stand with min A and take 1-2 steps towards HOB with hand held assist. Anticipate steadying assist will be required at this time during functional tasks such as clothing management. Education OT Patient Education: Correct positioning, Progress toward Goal/Update tx plan, Purpose of tx/functional activities, Reviewed precautions, Safety issues, Transfer techniques Teaching Recipient: Patient, Family Teaching Methods: Discussion Response to Teaching: Unable to Return Demonstration, Reinforcement Needed OT Metallurgical Tester Goals Care Home Goals Time Frame: Oct 16, 2021 Oral Hygiene (QC): 4 Toileting Hygiene (QC): 4 Shower/Bathe Self (QC): 4 Upper Body Dressing (QC): 4 Lower Body Dressing (QC): 4 On/Off Footwear (QC): 4 1=Demonstrate adherence to instructed precautions during ADL tasks. 2=Patient will verbalize/demonstrate understanding of assistive devices/modifications for ADL. 3=Patient will improve strength/tolerance for activity to enable patient to perform ADL's. OT Education/Plan Problem List/Assessment Assessment: Decreased Activ Tolerance, Decreased Safety Aware, Decreased UE Strength, Impaired Bed Mobility, Impaired Cognition, Impaired Funct Balance, Impaired I ADL's, Impaired Self-Care Skills Discharge Recommendations Plan/Recommendations: Continue POC Therapy Discharge Recommendati: Scheduled Assistance, Homemaker Support, Post Acute OT Treatment Plan/Plan of Care Treatment,Training & Education: Yes Patient would benefit from OT for education, treatment and training to promote independence in ADL's, mobility, safety and/or upper extremity function for ADL's. Plan of Care: ADL Retraining, Functional Mobility, Group Exercise/Act as Ind, UE Funct Exercise/Act Treatment Duration: Oct 16, 2021 Frequency: 3 times per week Estimated Hrs Per Day: .25 hour per day Rehab Potential: Guarded Time/GCodes Start Time: 09:54 Stop Time: 10:09 Total Time Billed (hr/min): 15 Billed Treatment Time 1 visit Gabrielle Amaya OT Oct 01, 2021 10:18
[2021-10-01] MEDS ORDERED: BISACODYL 10 MG SUPP (DULCOLAX) PR PRN (10:30)
[2021-10-01] MEDS ORDERED: BISACODYL 10 MG SUPP (DULCOLAX) PR ONE (10:30)
--- NOTE | 2021-10-01 10:45 | Physical Therapy Evaluation ---
PT Evaluation-General Medical Diagnosis Admission Date Sep 28, 2021 at 14:22 Medical Diagnosis: Pneumonia Onset Date: Sep 28, 2021 Therapy Diagnosis Therapy Diagnosis: weakness, debility Precautions Precautions/Isolations: Seizure, Fall Prevention, Standard Precautions Referral Physician: Rad Reason for Referral: Evaluation/Treatment Medical History Pertinent Medical History: Arthritis, CABG, CAD, DM, GERD, HTN, ID, Neuropathy Current History Patient was in IRU s/p stable subdural hematoma and subarchnoid hemorrhage. Patient was declining and went to ICU and now resides on cardiac step down unit. Reviewed History: Yes Social History Home: Single Level Current Living Status: Spouse Entry Into Home: Stairs With Railing PT Steps Into Home: 2 Prior Prior Level of Function SCALE: Activities may be completed with or without assistive devices. 1-Uoglxceqjq-botiaah completes the activity by him/herself with no assistance from a helper. 5-Set-up or Clean-up Assistance-helper sets up or cleans up; patient completes activity. [place] assists only prior to or following the activity. 4-Supervision or Touching Assistance-helper provides verbal cues and/or touching/steadying and/or contact guard assistance as patient completes activity. Assistance may be provided throughout the activity or intermittently. 3-Partial/Moderate Assistance-helper does LESS THAN HALF the effort. [place] lifts, holds or supports trunk or limbs, but provides less than half the effort. 2-Substantial/Maximal Assistance-helper does MORE THAN HALF the effort. [place] lifts or holds trunk or limbs and provides more than half the effort. 5-Ipqneartg-vseadp does ALL the effort. Patient does none of the effort to complete the activity. Or, the assistance of 2 or more helpers is required for the patient to complete the activity. If activity was not attempted, code reason: 7-Patient Refused. 9-Not Applicable-not attempted and the patient did not perform the activity before the current illness, exacerbation or injury. 10-Not Attempted due to Environmental Limitations-(lack of equipment, weather restraints, etc.). 88-Not Attempted due to Medical Conditions or Safety Concerns. Bed Mobility: 6 Transfers (B,C,W/C): 6 Gait: 6 Stairs: 6 Indoor Mobility (Ambulation): Independent Stairs: Independent Prior Device Use: cane PT Evaluation-Current Subjective Patient presents in bed with his head elevated. Patient is alert and agrees to sit EOB and move to the chair. Objective Patient Orientation: Person, Confused Attachments: Oxygen (5L HF NC), Boateng Catheter, IV ROM/Strength ROM Lower Extremities WFL Strength Lower Extremities 4/5 strength bilateral grossly Sensory Vision: Functional Hearing: Functional Hand Dominance: Right Sensation Left Lower Extremity: Intact Transfers Lying to Sitting/Side of Bed(Q: 3 Sit to Stand (QC): 3 Chair/Cjz-um-Cwniw Xfer(QC): 3 Patient required min assist for all transfers. Gait Does the Patient Walk?: Yes Mode of Locomotion: Walk Anticipated Mode of Locomotion: Walk Distance: 3 steps Gait Assistive Device: FWW Comments/Gait Description Patient completed 3 steps to transfer to the chair. Patient required min assist with FWW to perform transfer. Balance Sitting Static: Normal Sitting Dynamic: Fair Standing Static: Normal Standing Dynamic: Fair Assessment/Needs Patient ambulated and performed all transfers with min assist. Patient required multiple cues for safety with transfers. Patient O2 sat dropped to 79% after transferring to the chair but returned to 84% within a couple minutes. Patient O2 sat levels were above 95% while sitting EOB. Patient was alert and talking throughout entire treatment. Rehab Potential: Guarded PT Short Term Goals Short Term Goals Time Frame: Oct 08, 2021 Roll Left & Right: 5 Sit to lyin Lying to sitting on side of be: 5 Sit to stand: 5 Chair/fze-vw-ejmvh transfer: 5 Toilet transfer: 5 Car transfer: 5 Walk 10 feet: 5 Walk 50 feet with two turns: 4 Walk 150 feet: 4 PT [place] Closer Goals [place] Closer Goals PT Custodial Goals Time Frame: Nov 06, 2021 Roll Left & Right (QC): 6 Sit to Lying (QC): 6 Lying-Sitting on Side/Bed(QC): 6 Sit to Stand (QC): 6 Chair/Jbj-tp-Qwyjw Xfer(QC): 6 Toilet Transfer (QC): 6 Car Transfer (QC): 6 Does the Patient Walk: Yes Walk 10 feet (QC): 6 Walk 50ft with 2 Turns (QC): 5 Walk 150 ft (QC): 5 1 Step (curb) (QC): 4 4 Steps (QC): 4 PT Plan Problem List Problem List: Activity Tolerance, Functional Strength, Safety, Balance, Gait, Transfer, Bed Mobility, ROM Treatment/Plan Treatment Plan: Continue Plan of Care Treatment Plan: Bed Mobility, Education, Functional Activity Varun, Functional Strength, Group Therapy, Gait, Safety, Therapeutic Exercise, Transfers Treatment Duration: Nov 05, 2021 Frequency: 6 times per week Estimated Hrs Per Day: .25 hour per day Patient and/or Family Agrees t: Yes Safety Risks/Education Patient Education: Transfer Techniques, Correct Positioning Teaching Recipient: Patient Teaching Methods: Discussion Time/GCodes Time In: 1010 Time Out: 1024 Total Billed Treatment Time: 14 Total Billed Treatment 1 Visit EVMod 14 min BRENTON DUNBAR PT Oct 01, 2021 10:45
[2021-10-01] MEDS: ASPIRIN 81 MG CHEW (CHILDREN'S ASA) PO SCH (11:54)
[2021-10-01] MEDS: meTOprolol 5 MG/5 ML (LOPRESSOR) VIAL IV SCH ×3 (11:55→20:41)
--- NOTE | 2021-10-01 11:58 | Progress Note ---
[facility] 10/01/21 1158: Subjective Date Seen by a Provider: Oct 01, 2021 Time Seen by a Provider: 09:00 Subjective/Events-last exam Confusion appears to be much better A&O x2 (self and time) Complains of continued headache Still has not had a BM Still has a cough Appears to be progressing slowly Review of Systems General: No Chills, No Other (fevers) Pulmonary: Dyspnea, Cough Gastrointestinal: No: Nausea, Vomiting, Abdominal Pain Objective Exam Last Set of Vital Signs Vital Signs Date Time Temp Pulse Resp B/P (MAP) Pulse Ox O2 Delivery O2 Flow Rate FiO2 10/01/21 11:16 95 Nasal Cannula 5.00 10/01/21 08:06 36.5 103 24 159/80 09/29/21 19:28 100 Capillary Refill : NONE I&O Intake and Output 10/01/21 00:00 Intake Total 620 ml Output Total 925 ml Balance -305 ml Intake Oral 120 ml IV Total 500 ml Output Urine Total 925 ml General: Alert, Other (Disoriented to place) HEENT: Atraumatic, PERRLA, Other (Nasal cannula in place) Neck: Supple, Other (Non-Tender) Lungs: Other (Coarse breath sounds bilaterally) Heart: Regular Rate, Other (Systolic murmur at cardiac base) Abdomen: Normal Bowel Sounds, Soft, No Tenderness Extremities: No Clubbing, No Cyanosis Neuro: Normal Speech Psych/Mental Status: Mental Status NL Results Lab Laboratory Tests 09/30/21 15:37: Glucometer 243H 10/01/21 04:15: White Blood Count 12.6H, Red Blood Count 3.80L, Hemoglobin 11.9L, Hematocrit 36L , Mean Corpuscular Volume 94, Mean Corpuscular Hemoglobin 31, Mean Corpuscular Hemoglobin Concent 33, Red Cell Distribution Width 12.0, Platelet Count 248, Mean Platelet Volume 10.3, Immature Granulocyte % (Auto) 1, Neutrophils (%) (Auto) 94H, Lymphocytes (%) (Auto) 1L, Monocytes (%) (Auto) 3, Eosinophils (%) (Auto) 0, Basophils (%) (Auto) 0, Neutrophils # (Auto) 11.9H, Lymphocytes # (Auto) 0.2L, Monocytes # (Auto) 0.4, Eosinophils # (Auto) 0.0, Basophils # (Auto ) 0.0, Immature Granulocyte # (Auto) 0.2H, Sodium Level 136, Potassium Level 3.9, Chloride Level 106, Carbon Dioxide Level 20L, Anion Gap 10, Blood Urea Nitrogen 40H, Creatinine 1.53H, Estimat Glomerular Filtration Rate 45, BUN/Creatinine Ratio 26, Glucose Level 295H, Calcium Level 8.4L, Corrected Calcium 9.4, Phosphorus Level 3.1, Magnesium Level 1.7, Total Bilirubin 0.8, Aspartate Amino Transf (AST/SGOT) 27, Alanine Aminotransferase (ALT/SGPT) 38, Alkaline Phosphatase 61, Total Protein 5.3L, Albumin 2.8L 10/01/21 05:53: Glucometer 235H 10/01/21 10:37: Glucometer 234H Microbiology 09/28/21 MRSA Screen - Final, Complete MRSA not isolated Assessment/Plan Assessment/Plan Assess & Plan/Chief Complaint Assessment: Moderate to severe dysphagia Hypoxia with exertion Pneumonia started on cefepime 09/27/2021 but worsened on CXR and clinically requiring transfer to ICU 09/28/21 SAH Subdural hematoma Recent NSTEMI 08/18/21 holding Plavix and aspirin and consulting Dr. Rosales restarting aspirin 81 mg every 48 hours on 09/26/2021 CAD CKD3 DM2 HTN HLD GERD Hiatal hernia RODY Prostate cancer Confusion Leukocytosis Subarachnoid headache Plan: Transferred to floor Will begin enema for Bowel regimen Continue bipap or nasal cannula as needed Puree diet Tighter glucose control, difficult due to steroids Continue IV abx DNR Appreciate Cardiology Clinical Quality Measures DVT/VTE Risk/Contraindication: Contraindications-Pharm: Other *list below* Other: recent SAH OPAL LEROY DO 10/02/21 0628: Subjective Subjective/Events-last exam Pt doing a little better Appears to be very fatigued Transferring to 4th floor Having difficulty swallowing Dysphasia is an issue likely causing the aspiration pneumonia Checked meds and labs Updated daughter at the bedside who will be in town for 1 month Review of Systems General: Fatigue, Malaise Pulmonary: Dyspnea, Cough Neurological: Confusion Objective Exam General: Alert, Other (Disoriented to place) Lungs: Other (Coarse breath sounds bilaterally) Heart: Regular Rate Assessment/Plan Assessment/Plan Assess & Plan/Chief Complaint Aspiration pneumonia treatment Supportive care Transfer to fourth floor DNR Supervisory-Addendum Brief Verification & Attestation Participated in pt care: history, MDM, physical Personally performed: exam, history, MDM, supervision of care Care discussed with: Medical Student Procedures: n/a Results interpretation: Verified all documentation Verification and Attestation of Medical Student E/M Service A medical student performed and documented this service in my presence. I reviewed and verified all information documented by the medical student and made modifications to such information, when appropriate. I personally performed the physical exam and medical decision making. Opal eLroy, Oct 02, 2021,06:27 [facility] Oct 01, 2021 11:58 OPAL LEROY DO Oct 02, 2021 06:28
--- NOTE | 2021-10-01 12:15 | Progress Note - Cardiology ---
Cardiology SOAP Progress Note Subjective: Gen malaise Gen pain, including chest and shoulders and neck and back and abd and limbs No shortness of breath Intermittent nausea Poor appetite Objective: I&O/Vital Signs 10/01/21 10/01/21 10/01/21 10/01/21 01:00 02:57 04:00 07:00 Pulse 93 88 88 Resp 18 B/P (MAP) 128/77 Pulse Ox 97 96 O2 Delivery Nasal Cannula NIV Bilevel O2 Flow Rate 5.00 30.00 10/01/21 10/01/21 10/01/21 10/01/21 07:21 08:06 08:12 11:16 Temp 36.5 Pulse 103 Resp 24 B/P (MAP) 159/80 Pulse Ox 97 92 94 95 O2 Delivery Nasal Cannula Nasal Cannula Nasal Cannula Nasal Cannula O2 Flow Rate 7.00 5.00 5.00 5.00 10/01/21 11:55 Temp 36.5 Pulse 100 Resp 24 B/P (MAP) 126/65 Pulse Ox 92 O2 Delivery Nasal Cannula O2 Flow Rate 4.00 10/01/21 00:00 Intake Total 620 ml Output Total 350 ml Balance 270 ml Constitutional: No AAO x 3; well-developed, well-nourished Respiratory: other (coarse breath sounds) Cardiovascular: regular rate-rhythm, S1 and S2, systolic murmur (soft JESUS at card base) Gastrointestional: No tender; soft; No guarding, No rebound; audible bowel sounds Extremities: No clubbing, No significant edema Neurologic/Psychiatric: No oriented x 3 (oriented to self and place); other (moves all limbs equally) Skin: No rash on exposed areas, No ulcerations on exposed areas Results/Procedures: Labs Laboratory Tests 09/30/21 15:37: Glucometer 243H 10/01/21 04:15: White Blood Count 12.6H, Red Blood Count 3.80L, Hemoglobin 11.9L, Hematocrit 36L , Mean Corpuscular Volume 94, Mean Corpuscular Hemoglobin 31, Mean Corpuscular Hemoglobin Concent 33, Red Cell Distribution Width 12.0, Platelet Count 248, Mean Platelet Volume 10.3, Immature Granulocyte % (Auto) 1, Neutrophils (%) (Auto) 94H, Lymphocytes (%) (Auto) 1L, Monocytes (%) (Auto) 3, Eosinophils (%) (Auto) 0, Basophils (%) (Auto) 0, Neutrophils # (Auto) 11.9H, Lymphocytes # (Auto) 0.2L, Monocytes # (Auto) 0.4, Eosinophils # (Auto) 0.0, Basophils # (Auto) 0.0, Immature Granulocyte # (Auto) 0.2H, Sodium Level 136, Potassium Level 3.9, Chloride Level 106, Carbon Dioxide Level 20L, Anion Gap 10, Blood Urea Nitrogen 40H, Creatinine 1.53H, Estimat Glomerular Filtration Rate 45, BUN/Creatinine Ratio 26, Glucose Level 295H, Calcium Level 8.4L, Corrected Calcium 9.4, Phosphorus Level 3.1, Magnesium Level 1.7, Total Bilirubin 0.8, Aspartate Amino Transf (AST/SGOT) 27, Alanine Aminotransferase (ALT/SGPT) 38, Alkaline Phosphatase 61, Total Protein 5.3L, Albumin 2.8L 10/01/21 05:53: Glucometer 235H 10/01/21 10:37: Glucometer 234H Microbiology 09/28/21 MRSA Screen - Final, Complete MRSA not isolated Laboratory Tests 09/30/21 04:45 10/01/21 04:15 A/P: Assessment: Pneumonia - management per medical/eICU services Confusion Recent (early Sep 2021) ic bleed (subdural and subarachnoid) following a nonsyncopal fall CAD - Pt reports 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 Willett - PTCA of RCA lesion reduced from 80% to approx 40%. 100% occlusion of the LAD and cx. 100% occlusion of a vein graft. Patent CASTRO graft to the LAD with borderline lesion beyond. - Most recent Cardiac cath of 09-08-[address] Conway - severe MVD [place] coronaries including severe in-stent restenosis in the RCA. S/P placement of 3 Synergy JOSHUA with one in the prox vessel, one in the midvessel, and one in the distal vessel (not overlapping). S/P balloon angioplasty of the ostial to prox right PDA which appeared to be too small for stenting. - NSTEMI on 08/17/21, pt followed with Dr Willett. Pt family reports that a subsequent nuclear stress was ok and no card cath or interventions were undertaken Echocardiogram of 08-17-21 showed LVEF 55-65%. Mod concentric hypertrophy. Grade 2 diastolic dysfunction. LA mildly dilated. Mild calcification of mitral valve with mild MR. Mild to mod AoV stenosis Echocardiogram of 09-26-21 showed LVEF 55-65%. Mod concentric hypertrophy. Grade 2 diastolic dysfunction. Mild calcification of mitral valve. Mild to mod AoV stenosis. PASP 25-30 mmHg Chronic angina - Imdur and Ranexa - managed by Dr. 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 Gallo Oncology - multiple skin melanoma removals - most recent to the left side of his face (stitches in place) Back surgeries - Yadav lynette in place Plan: * D/t probable aspiration with pneumonia we will change as many cardiac medications to IV or topical as indicated to reduce oral medication burden (because he has been receiving crushed medications, some of which are long- acting medications) * C/O gen discomfort for which he is receiving oral pain medications * Discussed with his daughter his CV issues and our treatment plan * Monitor labs STACEY STEVENSON MD FACP FACC CCDS Oct 01, 2021 12:15
--- NOTE | 2021-10-01 13:58 | Speech Therapy Daily Note ---
Speech Daily Progress Note Subjective Date Seen by Provider: Oct 01, 2021 Time Seen by Provider: 12:25 The patient was seated upright in his recliner, eating lunch with his daughter's assistance, upon entrance by the clinician. The patient greeted the clinician appropriately and was agreeable to participation in the dysphagia treatment session. Per daughter, the patient has not displayed overt s/s of suspected aspiration with his updated diet consistency modification with the exception of medication administration the night prior. The daughter reported the medications were crushed and sprinkled on top of the pudding but "not mixed in." The daughter believes the patient inhaled small particles resulting in "a large coughing" episode. The patient's daughter requested the clinician visit with the patient's day RN to communicate clearly the patient's recommendations throughout the caustic cresylate shift superintendent. The clinician stated she would visit with the patient's RN and place swallowing recommendations clearly throughout this date's note. Objective With feeding assistance from his daughter, the patient consumed pureed consistencies with moderately (honey-thick) liquids via cup edge. Overt s/s of suspected aspiration were not demonstrated with any PO trial completed and the patient's vocal quality remained consistently clear. The patient and the patient's daughter displayed excellent compliance with the clinician's recommendations, including small bites and sips and a slow rate of PO intake. The patient's daughter stated she has had difficulty explaining the "two swal lows" to the patient. The clinician discussed the recommendation of the second swallow (to clear pharyngeal residue) to the patient. The patient verbalized comprehension, however, full understanding and compliance may be difficult at this time. The absence of the second swallow during the most recent MBS did not result in aspiration of any consistency. The patient's daughter verbalizes concerns of staff being compliant and safely feeding her father. The clinician stated she would have a discussion with the RN and re-place recommendations in the chart. Recommendations: - Dysphagia one (pureed) with MODERATELY thickened (honey-thickened) liquids, as tolerated. - Fully upright and alert for PO intake. - Small, single bites and sips (only). - Swallow twice with each bite and sip. - Slow rate of oral intake. Cease oral intake during periods of fatigue or increased respiratory effort. - 1:1 staff supervision during oral intake, only (discussed with the RN the necessity to evaluate for respiratory fatigue throughout PO intake. If demonstrated, PO intake should cease pending a return to baseline respiratory status). - Crush medication and place in puree for administration. Thoroughly mix medicat ion with each small bite of puree. If necessary, consume a sip of honey-thick liquids following each swallow of medication to aid in clearance. - Monitor for s/s of suspected aspiration with PO intake (including a decrease in respiratory function). If demonstrated, place the patient NPO and contact speech pathology for re-evaluation. - Speech pathology to provide oropharyngeal swallowing treatment and re- evaluations four to five times per week. The results and recommendations were thoroughly discussed with the patient, the patient's daughter, and the RN. The patient remains at a high risk for aspiration with PO consistencies secondary to his elevated fatigue and poor respiratory status. The patient should be monitored closely throughout PO intake for fatigue. If fatigue is present, the patient should return to a NPO status. Assessment Assessment Current Status: Good Progress Treatment Plan Continue Plan of Care Speech Short Term Goals Short Term Goals Short Term Goals 1. The patient will tolerate trials of the least restricted consistency without s/s of suspected aspiration (clinical or medical) with 90% accuracy. 2. The patient will repeat short phrases with 80% accuracy and mild clinician verbal cueing. Speech Skilled Nursing Goals Skilled Nursing Goals 1. The patient will tolerate the least restrictive diet consistency without s/s of suspected aspiration (clinical or medical) with 90% accuracy or greater. 2. The patient will display improved expressive communication for safe discharge to the least restrictive environment. Speech-Plan Treatment Plan Speech Therapy Treatment Plan: Continue Plan of Care Treatment Duration: Oct 13, 2021 Frequency: 3 times per week (Three to four times per week.) Estimated Hrs Per Day: .25 hour per day Rehab Potential: Guarded Safety Risks/Education Teaching Recipient: Patient, Family Teaching Methods: Demonstration, Discussion Response to Teaching: Verbalize Understanding, Return Demonstration Education Topics Provided: Swallowing Recommendations Time Speech Therapy Time In: 12:25 Speech Therapy Time Out: 12:45 Total Billed Time: 20 Billed Treatment Time CURLY Landon Selena GINA HOUSESHANNON DURAN Oct 01, 2021 13:58
[2021-10-01] MEDS: IMIPRAMINE 10 MG PO SCH (20:37)
[2021-10-01] MEDS: diphenhydrAMINE 25 MG TAB (BENADRYL) PO SCH (20:37)
[2021-10-01] MEDS: busPIRone 10 MG (BUSPAR) TAB PO SCH (20:37)
[2021-10-01] MEDS: SERTRALINE 100 MG (ZOLOFT) TAB PO SCH (20:42)
[2021-10-02] MEDS: meTOprolol 5 MG/5 ML (LOPRESSOR) VIAL IV SCH ×3 (00:06→08:51)
[2021-10-02] MEDS: RT-ALBUTEROL/IPRATROPIUM 3 ML (DUONEB) VIAL INH SCH ×6 (02:37→21:16)
[2021-10-02] MEDS: CLINDAMYCIN 600 MG/50 ML IVPB 50 ML IV SCH ×3 (02:54→18:14)
[2021-10-02] MEDS: CEFEPIME INJECTION 1,000 MG in NS (IVPB) 50 ML IV SCH (04:10)
[2021-10-02] MEDS: NITROGLYCERIN 2% OINT 1 GM UNIT DOSE PACKET TOP SCH (05:22)
[2021-10-02] MEDS: inSUlin ASPART (NovoLOG) 1 UNIT/0.01 ML (CHARGE PER UNIT) SC SCH ×4 (05:22→20:48)
[2021-10-02] MEDS: MULTIVIT W/MINERALS TAB (THERAGRAN M) PO SCH (05:25)
[2021-10-02 06:47] LABS: BASOPHILS % (AUTO) 0 % (0-10); EOSINOPHILS % (AUTO) 0 % (0-10); HEMATOCRIT 40 % (40-54); HEMOGLOBIN 13.6 g/dL (13.3-17.7); LYMPHOCYTES # (AUTO) 0.3 10^3/uL (1.0-4.0); LYMPHOCYTES % (AUTO) 2 % (12-44); MEAN CORPUSCULAR HEMOGLOBIN 32 pg (25-34); MEAN CORPUSCULAR HGB CONC 34 g/dL (32-36); MEAN CORPUSCULAR VOLUME 95 fL (80-99); MEAN PLATELET VOLUME 11.1 fL (9.0-12.2); MONOCYTES # (AUTO) 0.4 10^3/uL (0.0-1.0); MONOCYTES % (AUTO) 3 % (0-12); NEUTROPHILS # (AUTO) 11.3 10^3/uL (1.8-7.8); NEUTROPHILS % (AUTO) 92 % (42-75); PLATELET COUNT 277 10^3/uL (130-400); WHITE BLOOD COUNT 12.3 10^3/uL (4.3-11.0)
--- NOTE | 2021-10-02 06:48 | Progress Note ---
Subjective Date Seen by a Provider: Oct 02, 2021 Time Seen by a Provider: 12:00 Subjective/Events-last exam Patient doing a bit better Tolerating pured diet Daughter helping feeding him No concerns right now Cough is improved Swallowing is improved Constant chest pain from angina managed by cardiology Review of Systems General: Fatigue, Malaise Cardiovascular: Chest Pain Objective Exam Last Set of Vital Signs Vital Signs Date Time Temp Pulse Resp B/P (MAP) Pulse Ox O2 Delivery O2 Flow Rate FiO2 10/02/21 03:41 36.2 98 20 159/75 95 NIV Bilevel 40.00 09/29/21 19:28 100 Capillary Refill : NONE I&O Intake and Output 10/02/21 00:00 Intake Total 120 ml Output Total 400 ml Balance -280 ml Intake Oral 120 ml Output Urine Total 400 ml General: Alert, Cooperative, No Acute Distress, Other (Oriented x2) Lungs: Other (Coarse breath sounds but improved) Heart: Regular Rate Results Lab Laboratory Tests 10/01/21 10:37: Glucometer 234H 10/01/21 15:33: Glucometer 226H 10/01/21 20:33: Glucometer 198H 10/02/21 05:17: Glucometer 261H 10/02/21 05:29: Microbiology 09/28/21 MRSA Screen - Final, Complete MRSA not isolated Assessment/Plan Assessment/Plan Assess & Plan/Chief Complaint Assessment: Moderate to severe dysphagia causing aspiration pneumonia Hypoxia with exertion Pneumonia started on cefepime 09/27/2021 but worsened on CXR and clinically requiring transfer to ICU 09/28/21 SAH Subdural hematoma Recent NSTEMI 08/18/21 holding Plavix and aspirin and consulted Dr. Rosales restarting aspirin 81 mg every 48 hours on 09/26/2021 CAD CKD3 DM2 HTN HLD GERD Hiatal hernia RODY Prostate cancer Confusion Leukocytosis Subarachnoid headache Plan: Aspiration pneumonia treatment Supportive care Continue antibiotics DNR Clinical Quality Measures DVT/VTE Risk/Contraindication: Contraindications-Pharm: Other *list below* Other: recent SAH RAOUL AVITIA DO Oct 02, 2021 06:48
[2021-10-02 06:58] LABS: ALBUMIN 3.1 GM/DL (3.2-4.5)
[2021-10-02 07:00] LABS: CALCIUM 8.6 MG/DL (8.5-10.1)
[2021-10-02 07:01] LABS: TOTAL PROTEIN 6.4 GM/DL (6.4-8.2)
[2021-10-02 07:03] LABS: BILIRUBIN,TOTAL 0.7 MG/DL (0.1-1.0)
[2021-10-02 07:04] LABS: CREATININE SERUM 1.57 MG/DL (0.60-1.30)
--- NOTE | 2021-10-02 08:45 | Diagnostic Imaging Report ---
INDICATION: Pneumonia. TIME OF EXAM: 8:01 AM CORRELATION is made with prior chest from one day earlier. Changes of median sternotomy are noted. Extensive bilateral pulmonary infiltrates persist and showed no real change. There is no effusion or pneumothorax. IMPRESSION: No significant change in bilateral pulmonary infiltrates since examination one day earlier. Dictated by: Dictated on workstation # [id number]
[2021-10-02] MEDS: methylPREDNISolone 125 MG (Solu-MEDROL) VIAL IVP SCH ×2 (08:56→20:49)
[2021-10-02] MEDS: amLODIPine 10 MG (NORVASC) TAB PO SCH (08:59)
[2021-10-02] MEDS: PIOGLITAZONE 30MG (ACTOS) TAB PO SCH (08:59)
[2021-10-02] MEDS: HYDROcodone/APAP 5 MG/325 MG (LORTAB) TAB PO PRN (09:00)
[2021-10-02] MEDS: PANTOPRAZOLE 20 MG TABLET (PROTONIX) PO SCH (09:16)
[2021-10-02] MEDS: RANOLAZINE ER 500 MG TAB (RANEXA) PO SCH ×2 (09:16→20:46)
[2021-10-02] MEDS: glipiZIDE XL 10 MG (GLUCOTROL XL) TAB PO SCH ×2 (09:16→18:14)
[2021-10-02] MEDS: DOCUSATE SODIUM 100 MG (COLACE) CAP PO SCH (09:17)
--- NOTE | 2021-10-02 10:55 | Physical Therapy Daily Note ---
PT Daily Note-Current Subjective Nursing advocated for pt to stay in bed and receive bed exercises due to recent exacerbation episode. Oxygen at 90% on arrival while on advanced respiratory equipment. Mental Status Patient Orientation: Person, Place, Time, Situation Attachments: Oxygen, Boateng Catheter, IV Pt was able to answer basic questions and participated with exercises. Transfers SCALE: Activities may be completed with or without assistive devices. 1-Wcxinvncoh-rclgelf completes the activity by him/herself with no assistance from a helper. 5-Set-up or Clean-up Assistance-helper sets up or cleans up; patient completes activity. [place] assists only prior to or following the activity. 4-Supervision or Touching Assistance-helper provides verbal cues and/or touching/steadying and/or contact guard assistance as patient completes activity. Assistance may be provided throughout the activity or intermittently. 3-Partial/Moderate Assistance-helper does LESS THAN HALF the effort. [place] lifts, holds or supports trunk or limbs, but provides less than half the effort. 2-Substantial/Maximal Assistance-helper does MORE THAN HALF the effort. [place] lifts or holds trunk or limbs and provides more than half the effort. 5-Ytcupdlid-khrdzd does ALL the effort. Patient does none of the effort to complete the activity. Or, the assistance of 2 or more helpers is required for the patient to complete the activity. If activity was not attempted, code reason: 7-Patient Refused. 9-Not Applicable-not attempted and the patient did not perform the activity before the current illness, exacerbation or injury. 10-Not Attempted due to Environmental Limitations-(lack of equipment, weather restraints, etc.). 88-Not Attempted due to Medical Conditions or Safety Concerns. Exercises Supine Ex: LE Protocol Supine Reps: 15 Pt needed 50% assist for all exercises, and we had to stop after each exercise to allow his oxygen level to rebound from ~86% back up to 90%. He was at 90% up on completion of the exercises. Assessment Current Status: Fair Progress Good participation with the supine exercises and may resume standing as tolerated. PT Short Term Goals Short Term Goals Time Frame: Oct 08, 2021 Roll Left & Right: 5 Sit to lyin Lying to sitting on side of be: 5 Sit to stand: 5 Chair/lyf-nb-gmgpm transfer: 5 Toilet transfer: 5 Car transfer: 5 Walk 10 feet: 5 Walk 50 feet with two turns: 4 Walk 150 feet: 4 PT Care Home Goals Elementary Science Teacher Goals PT Care Home Goals Time Frame: Nov 06, 2021 Roll Left & Right (QC): 6 Sit to Lying (QC): 6 Lying-Sitting on Side/Bed(QC): 6 Sit to Stand (QC): 6 Chair/Jlt-pl-Flyzb Xfer(QC): 6 Toilet Transfer (QC): 6 Car Transfer (QC): 6 Does the Patient Walk: Yes Walk 10 feet (QC): 6 Walk 50ft with 2 Turns (QC): 5 Walk 150 ft (QC): 5 1 Step (curb) (QC): 4 4 Steps (QC): 4 PT Plan Treatment/Plan Treatment Plan: Continue Plan of Care Treatment Plan: Bed Mobility, Education, Functional Activity Varun, Functional Strength, Group Therapy, Gait, Safety, Therapeutic Exercise, Transfers Treatment Duration: Nov 05, 2021 Frequency: 6 times per week Estimated Hrs Per Day: .25 hour per day Patient and/or Family Agrees t: Yes Time/GCodes Time In: 954 Time Out: 1005 Total Billed Treatment Time: 10 Total Billed Treatment 1, ex 10 SERA DWYER PT Oct 02, 2021 10:55
[2021-10-02 11:37] VITALS: BP 172/78
[2021-10-02] MEDS ORDERED: NITROGLYCERIN 0.4 MG/PATCH (NITRO-DUR) TD ONE (11:45)
--- NOTE | 2021-10-02 11:50 | Cardiology Progress Note ---
Progress Note-Cardiology Events since last exam Date Seen by Provider: Oct 02, 2021 Time Seen by Provider: 11:44 Events since last exam We are following him due to coronary artery disease. He was sitting up in a chair with his daughter at the bedside. He had been having some chest discomfort yesterday but this has now resolved. Today he is complaining of a headache. He feels as though his shortness of breath is improving. He denies palpitations, syncope, or ankle edema. 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 Certain portions of this document may have been dictated utilizing voice re cognition technology. Inherent to this technology, typographical and grammatical errors may exist. As much as I am diligent to identify and correct these mistakes, some errors may remain in the document. Vitals Last set of Vitals Signs Vital Signs 09/29/21 10/02/21 10/02/21 10/02/21 19:28 07:45 09:04 10:23 Temp 35.7 Pulse 106 Resp 18 B/P (MAP) 172/78 Pulse Ox 89 O2 Delivery Nasal Cannula O2 Flow Rate 7.00 FiO2 100 Labs Labs Laboratory Tests 10/02/21 05:29 Exam Vital Signs Vital Signs Date Time Temp Pulse Resp B/P (MAP) Pulse Ox O2 Delivery O2 Flow Rate FiO2 10/02/21 10:23 89 Nasal Cannula 7.00 10/02/21 09:04 106 10/02/21 07:45 35.7 18 172/78 09/29/21 19:28 100 Physical Exam General: Alert. Mild respiratory distress while speaking. He is wearing oxygen by nasal cannula. Eye: No xanthelasma. HENT: Normocephalic. Neck: Jugular venous pressure does not appear elevated. Respiratory: Lungs have scattered inspiratory wheezes. Respirations are mildly labored with speaking. Breath sounds are equal. Symmetrical chest wall expansion. Cardiovascular: Tachycardia with regular rhythm. No murmur. No gallop. No edema. Gastrointestinal: Soft. Normal bowel sounds. Skin: Warm. Dry. Neurologic: Alert and oriented to person, place, time. Cranial nerves 3-11 grossly intact. Psychiatric: Cooperative. Appropriate mood & affect. Labs Laboratory Tests Test 10/01/21 15:33 10/01/21 20:33 10/02/21 05:17 10/02/21 05:29 Range/Units Glucometer 226 H 198 H 261 H 70-110 MG/DL White Blood Count 12.3 H 4.3-11.0 10^3/uL Red Blood Count 4.23 L 4.30-5.52 10^6/uL Hemoglobin 13.6 13.3-17.7 g/dL Hematocrit 40 40-54 % Mean Corpuscular Volume 95 80-99 fL Mean Corpuscular Hemoglobin 32 25-34 pg Mean Corpuscular Hemoglobin Concent 34 32-36 g/dL Red Cell Distribution Width 12.1 10.0-14.5 % Platelet Count 277 130-400 10^3/uL Mean Platelet Volume 11.1 9.0-12.2 fL Immature Granulocyte % (Auto) 2 % Neutrophils (%) (Auto) 92 H 42-75 % Lymphocytes (%) (Auto) 2 L 12-44 % Monocytes (%) (Auto) 3 0-12 % Eosinophils (%) (Auto) 0 0-10 % Basophils (%) (Auto) 0 0-10 % Neutrophils # (Auto) 11.3 H 1.8-7.8 10^3/uL Lymphocytes # (Auto) 0.3 L 1.0-4.0 10^3/uL Monocytes # (Auto) 0.4 0.0-1.0 10^3/uL Eosinophils # (Auto) 0.0 0.0-0.3 10^3/uL Basophils # (Auto) 0.0 0.0-0.1 10^3/uL Immature Granulocyte # (Auto) 0.3 H 0.0-0.1 10^3/uL Sodium Level 140 135-145 MMOL/L Potassium Level 4.0 3.6-5.0 MMOL/L Chloride Level 108 H 98-107 MMOL/L Carbon Dioxide Level 19 L 21-32 MMOL/L Anion Gap 13 5-14 MMOL/L Blood Urea Nitrogen 44 H 7-18 MG/DL Creatinine 1.57 H 0.60-1.30 MG/DL Estimat Glomerular Filtration Rate 43 BUN/Creatinine Ratio 28 Glucose Level 284 H 70-105 MG/DL Calcium Level 8.6 8.5-10.1 MG/DL Corrected Calcium 9.3 8.5-10.1 MG/DL Total Bilirubin 0.7 0.1-1.0 MG/DL Aspartate Amino Transf (AST/SGOT) 31 5-34 U/L Alanine Aminotransferase (ALT/SGPT) 34 0-55 U/L Alkaline Phosphatase 74 40-136 U/L Total Protein 6.4 6.4-8.2 GM/DL Albumin 3.1 L 3.2-4.5 GM/DL Test 10/02/21 11:04 Range/Units Glucometer 215 H 70-110 MG/DL Diagnosis/Problems Diagnosis/Problems (1) Coronary artery disease with unstable angina pectoris Assessment & Plan: He had a probable recent non-ST elevation myocardial infarction in 08/2021. His most recent echocardiogram shows normal ejection fraction. However, more recently he developed a subdural and subarachnoid he morrhage. As such, clopidogrel was discontinued. Aspirin has been resumed at low dosage. He is on statin medication. He is not having any obvious angina at this time. He had been receiving topical and intravenous medications due to dysphagia which has now improved. I will change the Nitropaste over to nitroglycerin patch. I will change the intravenous metoprolol over to oral metoprolol. (2) Primary hypertension Assessment & Plan: Blood pressures are intermittently elevated. As above, I will change his intravenous metoprolol over to oral metoprolol tartrate which can be crushed if needed. We can titrate this up as needed to get his blood pr essure under control. He is also on amlodipine. (3) Mixed hyperlipidemia Assessment & Plan: Continue atorvastatin. (4) Subarachnoid hemorrhage Assessment & Plan: As above, clopidogrel has been discontinued in light of the recent intracerebral hemorrhage. (5) Dysphagia Assessment & Plan: Swallowing is improving and he can now take crushed medications by mouth. However, we need to avoid long acting medications which may not be able to absorb properly if crushed. ARACELI JAVIER JR, MD Oct 02, 2021 11:50
[2021-10-02] MEDS: morphine INJ 4 MG/ML 1 ML (VIAL/SYRINGE) IVP PRN (16:10)
[2021-10-02] MEDS: ALPRAZolam 0.5 MG (XANAX) TAB PO PRN (16:10)
[2021-10-02] MEDS ORDERED: meTOprolol 5 MG/5 ML (LOPRESSOR) VIAL IV ONE (16:15)
[2021-10-02] MEDS: busPIRone 10 MG (BUSPAR) TAB PO SCH (20:46)
[2021-10-02] MEDS: DOCUSATE SODIUM 10 MG/ML 10 ML UDC (COLACE) PO SCH (20:46)
[2021-10-02] MEDS: diphenhydrAMINE 25 MG TAB (BENADRYL) PO SCH (20:46)
[2021-10-02] MEDS: IMIPRAMINE 10 MG PO SCH (20:47)
[2021-10-02] MEDS: meTOprolol TARTRATE 25 MG (LOPRESSOR) TABLET PO SCH (20:47)
[2021-10-02] MEDS: SERTRALINE 100 MG (ZOLOFT) TAB PO SCH (20:47)
[2021-10-02] MEDS ORDERED: PATCH REMOVAL TP SCH (21:00)
[2021-10-03] MEDS: CLINDAMYCIN 600 MG/50 ML IVPB 50 ML IV SCH (02:00)
[2021-10-03] MEDS: RT-ALBUTEROL/IPRATROPIUM 3 ML (DUONEB) VIAL INH SCH ×5 (02:19→22:23)
[2021-10-03] MEDS: inSUlin ASPART (NovoLOG) 1 UNIT/0.01 ML (CHARGE PER UNIT) SC SCH ×4 (06:09→21:09)
[2021-10-03 06:53] LABS: BASOPHILS # (AUTO) 0.1 10^3/uL (0.0-0.1); BASOPHILS % (AUTO) 0 % (0-10); EOSINOPHILS % (AUTO) 0 % (0-10); HEMATOCRIT 41 % (40-54); HEMOGLOBIN 13.5 g/dL (13.3-17.7); LYMPHOCYTES # (AUTO) 0.3 10^3/uL (1.0-4.0); LYMPHOCYTES % (AUTO) 2 % (12-44); MEAN CORPUSCULAR HEMOGLOBIN 32 pg (25-34); MEAN CORPUSCULAR HGB CONC 33 g/dL (32-36); MEAN CORPUSCULAR VOLUME 97 fL (80-99); MEAN PLATELET VOLUME 10.5 fL (9.0-12.2); MONOCYTES # (AUTO) 0.5 10^3/uL (0.0-1.0); MONOCYTES % (AUTO) 3 % (0-12); NEUTROPHILS # (AUTO) 15.3 10^3/uL (1.8-7.8); NEUTROPHILS % (AUTO) 92 % (42-75); PLATELET COUNT 230 10^3/uL (130-400); WHITE BLOOD COUNT 16.7 10^3/uL (4.3-11.0)
[2021-10-03 06:59] LABS: ALBUMIN 3.2 GM/DL (3.2-4.5)
[2021-10-03 07:00] LABS: POTASSIUM 3.8 MMOL/L (3.6-5.0)
--- NOTE | 2021-10-03 07:00 | Progress Note ---
Subjective Date Seen by a Provider: Oct 03, 2021 Time Seen by a Provider: 12:00 Subjective/Events-last exam Patient doing a bit better Chronic angina will be managed by cardiology with the addition of long-acting nitroglycerin pill Swallowing a lot better Daughter at the bedside We will try to place a halfway soon PT and OT still working with him Oxygen did decrease abruptly requiring 10 L oxygen mask DNR definitely indicated Review of Systems General: Fatigue, Malaise Objective Exam Last Set of Vital Signs Vital Signs Date Time Temp Pulse Resp B/P (MAP) Pulse Ox O2 Delivery O2 Flow Rate FiO2 10/03/21 03:48 36.1 107 22 152/79 95 OxyMask 10.00 09/29/21 19:28 100 Capillary Refill : NONE I&O Intake and Output 10/03/21 00:00 Intake Total 1180 ml Output Total 1075 ml Balance 105 ml Intake Oral 1080 ml IV Total 100 ml Output Urine Total 1075 ml General: Alert, Oriented X3, Cooperative, Other (anxious) Lungs: Clear to Auscultation, Normal Air Movement Heart: Regular Rate Psych/Mental Status: Mood NL Results Lab Laboratory Tests 10/02/21 11:04: Glucometer 215H 10/02/21 15:29: Glucometer 327H 10/02/21 20:08: Glucometer 296H 10/03/21 05:35: 10/03/21 05:47: Glucometer 260H 10/03/21 06:09: Albumin 3.2 Microbiology 09/28/21 MRSA Screen - Final, Complete MRSA not isolated Assessment/Plan Assessment/Plan Assess & Plan/Chief Complaint Assessment: Moderate to severe dysphagia causing aspiration pneumonia Hypoxia with exertion Pneumonia started on cefepime 09/27/2021 but worsened on CXR and clinically requiring transfer to ICU 09/28/21 SAH Subdural hematoma Recent NSTEMI 08/18/21 holding Plavix and aspirin and consulted Dr. Rosales restarting aspirin 81 mg every 48 hours on 09/26/2021 CAD CKD3 DM2 HTN HLD GERD Hiatal hernia RODY Prostate cancer Confusion Leukocytosis Subarachnoid headache Plan: Aspiration pneumonia treatment Supportive care Continue antibiotics DNR 10/03/2021: Supportive care Lungs improved today but still requiring 10 L of oxygen at times End-stage issues Clinical Quality Measures DVT/VTE Risk/Contraindication: Contraindications-Pharm: Other *list below* Other: recent SAH ADORERAOUL DO Oct 03, 2021 07:00
[2021-10-03 07:01] LABS: CALCIUM 8.6 MG/DL (8.5-10.1)
[2021-10-03 07:04] LABS: BILIRUBIN,TOTAL 0.9 MG/DL (0.1-1.0)
[2021-10-03 07:06] LABS: CREATININE SERUM 1.43 MG/DL (0.60-1.30)
[2021-10-03] MEDS ORDERED: NITROGLYCERIN 0.4 MG/PATCH (NITRO-DUR) TD SCH (09:00)
[2021-10-03] MEDS: PANTOPRAZOLE 40 MG (PROTONIX) VIAL IV SCH (09:00)
[2021-10-03] MEDS: methylPREDNISolone 125 MG (Solu-MEDROL) VIAL IVP SCH ×2 (09:00→21:00)
[2021-10-03] MEDS: DOCUSATE SODIUM 10 MG/ML 10 ML UDC (COLACE) PO SCH ×2 (09:00→21:09)
[2021-10-03] MEDS: meTOprolol TARTRATE 25 MG (LOPRESSOR) TABLET PO SCH (09:05)
[2021-10-03] MEDS: glipiZIDE XL 10 MG (GLUCOTROL XL) TAB PO SCH ×2 (09:05→17:52)
[2021-10-03] MEDS: PIOGLITAZONE 30MG (ACTOS) TAB PO SCH (09:05)
[2021-10-03] MEDS: MULTIVIT W/MINERALS TAB (THERAGRAN M) PO SCH (09:05)
[2021-10-03] MEDS: amLODIPine 10 MG (NORVASC) TAB PO SCH (09:05)
[2021-10-03] MEDS: RANOLAZINE ER 500 MG TAB (RANEXA) PO SCH ×2 (09:05→21:01)
--- NOTE | 2021-10-03 11:42 | Cardiology Progress Note ---
Progress Note-Cardiology Events since last exam Date Seen by Provider: Oct 03, 2021 Time Seen by Provider: 11:41 Events since last exam We are following him due to coronary artery disease. He has a headache again today. He does not normally get headaches at home. He has not been reporting significant chest pain today. However, last night he started to get short of breath and then he panicked and developed chest discomfort. He still has dyspnea on exertion and he is short of breath when speaking. He denies palpitations, syncope, or ankle edema. Certain portions of this document may have been dictated utilizing voice recognition technology. Inherent to this technology, typographical and grammatical errors may exist. As much as I am diligent to identify and correct these mistakes, some errors may remain in the document. Vitals Last set of Vitals Signs Vital Signs 09/29/21 10/03/21 19:28 11:32 Temp 35.1 Pulse 105 Resp 24 B/P (MAP) 156/72 Pulse Ox 86 O2 Delivery High Flow N/C O2 Flow Rate 9.00 FiO2 100 Labs Labs Laboratory Tests 10/03/21 05:35 10/03/21 06:09 Exam Vital Signs Vital Signs Date Time Temp Pulse Resp B/P (MAP) Pulse Ox O2 Delivery O2 Flow Rate FiO2 10/03/21 11:32 35.1 105 24 156/72 86 High Flow N/C 9.00 09/29/21 19:28 100 Physical Exam General: Alert. Mild respiratory distress while talking. He is wearing supplemental oxygen by nasal cannula. Eye: No xanthelasma. HENT: Normocephalic. Neck: Jugular venous pressure does not appear elevated. Respiratory: Lungs are clear to auscultation. Respirations mildly labored while talking. Breath sounds are equal. Symmetrical chest wall expansion. Cardiovascular: Normal rate. Regular rhythm. 2/6 systolic ejection murmur. No gallop. Trace bilateral pretibial edema. Gastrointestinal: Soft. Normal bowel sounds. Skin: Warm. Dry. Neurologic: Alert and oriented to person, place, time. Cranial nerves 3-11 grossly intact. Psychiatric: Cooperative. Appropriate mood & affect. Labs Laboratory Tests Test 10/02/21 15:29 10/02/21 20:08 10/03/21 05:35 10/03/21 05:47 Range/Units Glucometer 327 H 296 H 260 H 70-110 MG/DL White Blood Count 16.7 H 4.3-11.0 10^3/uL Red Blood Count 4.28 L 4.30-5.52 10^6/uL Hemoglobin 13.5 13.3-17.7 g/dL Hematocrit 41 40-54 % Mean Corpuscular Volume 97 80-99 fL Mean Corpuscular Hemoglobin 32 25-34 pg Mean Corpuscular Hemoglobin Concent 33 32-36 g/dL Red Cell Distribution Width 12.3 10.0-14.5 % Platelet Count 230 130-400 10^3/uL Mean Platelet Volume 10.5 9.0-12.2 fL Immature Granulocyte % (Auto) 3 % Neutrophils (%) (Auto) 92 H 42-75 % Lymphocytes (%) (Auto) 2 L 12-44 % Monocytes (%) (Auto) 3 0-12 % Eosinophils (%) (Auto) 0 0-10 % Basophils (%) (Auto) 0 0-10 % Neutrophils # (Auto) 15.3 H 1.8-7.8 10^3/uL Lymphocytes # (Auto) 0.3 L 1.0-4.0 10^3/uL Monocytes # (Auto) 0.5 0.0-1.0 10^3/uL Eosinophils # (Auto) 0.0 0.0-0.3 10^3/uL Basophils # (Auto) 0.1 0.0-0.1 10^3/uL Immature Granulocyte # (Auto) 0.5 H 0.0-0.1 10^3/uL Test 10/03/21 06:09 Range/Units Sodium Level 141 135-145 MMOL/L Potassium Level 3.8 3.6-5.0 MMOL/L Chloride Level 107 98-107 MMOL/L Carbon Dioxide Level 21 21-32 MMOL/L Anion Gap 13 5-14 MMOL/L Blood Urea Nitrogen 41 H 7-18 MG/DL Creatinine 1.43 H 0.60-1.30 MG/DL Estimat Glomerular Filtration Rate 48 BUN/Creatinine Ratio 29 Glucose Level 304 H 70-105 MG/DL Calcium Level 8.6 8.5-10.1 MG/DL Corrected Calcium 9.2 8.5-10.1 MG/DL Total Bilirubin 0.9 0.1-1.0 MG/DL Aspartate Amino Transf (AST/SGOT) 11 5-34 U/L Alanine Aminotransferase (ALT/SGPT) 27 0-55 U/L Alkaline Phosphatase 90 40-136 U/L Total Protein 6.0 L 6.4-8.2 GM/DL Albumin 3.2 3.2-4.5 GM/DL Diagnosis/Problems Diagnosis/Problems (1) Coronary artery disease with unstable angina pectoris Assessment & Plan: He had a probable recent non-ST elevation myocardial infarction in 08/2021. His most recent echocardiogram shows normal ejection fraction. However, more recently he developed a subdural and subarachnoid hemorrhage. As such, clopidogrel was discontinued. Aspirin has been resumed at low dosage. He is on statin medication. I suspect he may have developed heada ches from the topical nitrates. He is still having some trouble swallowing pills and most of them are being crushed. He is on amlodipine and ranolazine. I resumed beta-jono on 10/02. I will increase the dose today. He was taking metoprolol succinate 100 mg daily at home. This cannot be crushed so I will put him on metoprolol tartrate 50 mg twice daily which can be crushed if needed. He reportedly has small vessel disease which is not amenable to revascularization. (2) Primary hypertension Assessment & Plan: Blood pressures are intermittently elevated. As above, I changed his metoprolol over to oral. I will increase the dose today. (3) Mixed hyperlipidemia Assessment & Plan: Continue atorvastatin. (4) Subarachnoid hemorrhage Assessment & Plan: As above, clopidogrel has been discontinued in light of the recent intracerebral hemorrhage. (5) Dysphagia Assessment & Plan: Swallowing is improving and he can now take crushed medications by mouth. However, we need to avoid long acting medications which may not be able to absorb properly if crushed. (6) Acute on chronic respiratory failure with hypoxemia Assessment & Plan: I suspect this is predominantly related to his pneumonia. ARACELI JAVIER JR, MD Oct 03, 2021 11:42
[2021-10-03] MEDS ORDERED: NITROGLYCERIN 0.4 MG SL TABS BTL 25'S SL PRN (11:45)
[2021-10-03] MEDS: ALPRAZolam 0.5 MG (XANAX) TAB PO PRN (12:24)
[2021-10-03] MEDS: ASPIRIN 81 MG CHEW (CHILDREN'S ASA) PO SCH (12:24)
[2021-10-03] MEDS ORDERED: meTOprolol TARTRATE 25 MG (LOPRESSOR) TABLET PO ONE (17:45)
[2021-10-03] MEDS ORDERED: meTOprolol TARTRATE 25 MG (LOPRESSOR) TABLET ONE (17:49)
[2021-10-03] MEDS: HYDROcodone/APAP 5 MG/325 MG (LORTAB) TAB PO PRN (17:58)
[2021-10-03] MEDS: meTOprolol TARTRATE 50 MG (LOPRESSOR) TAB PO SCH (21:01)
[2021-10-03] MEDS: diphenhydrAMINE 25 MG TAB (BENADRYL) PO SCH (21:01)
[2021-10-03] MEDS: busPIRone 10 MG (BUSPAR) TAB PO SCH (21:01)
[2021-10-03] MEDS: IMIPRAMINE 10 MG PO SCH (21:01)
[2021-10-03] MEDS: SERTRALINE 100 MG (ZOLOFT) TAB PO SCH (21:02)
[2021-10-04] MEDS: RT-ALBUTEROL/IPRATROPIUM 3 ML (DUONEB) VIAL INH SCH ×5 (02:33→22:21)
[2021-10-04] MEDS: inSUlin ASPART (NovoLOG) 1 UNIT/0.01 ML (CHARGE PER UNIT) SC SCH ×4 (06:09→21:07)
[2021-10-04 06:36] LABS: BASOPHILS % (AUTO) 0 % (0-10); EOSINOPHILS % (AUTO) 0 % (0-10); HEMATOCRIT 40 % (40-54); HEMOGLOBIN 13.4 g/dL (13.3-17.7); LYMPHOCYTES # (AUTO) 0.4 10^3/uL (1.0-4.0); LYMPHOCYTES % (AUTO) 3 % (12-44); MEAN CORPUSCULAR HEMOGLOBIN 31 pg (25-34); MEAN CORPUSCULAR HGB CONC 33 g/dL (32-36); MEAN CORPUSCULAR VOLUME 94 fL (80-99); MEAN PLATELET VOLUME 10.2 fL (9.0-12.2); MONOCYTES # (AUTO) 0.3 10^3/uL (0.0-1.0); MONOCYTES % (AUTO) 2 % (0-12); NEUTROPHILS # (AUTO) 12.9 10^3/uL (1.8-7.8); NEUTROPHILS % (AUTO) 92 % (42-75); PLATELET COUNT 202 10^3/uL (130-400)
[2021-10-04 07:06] LABS: ALBUMIN 2.8 GM/DL (3.2-4.5); BILIRUBIN,TOTAL 0.9 MG/DL (0.1-1.0); CALCIUM 8.2 MG/DL (8.5-10.1); CREATININE SERUM 1.22 MG/DL (0.60-1.30); POTASSIUM 4.3 MMOL/L (3.6-5.0); TOTAL PROTEIN 5.2 GM/DL (6.4-8.2)
[2021-10-04] MEDS: PANTOPRAZOLE 40 MG (PROTONIX) VIAL IV SCH (08:07)
[2021-10-04] MEDS: meTOprolol TARTRATE 50 MG (LOPRESSOR) TAB PO SCH ×2 (08:14→21:09)
[2021-10-04] MEDS: amLODIPine 10 MG (NORVASC) TAB PO SCH (08:14)
[2021-10-04] MEDS: methylPREDNISolone 125 MG (Solu-MEDROL) VIAL IVP SCH ×2 (08:14→21:07)
[2021-10-04] MEDS: glipiZIDE XL 10 MG (GLUCOTROL XL) TAB PO SCH ×2 (08:14→17:49)
[2021-10-04] MEDS: RANOLAZINE ER 500 MG TAB (RANEXA) PO SCH ×2 (08:14→21:08)
[2021-10-04] MEDS: MULTIVIT W/MINERALS TAB (THERAGRAN M) PO SCH (08:15)
[2021-10-04] MEDS: DOCUSATE SODIUM 10 MG/ML 10 ML UDC (COLACE) PO SCH ×2 (08:15→21:09)
[2021-10-04] MEDS: PIOGLITAZONE 30MG (ACTOS) TAB PO SCH (08:15)
--- NOTE | 2021-10-04 08:58 | Physical Therapy Daily Note ---
PT Daily Note-Current Subjective Patient presented sitting up in bed and is alert and talkative. Patient daughter reports that she thinks he should move to the chair for breakfast and patient agrees to move to the chair. Mental Status Patient Orientation: Person, Confused Attachments: Oxygen (HF NC 10L), Boateng Catheter Transfers SCALE: Activities may be completed with or without assistive devices. 9-Rqhjatsnbd-nwqxjpq completes the activity by him/herself with no assistance from a helper. 5-Set-up or Clean-up Assistance-helper sets up or cleans up; patient completes activity. [place] assists only prior to or following the activity. 4-Supervision or Touching Assistance-helper provides verbal cues and/or touching/steadying and/or contact guard assistance as patient completes activity. Assistance may be provided throughout the activity or intermittently. 3-Partial/Moderate Assistance-helper does LESS THAN HALF the effort. [place] lifts, holds or supports trunk or limbs, but provides less than half the effort. 2-Substantial/Maximal Assistance-helper does MORE THAN HALF the effort. [place] lifts or holds trunk or limbs and provides more than half the effort. 1-Nqbypihcv-ksjesc does ALL the effort. Patient does none of the effort to complete the activity. Or, the assistance of 2 or more helpers is required for the patient to complete the activity. If activity was not attempted, code reason: 7-Patient Refused. 9-Not Applicable-not attempted and the patient did not perform the activity before the current illness, exacerbation or injury. 10-Not Attempted due to Environmental Limitations-(lack of equipment, weather restraints, etc.). 88-Not Attempted due to Medical Conditions or Safety Concerns. Lying to Sitting/Side of Bed(Q: 4 (CGA) Sit to Stand (QC): 3 (min) Chair/Ywo-xg-Quypv Xfer(QC): 3 (min) Gait Training Distance: 50' Walk 10 feet (QC): 3 Walk 50 ft with 2 Turns(QC): 3 Gait Assistive Device: FWW Patient required min assist for ambulation. Patient required assistance with turning his walker and not running into objects. Patient O2 saturation was measured mid walk and never dropped below 98% on 10L of HF NC. Assessment Patient performed bed mobility and ambulated for 50' with min assist. Patient O2 levels were monitored during therapy session and never dropped below 98% on HF NC of 10L. Patient is confused but is alert and willing to perform tasks. PT Short Term Goals Short Term Goals Time Frame: Oct 08, 2021 Roll Left & Right: 5 Sit to lyin Lying to sitting on side of be: 5 Sit to stand: 5 Chair/dnp-gx-huknl transfer: 5 Toilet transfer: 5 Car transfer: 5 Walk 10 feet: 5 Walk 50 feet with two turns: 4 Walk 150 feet: 4 PT Halfway Goals Mattress Weaver Goals PT Halfway Goals Time Frame: Nov 06, 2021 Roll Left & Right (QC): 6 Sit to Lying (QC): 6 Lying-Sitting on Side/Bed(QC): 6 Sit to Stand (QC): 6 Chair/Lvb-qg-Wpuwr Xfer(QC): 6 Toilet Transfer (QC): 6 Car Transfer (QC): 6 Does the Patient Walk: Yes Walk 10 feet (QC): 6 Walk 50ft with 2 Turns (QC): 5 Walk 150 ft (QC): 5 1 Step (curb) (QC): 4 4 Steps (QC): 4 PT Plan Problem List Problem List: Activity Tolerance, Functional Strength, Safety, Balance, Gait, Transfer, Bed Mobility, ROM Treatment/Plan Treatment Plan: Continue Plan of Care Treatment Plan: Bed Mobility, Education, Functional Activity Varun, Functional Strength, Group Therapy, Gait, Safety, Therapeutic Exercise, Transfers Treatment Duration: Nov 05, 2021 Frequency: 6 times per week Estimated Hrs Per Day: .25 hour per day Patient and/or Family Agrees t: Yes Time/GCodes Time In: 810 Time Out: 821 Total Billed Treatment Time: 11 Total Billed Treatment 1 Visit Gait 11 min BRENTON DUNBAR PT Oct 04, 2021 08:58
[2021-10-04] MEDS ORDERED: meTOprolol TARTRATE 50 MG (LOPRESSOR) TAB PO SCH (09:00)
--- NOTE | 2021-10-04 09:21 | Progress Note - Cardiology ---
Cardiology SOAP Progress Note Subjective: Sitting up in recliner at the bedside Daughter at the bedside He is more alert and oriented today More conversive today Episode of chest pain overnight - no c/o this morning Objective: I&O/Vital Signs 10/04/21 10/04/21 10/05/21 10/05/21 22:21 23:37 01:10 02:42 Temp 37.1 Pulse 94 90 85 Resp 23 22 B/P (MAP) 159/77 Pulse Ox 94 91 92 O2 Delivery OxyMask OxyMask O2 Flow Rate 40.00 10.00 10.00 10/05/21 10/05/21 10/05/21 10/05/21 03:58 06:57 07:00 08:00 Temp 36.0 Pulse 81 90 Resp 20 B/P (MAP) 158/73 Pulse Ox 93 90 94 O2 Delivery OxyMask OxyMask High Flow N/C O2 Flow Rate 10.00 10.00 10.00 10/05/21 08:00 Temp 35.6 Pulse 88 Resp 18 B/P (MAP) 148/71 Pulse Ox 91 O2 Delivery Nasal Cannula O2 Flow Rate 10.00 10/05/21 00:00 Intake Total 2040 ml Output Total 1025 ml Balance 1015 ml Constitutional: No AAO x 3; well-developed, well-nourished Respiratory: other (coarse breath sounds) Cardiovascular: regular rate-rhythm, S1 and S2, systolic murmur (soft JESUS at card base) Gastrointestional: No tender; soft; No guarding, No rebound; audible bowel sounds Extremities: No clubbing, No significant edema Neurologic/Psychiatric: No oriented x 3 (oriented to self and place); other (moves all limbs equally) Skin: No rash on exposed areas, No ulcerations on exposed areas Results/Procedures: Labs Laboratory Tests 10/04/21 11:21: Glucometer 205H 10/04/21 16:12: Glucometer 219H 10/04/21 20:43: Glucometer 200H 10/05/21 05:06: White Blood Count 15.7H, Red Blood Count 4.54, Hemoglobin 14.7, Hematocrit 42, Mean Corpuscular Volume 93, Mean Corpuscular Hemoglobin 32, Mean Corpuscular Hemoglobin Concent 35, Red Cell Distribution Width 12.0, Platelet Count 189, Mean Platelet Volume 10.4, Immature Granulocyte % (Auto) 3, Neutrophils (%) (Auto) 93H, Lymphocytes (%) (Auto) 2L, Monocytes (%) (Auto) 2, Eosinophils (%) (Auto) 0, Basophils (%) (Auto) 0, Neutrophils # (Auto) 14.6H, Lymphocytes # (Auto) 0.4L, Monocytes # (Auto) 0.3, Eosinophils # (Auto) 0.0, Basophils # (Auto) 0.0, Immature Granulocyte # (Auto) 0.4H, Sodium Level 139, Potassium Lev el 4.2, Chloride Level 103, Carbon Dioxide Level 22, Anion Gap 14, Blood Urea Nitrogen 42H, Creatinine 1.22, Estimat Glomerular Filtration Rate 58, BUN/Creatinine Ratio 34, Glucose Level 181H, Calcium Level 8.5, Corrected Calcium 9.3, Total Bilirubin 0.9, Aspartate Amino Transf (AST/SGOT) 15, Alanine Aminotransferase (ALT/SGPT) 24, Alkaline Phosphatase 83, Total Protein 5.4L, Albumin 3.0L 10/05/21 06:04: Glucometer 128H Microbiology 09/28/21 MRSA Screen - Final, Complete MRSA not isolated A/P: Assessment: Pneumonia - management per medical/eICU services Confusion Recent (early Sep 2021) ic bleed (subdural and subarachnoid) following a nonsyncopal fall CAD - Pt reports 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 Willett - PTCA of RCA lesion reduced from 80% to approx 40%. 100% occlusion of the LAD and cx. 100% occlusion of a vein graft. Patent CASTRO graft to the LAD with borderline lesion beyond. - Most recent Cardiac cath of 09-08-[address] Conway - severe MVD [place] coronaries including severe in-stent restenosis in the RCA. S/P placement of 3 Synergy JOSHUA with one in the prox vessel, one in the midvessel, and one in the distal vessel (not overlapping). S/P balloon angioplasty of the ostial to prox right PDA which appeared to be too small for stenting. - NSTEMI on 08/17/21, pt followed with Dr Willett. Pt family reports that a subsequent nuclear stress was ok and no card cath or interventions were undertaken Echocardiogram of 08-17-21 showed LVEF 55-65%. Mod concentric hypertrophy. Grade 2 diastolic dysfunction. LA mildly dilated. Mild calcification of mitral valve with mild MR. Mild to mod AoV stenosis Echocardiogram of 09-26-21 showed LVEF 55-65%. Mod concentric hypertrophy. Grade 2 diastolic dysfunction. Mild calcification of mitral valve. Mild to mod AoV stenosis. PASP 25-30 mmHg Chronic angina - Imdur and Ranexa - managed by Dr. 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 Gallo Oncology - multiple skin melanoma removals - most recent to the left side of his face (stitches in place) Back surgeries - Yadav lynette in place Plan: * Continued episodes of angina - we are going to increase his BB regimen to treat episodes of angina - if episodes continue will consider re-addition of long- acting nitrates (previously stopped d/t pt c/o OCAMPO) * He is now taking oral intake * Mentation is improving, will consider increasing ASA to daily starting tomorrow * Discussed with his daughter his CV issues and our treatment plan * Monitor labs * Reviewed Dr. Leung notes from the weekend ERIKA QUESADA Oct 04, 2021 09:21
[2021-10-04] MEDS ORDERED: meTOprolol TARTRATE 50 MG (LOPRESSOR) TAB PO ONE ×2 (10:15→10:30)
--- NOTE | 2021-10-04 10:22 | Occupational Ther Daily Note ---
OT Current Status-Daily Note Subjective Pt alert, sitting in recliner. Pt's daughter present in room. Pt agrees to therapy. Mental Status/Objective Patient Orientation: Person, Unable to Assess ADL-Treatment After set up, pt agrees to sponge bath. Pt able to wash all areas except feet. CGA in standing to cleanse buttocks/stephanie area, 1 LOB noted assist to regain balance. After set up, pt able to complete oral care sitting in recliner. After session, pt sitting in recliner with call light/phone in reach. All needs met in room. Therapy Code Descriptions/Definitions Functional [place] Measure: 0=Not Assessed/NA 4=Minimal Assistance 1=Total Assistance 5=Supervision or Setup 2=Maximal Assistance 6=Modified [place] 3=Moderate Assistance 7=Complete IndependenceSCALE: Activities may be completed with or without assistive devices. 5-Zernspisqz-hipwibh completes the activity by him/herself with no assistance from a helper. 5-Set-up or Clean-up Assistance-helper sets up or cleans up; patient completes activity. [place] assists only prior to or following the activity. 4-Supervision or Touching Assistance-helper provides verbal cues and/or touching/steadying and/or contact guard assistance as patient completes activity. Assistance may be provided throughout the activity or intermittently. 3-Partial/Moderate Assistance-helper does LESS THAN HALF the effort. [place] lifts, holds or supports trunk or limbs, but provides less than half the effort. 2-Substantial/Maximal Assistance-helper does MORE THAN HALF the effort. [place] lifts or holds trunk or limbs and provides more than half the effort. 7-Wdvaxpael-fjzssv does ALL the effort. Patient does none of the effort to complete the activity. Or, the assistance of 2 or more helpers is required for the patient to complete the activity. If activity was not attempted, code reason: 7-Patient Refused. 9-Not Applicable-not attempted and the patient did not perform the activity before the current illness, exacerbation or injury. 10-Not Attempted due to Environmental Limitations-(lack of equipment, weather restraints, etc.). 88-Not Attempted due to Medical Conditions or Safety Concerns. 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 2=Patient will verbalize/demonstrate understanding of assistive devices/modifications for ADL. 3=Patient will improve strength/tolerance for activity to enable patient to perform ADL's. OT Education/Plan Problem List/Assessment Assessment: Impaired Cognition, Impaired Self-Care Skills Discharge Recommendations Plan/Recommendations: Continue POC Treatment Plan/Plan of Care Patient would benefit from OT for education, treatment and training to promote independence in ADL's, mobility, safety and/or upper extremity function for ADL's. Plan of Care: ADL Retraining, Functional Mobility, Group Exercise/Act as Ind, UE Funct Exercise/Act Treatment Duration: Oct 16, 2021 Frequency: 3 times per week Estimated Hrs Per Day: .25 hour per day Rehab Potential: Guarded Time/GCodes Start Time: 09:48 Stop Time: 10:14 Total Time Billed (hr/min): 26 Billed Treatment Time 1 visit-ADL 2 (26 min) YOON ODOM Oct 04, 2021 10:22
--- NOTE | 2021-10-04 11:25 | Progress Note ---
[facility] 10/04/21 1125: Subjective Date Seen by a Provider: Oct 04, 2021 Time Seen by a Provider: 08:00 Subjective/Events-last exam Overall, patient continues to improve Some confusion with questions and requires help from daughter at bedside Eating and swallowing much better Cough and breathing improved WBC currently at 14 (from 16.7) and creatinine at 1.22 (from 1.43) Review of Systems General: No Chills, No Other (fevers) HEENT: Head Aches Pulmonary: No Dyspnea; Other (Requiring O2) Cardiovascular: No: Chest Pain, Palpitations Gastrointestinal: No: Nausea, Vomiting, Abdominal Pain Objective Exam Last Set of Vital Signs Vital Signs Date Time Temp Pulse Resp B/P (MAP) Pulse Ox O2 Delivery O2 Flow Rate FiO2 10/04/21 08:00 High Flow N/C 10.00 10/04/21 07:41 36.2 92 28 161/79 95 10/03/21 20:59 40 Capillary Refill : NONE I&O Intake and Output 10/04/21 00:00 Intake Total 2670 ml Output Total 1800 ml Balance 870 ml Intake Oral 2670 ml Output Urine Total 1800 ml # Bowel Movements 1 General: Alert, Cooperative, No Acute Distress, Other (Disoriented) HEENT: Atraumatic, PERRLA, EOMI, Mucous Memb Moist/[place] Neck: Supple, No JVD Lungs: Normal Air Movement, Other (Minimally coarse in the lower lobes bilaterally. Clear to auscultation in the upper lobes) Heart: Regular Rate, Normal S1, Normal S2 Abdomen: Soft, No Tenderness Extremities: No Clubbing, No Cyanosis Neuro: Normal Speech, Sensation Intact (LE bilaterally) Results Lab Laboratory Tests 10/03/21 11:30: Glucometer 259H 10/03/21 15:39: Glucometer 308H 10/03/21 20:51: Glucometer 232H 10/04/21 05:55: Glucometer 177H 10/04/21 06:00: White Blood Count 14.0H, Red Blood Count 4.27L, Hemoglobin 13.4, Hematocrit 40, Mean Corpuscular Volume 94, Mean Corpuscular Hemoglobin 31, Mean Corpuscular Hemoglobin Concent 33, Red Cell Distribution Width 12.1, Platelet Count 202, Mean Platelet Volume 10.2, Immature Granulocyte % (Auto) 3, Neutrophils (%) (Auto) 92H, Lymphocytes (%) (Auto) 3L, Monocytes (%) (Auto) 2, Eosinophils (%) (Auto) 0, Basophils (%) (Auto) 0, Neutrophils # (Auto) 12.9H, Lymphocytes # (Auto) 0.4L, Monocytes # (Auto) 0.3, Eosinophils # (Auto) 0.0, Basophils # (Auto) 0.0, Immature Granulocyte # (Auto) 0.5H, Sodium Level 139, Potassium Level 4.3, Chloride Level 106, Carbon Dioxide Level 22, Anion Gap 11, Blood Urea Nitrogen 40H, Creatinine 1.22, Estimat Glomerular Filtration Rate 58, BUN/Creatinine Ratio 33, Glucose Level 200H, Calcium Level 8.2L, Corrected Calcium 9.2, Total Bilirubin 0.9, Aspartate Amino Transf (AST/SGOT) 16, Alanine Aminotransferase (ALT/SGPT) 24, Alkaline Phosphatase 77, Total Protein 5.2L, Albumin 2.8L Microbiology 09/28/21 MRSA Screen - Final, Complete MRSA not isolated Assessment/Plan Assessment/Plan Assess & Plan/Chief Complaint Assessment: Moderate to severe dysphagia Hypoxia with exertion Pneumonia started on cefepime 09/27/2021 but worsened on CXR and clinically requiring transfer to ICU 09/28/21 SAH Subdural hematoma Recent NSTEMI 08/18/21 holding Plavix and aspirin and consulting Dr. Rosales restarting aspirin 81 mg every 48 hours on 09/26/2021 CAD CKD3 DM2 HTN HLD GERD Hiatal hernia RODY Prostate cancer Confusion Leukocytosis Subarachnoid headache Plan: Awaiting acceptance at [facility] in [place] Continue bipap or nasal cannula as needed Puree diet Continue IV abx DNR Appreciate Cardiology - increased BB to treat angina and hypertension Clinical Quality Measures DVT/VTE Risk/Contraindication: Contraindications-Pharm: Other *list below* Other: recent SAH OPAL LEROY DO 10/05/21 0521: Subjective Subjective/Events-last exam [facility] He uses oxygen at nasal cannula, then BiPAP and then oxymask Overall doing very well Poor prognosis 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 Clear to auscultation in the upper lobes) Heart: Regular Rate Assessment/Plan Assessment/Plan Assess & Plan/Chief Complaint Supportive care monitor labs USP at discharge Supervisory-Addendum Brief Verification & Attestation Participated in pt care: history, MDM, physical Personally performed: exam, history, MDM, supervision of care Care discussed with: Medical Student Procedures: n/a Results interpretation: Verified all documentation Verification and Attestation of Medical Student E/M Service A medical student performed and documented this service in my presence. I reviewed and verified all information documented by the medical student and made modifications to such information, when appropriate. I personally performed the physical exam and medical decision making. Opal Leroy, Oct 05, 2021,05:20 [facility] Oct 04, 2021 11:25 OPAL LEROY DO Oct 05, 2021 05:21
--- NOTE | 2021-10-04 12:20 | Speech Therapy Daily Note ---
Speech Daily Progress Note Subjective Date Seen by Provider: Oct 04, 2021 Time Seen by Provider: 08:33 The patient was seated upright in a recliner upon entrance to his room. The patient's daughter, Henny, is present at bedside. The patient greeted the clinician appropriately and was agreeable to participation in the dysphagia treatment session. Per Henny, the patient had "a rough day on Monday," however, has done "very well" since that time. The patient attempted to discuss Monday with the clinician, however, displayed difficulty with word-finding throughout the treatment session. Objective The patient has his breakfast tray present, therefore, items were re-assessed for safety by this clinician. The patient was agreeable to sips of orange juice, however, politely declined additional PO items. The patient independently sipped from the side of the cup, displaying appropriate small drink size. Overt s/s of suspected aspiration were not demonstrated and the patient's vocal quality remained clear. The clinician discussed and demonstrated the effortful swallow with the patient. With moderate verbal prompting and direct modeling, the patient was able to complete three effortful swallows throughout the treatment session. The exercise was discussed and demonstrated with the patient's daughter as well. The patient was encouraged to practice the exercise throughout the day, consuming small sips of honey-thick liquid (if necessary) to trigger the swallow response. The patient continues to display excellent compliance and progress with speech pathology. Assessment Assessment Current Status: Good Progress Treatment Plan Continue Plan of Care Speech Short Term Goals Short Term Goals Short Term Goals 1. The patient will tolerate trials of the least restricted consistency without s/s of suspected aspiration (clinical or medical) with 90% accuracy. 2. The patient will repeat short phrases with 80% accuracy and mild clinician verbal cueing. Speech Mechanical Project Engineer Goals Pen[facility]iary Goals 1. The patient will tolerate the least restrictive diet consistency without s/s of suspected aspiration (clinical or medical) with 90% accuracy or greater. 2. The patient will display improved expressive communication for safe discharge to the least restrictive environment. Speech-Plan Treatment Plan Speech Therapy Treatment Plan: Continue Plan of Care Treatment Duration: Oct 13, 2021 Frequency: 3 times per week (Three to four times per week.) Estimated Hrs Per Day: .25 hour per day Rehab Potential: Guarded Pt/Family Agrees to Plan: Yes Safety Risks/Education Teaching Recipient: Patient, Family Teaching Methods: Demonstration, Discussion Response to Teaching: Verbalize Understanding, Return Demonstration, Reinforcement Needed Education Topics Provided: Effortful Swallow Exercise, Plan of Care, Safe Swallowing Strategies Time Speech Therapy Time In: 08:33 Speech Therapy Time Out: 08:50 Total Billed Time: 17 Billed Treatment Time 1, MASSIEL Adkins Oct 04, 2021 12:20
--- NOTE | 2021-10-04 14:45 | Progress Note - Cardiology ---
Cardiology SOAP Progress Note Subjective: No cp (but had it over the weekend) or palp or syncope or shortness of breath at rest No n/v/d Gen weakness Feels better than before Objective: I&O/Vital Signs 10/04/21 10/04/21 10/04/21 10/04/21 04:37 07:00 07:28 07:41 Temp 36.0 36.2 Pulse 98 91 92 Resp 20 28 B/P (MAP) 153/78 161/79 Pulse Ox 95 92 95 O2 Delivery OxyMask OxyMask High Flow N/C O2 Flow Rate 10.00 10.00 10.00 10/04/21 10/04/21 10/04/21 08:00 11:21 11:24 Temp 36.1 Pulse 89 Resp 24 B/P (MAP) 161/67 Pulse Ox 94 92 O2 Delivery High Flow N/C High Flow N/C High Flow N/C O2 Flow Rate 10.00 10.00 10.00 10/04/21 00:00 Intake Total 2520 ml Output Total 1000 ml Balance 1520 ml Constitutional: AAO x 3, well-developed, well-nourished Respiratory: other (coarse breath sounds) Cardiovascular: regular rate-rhythm, S1 and S2, systolic murmur (soft JESUS at card base) Gastrointestional: No tender; soft; No guarding, No rebound; audible bowel sounds Extremities: No clubbing, No significant edema Neurologic/Psychiatric: No oriented x 3 (oriented to self and place); other (moves all limbs equally) Skin: No rash on exposed areas, No ulcerations on exposed areas Results/Procedures: Labs Laboratory Tests 10/03/21 15:39: Glucometer 308H 10/03/21 20:51: Glucometer 232H 10/04/21 05:55: Glucometer 177H 10/04/21 06:00: White Blood Count 14.0H, Red Blood Count 4.27L, Hemoglobin 13.4, Hematocrit 40, Mean Corpuscular Volume 94, Mean Corpuscular Hemoglobin 31, Mean Corpuscular Hemoglobin Concent 33, Red Cell Distribution Width 12.1, Platelet Count 202, Mean Platelet Volume 10.2, Immature Granulocyte % (Auto) 3, Neutrophils (%) (Auto) 92H, Lymphocytes (%) (Auto) 3L, Monocytes (%) (Auto) 2, Eosinophils (%) (Auto) 0, Basophils (%) (Auto) 0, Neutrophils # (Auto) 12.9H, Lymphocytes # (Auto) 0.4L, Monocytes # (Auto) 0.3, Eosinophils # (Auto) 0.0, Basophils # (Auto) 0.0, Immature Granulocyte # (Auto) 0.5H, Sodium Level 139, Potassium Level 4.3, Chloride Level 106, Carbon Dioxide Level 22, Anion Gap 11, Blood Urea Nitrogen 40H, Creatinine 1.22, Estimat Glomerular Filtration Rate 58, B UN/Creatinine Ratio 33, Glucose Level 200H, Calcium Level 8.2L, Corrected Calcium 9.2, Total Bilirubin 0.9, Aspartate Amino Transf (AST/SGOT) 16, Alanine Aminotransferase (ALT/SGPT) 24, Alkaline Phosphatase 77, Total Protein 5.2L, Albumin 2.8L 10/04/21 11:21: Glucometer 205H Microbiology 09/28/21 MRSA Screen - Final, Complete MRSA not isolated A/P: Assessment: Pneumonia - management per medical/eICU services Confusion, improving Recent (early Sep 2021) ic bleed (subdural and subarachnoid) following a nonsyncopal fall CAD - Pt reports 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 Willett - PTCA of RCA lesion reduced from 80% to approx 40%. 100% occlusion of the LAD and cx. 100% occlusion of a vein graft. Patent CASTRO graft to the LAD with borderline lesion beyond. - Most recent Cardiac cath of 09-08-[address] Conway - severe MVD [place] coronaries including severe in-stent restenosis in the RCA. S/P placement of 3 Synergy JOSHUA with one in the prox vessel, one in the midvessel, and one in the distal vessel (not overlapping). S/P balloon angioplasty of the ostial to prox right PDA which appeared to be too small for stenting. - NSTEMI on 08/17/21, pt followed with Dr Willett. Pt family reports that a subsequent nuclear stress was ok and no card cath or interventions were undertaken Echocardiogram of 08-17-21 showed LVEF 55-65%. Mod concentric hypertrophy. Grade 2 diastolic dysfunction. LA mildly dilated. Mild calcification of mitral valve with mild MR. Mild to mod AoV stenosis Echocardiogram of 09-26-21 showed LVEF 55-65%. Mod concentric hypertrophy. Grade 2 diastolic dysfunction. Mild calcification of mitral valve. Mild to mod AoV stenosis. PASP 25-30 mmHg Chronic angina - Imdur and Ranexa - managed by Dr. 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 Gallo Oncology - multiple skin melanoma removals - most recent to the left side of his face (stitches in place) Back surgeries - Yadav lynette in place Plan: * Continued episodes of angina - we are going to increase his BB regimen to treat episodes of angina - if episodes continue will consider re-addition of long- acting nitrates (previously stopped d/t pt c/o OCAMPO) * He is now taking oral intake * Mentation is improving, will consider increasing ASA to daily starting tomorrow * Discussed with his daughter his CV issues and our treatment plan * Monitor labs * Reviewed Dr. Leung notes from the weekend STACEY STEVENSON MD FACP FAC CCDS Oct 04, 2021 14:45
[2021-10-04] MEDS: SERTRALINE 100 MG (ZOLOFT) TAB PO SCH (21:08)
[2021-10-04] MEDS: diphenhydrAMINE 25 MG TAB (BENADRYL) PO SCH (21:08)
[2021-10-04] MEDS: IMIPRAMINE 10 MG PO SCH (21:08)
[2021-10-04] MEDS: busPIRone 10 MG (BUSPAR) TAB PO SCH (21:09)
[2021-10-05] MEDS: RT-ALBUTEROL/IPRATROPIUM 3 ML (DUONEB) VIAL INH SCH ×6 (02:42→23:53)
[2021-10-05 05:24] LABS: BASOPHILS % (AUTO) 0 % (0-10); EOSINOPHILS % (AUTO) 0 % (0-10); HEMATOCRIT 42 % (40-54); HEMOGLOBIN 14.7 g/dL (13.3-17.7); LYMPHOCYTES # (AUTO) 0.4 10^3/uL (1.0-4.0); LYMPHOCYTES % (AUTO) 2 % (12-44); MEAN CORPUSCULAR HEMOGLOBIN 32 pg (25-34); MEAN CORPUSCULAR HGB CONC 35 g/dL (32-36); MEAN CORPUSCULAR VOLUME 93 fL (80-99); MEAN PLATELET VOLUME 10.4 fL (9.0-12.2); MONOCYTES # (AUTO) 0.3 10^3/uL (0.0-1.0); MONOCYTES % (AUTO) 2 % (0-12); NEUTROPHILS # (AUTO) 14.6 10^3/uL (1.8-7.8); NEUTROPHILS % (AUTO) 93 % (42-75); PLATELET COUNT 189 10^3/uL (130-400); WHITE BLOOD COUNT 15.7 10^3/uL (4.3-11.0)
[2021-10-05 05:44] LABS: BILIRUBIN,TOTAL 0.9 MG/DL (0.1-1.0); CALCIUM 8.5 MG/DL (8.5-10.1); CREATININE SERUM 1.22 MG/DL (0.60-1.30); POTASSIUM 4.2 MMOL/L (3.6-5.0); TOTAL PROTEIN 5.4 GM/DL (6.4-8.2)
[2021-10-05] MEDS: inSUlin ASPART (NovoLOG) 1 UNIT/0.01 ML (CHARGE PER UNIT) SC SCH ×4 (06:05→20:39)
[2021-10-05] MEDS: methylPREDNISolone 125 MG (Solu-MEDROL) VIAL IVP SCH (08:16)
[2021-10-05] MEDS: glipiZIDE XL 10 MG (GLUCOTROL XL) TAB PO SCH ×3 (08:16→17:25)
[2021-10-05] MEDS: PANTOPRAZOLE 40 MG (PROTONIX) VIAL IV SCH (08:16)
[2021-10-05] MEDS: DOCUSATE SODIUM 10 MG/ML 10 ML UDC (COLACE) PO SCH ×3 (08:16→19:33)
[2021-10-05] MEDS: MULTIVIT W/MINERALS TAB (THERAGRAN M) PO SCH ×2 (08:16→08:32)
[2021-10-05] MEDS: RANOLAZINE ER 500 MG TAB (RANEXA) PO SCH ×2 (08:16→20:37)
[2021-10-05] MEDS: amLODIPine 10 MG (NORVASC) TAB PO SCH ×2 (08:17→08:33)
[2021-10-05] MEDS: meTOprolol TARTRATE 50 MG (LOPRESSOR) TAB PO SCH ×3 (08:17→20:38)
[2021-10-05] MEDS: PIOGLITAZONE 30MG (ACTOS) TAB PO SCH ×2 (08:17→08:32)
[2021-10-05] MEDS: VITAMIN D2 1.25 MG (50,000 UNITS) CAP PO SCH (08:33)
[2021-10-05] MEDS: HYDROcodone/APAP 5 MG/325 MG (LORTAB) TAB PO PRN (10:08)
--- NOTE | 2021-10-05 10:11 | Physical Therapy Daily Note ---
PT Daily Note-Current Subjective Patient presents in bed and agrees to participate in therapy. Patient reports that his head is hurting pretty bad. Mental Status Patient Orientation: Person, Situation Attachments: Oxygen (HF NC 10L), [place] Catheter Transfers SCALE: Activities may be completed with or without assistive devices. 0-Xnfsbojzfz-wucfgkq completes the activity by him/herself with no assistance from a helper. 5-Set-up or Clean-up Assistance-helper sets up or cleans up; patient completes activity. [place] assists only prior to or following the activity. 4-Supervision or Touching Assistance-helper provides verbal cues and/or touching/steadying and/or contact guard assistance as patient completes activity. Assistance may be provided throughout the activity or intermittently. 3-Partial/Moderate Assistance-helper does LESS THAN HALF the effort. [place] lifts, holds or supports trunk or limbs, but provides less than half the effort. 2-Substantial/Maximal Assistance-helper does MORE THAN HALF the effort. [place] lifts or holds trunk or limbs and provides more than half the effort. 9-Oyhskzzgl-vvfxzi does ALL the effort. Patient does none of the effort to complete the activity. Or, the assistance of 2 or more helpers is required for the patient to complete the activity. If activity was not attempted, code reason: 7-Patient Refused. 9-Not Applicable-not attempted and the patient did not perform the activity before the current illness, exacerbation or injury. 10-Not Attempted due to Environmental Limitations-(lack of equipment, weather restraints, etc.). 88-Not Attempted due to Medical Conditions or Safety Concerns. Lying to Sitting/Side of Bed(Q: 4 (SBA) Sit to Stand (QC): 3 (min) Gait Training Does the Patient Walk?: Yes Distance: 25' Walk 10 feet (QC): 4 Gait Assistive Device: FWW Assessment Patient ambulated within his room for 25' with FWW and CGA. Patient reported that his head hurt while he was walking. Patient had bent over posture and head down while ambulating. Patient reports that he felt slightly dizzy after ambulating within his room. PT Short Term Goals Short Term Goals Time Frame: Oct 08, 2021 Roll Left & Right: 5 Sit to lyin Lying to sitting on side of be: 5 Sit to stand: 5 Chair/hgp-no-tmtwn transfer: 5 Toilet transfer: 5 Car transfer: 5 Walk 10 feet: 5 Walk 50 feet with two turns: 4 Walk 150 feet: 4 PT Fci Goals Fci Goals PT Fci Goals Time Frame: Nov 06, 2021 Roll Left & Right (QC): 6 Sit to Lying (QC): 6 Lying-Sitting on Side/Bed(QC): 6 Sit to Stand (QC): 6 Chair/Ftf-by-Sojnn Xfer(QC): 6 Toilet Transfer (QC): 6 Car Transfer (QC): 6 Does the Patient Walk: Yes Walk 10 feet (QC): 6 Walk 50ft with 2 Turns (QC): 5 Walk 150 ft (QC): 5 1 Step (curb) (QC): 4 4 Steps (QC): 4 PT Plan Problem List Problem List: Activity Tolerance, Functional Strength, Safety, Balance, Gait, Transfer, Bed Mobility, ROM Treatment/Plan Treatment Plan: Continue Plan of Care Treatment Plan: Bed Mobility, Education, Functional Activity Varun, Functional Strength, Group Therapy, Gait, Safety, Therapeutic Exercise, Transfers Treatment Duration: Nov 05, 2021 Frequency: 6 times per week Estimated Hrs Per Day: .25 hour per day Patient and/or Family Agrees t: Yes Time/GCodes Time In: 950 Time Out: 1001 Total Billed Treatment Time: 11 Total Billed Treatment 1 Visit Gait 11 min BRENTON DUNBAR PT Oct 05, 2021 10:11
--- NOTE | 2021-10-05 10:12 | Progress Note - Cardiology ---
Cardiology SOAP Progress Note Subjective: Much more alert today C/O OCAMPO No c/o CP or SOB Daughter at the bedside Objective: I&O/Vital Signs 10/05/21 10/06/21 10/06/21 10/06/21 20:39 00:18 02:15 04:43 Temp 36.2 36.3 Pulse 82 75 Resp 20 18 B/P (MAP) 158/75 131/70 Pulse Ox 97 95 95 O2 Delivery High Flow N/C High Flow N/C High Flow N/C High Flow N/C O2 Flow Rate 10.00 10.00 10.00 10.00 10/06/21 10/06/21 06:59 08:00 Temp 35.8 Pulse 74 Resp 18 B/P (MAP) 120/56 Pulse Ox 96 96 O2 Delivery OxyMask High Flow N/C O2 Flow Rate 9.00 8.00 10/06/21 00:00 Intake Total 780 ml Output Total 225 ml Balance 555 ml Constitutional: AAO x 3, well-developed, well-nourished Respiratory: other (coarse breath sounds) Cardiovascular: regular rate-rhythm, S1 and S2, systolic murmur (soft JESUS at card base) Gastrointestional: No tender; soft; No guarding, No rebound; audible bowel sounds Extremities: No clubbing, No significant edema Neurologic/Psychiatric: No oriented x 3 (oriented to self and place); other (moves all limbs equally) Skin: No rash on exposed areas, No ulcerations on exposed areas Results/Procedures: Labs Laboratory Tests 10/05/21 10:56: Glucometer 172H 10/05/21 15:38: Glucometer 210H 10/05/21 20:16: Glucometer 222H 10/06/21 04:54: White Blood Count 18.6H, Red Blood Count 4.36, Hemoglobin 13.7, Hematocrit 41, Mean Corpuscular Volume 93, Mean Corpuscular Hemoglobin 31, Mean Corpuscular Hemoglobin Concent 34, Red Cell Distribution Width 11.9, Platelet Count 173, Mean Platelet Volume 10.5, Immature Granulocyte % (Auto) 3, Neutrophils (%) (Auto) 86H, Lymphocytes (%) (Auto) 5L, Monocytes (%) (Auto) 6, Eosinophils (%) (Auto) 0, Basophils (%) (Auto) 0, Neutrophils # (Auto) 15.9H, Lymphocytes # (Auto) 0.9L, Monocytes # (Auto) 1.1H, Eosinophils # (Auto) 0.0, Basophils # (Auto) 0.1, Immature Granulocyte # (Auto) 0.6H, Sodium Level 139, Potassium Level 3.6, Chloride Level 104, Carbon Dioxide Level 24, Anion Gap 11, Blood Urea Nitrogen 40H, Creatinine 1.11, Estimat Glomerular Filtration Rate 65, BUN/Creatinine Ratio 36, Glucose Level 73, Calcium Level 8.1L, Corrected Calcium 9.1, Total Bilirubin 0.8, Aspartate Amino Transf (AST/SGOT) 17, Alanine Aminotransferase (ALT/SGPT) 21, Alkaline Phosphatase 76, Total Protein 4.6L, Albumin 2.7L 10/06/21 05:44: Glucometer 62L Microbiology 09/28/21 MRSA Screen - Final, Complete MRSA not isolated A/P: Assessment: Pneumonia - management per medical/eICU services Confusion, improving Recent (early Sep 2021) ic bleed (subdural and subarachnoid) following a nonsyncopal fall CAD - Pt reports 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 Willett - PTCA of RCA lesion reduced from 80% to approx 40%. 100% occlusion of the LAD and cx. 100% occlusion of a vein graft. Patent CASTRO graft to the LAD with borderline lesion beyond. - Most recent Cardiac cath of 09-08-[address] Conway - severe MVD [place] coronaries including severe in-stent restenosis in the RCA. S/P placement of 3 Synergy JOSHUA with one in the prox vessel, one in the midvessel, and one in the distal vessel (not overlapping). S/P balloon angioplasty of the ostial to prox right PDA which appeared to be too small for stenting. - NSTEMI on 08/17/21, pt followed with Dr Willett. Pt family reports that a subsequent nuclear stress was ok and no card cath or interventions were undertaken Echocardiogram of 08-17-21 showed LVEF 55-65%. Mod concentric hypertrophy. Grade 2 diastolic dysfunction. LA mildly dilated. Mild calcification of mitral valve with mild MR. Mild to mod AoV stenosis Echocardiogram of 09-26-21 showed LVEF 55-65%. Mod concentric hypertrophy. Grade 2 diastolic dysfunction. Mild calcification of mitral valve. Mild to mod AoV stenosis. PASP 25-30 mmHg Chronic angina - Imdur and Ranexa - managed by Dr. 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 Gallo Oncology - multiple skin melanoma removals - most recent to the left side of his face (stitches in place) Back surgeries - Yadav lynette in place Plan: * No further c/o angina since increasing BB dose - however, if he develops recurrent angina will consider re-introducing long-acting nitrates (previously stopped d/t OCAMPO) * Mentation is improving, advise increasing ASA to daily (daughter would like to discuss with Dr. Rosales prior to dose increase) * Discussed with his daughter his CV issues and our treatment plan * Monitor labs * Reviewed Dr. Leung notes from the weekend ERIKA QUESADA Oct 05, 2021 10:12
[2021-10-05] MEDS ORDERED: HYDROmorphone (DILAUDID) 2 MG TAB PO PRN (10:15)
--- NOTE | 2021-10-05 11:22 | Progress Note ---
CLARIS[facility]UERLINE [facility] 10/05/21 1122: Subjective Date Seen by a Provider: Oct 05, 2021 Time Seen by a Provider: 08:30 Subjective/Events-last exam Continues to make small improvements Consumed entire meal without issues Much improved lungs and mentation Headaches still come and go Review of Systems General: No Chills, No Other (fevers) HEENT: Head Aches Pulmonary: Dyspnea (requiring O2), Cough (Improved) Cardiovascular: No: Chest Pain, Palpitations Gastrointestinal: No: Nausea, Vomiting, Abdominal Pain Objective Exam Last Set of Vital Signs Vital Signs Date Time Temp Pulse Resp B/P (MAP) Pulse Ox O2 Delivery O2 Flow Rate FiO2 10/05/21 10:38 93 OxyMask 10.00 10/05/21 08:00 35.6 88 18 148/71 10/03/21 20:59 40 Capillary Refill : NONE I&O Intake and Output 10/05/21 00:00 Intake Total 2280 ml Output Total 1725 ml Balance 555 ml Intake Oral 2280 ml Output Urine Total 1725 ml # Bowel Movements 1 General: Alert, Cooperative, No Acute Distress HEENT: Atraumatic, PERRLA, Mucous Memb Moist/[place] Neck: Supple, No JVD Lungs: Clear to Auscultation (Lower lung more sound coarse (minimally)), Normal Air Movement Heart: Regular Rate, Normal S1, Normal S2 Abdomen: Normal Bowel Sounds, Soft, No Tenderness Extremities: No Clubbing, No Cyanosis, No Tenderness/Swelling (In calves) Neuro: Normal Speech, Other (LE sensation intact bilaterally) Psych/Mental Status: Mental Status NL, Mood NL Results Lab Laboratory Tests 10/04/21 11:21: Glucometer 205H 10/04/21 16:12: Glucometer 219H 10/04/21 20:43: Glucometer 200H 10/05/21 05:06: White Blood Count 15.7H, Red Blood Count 4.54, Hemoglobin 14.7, Hematocrit 42, Mean Corpuscular Volume 93, Mean Corpuscular Hemoglobin 32, Mean Corpuscular Hemoglobin Concent 35, Red Cell Distribution Width 12.0, Platelet Count 189, Mean Platelet Volume 10.4, Immature Granulocyte % (Auto) 3, Neutrophils (%) (Auto) 93H, Lymphocytes (%) (Auto) 2L, Monocytes (%) (Auto) 2, Eosinophils (%) (Auto) 0, Basophils (%) (Auto) 0, Neutrophils # (Auto) 14.6H, Lymphocytes # (Auto) 0.4L, Monocytes # (Auto) 0.3, Eosinophils # (Auto) 0.0, Basophils # (Auto) 0.0, Immature Granulocyte # (Auto) 0.4H, Sodium Level 139, Potassium Level 4.2, Chloride Level 103, Carbon Dioxide Level 22, Anion Gap 14, Blood Urea Nitrogen 42H, Creatinine 1.22, Estimat Glomerular Filtration Rate 58, BUN/Creatinine Ratio 34, Glucose Level 181H, Calcium Level 8.5, Corrected Calcium 9.3, Total Bilirubin 0.9, Aspartate Amino Transf (AST/SGOT) 15, Alanine Aminotransferase (ALT/SGPT) 24, Alkaline Phosphatase 83, Total Protein 5.4L, Albumin 3.0L 10/05/21 06:04: Glucometer 128H 10/05/21 10:56: Glucometer 172H Microbiology 09/28/21 MRSA Screen - Final, Complete MRSA not isolated Assessment/Plan Assessment/Plan Assess & Plan/Chief Complaint Assessment: Moderate to severe dysphagia (improving) Hypoxia with exertion Pneumonia started on cefepime 09/27/2021 but worsened on CXR and clinically requiring transfer to ICU 09/28/21 SAH Subdural hematoma Recent NSTEMI 08/18/21 holding Plavix and aspirin and consulting Dr. Rosales restarting aspirin 81 mg every 48 hours on 09/26/2021 CAD CKD3 DM2 HTN HLD GERD Hiatal hernia RODY Prostate cancer Confusion Leukocytosis Subarachnoid headache Plan: D/C [place] Possibly restart ASA tomorrow (10/06) [facility] Will [facility] Monday DC nitrates, could be related to headaches Pain medication as needed for headaches Continue bipap or nasal cannula as needed Puree diet DNR Appreciate Cardiology - increased BB to treat angina and hypertension Clinical Quality Measures DVT/VTE Risk/Contraindication: Contraindications-Pharm: Other *list below* Other: recent SAH OPAL AVITIA DO 10/06/21 0531: Subjective Subjective/Events-last exam Pt is doing about the same Having a subarachnoid headache Eating well Lungs are clear retirement placement on Monday Review of Systems General: Fatigue, Malaise Objective Exam General: Alert, Cooperative, No Acute Distress Lungs: Clear to Auscultation (Lower lung more sound coarse (minimally)), Normal Air Movement Psych/Mental Status: Mood NL Assessment/Plan Assessment/Plan Assess & Plan/Chief Complaint retirement tomorrow Supervisory-Addendum Brief Verification & Attestation Participated in pt care: history, MDM, physical Personally performed: exam, history, MDM, supervision of care Care discussed with: Medical Student Procedures: n/a Results interpretation: Verified all documentation Verification and Attestation of Medical Student E/M Service A medical student performed and documented this service in my presence. I reviewed and verified all information documented by the medical student and made modifications to such information, when appropriate. I personally performed the physical exam and medical decision making. Opal Avitia, Oct 06, 2021,05:[address] [facility] Oct 05, 2021 11:22 OPAL AVITIA DO Oct 06, 2021 05:31
--- NOTE | 2021-10-05 11:49 | Occupational Ther Daily Note ---
OT Current Status-Daily Note Subjective Denies pain, but does report feelings of dizziness with transitions. Appearance Left sitting in recliner, all needs within reach, family in room. Mental Status/Objective Patient Orientation: Person, Confused Attachments: IV, Oxygen ADL-Treatment Therapy Code Descriptions/Definitions Functional [place] Measure: 0=Not Assessed/NA 4=Minimal Assistance 1=Total Assistance 5=Supervision or Setup 2=Maximal Assistance 6=Modified [place] 3=Moderate Assistance 7=Complete IndependenceSCALE: Activities may be completed with or without assistive devices. 1-Zydmdiyjlh-eekmaae completes the activity by him/herself with no assistance from a helper. 5-Set-up or Clean-up Assistance-helper sets up or cleans up; patient completes activity. [place] assists only prior to or following the activity. 4-Supervision or Touching Assistance-helper provides verbal cues and/or touching/steadying and/or contact guard assistance as patient completes activity. Assistance may be provided throughout the activity or intermittently. 3-Partial/Moderate Assistance-helper does LESS THAN HALF the effort. [place] lifts, holds or supports trunk or limbs, but provides less than half the effort. 2-Substantial/Maximal Assistance-helper does MORE THAN HALF the effort. [place] lifts or holds trunk or limbs and provides more than half the effort. 2-Lwbyvytqs-erzgll does ALL the effort. Patient does none of the effort to complete the activity. Or, the assistance of 2 or more helpers is required for the patient to complete the activity. If activity was not attempted, code reason: 7-Patient Refused. 9-Not Applicable-not attempted and the patient did not perform the activity before the current illness, exacerbation or injury. 10-Not Attempted due to Environmental Limitations-(lack of equipment, weather restraints, etc.). 88-Not Attempted due to Medical Conditions or Safety Concerns. Oral Hygiene (QC): 4 Pt supine in bed at OT arrival. Supine>sit: CGA, cues to utilize bedrails as needed. Sit<>stand: CGA. Pt c/o dizziness with all transitions, does not recover with rest. He ambulated ~5 feet to chair with Min a and use of walker, cues for walker management. While sitting in chair, he performed oral care. Cues to spit and for completion of task. Family reports pt will d/c to [facility] tomorrow. Education OT Patient Education: Correct positioning, Modified ADL techniques, Progress toward Goal/Update tx plan, Purpose of tx/functional activities, Safety issues, Transfer techniques Teaching Recipient: Patient, Family Teaching Methods: Discussion Response to Teaching: Verbalize Understanding, Reinforcement Needed OT Senior Care Goals Felt Dyeing Machine Tender Goals Time Frame: Oct 16, 2021 Oral Hygiene (QC): 4 Toileting Hygiene (QC): 4 Shower/Bathe Self (QC): 4 Upper Body Dressing (QC): 4 Lower Body Dressing (QC): 4 On/Off Footwear (QC): 4 1=Demonstrate adherence to instructed precautions during ADL tasks. 2=Patient will verbalize/demonstrate understanding of assistive devices/modifications for ADL. 3=Patient will improve strength/tolerance for activity to enable patient to perform ADL's. OT Education/Plan Problem List/Assessment Assessment: Decreased Activ Tolerance, Decreased Safety Aware, Decreased UE Strength, Impaired Cognition, Impaired Funct Balance, Impaired I ADL's, Impaired Self-Care Skills Discharge Recommendations Plan/Recommendations: Continue POC Therapy Discharge Recommendati: 24 Hour Supervision, Post Acute OT Treatment Plan/Plan of Care Treatment,Training & Education: Yes Patient would benefit from OT for education, treatment and training to promote independence in ADL's, mobility, safety and/or upper extremity function for ADL's. Plan of Care: ADL Retraining, Functional Mobility, Group Exercise/Act as Ind, UE Funct Exercise/Act Treatment Duration: Oct 16, 2021 Frequency: 3 times per week Estimated Hrs Per Day: .25 hour per day Rehab Potential: Guarded Time/GCodes Start Time: 11:29 Stop Time: 11:42 Total Time Billed (hr/min): 13 Billed Treatment Time 1 visit ADL Gabrielle Joyner OT Oct 05, 2021 11:49
[2021-10-05] MEDS: ASPIRIN 81 MG CHEW (CHILDREN'S ASA) PO SCH (11:52)
--- NOTE | 2021-10-05 15:15 | Progress Note - Cardiology ---
Cardiology SOAP Progress Note Subjective: Gen weakness and malaise present but improving No cp or palp or syncope No shortness of breath at rest No n/v/d Objective: I&O/Vital Signs 10/05/21 10/05/21 10/05/21 10/05/21 03:58 06:57 07:00 08:00 Temp 36.0 Pulse 81 90 Resp 20 B/P (MAP) 158/73 Pulse Ox 93 90 94 O2 Delivery OxyMask OxyMask High Flow N/C O2 Flow Rate 10.00 10.00 10.00 10/05/21 10/05/21 10/05/21 08:00 10:38 11:48 Temp 35.6 34.5 Pulse 88 87 Resp 18 20 B/P (MAP) 148/71 154/70 Pulse Ox 91 93 95 O2 Delivery Nasal Cannula OxyMask Nasal Cannula O2 Flow Rate 10.00 10.00 10.00 10/05/21 00:00 Intake Total 2040 ml Output Total 1025 ml Balance 1015 ml Constitutional: AAO x 3, well-developed, well-nourished Respiratory: other (coarse breath sounds) Cardiovascular: regular rate-rhythm, S1 and S2, systolic murmur (soft JESUS at card base) Gastrointestional: No tender; soft; No guarding, No rebound; audible bowel sounds Extremities: No clubbing, No significant edema Neurologic/Psychiatric: No oriented x 3 (oriented to self and place); other (moves all limbs equally) Skin: No rash on exposed areas, No ulcerations on exposed areas Results/Procedures: Labs Laboratory Tests 10/04/21 16:12: Glucometer 219H 10/04/21 20:43: Glucometer 200H 10/05/21 05:06: White Blood Count 15.7H, Red Blood Count 4.54, Hemoglobin 14.7, Hematocrit 42, Mean Corpuscular Volume 93, Mean Corpuscular Hemoglobin 32, Mean Corpuscular Hemoglobin Concent 35, Red Cell Distribution Width 12.0, Platelet Count 189, Mean Platelet Volume 10.4, Immature Granulocyte % (Auto) 3, Neutrophils (%) (Auto) 93H, Lymphocytes (%) (Auto) 2L, Monocytes (%) (Auto) 2, Eosinophils (%) (Auto) 0, Basophils (%) (Auto) 0, Neutrophils # (Auto) 14.6H, Lymphocytes # (Auto) 0.4L, Monocytes # (Auto) 0.3, Eosinophils # (Auto) 0.0, Basophils # (Auto) 0.0, Immature Granulocyte # (Auto) 0.4H, Sodium Level 139, Potassium Level 4.2, Chloride Level 103, Carbon Dioxide Level 22, Anion Gap 14, Blood Urea Nitrogen 42H, Creatinine 1.22, Estimat Glomerular Filtration Rate 58, BUN/Creatinine Ratio 34, Glucose Level 181H, Calcium Level 8.5, Corrected Calcium 9.3, Total Bilirubin 0.9, Aspartate Amino Transf (AST/SGOT) 15, Alanine Aminotransferase (ALT/SGPT) 24, Alkaline Phosphatase 83, Total Protein 5.4L, Albumin 3.0L 10/05/21 06:04: Glucometer 128H 10/05/21 10:56: Glucometer 172H Microbiology 09/28/21 MRSA Screen - Final, Complete MRSA not isolated Laboratory Tests 10/04/21 06:00 10/05/21 05:06 A/P: Assessment: Pneumonia - management per medical/eICU services Confusion, improving Recent (early Sep 2021) ic bleed (subdural and subarachnoid) following a nonsyncopal fall CAD - Pt reports 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 Willett - PTCA of RCA lesion reduced from 80% to approx 40%. 100% occlusion of the LAD and cx. 100% occlusion of a vein graft. Patent CASTRO graft to the LAD with borderline lesion beyond. - Most recent Cardiac cath of 09-08-[address] Conway - severe MVD [place] coronaries including severe in-stent restenosis in the RCA. S/P placement of 3 Synergy JOSHUA with one in the prox vessel, one in the midvessel, and one in the distal vessel (not overlapping). S/P balloon angioplasty of the ostial to prox right PDA which appeared to be too small for stenting. - NSTEMI on 08/17/21, pt followed with Dr Willett. Pt family reports that a subsequent nuclear stress was ok and no card cath or interventions were undertaken Echocardiogram of 08-17-21 showed LVEF 55-65%. Mod concentric hypertrophy. Grade 2 diastolic dysfunction. LA mildly dilated. Mild calcification of mitral valve with mild MR. Mild to mod AoV stenosis Echocardiogram of 09-26-21 showed LVEF 55-65%. Mod concentric hypertrophy. Grade 2 diastolic dysfunction. Mild calcification of mitral valve. Mild to mod AoV stenosis. PASP 25-30 mmHg Chronic angina - Imdur and Ranexa - managed by Dr. 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 Gallo Oncology - multiple skin melanoma removals - most recent to the left side of his face (stitches in place) Back surgeries - Yadav lynette in place Plan: * No further c/o angina since increasing BB dose - continue * Mentation is improving, consider increasing ASA to daily * Discussed with his daughter his CV issues and our treatment plan * Monitor labs STACEY STEVENSON MD FACP FACC CCDS Oct 05, 2021 15:15
[2021-10-05 19:15] VITALS: BP 151/67
[2021-10-05] MEDS: SERTRALINE 100 MG (ZOLOFT) TAB PO SCH (20:37)
[2021-10-05] MEDS: diphenhydrAMINE 25 MG TAB (BENADRYL) PO SCH (20:38)
[2021-10-05] MEDS: busPIRone 10 MG (BUSPAR) TAB PO SCH (20:38)
[2021-10-05] MEDS: IMIPRAMINE 10 MG PO SCH (20:38)
[2021-10-06] MEDS: RT-ALBUTEROL/IPRATROPIUM 3 ML (DUONEB) VIAL INH SCH ×3 (02:15→10:52)
[2021-10-06 05:44] LABS: BASOPHILS # (AUTO) 0.1 10^3/uL (0.0-0.1); BASOPHILS % (AUTO) 0 % (0-10); EOSINOPHILS % (AUTO) 0 % (0-10); HEMATOCRIT 41 % (40-54); HEMOGLOBIN 13.7 g/dL (13.3-17.7); LYMPHOCYTES # (AUTO) 0.9 10^3/uL (1.0-4.0); LYMPHOCYTES % (AUTO) 5 % (12-44); MEAN CORPUSCULAR HEMOGLOBIN 31 pg (25-34); MEAN CORPUSCULAR HGB CONC 34 g/dL (32-36); MEAN CORPUSCULAR VOLUME 93 fL (80-99); MEAN PLATELET VOLUME 10.5 fL (9.0-12.2); MONOCYTES # (AUTO) 1.1 10^3/uL (0.0-1.0); MONOCYTES % (AUTO) 6 % (0-12); NEUTROPHILS # (AUTO) 15.9 10^3/uL (1.8-7.8); NEUTROPHILS % (AUTO) 86 % (42-75); PLATELET COUNT 173 10^3/uL (130-400); WHITE BLOOD COUNT 18.6 10^3/uL (4.3-11.0)
[2021-10-06] MEDS: inSUlin ASPART (NovoLOG) 1 UNIT/0.01 ML (CHARGE PER UNIT) SC SCH ×2 (05:45→12:23)
[2021-10-06 05:58] LABS: ALBUMIN 2.7 GM/DL (3.2-4.5); POTASSIUM 3.6 MMOL/L (3.6-5.0)
[2021-10-06 05:59] LABS: CALCIUM 8.1 MG/DL (8.5-10.1)
[2021-10-06 06:00] LABS: TOTAL PROTEIN 4.6 GM/DL (6.4-8.2)
[2021-10-06 06:02] LABS: BILIRUBIN,TOTAL 0.8 MG/DL (0.1-1.0)
[2021-10-06 06:04] LABS: CREATININE SERUM 1.11 MG/DL (0.60-1.30)
[2021-10-06] MEDS ORDERED: predniSONE 20 MG TAB PO SCH (07:00)
[2021-10-06] MEDS ORDERED: PANTOPRAZOLE 40 MG (PROTONIX) TAB PO SCH (07:00)
[2021-10-06] MEDS: RANOLAZINE ER 500 MG TAB (RANEXA) PO SCH (08:33)
[2021-10-06] MEDS: MULTIVIT W/MINERALS TAB (THERAGRAN M) PO SCH (08:33)
[2021-10-06] MEDS: amLODIPine 10 MG (NORVASC) TAB PO SCH (08:33)
[2021-10-06] MEDS: PIOGLITAZONE 30MG (ACTOS) TAB PO SCH (08:34)
[2021-10-06] MEDS: meTOprolol TARTRATE 50 MG (LOPRESSOR) TAB PO SCH (08:34)
[2021-10-06] MEDS: DOCUSATE SODIUM 10 MG/ML 10 ML UDC (COLACE) PO SCH (08:38)
--- NOTE | 2021-10-06 08:56 | Progress Note - Cardiology ---
Cardiology SOAP Progress Note Subjective: Much more alert and conversive today Daughter at the bedside Reports prod cough No c/o CP Objective: I&O/Vital Signs 10/06/21 10/06/21 10/06/21 10/06/21 00:18 02:15 04:43 06:59 Temp 36.2 36.3 Pulse 82 75 Resp 20 18 B/P (MAP) 158/75 131/70 Pulse Ox 97 95 95 96 O2 Delivery High Flow N/C High Flow N/C High Flow N/C OxyMask O2 Flow Rate 10.00 10.00 10.00 9.00 10/06/21 08:00 Temp 35.8 Pulse 74 Resp 18 B/P (MAP) 120/56 Pulse Ox 96 O2 Delivery High Flow N/C O2 Flow Rate 8.00 10/06/21 00:00 Intake Total 780 ml Output Total 225 ml Balance 555 ml Constitutional: AAO x 3, well-developed, well-nourished Respiratory: other (coarse breath sounds) Cardiovascular: regular rate-rhythm, S1 and S2, systolic murmur (soft JESUS at card base) Gastrointestional: No tender; soft; No guarding, No rebound; audible bowel sounds Extremities: No clubbing, No significant edema Neurologic/Psychiatric: No oriented x 3 (oriented to self and place); other (moves all limbs equally) Skin: No rash on exposed areas, No ulcerations on exposed areas Results/Procedures: Labs Laboratory Tests 10/05/21 10:56: Glucometer 172H 10/05/21 15:38: Glucometer 210H 10/05/21 20:16: Glucometer 222H 10/06/21 04:54: White Blood Count 18.6H, Red Blood Count 4.36, Hemoglobin 13.7, Hematocrit 41, Mean Corpuscular Volume 93, Mean Corpuscular Hemoglobin 31, Mean Corpuscular Hemoglobin Concent 34, Red Cell Distribution Width 11.9, Platelet Count 173, Mean Platelet Volume 10.5, Immature Granulocyte % (Auto) 3, Neutrophils (%) (Auto) 86H, Lymphocytes (%) (Auto) 5L, Monocytes (%) (Auto) 6, Eosinophils (%) (Auto) 0, Basophils (%) (Auto) 0, Neutrophils # (Auto) 15.9H, Lymphocytes # (Au to) 0.9L, Monocytes # (Auto) 1.1H, Eosinophils # (Auto) 0.0, Basophils # (Auto) 0.1, Immature Granulocyte # (Auto) 0.6H, Sodium Level 139, Potassium Level 3.6, Chloride Level 104, Carbon Dioxide Level 24, Anion Gap 11, Blood Urea Nitrogen 40H, Creatinine 1.11, Estimat Glomerular Filtration Rate 65, BUN/Creatinine Ratio 36, Glucose Level 73, Calcium Level 8.1L, Corrected Calcium 9.1, Total Bilirubin 0.8, Aspartate Amino Transf (AST/SGOT) 17, Alanine Aminotransferase (ALT/SGPT) 21, Alkaline Phosphatase 76, Total Protein 4.6L, Albumin 2.7L 10/06/21 05:44: Glucometer 62L Microbiology 09/28/21 MRSA Screen - Final, Complete MRSA not isolated Laboratory Tests 10/05/21 05:06 10/06/21 04:54 A/P: Assessment: Pneumonia - management per medical/eICU services Confusion, improving Recent (early Sep 2021) ic bleed (subdural and subarachnoid) following a nonsyncopal fall CAD - Pt reports 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 Willett - PTCA of RCA lesion reduced from 80% to approx 40%. 100% occlusion of the LAD and cx. 100% occlusion of a vein graft. Patent CASTRO graft to the LAD with borderline lesion beyond. - Most recent Cardiac cath of 09-08-[address] Conway - severe MVD [place] coronaries including severe in-stent restenosis in the RCA. S/P placement of 3 Synergy JOSHUA with one in the prox vessel, one in the midvessel, and one in the distal vessel (not overlapping). S/P balloon angioplasty of the ostial to prox right PDA which appeared to be too small for stenting. - NSTEMI on 08/17/21, pt followed with Dr Willett. Pt family reports that a subsequent nuclear stress was ok and no card cath or interventions were undertaken Echocardiogram of 08-17-21 showed LVEF 55-65%. Mod concentric hypertrophy. Grade 2 diastolic dysfunction. LA mildly dilated. Mild calcification of mitral valve with mild MR. Mild to mod AoV stenosis Echocardiogram of 09-26-21 showed LVEF 55-65%. Mod concentric hypertrophy. Grade 2 diastolic dysfunction. Mild calcification of mitral valve. Mild to mod AoV stenosis. PASP 25-30 mmHg Chronic angina - Imdur and Ranexa - managed by Dr. 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 Gallo Oncology - multiple skin melanoma removals - most recent to the left side of his face (stitches in place) Back surgeries - Yaadv lynette in place Plan: * No further c/o angina since increasing BB dose - continue * Mentation is improving, consider increasing ASA to daily * Discussed with his daughter his CV issues and our treatment plan * Monitor labs ERIKA QUESADA Oct 06, 2021 08:56
[2021-10-06] MEDS ORDERED: PANT40TA52 PO (10:52)
[2021-10-06] MEDS ORDERED: ASPI-1238 PO (10:52)
[2021-10-06] MEDS ORDERED: ACET-2650 PO (10:52)
[2021-10-06] MEDS ORDERED: ISOS120T9 PO (10:52)
[2021-10-06] MEDS ORDERED: RANO10005 PO (10:52)
[2021-10-06] MEDS ORDERED: ERGO1250 PO (10:52)
[2021-10-06] MEDS ORDERED: INSU100I14 SQ (10:52)
[2021-10-06] MEDS ORDERED: IMIP10TA3 PO (10:52)
[2021-10-06] MEDS ORDERED: ATOR40TA70 PO (10:52)
[2021-10-06] MEDS ORDERED: BUSP10TA95 PO (10:52)
[2021-10-06] MEDS ORDERED: PRD20T PO (10:52)
[2021-10-06] MEDS ORDERED: SERT-414 PO (10:52)
[2021-10-06] MEDS ORDERED: DOCU100C37 PO (10:52)
[2021-10-06] MEDS ORDERED: LEVE500T6 PO (10:52)
[2021-10-06] MEDS ORDERED: CARB15DR OU (10:52)
[2021-10-06] MEDS ORDERED: DIPH25TA65 PO (10:52)
[2021-10-06] MEDS ORDERED: INSU100I10 SC (10:52)
[2021-10-06] MEDS ORDERED: FLUT16SP22 NSEACH (10:52)
[2021-10-06] MEDS ORDERED: IPRA3AMP31 INH (10:52)
[2021-10-06] MEDS ORDERED: ACHD5005 PO (10:52)
[2021-10-06] MEDS ORDERED: PIOG45TA65 PO (10:52)
[2021-10-06] MEDS ORDERED: MULT-1136 PO (10:52)
[2021-10-06] MEDS ORDERED: ALPR0.5T7 PO (10:52)
[2021-10-06] MEDS ORDERED: AMLO-251 PO (10:52)
[2021-10-06] MEDS ORDERED: NITR0.4T42 SL (10:52)
[2021-10-06] MEDS ORDERED: METO50TA15 PO (10:52)
--- NOTE | 2021-10-06 10:54 | Discharge Inst-Skilled Nursing ---
Discharge Inst-Skilled NF Reconcile Patient Problems Problems Reviewed?: Yes Chief Complaint CC: worsening pneumonia with hypoxemia and confusion HPI: 86 yr old WM admitted to in-patient rehab six days ago after a subdural hematoma with subarachnoid hemorrhage after a fall at a truck stop and hit his head on the concrete. Neurosurgery assessed him to be a non-surgical candidate. He was doing pretty well in in-patient rehab but began having SOB and coarse breath sounds. Chest x-ray checked along with Covid swab which revealed bi- lateral lower lobe pneumonia but Covid was negative. He was placed on Cefepime after no evidence of any sepsis and breathing treatments. He worsened and required coverage of aspiration with Clindamycin maintained on Cefepime due to allergy to Penicillin and Zosyn. He will be monitored closely and placed on NPO status. He remains at high risk for respiratory failure. Patient Instructions Patient Problems: Subdural hematoma Confusion Consult/Follow Up/Orders Follow Up Appt.: PCP 2 weeks Skilled NF Admit to: Certification (SNF) I certify that SNF services are required to be given on an inpatient basis because of the above named patient's need for jail care on a continuing basis for the conditions(s) for which he/she was receiving inpatient hospital services prior to his/her transfer to the SNF. Care Home Facility Order: Nursing Services, Trestle Builder-Evaluate & Treat, Physical Therapy-Evaluate & Treat, Speech Language-Evaluate & Treat Oxygen Delivery Method: High Flow N/C Discharge Diet: Other Diet Daily Activity as Tolerated: Yes Resuscitation Status: Do Not Resuscitate New & Resume Previous Orders New Medications: Insulin Aspart (Novolog Flexpen) 300 Units/3 Ml Solution 8 UNITS SQ AC, #5 EA Alprazolam (Alprazolam) 0.5 Mg Tablet 0.5 MG PO Q3HR PRN for ANXIETY, #10 TAB Hydrocodone Bit/Acetaminophen (HYDROcodone/APAP 5 MG/325 MG TAB) 1 Tab Tab 1 EA PO Q4H PRN for PAIN-MODERATE (5-7), #30 TAB Ipratropium/Albuterol Sulfate (Iprat-Albut 0.5-3(2.5) mg/3 ml) 3 Ml Ampul.neb 3 ML INH RTQ4HR, #90 INHALER Metoprolol Tartrate (Metoprolol Tartrate) 50 Mg Tablet 100 MG PO BID, #60 TAB Nitroglycerin (Nitroglycerin) 0.4 Mg Tab.subl 0.4 MG SL NEEDED PRN for CHEST PAIN (ANGINA), #30 TAB Pantoprazole Sodium (Pantoprazole Sodium) 40 Mg Tablet.dr 40 MG PO DAILY@0700, #30 TAB Prednisone (Prednisone) 20 Mg Tab 40 MG PO DAILY@0700, #2 TAB Changed Medications: Buspirone HCl (Buspirone HCl) 10 Mg Tablet 20 MG PO HS, #30 TAB (Changed from: Removed Instructions) Insulin Glargine,Hum.rec.anlog (Lantus Solostar) 100 Unit/1 Ml Insuln.pen 30 UNITS SC HS, #5 EA (Changed from: 40 UNITS) Sertraline HCl (Sertraline HCl) 100 Mg Tablet 50 MG PO HS, #30 TAB (Changed from: Removed Instructions) Continued Medications: Acetaminophen (Tylenol Arthritis) 650 Mg Tablet.er 650-1300 MG PO Q8H PRN for PAIN-MILD (1-4), #30 TAB (This prescription has been renewed) Amlodipine Besylate (Amlodipine Besylate) 10 Mg Tablet 10 MG PO DAILY, #30 TAB (This prescription has been renewed) Aspirin (Aspirin EC) 81 Mg Tablet.dr 81 MG PO HS, #30 TAB (This prescription has been renewed) Atorvastatin Calcium (Atorvastatin Calcium) 40 Mg Tablet 40 MG PO HS, #30 TAB (This prescription has been renewed) Carboxymethylcellulose Sodium (Refresh Tears) 15 Ml Drops 2 DROPS OU UD PRN for DRY EYES, #1 EACH (This prescription has been renewed) Diphenhydramine HCl (Benadryl Allergy) 25 Mg Tablet 25 MG PO HS, #30 TAB (This prescription has been renewed) Docusate Sodium (Docusate Sodium) 100 Mg Capsule 100-200 MG PO BID, #60 CAP (This prescription has been renewed) Ergocalciferol (Vitamin D2) (Vitamin D2) 1,250 Mcg Capsule 1250 MCG PO TUE, #30 CAP (This prescription has been renewed) Fluticasone Propionate (Fluticasone Propionate) 16 Gm [place].susp 2 SPRAYS NSEACH DAILY PRN for CONGESTION, #1 EA (This prescription has been renewed) Imipramine HCl (Imipramine HCl) 10 Mg Tablet 10 MG PO HS, #30 TAB (This prescription has been renewed) Isosorbide Mononitrate (Isosorbide Mononitrate ER) 120 Mg Tab.er.24h 120 MG PO DAILY, #30 TAB (This prescription has been renewed) Levetiracetam (Levetiracetam) 500 Mg Tablet 500 MG PO BID, #60 TAB (This prescription has been renewed) Multivitamin (Multivitamin) 1 Each Tablet 1 EACH PO DAILY, #30 TAB (This prescription has been renewed) Pioglitazone HCl (Pioglitazone HCl) 45 Mg Tablet 45 MG PO DAILY, #30 TAB (This prescription has been renewed) Ranolazine (Ranolazine ER) 1,000 Mg Tab.er.12h 1000 MG PO BID, #60 TAB (This prescription has been renewed) Discontinued Medications: Clopidogrel Bisulfate (Clopidogrel) 75 Mg Tablet 75 MG PO HS, TAB Glipizide (Glipizide Xl) 10 Mg Tab.er.24 10 MG PO BID, TAB LAST FILELD 12-10-2020 #180/90 DAY SUPPLY Lansoprazole (Lansoprazole) 15 Mg Capsule.dr 15 MG PO DAILY, CAP Metoprolol Succinate (Metoprolol Succinate) 100 Mg Tab.er.24h 100 MG PO DAILY, TAB Opal Leroy Oct 06, 2021 10:53 OPAL LEROY DO Oct 06, 2021 10:54
--- NOTE | 2021-10-06 10:55 | Discharge Summary ---
Diagnosis/Chief Complaint Date of Admission Sep 28, 2021 at 14:22 Date of Discharge Discharge Date: Oct 06, 2021 Discharge Diagnosis Assessment: Moderate to severe dysphagia (improving) Hypoxia with exertion Aspiration pneumonia started on cefepime 09/27/2021 but worsened on CXR and cli nically requiring transfer to ICU 09/28/21 and added Clinda SAH Subdural hematoma Recent NSTEMI 08/18/21 holding Plavix and aspirin and consulting Dr. Rosales restarting aspirin 81 mg every 48 hours on 09/26/2021 CAD CKD3 DM2 HTN HLD GERD Hiatal hernia RODY Prostate cancer Confusion Leukocytosis Subarachnoid headache Plan: D/C [place] Possibly restart ASA tomorrow (10/06) Accepted to [facility], Will be admitted on Monday DC nitrates, could be related to headaches Pain medication as needed for headaches Continue bipap or nasal cannula as needed Puree diet DNR Appreciate Cardiology - increased BB to treat angina and hypertension Discharge Summary Discharge Physical Examination Allergies: Coded Allergies: ciprofloxacin (Verified Allergy, Severe, 08/17/21) Sulfa (Sulfonamide Antibiotics) (Verified Allergy, Unknown, 08/17/21) bacitracin (Verified Allergy, Unknown, 08/17/21) metformin (Verified Allergy, Unknown, 08/17/21) neomycin (Verified Allergy, Unknown, 08/17/21) polymyxin B (Verified Allergy, Unknown, 08/17/21) Vitals & I&Os Vital Signs Date Time Temp Pulse Resp B/P (MAP) Pulse Ox O2 Delivery O2 Flow Rate FiO2 10/06/21 12:35 10/06/21 10:53 95 High Flow N/C 8.00 10/06/21 08:00 35.8 74 18 10/03/21 20:59 40 General Appearance: Alert, Cooperative Respiratory: Clear to Auscultation Cardiovascular: Regular Rate Psych/Mental Status: Mood NL Hospital Course Was the Problem List Reviewed?: Yes Family concerned about patients discharge. Overall, patients respiratory status, dysphagia, and mentation has improved Creatinine at 1.11 Did complain of weakness this morning but blood sugar was 62 Appropriate to discharge at this time to a half-way. As patient will continue to get the level of care he needs Brief Hospital Course: Patient was admitted on 10/02/2021 and discharged 10/06/2021. Patient was admitted from the In-Patient Rehab to the ICU and consulted cardiology due to heart disease, subarachnoid hemorrhage, and bleeding risk. He began having SOB and coarse breath sounds. Chest x-ray checked along with Covid swab which revealed bi-lateral lower lobe pneumonia but Covid was negative. He was placed on Cefepime after no evidence of any sepsis and breathing treatments. Patient was further evaluated with Speech therapy and a barium swallow which lead to the diagnosis of moderate to severe dysphagia. coordinator of health services was consulted and patient was placed as DNR due to overall prognosis. Patient was transferred to the floor. During the hospital course, patient continued to make small improvements including consumption of an entire meal and decrease in O2 requirements. On discharge, patient was sent to a half-way with a buttermaker poor prognosis. Patient will continue home meds including insulin, blood pressure meds and daily aspirin. This summary does not include the entirety of the patient's visit and is only a short description of pertinent lab values and information. For the complete hospital course, please refer to the patient's chart. Date of Admission: 10/02/2021 Date of Discharge: 10/06/2021 Attending Physician: Dr. Opal Leroy DO Admission Diagnosis: Bacterial Pneumonia Discharge Diagnosis: Pneumonia, Increased risk to aspiration, moderate to severe dysphagia Consultations: PT, OT, Mid Wife, Cardiology Procedures: None HPI: 86 yr old WM admitted to in-patient rehab six days ago after a subdural hematoma with subarachnoid hemorrhage after a fall at a truck stop and hit his head on the concrete. Neurosurgery assessed him to be a non-surgical candidate. He was doing pretty well in in-patient rehab but began having SOB and coarse breath sounds. Chest x-ray checked along with Covid swab which revealed bi- lateral lower lobe pneumonia but Covid was negative. He was placed on Cefepime after no evidence of any sepsis and breathing treatments. He worsened and required coverage of aspiration with Clindamycin maintained on Cefepime due to allergy to Penicillin and Zosyn. He will be monitored closely and placed on NPO status. He remains at high risk for respiratory failure. Labs (last 24 hrs) Laboratory Tests 09/28/21 15:26: Glucometer 196H 09/28/21 20:57: Glucometer 249H 09/29/21 04:23: White Blood Count 12.4H, Red Blood Count 4.14L, Hemoglobin 13.1L, Hematocrit 39L , Mean Corpuscular Volume 94, Mean Corpuscular Hemoglobin 32, Mean Corpuscular Hemoglobin Concent 34, Red Cell Distribution Width 11.9, Platelet Count 260, Mean Platelet Volume 10.4, Immature Granulocyte % (Auto) 1, Neutrophils (%) (Auto) 94H, Lymphocytes (%) (Auto) 3L, Monocytes (%) (Auto) 1, Eosinophils (%) (Auto) 0, Basophils (%) (Auto) 0, Neutrophils # (Auto) 11.7H, Lymphocytes # (Auto) 0.4L, Monocytes # (Auto) 0.1, Eosinophils # (Auto) 0.0, Basophils # (Auto) 0.0, Immature Granulocyte # (Auto) 0.2H, Sodium Level 134L, Potassium Level 4.9, Chloride Level 102, Carbon Dioxide Level 19L, Anion Gap 13, Blood Urea Nitrogen 30H, Creatinine 1.41H, Estimat Glomerular Filtration Rate 49, BUN/Creatinine Ratio 21, Glucose Level 312H, Calcium Level 8.8, Corrected Calcium 9.4, Phosphorus Level 3.6, Magnesium Level 1.6, Total Bilirubin 0.9, Aspartate Amino Transf (AST/SGOT) 19, Alanine Aminotransferase (ALT/SGPT) 32, Alkaline Phosphatase 76, Total Protein 6.1L, Albumin 3.2 09/29/21 10:14: Glucometer 323H 09/29/21 15:37: Glucometer 381H 09/29/21 19:54: Glucometer 321H 09/29/21 21:50: Blood Gas Puncture Site R RAD, Blood Gas Patient Temperature 36.4, Arterial Blood pH 7.41, Arterial Blood Partial Pressure CO2 34L, Arterial Blood Partial Pressure O2 54L, Arterial Blood HCO3 21L, Arterial Blood Total CO2 22.2, Arterial Blood Oxygen Saturation 86L, Arterial Blood Base Excess -2.9L, [place] Test YES-POS, Blood Gas Ventilator Setting NO, Blood Gas Inspired Oxygen 12L 09/30/21 04:45: White Blood Count 20.0H, Red Blood Count 4.30, Hemoglobin 13.8, Hematocrit 41, Mean Corpuscular Volume 94, Mean Corpuscular Hemoglobin 32, Mean Corpuscular Hemoglobin Concent 34, Red Cell Distribution Width 12.0, Platelet Count 299, Mean Platelet Volume 10.3, Immature Granulocyte % (Auto) 1, Neutrophils (%) (Auto) 93H, Lymphocytes (%) (Auto) 2L, Monocytes (%) (Auto) 5, Eosinophils (%) (Auto) 0, Basophils (%) (Auto) 0, Neutrophils # (Auto) 18.5H, Lymphocytes # (Auto) 0.3L, Monocytes # (Auto) 1.0, Eosinophils # (Auto) 0.0, Basophils # (Auto) 0.0, Immature Granulocyte # (Auto) 0.2H, Neutrophils % (Manual) 89, Lymphocytes % (Manual) 1, Monocytes % (Manual) 10, Blood Morphology Comment NORMAL, Sodium Level 135, Potassium Level 4.3, Chloride Level 103, Carbon Dioxide Level 18L, Anion Gap 14, Blood Urea Nitrogen 40H, Creatinine 1.51H, Estimat Glomerular Filtration Rate 45, BUN/Creatinine Ratio 26, Glucose Level 267H, Calcium Level 8.7, Corrected Calcium 9.4, Phosphorus Level 3.3, Magnesium Level 1.9, Total Bilirubin 1.0, Aspartate Amino Transf (AST/SGOT) 53H, Alanine Aminotransferase (ALT/SGPT) 45, Alkaline Phosphatase 78, Total Protein 5.9L, Albumin 3.1L 09/30/21 11:14: Glucometer 264H 09/30/21 15:37: Glucometer 243H 09/30/21 20:28: Glucometer 249H 10/01/21 04:15: White Blood Count 12.6H, Red Blood Count 3.80L, Hemoglobin 11.9L, Hematocrit 36L , Mean Corpuscular Volume 94, Mean Corpuscular Hemoglobin 31, Mean Corpuscular Hemoglobin Concent 33, Red Cell Distribution Width 12.0, Platelet Count 248, Mean Platelet Volume 10.3, Immature Granulocyte % (Auto) 1, Neutrophils (%) (Auto) 94H, Lymphocytes (%) (Auto) 1L, Monocytes (%) (Auto) 3, Eosinophils (%) (Auto) 0, Basophils (%) (Auto) 0, Neutrophils # (Auto) 11.9H, Lymphocytes # (Auto) 0.2L, Monocytes # (Auto) 0.4, Eosinophils # (Auto) 0.0, Basophils # (Auto) 0.0, Immature Granulocyte # (Auto) 0.2H, Sodium Level 136, Potassium Level 3.9, Chloride Level 106, Carbon Dioxide Level 20L, Anion Gap 10, Blood Urea Nitrogen 40H, Creatinine 1.53H, Estimat Glomerular Filtration Rate 45, BUN/Creatinine Ratio 26, Glucose Level 295H, Calcium Level 8.4L, Corrected Calcium 9.4, Phosphorus Level 3.1, Magnesium Level 1.7, Total Bilirubin 0.8, Aspartate Amino Transf (AST/SGOT) 27, Alanine Aminotransferase (ALT/SGPT) 38, Alkaline Phosphatase 61, Total Protein 5.3L, Albumin 2.8L 10/01/21 05:53: Glucometer 235H 10/01/21 10:37: Glucometer 234H 10/01/21 15:33: Glucometer 226H 10/01/21 20:33: Glucometer 198H 10/02/21 05:17: Glucometer 261H 10/02/21 05:29: White Blood Count 12.3H, Red Blood Count 4.23L, Hemoglobin 13.6, Hematocrit 40, Mean Corpuscular Volume 95, Mean Corpuscular Hemoglobin 32, Mean Corpuscular Hemoglobin Concent 34, Red Cell Distribution Width 12.1, Platelet Count 277, Mean Platelet Volume 11.1, Immature Granulocyte % (Auto) 2, Neutrophils (%) (Auto) 92H, Lymphocytes (%) (Auto) 2L, Monocytes (%) (Auto) 3, Eosinophils (%) (Auto) 0, Basophils (%) (Auto) 0, Neutrophils # (Auto) 11.3H, Lymphocytes # (Auto) 0.3L, Monocytes # (Auto) 0.4, Eosinophils # (Auto) 0.0, Basophils # (Auto) 0.0, Immature Granulocyte # (Auto) 0.3H, Sodium Level 140, Potassium Level 4.0, Chloride Level 108H, Carbon Dioxide Level 19L, Anion Gap 13, Blood Urea Nitrogen 44H, Creatinine 1.57H, Estimat Glomerular Filtration Rate 43, BUN/Creatinine Ratio 28, Glucose Level 284H, Calcium Level 8.6, Corrected Calcium 9.3, Total Bilirubin 0.7, Aspartate Amino Transf (AST/SGOT) 31, Alanine Aminotransferase (ALT/SGPT) 34, Alkaline Phosphatase 74, Total Protein 6.4, Albumin 3.1L 10/02/21 11:04: Glucometer 215H 10/02/21 15:29: Glucometer 327H 10/02/21 20:08: Glucometer 296H 10/03/21 05:35: White Blood Count 16.7H, Red Blood Count 4.28L, Hemoglobin 13.5, Hematocrit 41, Mean Corpuscular Volume 97, Mean Corpuscular Hemoglobin 32, Mean Corpuscular Hem oglobin Concent 33, Red Cell Distribution Width 12.3, Platelet Count 230, Mean Platelet Volume 10.5, Immature Granulocyte % (Auto) 3, Neutrophils (%) (Auto) 92H, Lymphocytes (%) (Auto) 2L, Monocytes (%) (Auto) 3, Eosinophils (%) (Auto) 0, Basophils (%) (Auto) 0, Neutrophils # (Auto) 15.3H, Lymphocytes # (Auto) 0.3L , Monocytes # (Auto) 0.5, Eosinophils # (Auto) 0.0, Basophils # (Auto) 0.1, Immature Granulocyte # (Auto) 0.5H 10/03/21 05:47: Glucometer 260H 10/03/21 06:09: Sodium Level 141, Potassium Level 3.8, Chloride Level 107, Carbon Dioxide Level 21, Anion Gap 13, Blood Urea Nitrogen 41H, Creatinine 1.43H, Estimat Glomerular Filtration Rate 48, BUN/Creatinine Ratio 29, Glucose Level 304H, Calcium Level 8.6, Corrected Calcium 9.2, Total Bilirubin 0.9, Aspartate Amino Transf (AST/SGOT) 11, Alanine Aminotransferase (ALT/SGPT) 27, Alkaline Phosphatase 90, Total Protein 6.0L, Albumin 3.2 10/03/21 11:30: Glucometer 259H 10/03/21 15:39: Glucometer 308H 10/03/21 20:51: Glucometer 232H 10/04/21 05:55: Glucometer 177H 10/04/21 06:00: White Blood Count 14.0H, Red Blood Count 4.27L, Hemoglobin 13.4, Hematocrit 40, Mean Corpuscular Volume 94, Mean Corpuscular Hemoglobin 31, Mean Corpuscular Hemoglobin Concent 33, Red Cell Distribution Width 12.1, Platelet Count 202, Mean Platelet Volume 10.2, Immature Granulocyte % (Auto) 3, Neutrophils (%) (Auto) 92H, Lymphocytes (%) (Auto) 3L, Monocytes (%) (Auto) 2, Eosinophils (%) (Auto) 0, Basophils (%) (Auto) 0, Neutrophils # (Auto) 12.9H, Lymphocytes # (Auto) 0.4L, Monocytes # (Auto) 0.3, Eosinophils # (Auto) 0.0, Basophils # (Auto) 0.0, Immature Granulocyte # (Auto) 0.5H, Sodium Level 139, Potassium Level 4.3, Chloride Level 106, Carbon Dioxide Level 22, Anion Gap 11, Blood Urea Nitrogen 40H, Creatinine 1.22, Estimat Glomerular Filtration Rate 58, BUN/Creatinine Ratio 33, Glucose Level 200H, Calcium Level 8.2L, Corrected Calcium 9.2, Total Bilirubin 0.9, Aspartate Amino Transf (AST/SGOT) 16, Alanine Aminotransferase (ALT/SGPT) 24, Alkaline Phosphatase 77, Total Protein 5.2L, Albumin 2.8L 10/04/21 11:21: Glucometer 205H 10/04/21 16:12: Glucometer 219H 10/04/21 20:43: Glucometer 200H 10/05/21 05:06: White Blood Count 15.7H, Red Blood Count 4.54, Hemoglobin 14.7, Hematocrit 42, Mean Corpuscular Volume 93, Mean Corpuscular Hemoglobin 32, Mean Corpuscular Hemoglobin Concent 35, Red Cell Distribution Width 12.0, Platelet Count 189, Mean Platelet Volume 10.4, Immature Granulocyte % (Auto) 3, Neutrophils (%) (Auto) 93H, Lymphocytes (%) (Auto) 2L, Monocytes (%) (Auto) 2, Eosinophils (%) (Auto) 0, Basophils (%) (Auto) 0, Neutrophils # (Auto) 14.6H, Lymphocytes # (Auto) 0.4L, Monocytes # (Auto) 0.3, Eosinophils # (Auto) 0.0, Basophils # (Auto) 0.0, Immature Granulocyte # (Auto) 0.4H, Sodium Level 139, Potassium Level 4.2, Chloride Level 103, Carbon Dioxide Level 22, Anion Gap 14, Blood Urea Nitrogen 42H, Creatinine 1.22, Estimat Glomerular Filtration Rate 58, BUN/Creatinine Ratio 34, Glucose Level 181H, Calcium Level 8.5, Corrected Calcium 9.3, Total Bilirubin 0.9, Aspartate Amino Transf (AST/SGOT) 15, Alanine Aminotransferase (ALT/SGPT) 24, Alkaline Phosphatase 83, Total Protein 5.4L, Albumin 3.0L 10/05/21 06:04: Glucometer 128H 10/05/21 10:56: Glucometer 172H 10/05/21 15:38: Glucometer 210H 10/05/21 20:16: Glucometer 222H 10/06/21 04:54: White Blood Count 18.6H, Red Blood Count 4.36, Hemoglobin 13.7, Hematocrit 41, Mean Corpuscular Volume 93, Mean Corpuscular Hemoglobin 31, Mean Corpuscular He moglobin Concent 34, Red Cell Distribution Width 11.9, Platelet Count 173, Mean Platelet Volume 10.5, Immature Granulocyte % (Auto) 3, Neutrophils (%) (Auto) 86H, Lymphocytes (%) (Auto) 5L, Monocytes (%) (Auto) 6, Eosinophils (%) (Auto) 0, Basophils (%) (Auto) 0, Neutrophils # (Auto) 15.9H, Lymphocytes # (Auto) 0.9L , Monocytes # (Auto) 1.1H, Eosinophils # (Auto) 0.0, Basophils # (Auto) 0.1, Im mature Granulocyte # (Auto) 0.6H, Sodium Level 139, Potassium Level 3.6, Chloride Level 104, Carbon Dioxide Level 24, Anion Gap 11, Blood Urea Nitrogen 40H, Creatinine 1.11, Estimat Glomerular Filtration Rate 65, BUN/Creatinine Ratio 36, Glucose Level 73, Calcium Level 8.1L, Corrected Calcium 9.1, Total Bilirubin 0.8, Aspartate Amino Transf (AST/SGOT) 17, Alanine Aminotransferase (ALT/SGPT) 21, Alkaline Phosphatase 76, Total Protein 4.6L, Albumin 2.7L 10/06/21 05:44: Glucometer 62L 10/06/21 11:41: Glucometer 61L Microbiology 09/28/21 MRSA Screen - Final, Complete MRSA not isolated Pending Labs Microbiology Date/Time Source Procedure Growth Status 09/28/21 15:00 Nasal MRSA Screen - Final MRSA not isolated Complete Laboratory Tests 09/28/21 15:26: Glucometer 196 09/28/21 20:57: Glucometer 249 09/29/21 04:23: White Blood Count 12.4, Red Blood Count 4.14, Hemoglobin 13.1, Hematocrit 39, Mean Corpuscular Volume 94, Mean Corpuscular Hemoglobin 32, Mean Corpuscular Hemoglobin Concent 34, Red Cell Distribution Width 11.9, Platelet Count 260, Mean Platelet Volume 10.4, Immature Granulocyte % (Auto) 1, Neutrophils (%) (Auto) 94, Lymphocytes (%) (Auto) 3, Monocytes (%) (Auto) 1, Eosinophils (%) (Auto) 0, Basophils (%) (Auto) 0, Neutrophils # (Auto) 11.7, Lymphocytes # (Auto) 0.4, Monocytes # (Auto) 0.1, Eosinophils # (Auto) 0.0, Basophils # (Auto) 0.0, Immature Granulocyte # (Auto) 0.2, Sodium Level 134, Potassium Level 4.9, Chloride Level 102, Carbon Dioxide Level 19, Anion Gap 13, Blood Urea Nitrogen 30, Creatinine 1.41, Estimat Glomerular Filtration Rate 49, BUN/Creatinine Ratio 21, Glucose Level 312, Calcium Level 8.8, Corrected Calcium 9.4, Phosphorus Level 3.6, Magnesium Level 1.6, Total Bilirubin 0.9, Aspartate Amino Transf (AST/SGOT) 19, Alanine Aminotransferase (ALT/SGPT) 32, Alkaline Phosphatase 76, Total Protein 6.1, Albumin 3.2 09/29/21 10:14: Glucometer 323 09/29/21 15:37: Glucometer 381 09/29/21 19:54: Glucometer 321 09/29/21 21:50: Blood Gas Puncture Site R RAD, Blood Gas Patient Temperature 36.4, Arterial Blood pH 7.41, Arterial Blood Partial Pressure CO2 34, Arterial Blood Partial Pressure O2 54, Arterial Blood HCO3 21, Arterial Blood Total CO2 22.2, Arterial Blood Oxygen Saturation 86, Arterial Blood Base Excess -2.9, [place] Test YES-POS, Blood Gas Ventilator Setting NO, Blood Gas Inspired Oxygen 12L 09/30/21 04:45: White Blood Count 20.0, Red Blood Count 4.30, Hemoglobin 13.8, Hematocrit 41, Mean Corpuscular Volume 94, Mean Corpuscular Hemoglobin 32, Mean Corpuscular Hemoglobin Concent 34, Red Cell Distribution Width 12.0, Platelet Count 299, Mean Platelet Volume 10.3, Immature Granulocyte % (Auto) 1, Neutrophils (%) (Auto) 93, Lymphocytes (%) (Auto) 2, Monocytes (%) (Auto) 5, Eosinophils (%) (Auto) 0, Basophils (%) (Auto) 0, Neutrophils # (Auto) 18.5, Lymphocytes # (Auto) 0.3, Monocytes # (Auto) 1.0, Eosinophils # (Auto) 0.0, Basophils # (Auto) 0.0, Immature Granulocyte # (Auto) 0.2, Neutrophils % (Manual) 89, Lymphocytes % (Manual) 1, Monocytes % (Manual) 10, Blood Morphology Comment NORMAL, Sodium Level 135, Potassium Level 4.3, Chloride Level 103, Carbon Dioxide Level 18, Anion Gap 14, Blood Urea Nitrogen 40, Creatinine 1.51, Estimat Glomerular Filtration Rate 45, BUN/Creatinine Ratio 26, Glucose Level 267, Calcium Level 8.7, Corrected Calcium 9.4, Phosphorus Level 3.3, Magnesium Level 1.9, Total Bilirubin 1.0, Aspartate Amino Transf (AST/SGOT) 53, Alanine Aminotransferase (ALT/SGPT) 45, Alkaline Phosphatase 78, Total Protein 5.9, Albumin 3.1 09/30/21 11:14: Glucometer 264 09/30/21 15:37: Glucometer 243 09/30/21 20:28: Glucometer 249 10/01/21 04:15: White Blood Count 12.6, Red Blood Count 3.80, Hemoglobin 11.9, Hematocrit 36, Mean Corpuscular Volume 94, Mean Corpuscular Hemoglobin 31, Mean Corpuscular Hemoglobin Concent 33, Red Cell Distribution Width 12.0, Platelet Count 248, Mean Platelet Volume 10.3, Immature Granulocyte % (Auto) 1, Neutrophils (%) (Auto) 94, Lymphocytes (%) (Auto) 1, Monocytes (%) (Auto) 3, Eosinophils (%) (Auto) 0, Basophils (%) (Auto) 0, Neutrophils # (Auto) 11.9, Lymphocytes # (Auto) 0.2, Monocytes # (Auto) 0.4, Eosinophils # (Auto) 0.0, Basophils # (Auto) 0.0, Immature Granulocyte # (Auto) 0.2, Sodium Level 136, Potassium Level 3.9, Chloride Level 106, Carbon Dioxide Level 20, Anion Gap 10, Blood Urea Nitrogen 40, Creatinine 1.53, Estimat Glomerular Filtration Rate 45, BUN/Creatinine Ratio 26, Glucose Level 295, Calcium Level 8.4, Corrected Calcium 9.4, Phosphorus Level 3.1, Magnesium Level 1.7, Total Bilirubin 0.8, Aspartate Amino Transf (AST/SGOT) 27, Alanine Aminotransferase (ALT/SGPT) 38, Alkaline Phosphatase 61, Total Protein 5.3, Albumin 2.8 10/01/21 05:53: Glucometer 235 10/01/21 10:37: Glucometer 234 10/01/21 15:33: Glucometer 226 10/01/21 20:33: Glucometer 198 10/02/21 05:17: Glucometer 261 10/02/21 05:29: White Blood Count 12.3, Red Blood Count 4.23, Hemoglobin 13.6, Hematocrit 40, Mean Corpuscular Volume 95, Mean Corpuscular Hemoglobin 32, Mean Corpuscular Hemoglobin Concent 34, Red Cell Distribution Width 12.1, Platelet Count 277, Mean Platelet Volume 11.1, Immature Granulocyte % (Auto) 2, Neutrophils (%) (Auto) 92, Lymphocytes (%) (Auto) 2, Monocytes (%) (Auto) 3, Eosinophils (%) (Auto) 0, Basophils (%) (Auto) 0, Neutrophils # (Auto) 11.3, Lymphocytes # (Auto) 0.3, Monocytes # (Auto) 0.4, Eosinophils # (Auto) 0.0, Basophils # (Auto) 0.0, Immature Granulocyte # (Auto) 0.3, Sodium Level 140, Potassium Level 4.0, Chloride Level 108, Carbon Dioxide Level 19, Anion Gap 13, Blood Urea Nitrogen 44, Creatinine 1.57, Estimat Glomerular Filtration Rate 43, BUN/Creatinine Ratio 28, Glucose Level 284, Calcium Level 8.6, Corrected Calcium 9.3, Total Bilirubin 0.7, Aspartate Amino Transf (AST/SGOT) 31, Alanine Aminotransferase (ALT/SGPT) 34, Alkaline Phosphatase 74, Total Protein 6.4, Albumin 3.1 10/02/21 11:04: Glucometer 215 10/02/21 15:29: Glucometer 327 10/02/21 20:08: Glucometer 296 10/03/21 05:35: White Blood Count 16.7, Red Blood Count 4.28, Hemoglobin 13.5, Hematocrit 41, Mean Corpuscular Volume 97, Mean Corpuscular Hemoglobin 32, Mean Corpuscular Hemoglobin Concent 33, Red Cell Distribution Width 12.3, Platelet Count 230, Mean Platelet Volume 10.5, Immature Granulocyte % (Auto) 3, Neutrophils (%) (Auto) 92, Lymphocytes (%) (Auto) 2, Monocytes (%) (Auto) 3, Eosinophils (%) (Auto) 0, Basophils (%) (Auto) 0, Neutrophils # (Auto) 15.3, Lymphocytes # (Auto) 0.3, Monocytes # (Auto) 0.5, Eosinophils # (Auto) 0.0, Basophils # (Auto) 0.1, Immature Granulocyte # (Auto) 0.5 10/03/21 05:47: Glucometer 260 10/03/21 06:09: Sodium Level 141, Potassium Level 3.8, Chloride Level 107, Carbon Dioxide Level 21, Anion Gap 13, Blood Urea Nitrogen 41, Creatinine 1.43, Estimat Glomerular Filtration Rate 48, BUN/Creatinine Ratio 29, Glucose Level 304, Calcium Level 8.6, Corrected Calcium 9.2, Total Bilirubin 0.9, Aspartate Amino Transf (AST/S GOT) 11, Alanine Aminotransferase (ALT/SGPT) 27, Alkaline Phosphatase 90, Total Protein 6.0, Albumin 3.2 10/03/21 11:30: Glucometer 259 10/03/21 15:39: Glucometer 308 10/03/21 20:51: Glucometer 232 10/04/21 05:55: Glucometer 177 10/04/21 06:00: White Blood Count 14.0, Red Blood Count 4.27, Hemoglobin 13.4, Hematocrit 40, Mean Corpuscular Volume 94, Mean Corpuscular Hemoglobin 31, Mean Corpuscular Hemoglobin Concent 33, Red Cell Distribution Width 12.1, Platelet Count 202, Mean Platelet Volume 10.2, Immature Granulocyte % (Auto) 3, Neutrophils (%) (Auto) 92, Lymphocytes (%) (Auto) 3, Monocytes (%) (Auto) 2, Eosinophils (%) (Auto) 0, Basophils (%) (Auto) 0, Neutrophils # (Auto) 12.9, Lymphocytes # (Auto) 0.4, Monocytes # (Auto) 0.3, Eosinophils # (Auto) 0.0, Basophils # (Auto) 0.0, Immature Granulocyte # (Auto) 0.5, Sodium Level 139, Potassium Level 4.3, Chloride Level 106, Carbon Dioxide Level 22, Anion Gap 11, Blood Urea Nitrogen 40, Creatinine 1.22, Estimat Glomerular Filtration Rate 58, BUN/Creatinine Ratio 33, Glucose Level 200, Calcium Level 8.2, Corrected Calcium 9.2, Total Bilirubin 0.9, Aspartate Amino Transf (AST/SGOT) 16, Alanine Aminotransferase (ALT/SGPT) 24, Alkaline Phosphatase 77, Total Protein 5.2, Albumin 2.8 10/04/21 11:21: Glucometer 205 10/04/21 16:12: Glucometer 219 10/04/21 20:43: Glucometer 200 10/05/21 05:06: White Blood Count 15.7, Red Blood Count 4.54, Hemoglobin 14.7, Hematocrit 42, Mean Corpuscular Volume 93, Mean Corpuscular Hemoglobin 32, Mean Corpuscular Hemoglobin Concent 35, Red Cell Distribution Width 12.0, Platelet Count 189, Mean Platelet Volume 10.4, Immature Granulocyte % (Auto) 3, Neutrophils (%) (Auto) 93, Lymphocytes (%) (Auto) 2, Monocytes (%) (Auto) 2, Eosinophils (%) (Auto) 0, Basophils (%) (Auto) 0, Neutrophils # (Auto) 14.6, Lymphocytes # (Auto) 0.4, Monocytes # (Auto) 0.3, Eosinophils # (Auto) 0.0, Basophils # (Auto) 0.0, Immature Granulocyte # (Auto) 0.4, Sodium Level 139, Potassium Level 4.2, Chloride Level 103, Carbon Dioxide Level 22, Anion Gap 14, Blood Urea Nitrogen 42, Creatinine 1.22, Estimat Glomerular Filtration Rate 58, BUN/Creatinine Ratio 34, Glucose Level 181, Calcium Level 8.5, Corrected Calcium 9.3, Total Bilirubin 0.9, Aspartate Amino Transf (AST/SGOT) 15, Alanine Aminotransferase (ALT/SGPT) 24, Alkaline Phosphatase 83, Total Protein 5.4, Albumin 3.0 10/05/21 06:04: Glucometer 128 10/05/21 10:56: Glucometer 172 10/05/21 15:38: Glucometer 210 10/05/21 20:16: Glucometer 222 10/06/21 04:54: White Blood Count 18.6, Red Blood Count 4.36, Hemoglobin 13.7, Hematocrit 41, Mean Corpuscular Volume 93, Mean Corpuscular Hemoglobin 31, Mean Corpuscular Hemoglobin Concent 34, Red Cell Distribution Width 11.9, Platelet Count 173, Mean Platelet Volume 10.5, Immature Granulocyte % (Auto) 3, Neutrophils (%) (Auto) 86, Lymphocytes (%) (Auto) 5, Monocytes (%) (Auto) 6, Eosinophils (%) (Auto) 0, Basophils (%) (Auto) 0, Neutrophils # (Auto) 15.9, Lymphocytes # (Auto) 0.9, Monocytes # (Auto) 1.1, Eosinophils # (Auto) 0.0, Basophils # (Auto) 0.1, Immature Granulocyte # (Auto) 0.6, Sodium Level 139, Potassium Level 3.6, Chloride Level 104, Carbon Dioxide Level 24, Anion Gap 11, Blood Urea Nitrogen 40, Creatinine 1.11, Estimat Glomerular Filtration Rate 65, BUN/Creatinine Ratio 36, Glucose Level 73, Calcium Level 8.1, Corrected Calcium 9.1, Total Bilirubin 0.8, Aspartate Amino Transf (AST/SGOT) 17, Alanine Aminotransferase (ALT/SGPT) 21, Alkaline Phosphatase 76, Total Protein 4.6, Albumin 2.7 10/06/21 05:44: Glucometer 62 10/06/21 11:41: Glucometer 61 Discharge Home Medications: Active Scripts Active Novolog Flexpen (Insulin Aspart) 300 Units/3 Ml Solution 8 Units SQ AC Prednisone 20 Mg Tab 40 Mg PO DAILY@0700 Pantoprazole Sodium 40 Mg Tablet.dr 40 Mg PO DAILY@0700 Alprazolam 0.5 Mg Tablet 0.5 Mg PO Q3HR PRN HYDROcodone/APAP 5 MG/325 MG TAB (Acetaminophen/Hydrocodone Bitart) 1 Tab Tab 1 Ea PO Q4H PRN Metoprolol Tartrate 50 Mg Tablet 100 Mg PO BID Nitroglycerin 0.4 Mg Tab.subl 0.4 Mg SL NEEDED PRN Iprat-Albut 0.5-3(2.5) mg/3 ml (Ipratropium/Albuterol Sulfate) 3 Ml Ampul.neb 3 Ml INH RTQ4HR Amlodipine Besylate 10 Mg Tablet 10 Mg PO DAILY Levetiracetam 500 Mg Tablet 500 Mg PO BID Benadryl Allergy (Diphenhydramine HCl) 25 Mg Tablet 25 Mg PO HS Multivitamin 1 Each Tablet 1 Each PO DAILY Tylenol Arthritis (Acetaminophen) 650 Mg Tablet.er 650-1,300 Mg PO Q8H PRN Refresh Tears (Carboxymethylcellulose Sodium) 15 Ml Drops 2 Drops OU UD PRN Aspirin EC (Aspirin) 81 Mg Tablet.dr 81 Mg PO HS Imipramine HCl 10 Mg Tablet 10 Mg PO HS Sertraline HCl 100 Mg Tablet 50 Mg PO HS Buspirone HCl 10 Mg Tablet 20 Mg PO HS Pioglitazone HCl 45 Mg Tablet 45 Mg PO DAILY Lantus Solostar (Insulin Glargine,Hum.rec.anlog) 100 Unit/1 Ml Insuln.pen 30 Units SC HS Fluticasone Propionate 16 Gm [place].susp 2 Sprays NSEACH DAILY PRN Docusate Sodium 100 Mg Capsule 100-200 Mg PO BID Isosorbide Mononitrate ER (Isosorbide Mononitrate) 120 Mg Tab.er.24h 120 Mg PO DAILY Vitamin D2 (Ergocalciferol (Vitamin D2)) 1,250 Mcg Capsule 1,250 Mcg PO TUE Atorvastatin Calcium 40 Mg Tablet 40 Mg PO HS Ranolazine ER (Ranolazine) 1,000 Mg Tab.er.12h 1,000 Mg PO BID Instructions to patient/family Please see electronic discharge instructions given to patient. Clinical Quality Measures DVT/VTE Risk/Contraindication: Contraindications-Pharm: Other *list below* Other: recent [facility] OPAL LEROY DO Oct 06, 2021 10:55
--- NOTE | 2021-10-06 11:03 | Progress Note ---
GUERLINE MCKENNA [facility] 10/06/21 1102: Subjective Date Seen by a Provider: Oct 06, 2021 Time Seen by a Provider: 08:00 Subjective/Events-last exam 24 Hours Events: Family concerned about patients discharge. Overall, patients respiratory status, dysphagia, and mentation has improved Creatinine at 1.11 Did complain of weakness this morning but blood sugar was 62 Appropriate to discharge at this time to a alf. As patient will continue to get the level of care he needs Brief Hospital Course: Patient was admitted on 10/02/2021 and discharged 10/06/2021. Patient was admitted from the In-Patient Rehab to the ICU and consulted cardiology due to heart disease, subarachnoid hemorrhage, and bleeding risk. He began having SOB and coarse breath sounds. Chest x-ray checked along with Covid swab which revealed bi-lateral lower lobe pneumonia but Covid was negative. He was placed on Cefepime after no evidence of any sepsis and breathing treatments. Patient was further evaluated with Speech therapy and a barium swallow which lead to the diagnosis of moderate to severe dysphagia. access services assistant was consulted and patient was placed as DNR due to overall pro gnosis. Patient was transferred to the floor. During the hospital course, patient continued to make small improvements including consumption of an entire meal and decrease in O2 requirements. On discharge, patient was sent to a alf with a residential poor prognosis. Patient will continue home meds including insulin, blood pressure meds and daily aspirin. This summary does not include the entirety of the patient's visit and is only a short description of pertinent lab values and information. For the complete hospital course, please refer to the patient's chart. Date of Admission: 10/02/2021 Date of Discharge: 10/06/2021 Attending Physician: Dr. Opal Leroy DO Admission Diagnosis: Bacterial Pneumonia Discharge Diagnosis: Pneumonia, Increased risk to aspiration, moderate to severe dysphagia Consultations: PT, OT, Body Specialist, Cardiology Procedures: None HPI: 86 yr old WM admitted to in-patient rehab six days ago after a subdural hematoma with subarachnoid hemorrhage after a fall at a truck stop and hit his head on the concrete. Neurosurgery assessed him to be a non-surgical candidate. He was doing pretty well in in-patient rehab but began having SOB and coarse breath sounds. Chest x-ray checked along with Covid swab which revealed bi- lateral lower lobe pneumonia but Covid was negative. He was placed on Cefepime after no evidence of any sepsis and breathing treatments. He worsened and required coverage of aspiration with Clindamycin maintained on Cefepime due to allergy to Penicillin and Zosyn. He will be monitored closely and placed on NPO status. He remains at high risk for respiratory failure. Review of Systems General: No Chills, No Other (fevers) Pulmonary: Dyspnea (Requiring O2), Cough Cardiovascular: No: Chest Pain, Palpitations Gastrointestinal: No: Nausea, Vomiting Objective Exam Last Set of Vital Signs Vital Signs Date Time Temp Pulse Resp B/P (MAP) Pulse Ox O2 Delivery O2 Flow Rate FiO2 10/06/21 08:54 High Flow N/C 10.00 10/06/21 08:00 35.8 74 18 120/56 96 10/03/21 20:59 40 Capillary Refill : NONE I&O Intake and Output 10/06/21 00:00 Intake Total 960 ml Output Total 925 ml Balance 35 ml Intake Oral 960 ml Output Urine Total 925 ml Bladder Scan Volume Amount 101 ml # Voids 1 # Bowel Movements 2 General: Alert, Oriented X3, Cooperative HEENT: Atraumatic, PERRLA Neck: Supple, No JVD Lungs: Clear to Auscultation, Normal Air Movement Heart: Regular Rate, Normal S1, Normal S2 Abdomen: Normal Bowel Sounds, Soft Extremities: No Clubbing, No Cyanosis Skin: No Rashes, No Breakdown Psych/Mental Status: Mental Status NL Results Lab Laboratory Tests 10/05/21 15:38: Glucometer 210H 10/05/21 20:16: Glucometer 222H 10/06/21 04:54: White Blood Count 18.6H, Red Blood Count 4.36, Hemoglobin 13.7, Hematocrit 41, Mean Corpuscular Volume 93, Mean Corpuscular Hemoglobin 31, Mean Corpuscular Hemoglobin Concent 34, Red Cell Distribution Width 11.9, Platelet Count 173, Mean Platelet Volume 10.5, Immature Granulocyte % (Auto) 3, Neutrophils (%) (Auto) 86H, Lymphocytes (%) (Auto) 5L, Monocytes (%) (Auto) 6, Eosinophils (%) (Auto) 0, Basophils (%) (Auto) 0, Neutrophils # (Auto) 15.9H, Lymphocytes # (Auto) 0.9L, Monocytes # (Auto) 1.1H, Eosinophils # (Auto) 0.0, Basophils # (Auto) 0.1, Immature Granulocyte # (Auto) 0.6H, Sodium Level 139, Potassium Level 3.6, Chloride Level 104, Carbon Dioxide Level 24, Anion Gap 11, Blood Urea Nitrogen 40H, Creatinine 1.11, Estimat Glomerular Filtration Rate 65, BUN/Creatinine Ratio 36, Glucose Level 73, Calcium Level 8.1L, Corrected Calcium 9.1, Total Bilirubin 0.8, Aspartate Amino Transf (AST/SGOT) 17, Alanine Aminotransferase (ALT/SGPT) 21, Alkaline Phosphatase 76, Total Protein 4.6L, Albumin 2.7L 10/06/21 05:44: Glucometer 62L Microbiology 09/28/21 MRSA Screen - Final, Complete MRSA not isolated Assessment/Plan Assessment/Plan Assess & Plan/Chief Complaint Assessment: Moderate to severe dysphagia (improving) Hypoxia with exertion (improving) Pneumonia started on cefepime 09/27/2021 but worsened on CXR and clinically requiring transfer to ICU 09/28/21 [facility] Subdural hematoma Recent NSTEMI 08/18/21 holding Plavix and aspirin and consulting Dr. Rosales restarting aspirin 81 mg every 48 hours on 09/26/2021 CAD CKD3 DM2 HTN HLD GERD Hiatal hernia RODY Prostate cancer Confusion Leukocytosis Subarachnoid headache Plan: Accepted to [facility]. O2 order for alf Pain medication as needed for headaches Continue bipap or nasal cannula as needed Puree diet DNR Clinical Quality Measures DVT/VTE Risk/Contraindication: Contraindications-Pharm: Other *list below* Other: recent [facility] OPAL LEROY DO 10/07/21 0535: Subjective Subjective/Events-last exam All questions answered Discharge plan Supervisory-Addendum Brief Verification & Attestation Participated in pt care: history, MDM, physical Personally performed: exam, history, MDM, supervision of care Care discussed with: Medical Student Procedures: n/a Results interpretation: Verified all documentation Verification and Attestation of Medical Student E/M Service A medical student performed and documented this service in my presence. I reviewed and verified all information documented by the medical student and made modifications to such information, when appropriate. I personally performed the physical exam and medical decision making. Opal Leroy, Oct 07, 2021,05:35 GUERLINE MCKENNA Oct 06, 2021 11:02 OPAL LEROY DO Oct 07, 2021 05:35
== END 2021-10-06 14:16 | DRG 177 ==
LOC: ICU 14:22 → 4TH 09-29 11:32 → ICU 09-29 21:15 → CSD 09-30 09:47 → 4TH 10-01 14:30
PROVIDERS: ADMIT Internal Medicine; ATTEND Internal Medicine
PROC: 5A09357 Assistance with Respiratory Ventilation, Less than 24 Consecutive Hours, Continuous Positive Airway Pressure (ICD-10-PCS; principal; 2021-10-01)
DX: J69.0 Pneumonitis due to inhalation of food and vomit (principal); J96.21 Acute and chronic respiratory failure with hypoxia; N17.9 Acute kidney failure, unspecified; I25.110 Atherosclerotic heart disease of native coronary artery with unstable angina pectoris; J44.0 Chronic obstructive pulmonary disease with (acute) lower respiratory infection; Z20.822 Contact with and (suspected) exposure to COVID-19; Z88.1 Allergy status to other antibiotic agents; Z88.0 Allergy status to penicillin; Z88.2 Allergy status to sulfonamides; Z87.891 Personal history of nicotine dependence; Z95.1 Presence of aortocoronary bypass graft; K21.9 Gastro-esophageal reflux disease without esophagitis; Z79.4 Long term (current) use of insulin; I25.2 Old myocardial infarction; N18.30 Chronic kidney disease, stage 3 unspecified; I12.9 Hypertensive chronic kidney disease with stage 1 through stage 4 chronic kidney disease, or unspecified chronic kidney disease; E11.22 Type 2 diabetes mellitus with diabetic chronic kidney disease; K44.9 Diaphragmatic hernia without obstruction or gangrene; G47.33 Obstructive sleep apnea (adult) (pediatric); Z85.46 Personal history of malignant neoplasm of prostate; R41.0 Disorientation, unspecified; E87.6 Hypokalemia; D72.829 Elevated white blood cell count, unspecified; G44.89 Other headache syndrome; Z66 Do not resuscitate; Z86.73 Personal history of transient ischemic attack (TIA), and cerebral infarction without residual deficits; D69.6 Thrombocytopenia, unspecified; E78.2 Mixed hyperlipidemia; J15.9 Unspecified bacterial pneumonia
CPT/HCPCS: 36410; 36415; 71045; 74230; 76937; 80053; 82805; 82947; 83735; 84100; 85007; 85025; 85027; 87081; 93005; 94640; 94660; 94664; 94760; 94761

== ENCOUNTER 2022-09-24 21:07 | Emergency (ER) | payer MEDICARE, OTHER ==
[~2022-09-24] VITALS: Ht 182.8 cm; Wt 72.5 kg
[~2022-09-24 21:07] MED LIST changes: +ACHD5005 PO; +ALPR0.5T7 PO; +INSU100I14 SQ; +IPRA3AMP31 INH; +METO50TA15 PO; +NITR0.4T42 SL; +PANT40TA52 PO; +PRD20T PO
[2022-09-24] MEDS ORDERED: ACETAMINOPHEN 325 MG TABLET PO STA (21:16)
[2022-09-24] MEDS ORDERED: ONDANSETRON 4 MG (ZOFRAN) ORAL DISSOLVE TAB PO STA (21:16)
--- NOTE | 2022-09-24 21:24 | ED Fall/Injury ---
General Chief Complaint: Trauma-Non Activation Stated Complaint: FALL Source: patient, EMS (Independent historians as patient has chronic dementia/confusion), shelter records, old records (Reviewed Hospital notes from admit September [address] Avitia and Radiology reports from prior imaging during that hospital admit) History of Present Illness Date Seen by Provider: Sep 24, 2022 Time Seen by Provider: 21:07 Initial Comments 87-year-old male presenting by EMS from [facility]. He had a standing height fall at the [facility] [place] and is complaining of pain in his hips, tailbone, head. He reports some nausea and is requesting some Tylenol for pain. He stated that he got knocked out when he fell. He could not tell me what happened before his fall. He is oriented to self only. According to EMS he has a history of dementia and chronic confusion. They were advised that he had fallen this evening at the shelter and does have a history of a subdural hematoma. He had said he was having pain in his tailbone and the top of his head. They were not advised of any loss of consciousness by the [facility]. Occurred: this evening Severity: moderate Injuries/Pain Location: head, back, pelvis Context: unknown Loss of Consciousness: no loss of consciousness Modifying Factors: Worse With Movement Associated Symptoms (Fall): No Abdominal Pain, No Chest Pain; Confusion (chronic); No Dizziness; Headache; No Lightheadedness, No Muscle Spasms; Nausea/Vomiting (nauseated but no emesis); No Neck Pain, No Ringing in Ears, No Seizures, No Shortness of Air, No Slurred Speech; Trouble Walking (chronic); No Vision Changes Allergies and Home Medications Allergies Coded Allergies: ciprofloxacin (Verified Allergy, Severe, 08/17/21) Sulfa (Sulfonamide Antibiotics) (Verified Allergy, Unknown, 08/17/21) bacitracin (Verified Allergy, Unknown, 08/17/21) metformin (Verified Allergy, Unknown, 08/17/21) neomycin (Verified Allergy, Unknown, 08/17/21) polymyxin B (Verified Allergy, Unknown, 08/17/21) Patient Home Medication List Home Medication List Reviewed: Yes Acetaminophen (Tylenol Arthritis) 650 Mg Tablet.er, 650-1,300 MG PO Q8H PRN for PAIN-MILD (1-4) Prescribed by: RAOUL AVITIA on 10/06/21 105 Alprazolam (Alprazolam) 0.5 Mg Tablet, 0.5 MG PO Q3HR PRN for ANXIETY Prescribed by: RAOUL AVITIA on 10/06/21 105 Amlodipine Besylate (Amlodipine Besylate) 10 Mg Tablet, 10 MG PO DAILY Prescribed by: RAOUL AVITIA on 10/06/21 105 Aspirin (Aspirin EC) 81 Mg Tablet.dr, 81 MG PO HS Prescribed by: RAOUL AVITIA on 10/06/21 105 Atorvastatin Calcium (Atorvastatin Calcium) 40 Mg Tablet, 40 MG PO HS Prescribed by: RAOUL AVITIA on 10/06/21 105 Buspirone HCl (Buspirone HCl) 10 Mg Tablet, 20 MG PO HS Prescribed by: RAOUL AVITIA on 10/06/21 105 Carboxymethylcellulose Sodium (Refresh Tears) 15 Ml Drops, 2 DROPS OU UD PRN for DRY EYES Prescribed by: RAOUL AVITIA on 10/06/21 105 Diphenhydramine HCl (Benadryl Allergy) 25 Mg Tablet, 25 MG PO HS Prescribed by: RAOUL AVITIA on 10/06/21 105 Docusate Sodium (Docusate Sodium) 100 Mg Capsule, 100-200 MG PO BID Prescribed by: RAOUL AVITIA on 10/06/21 105 Ergocalciferol (Vitamin D2) (Vitamin D2) 1,250 Mcg Capsule, 1,250 MCG PO TUE Prescribed by: RAOUL AVITIA on 10/06/21 105 Fluticasone Propionate (Fluticasone Propionate) 16 Gm Hudson.susp, 2 SPRAYS NSEACH DAILY PRN for CONGESTION Prescribed by: RAOUL AVITIA on 10/06/21 105 Hydrocodone Bit/Acetaminophen (HYDROcodone/APAP 5 MG/325 MG TAB) 1 Tab Tab, 1 EA PO Q4H PRN for PAIN-MODERATE (5-7) Prescribed by: RAOUL AVITIA on 10/06/21 105 Imipramine HCl (Imipramine HCl) 10 Mg Tablet, 10 MG PO HS Prescribed by: RAOUL AVITIA on 10/06/21 105 Insulin Aspart (Novolog Flexpen) 300 Units/3 Ml Solution, 8 UNITS SQ AC Prescribed by: RAOUL AVITIA on 10/06/211051 Insulin Glargine,Hum.rec.anlog (Lantus Solostar) 100 Unit/1 Ml Insuln.pen, 30 UNITS SC HS Prescribed by: RAOUL AVITIA on 10/06/211051 Ipratropium/Albuterol Sulfate (Iprat-Albut 0.5-3(2.5) mg/3 ml) 3 Ml Ampul.neb, 3 ML INH RTQ4HR Prescribed by: RAOUL AVITIA on 10/06/21 105 Isosorbide Mononitrate (Isosorbide Mononitrate ER) 120 Mg Tab.er.24h, 120 MG PO DAILY Prescribed by: RAOUL AVITIA on 10/06/21 105 Levetiracetam (Levetiracetam) 500 Mg Tablet, 500 MG PO BID Prescribed by: RAOUL AVITIA on 10/06/21 105 Metoprolol Tartrate (Metoprolol Tartrate) 50 Mg Tablet, 100 MG PO BID Prescribed by: RAOUL AVITIA on 10/06/21 105 Multivitamin (Multivitamin) 1 Each Tablet, 1 EACH PO DAILY Prescribed by: RAOUL AVITIA on 10/06/21 105 Nitroglycerin (Nitroglycerin) 0.4 Mg Tab.subl, 0.4 MG SL NEEDED PRN for CHEST PAIN (ANGINA) Prescribed by: RAOUL AVITIA on 10/06/211051 Pantoprazole Sodium (Pantoprazole Sodium) 40 Mg Tablet.dr, 40 MG PO DAILY@0700 Prescribed by: RAOUL AVITIA on 10/06/21 105 Pioglitazone HCl (Pioglitazone HCl) 45 Mg Tablet, 45 MG PO DAILY Prescribed by: RAOUL AVITIA on 10/06/21 105 Prednisone (Prednisone) 20 Mg Tab, 40 MG PO DAILY@0700 Prescribed by: RAOUL AVITIA on 10/06/21 105 Ranolazine (Ranolazine ER) 1,000 Mg Tab.er.12h, 1,000 MG PO BID Prescribed by: RAOUL AVITIA on 10/06/21 105 Sertraline HCl (Sertraline HCl) 100 Mg Tablet, 50 MG PO HS Prescribed by: RAOUL AVITIA on 10/06/21 105 Review of Systems Review of Systems Constitutional: No chills, No dizziness, No fever Eyes: Denies Blurred Vision, Denies Photophobia, Denies Vision Changes Ears, Nose, Mouth, Throat: denies ear pain, denies ear discharge, denies nose pain, denies nose discharge, denies epistaxis Respiratory: No cough, No short of breath Cardiovascular: No chest pain Gastrointestinal: nausea; No vomiting Genitourinary: no symptoms reported Musculoskeletal: back pain (low back pain and tailbone pain) Skin: No change in color Psychiatric/Neurological: Headache (top of head since fall) Past Srqixcz-Klmajj-Hqqvcu Hx Immunizations Up To Date First/Initial COVID19 Vaccinat: SEPTEMBER 2020 Second COVID19 Vaccination Sherif: 2020 Third COVID19 Vaccination Date: 2020 Past Medical History Surgery/Hospitalization HX: ING.HERNIA REPAIR, PROSTATE SURGERY, APPY, TONSILLECTOMY, ANGIOPLASTY, CATARACT SURGERY, Subdural hematoma CABG Sleep Apnea Coronary Artery Disease, Hypertension Stroke, TIA Gastroesophageal Reflux, Hiatal Hernia Diabetes, Insulin dep Prostate Family Medical History No Pertinent Family Hx Physical Exam Vital Signs Vital Signs - First Documented Capillary Refill : Height, Weight, BMI Height: '" Weight: lbs. oz. kg; 32.05 BMI Method: General Appearance: other (chronically ill appearing) HEENT: PERRL/EOMI, TMs normal; No photophobia; other (No pena sign, no raccoon sign, no CSF otorrhea, no CSF rhinorrhea, no hemotympanum, no skull step-off or crepitus) Neck: non-tender, full range of motion, supple, normal inspection Cardiovascular: normal peripheral pulses, regular rate, rhythm, systolic murmur Respiratory: chest non-tender, lungs clear, normal breath sounds, no respiratory distress, no accessory muscle use Gastrointestinal: normal bowel sounds, non tender, soft, no pulsatile mass Rectal: deferred Back: vertebral tenderness (lumbar spine pain and coccyx pain with palpation. no step off or crepitus) Extremities: normal range of motion, normal capillary refill, pelvis stable, other (Pain to the lower back and coccyx) Neurologic/Psychiatric: alert; No oriented x 3 (oriented to self, at baseline per report from EMS according to [facility] staff) Skin: warm/dry [place] Coma Score Best Eye Response: (4) Open Spontaneously Best Verbal Response: (5) Oriented Best Motor Response: (6) Obeys Commands Arvin Total: 15 Progress/Results/Core Measures Results/Orders My Orders Orders - JENIFFER LYMAN MD Ondansetron Oral Dissolve Tab (Zofran (09/24/22 21:16) Acetaminophen Tablet/Caplet (Tylenol T (09/24/22 21:16) Ct Head/Cervical Spine Wo (09/24/22 21:17) Ct Lumbar Spine Wo (09/24/22 21:17) Ct Pelvis Wo (09/24/22 21:17) Vital Signs/I&O 09/24/22 09/24/22 09/24/22 21:11 21:11 22:34 Temp 36.2 36.2 Pulse 79 79 78 Resp 18 18 16 B/P (MAP) 144/54 (84) 144/54 (84) 136/42 Pulse Ox 98 98 98 O2 Delivery Room Air Room Air Room Air Progress Progress Note #1: Progress Note Potential life-threatening diagnosis of subdural hematoma, intracranial hemorrhage, stroke, skull fracture, pelvis fracture. Obtain CT scan of his head and cervical spine as well as lumbar spine and pelvis all without contrast. He was asking for some Tylenol so we will give him a dose of Tylenol along with oral dissolving Zofran tablet since he also said he was nauseated. He did not have pena sign, raccoon sign, hemotympanum, CSF drainage from his ears or nose but with his recent subdural hematoma will obtain imaging to look for possible new bleeding or fractures. On review of his admit to [address] Avitia, Hospitalist, had discussed in her notes that he had subarachnoid hemorrhage with subdural hematome while he was admitted to [facility]. Also reviewed Radiologist report of CT head imaging done September 2021 during his prior hospital admit. Progress Note #2: Time: 22:08 Progress Note I reviewed the radiologist report on CT head, Cervical Spine and Lumbar spine. They did not see intracranial hemorrhage or skull fracture or cervical spine fracture. T12 has a compression fracture but no retropulsion or cord compression. Lumbar spine fusion at L4-[address] intact with hardware in place. On my personal review and interpretation of the CT pelvis without contrast I did not see any acute fracture or dislocation. Progress Note #3: Time: 22:26 Progress Note I reviewed the radiologist report on CT pelvis without contrast and he did not see any fracture or acute process either. Will discharge pt back to shelter. Continue with Acetaminophen 650 mg every 6 hours as needed for pain. Work with PCP for continued management of T12 compression fracture. no signs of intracranial hemorrhage or bleeding. Diagnostic Imaging Diagonstic Imaging: CT Plain Films/CT/US/NM/MRI: c-spine, head Comments NAME: PHILIP CARRASCO [facility] REC#: [id number] PT STATUS: REG ER : 1935 PHYSICIAN: JENIFFER LYMAN MD ADMIT DATE: 09/24/22/ER FS Draft Date of Exam:09/24/22 CT HEAD/CERVICAL SPINE WO INDICATION: Fall with head and neck pain. TECHNIQUE: Multiple contiguous axial images were obtained through the brain and cervical spine without the use of intravenous contrast. Sagittal and coronal reformations through the cervical spine were then performed. Auto Exposure Controls were utilized during the CT exam to meet ALARA standards for radiation dose reduction. COMPARISON: 09/28/2021. CTA HEAD FINDINGS: There are diffuse atrophic changes. There appears to be chronic dural thickening on the left side which is likely a sequelae of previous left-sided subdural hematoma seen on the previous study. There is no definite acute abnormality. There is extensive chronic ischemic change in the deep white matter. There is left frontal encephalomalacic change which appears chronic. There is no calvarial fracture. CT CERVICAL SPINE FINDINGS: There is diffuse facet degenerative change throughout the cervical spine. There is disc space narrowing with osteophyte formation at all levels. There is no acute fracture or acute bone abnormality. IMPRESSION: 1. CT head demonstrates diffuse atrophic changes and chronic ischemic changes in the deep white matter with chronic encephalomalacic change in the left frontal lobe. There is chronic dural thickening over the left convexity which is likely sequelae of previous subdural hematoma. There is no acute hemorrhage. There is no calvarial fracture. 2. CT cervical spine shows diffuse degenerative changes with no acute fracture or subluxation. Dictated on workstation # [id number] Dict: 09/24/222147 Trans: 09/24/222156 [facility] [id number] Interpreted by: MARY TONY MD Electronically signed by: Reviewed: Reviewed by Me Diagonstic Imaging: CT Plain Films/CT/US/NM/MRI: pelvis (and Lumbar spine) Comments [facility] [place] [place] NAME: PHILIP CARRASCO MED REC#: [id number] PT STATUS: REG ER : 1935 PHYSICIAN: JENIFFER LYMAN MD ADMIT DATE: 09/24/22/ER FS Draft Date of Exam:09/24/22 CT LUMBAR SPINE WO INDICATION: Fall with back pain. TECHNIQUE: Multiple contiguous axial images were obtained through the lumbar spine without the use of intravenous contrast. Sagittal and coronal reformations were then performed. Auto Exposure Controls were utilized during the CT exam to meet ALARA standards for radiation dose reduction. COMPARISON: There is no prior lumbar CT for comparison. FINDINGS: Patient has had previous posterior fusion with pedicle screws at L4 and L5. There is generalized osteopenia. There is a compression fracture of L1 which is of indeterminate age. There is an acute compression fracture of T12. There is greater than 50% loss of height at T12. IMPRESSION: Likely acute compression fracture of T12 with greater than 50% loss of height. There is no retropulsion. There is a compression fracture of L1 which is indeterminate in age. MRI may be helpful, if clinically warranted. There is evidence of previous posterior fusion at L4-L5 with anatomic alignment. Dictated on workstation # [id number] Dict: 09/24/222145 Trans: 09/24/222151 [facility] [id number] Interpreted by: MARY TONY MD Electronically signed by: NAME: PHILIP CARRASCO MED REC#: [id number] PT STATUS: REG ER : 1935 PHYSICIAN: JENIFFER LYMAN MD ADMIT DATE: 09/24/22/ER FS Draft Date of Exam:09/24/22 CT PELVIS WO INDICATION: Fall with coccygeal pain. TECHNIQUE: Multiple contiguous axial images were obtained through the pelvis without the use of intravenous contrast. Sagittal and coronal reformations were performed. Auto Exposure Controls were utilized during the CT exam to meet ALARA standards for radiation dose reduction. There is generalized demineralization. A penile prosthesis is noted. No pelvic fracture is seen. IMPRESSION: Generalized demineralization. Postoperative changes. No evidence of fracture. Dictated on workstation # [id number] Dict: 09/24/222211 Trans: 09/24/222215 [facility] [id number] Interpreted by: MARY TONY MD Electronically signed by: Reviewed: Reviewed by Me Departure Impression Primary Impression: Closed wedge compression fracture of T12 vertebra Qualified Codes: S22.080A - Wedge compression fracture of T11-T12 vertebra, initial encounter for closed fracture Additional Impressions: Coccyx contusion Qualified Codes: S30.0XXA - Contusion of lower back and pelvis, initial encounter Closed head injury without loss of consciousness Qualified Codes: S09.90XA - Unspecified injury of head, initial encounter Fall at shelter Qualified Codes: W19.XXXA - Unspecified fall, initial encounter; Y92.129 - Unspecified place in shelter as the place of occurrence of the external cause Disposition: 01 HOME, SELF-CARE Condition: Stable Departure-Patient Inst. Decision time for Depature: 22:28 Referrals: PARVEEN DIXON MD (PCP/Family) Primary Care Physician Patient Instructions: Preventing Falls ED, Vertebral Compression Fracture ED, Minor Head Injury, Adult ED, Minor Contusion ED Add. Discharge Instructions: Continue with Acetaminophen 650 mg every 6 hours as needed for pain. Follow up with primary care provider about managing his T12 compression fracture for additional pain control May apply ice 15-20 minutes every 4 hours as needed for pain All discharge instructions reviewed with patient and/or family. Voiced understanding. JENIFFER LYMAN MD Sep 24, 2022 21:24
--- NOTE | 2022-09-24 21:52 | Diagnostic Imaging Report ---
INDICATION: Fall with back pain. TECHNIQUE: Multiple contiguous axial images were obtained through the lumbar spine without the use of intravenous contrast. Sagittal and coronal reformations were then performed. Auto Exposure Controls were utilized during the CT exam to meet ALARA standards for radiation dose reduction. COMPARISON: There is no prior lumbar CT for comparison. FINDINGS: Patient has had previous posterior fusion with pedicle screws at L4 and L5. There is generalized osteopenia. There is a compression fracture of L1 which is of indeterminate age. There is an acute compression fracture of T12. There is greater than 50% loss of height at T12. IMPRESSION: Likely acute compression fracture of T12 with greater than 50% loss of height. There is no retropulsion. There is a compression fracture of L1 which is indeterminate in age. MRI may be helpful, if clinically warranted. There is evidence of previous posterior fusion at L4-L5 with anatomic alignment. Dictated by: Dictated on workstation # [id number]
--- NOTE | 2022-09-24 21:57 | Diagnostic Imaging Report ---
INDICATION: Fall with head and neck pain. TECHNIQUE: Multiple contiguous axial images were obtained through the brain and cervical spine without the use of intravenous contrast. Sagittal and coronal reformations through the cervical spine were then performed. Auto Exposure Controls were utilized during the CT exam to meet ALARA standards for radiation dose reduction. COMPARISON: 09/28/2021. CTA HEAD FINDINGS: There are diffuse atrophic changes. There appears to be chronic dural thickening on the left side which is likely a sequelae of previous left-sided subdural hematoma seen on the previous study. There is no definite acute abnormality. There is extensive chronic ischemic change in the deep white matter. There is left frontal encephalomalacic change which appears chronic. There is no calvarial fracture. CT CERVICAL SPINE FINDINGS: There is diffuse facet degenerative change throughout the cervical spine. There is disc space narrowing with osteophyte formation at all levels. There is no acute fracture or acute bone abnormality. IMPRESSION: 1. CT head demonstrates diffuse atrophic changes and chronic ischemic changes in the deep white matter with chronic encephalomalacic change in the left frontal lobe. There is chronic dural thickening over the left convexity which is likely sequelae of previous subdural hematoma. There is no acute hemorrhage. There is no calvarial fracture. 2. CT cervical spine shows diffuse degenerative changes with no acute fracture or subluxation. Dictated by: Dictated on workstation # [id number]
--- NOTE | 2022-09-24 22:16 | Diagnostic Imaging Report ---
INDICATION: Fall with coccygeal pain. TECHNIQUE: Multiple contiguous axial images were obtained through the pelvis without the use of intravenous contrast. Sagittal and coronal reformations were performed. Auto Exposure Controls were utilized during the CT exam to meet ALARA standards for radiation dose reduction. There is generalized demineralization. A penile prosthesis is noted. No pelvic fracture is seen. IMPRESSION: Generalized demineralization. Postoperative changes. No evidence of fracture. Dictated by: Dictated on workstation # [id number]
[2022-09-24 22:34] VITALS: BP 136/42
== END 2022-09-24 23:13 | disposition home or self-care (01) ==
LOC: EDUNIT# 21:07 → ER FS 21:12
DX: S09.90XA Unspecified injury of head, initial encounter (principal); S22.080A Wedge compression fracture of T11-T12 vertebra, initial encounter for closed fracture; S30.0XXA Contusion of lower back and pelvis, initial encounter; W18.30XA Fall on same level, unspecified, initial encounter; Y92.129 Unspecified place in nursing home as the place of occurrence of the external cause
CPT/HCPCS: 70450; 72125; 72131; 72192

== ENCOUNTER 2022-10-10 14:15 | Inpatient (IN) | payer MEDICARE, OTHER ==
[~2022-10-10] VITALS: Ht 175.3 cm; Wt 66.3 kg
[2022-10-10] MEDS ORDERED: CEFEPIME INJECTION 1,000 MG in NS (IVPB) 50 ML IV ONE (14:30)
--- NOTE | 2022-10-10 14:40 | Diagnostic Imaging Report ---
INDICATION: Altered mental status. EXAMINATION: Portable chest at 2:32 PM. FINDINGS: There is some patchy infiltrate at the left lung base. There are postop changes from a median sternotomy. There are no effusions or pneumothoraces. IMPRESSION: Left basilar consolidation, suspicious for pneumonia. Dictated by: Dictated on workstation # [id number]
[2022-10-10 14:48] LABS: HEMATOCRIT 38 % (40-54); HEMOGLOBIN 13.1 g/dL (13.3-17.7); MEAN CORPUSCULAR HEMOGLOBIN 29 pg (25-34); WHITE BLOOD COUNT 16.6 10^3/uL (4.3-11.0)
[2022-10-10 14:49] LABS: BASOPHILS % (AUTO) 0 % (0-10); EOSINOPHILS % (AUTO) 0 % (0-10); LYMPHOCYTES # (AUTO) 0.9 X 10^3 (1.0-4.0); LYMPHOCYTES % (AUTO) 6 % (12-44); MEAN CORPUSCULAR HGB CONC 34 g/dL (32-36); MEAN CORPUSCULAR VOLUME 84 fL (80-99); MEAN PLATELET VOLUME 11.3 fL (9.0-12.2); MONOCYTES # (AUTO) 1.1 X 10^3 (0.0-1.0); MONOCYTES % (AUTO) 7 % (0-12); NEUTROPHILS # (AUTO) 14.3 X 10^3 (1.8-7.8); NEUTROPHILS % (AUTO) 86 % (42-75); PLATELET COUNT 93 10^3/uL (130-400)
[2022-10-10 14:54] LABS: INR 1.1 (0.8-1.4)
[2022-10-10] MEDS ORDERED: DOXYCYCLINE 100 MG (VIBRAMYCIN) TABLET PO STA (14:58)
--- NOTE | 2022-10-10 15:04 | ED General ---
General Chief Complaint: Altered Mental Status Stated Complaint: AMS; LOW BP Source of Information: Patient, EMS, Family, Custodial Records Exam Limitations: No Limitations History of Present Illness Date Seen by Provider: Oct 10, 2022 Time Seen by Provider: 14:23 Initial Comments 87-year-old male coming in via EMS from the retirement due to low blood pressure. The patient was discharged from [facility] after a fall recently. At the retirement his daughter thought he was confused starting Monday night and has been worsening. She has noted he has had a productive cough that is worsening over the past several days as well and has seemed more labored in breathing. Reportedly this is what he look like a year ago when he had pneumonia. He does not wear oxygen at baseline. The patient states he is not confused at this time, denies pain anywhere, does not feel short of breath, but does feel slightly weak generally. Reportedly his blood pressure was in the 80s systolic. EMS reports he was around 100 systolic on their arrival without intervention. They placed an IV and started IV fluids. He denies any fever, nausea, vomiting, diarrhea, focal weakness or numbness, or any other concerns. He does endorse a cough with productive sputum. Allergies and Home Medications Allergies Coded Allergies: ciprofloxacin (Verified Allergy, Severe, 08/17/21) Sulfa (Sulfonamide Antibiotics) (Verified Allergy, Unknown, 08/17/21) bacitracin (Verified Allergy, Unknown, 08/17/21) metformin (Verified Allergy, Unknown, 08/17/21) neomycin (Verified Allergy, Unknown, 08/17/21) polymyxin B (Verified Allergy, Unknown, 08/17/21) Patient Home Medication List Home Medication List Reviewed: Yes Acetaminophen (Tylenol Arthritis) 650 Mg Tablet.er, 650-1,300 MG PO Q8H PRN for PAIN-MILD (1-4) Prescribed by: RAOUL AVITIA on 10/06/21 105 Alprazolam (Alprazolam) 0.5 Mg Tablet, 0.5 MG PO Q3HR PRN for ANXIETY Prescribed by: RAOUL AVITIA on 10/06/21 1053 Amlodipine Besylate (Amlodipine Besylate) 10 Mg Tablet, 10 MG PO DAILY Prescribed by: RAOUL AVITIA on 10/06/21 1052 Aspirin (Aspirin EC) 81 Mg Tablet., 81 MG PO HS Prescribed by: RAOUL AVITIA on 10/06/21 105 Atorvastatin Calcium (Atorvastatin Calcium) 40 Mg Tablet, 40 MG PO HS Prescribed by: RAOUL AVITIA on 10/06/21 105 Buspirone HCl (Buspirone HCl) 10 Mg Tablet, 20 MG PO HS Prescribed by: RAOUL AVITIA on 10/06/21 105 Carboxymethylcellulose Sodium (Refresh Tears) 15 Ml Drops, 2 DROPS OU UD PRN for DRY EYES Prescribed by: RAOUL AVITIA on 10/06/21 105 Diphenhydramine HCl (Benadryl Allergy) 25 Mg Tablet, 25 MG PO HS Prescribed by: RAOUL AVITIA on 10/06/21 105 Docusate Sodium (Docusate Sodium) 100 Mg Capsule, 100-200 MG PO BID Prescribed by: RAOUL AVITIA on 10/06/21 105 Ergocalciferol (Vitamin D2) (Vitamin D2) 1,250 Mcg Capsule, 1,250 MCG PO TUE Prescribed by: RAOUL AVITIA on 10/06/21 105 Fluticasone Propionate (Fluticasone Propionate) 16 Gm [place].susp, 2 SPRAYS NSEACH DAILY PRN for CONGESTION Prescribed by: RAOUL AVITIA on 10/06/21 105 Hydrocodone Bit/Acetaminophen (HYDROcodone/APAP 5 MG/325 MG TAB) 1 Tab Tab, 1 EA PO Q4H PRN for PAIN-MODERATE (5-7) Prescribed by: RAOUL AVITIA on 10/06/21 105 Imipramine HCl (Imipramine HCl) 10 Mg Tablet, 10 MG PO HS Prescribed by: RAOUL AVITIA on 10/06/21 105 Insulin Aspart (Novolog Flexpen) 300 Units/3 Ml Solution, 8 UNITS SQ AC Prescribed by: RAOUL AVITIA on 10/06/21 105 Insulin Glargine,Hum.rec.anlog (Lantus Solostar) 100 Unit/1 Ml Insuln.pen, 30 UNITS SC HS Prescribed by: RAOUL AVITIA on 10/06/21 105 Ipratropium/Albuterol Sulfate (Iprat-Albut 0.5-3(2.5) mg/3 ml) 3 Ml Ampul.neb, 3 ML INH RTQ4HR Prescribed by: RAOUL AVITIA on 10/06/21 105 Isosorbide Mononitrate (Isosorbide Mononitrate ER) 120 Mg Tab.er.24h, 120 MG PO DAILY Prescribed by: RAOUL AVITIA on 10/06/21 105 Levetiracetam (Levetiracetam) 500 Mg Tablet, 500 MG PO BID Prescribed by: RAOUL AVITIA on 10/06/21 105 Metoprolol Tartrate (Metoprolol Tartrate) 50 Mg Tablet, 100 MG PO BID Prescribed by: RAOUL AVITIA on 10/06/21 105 Multivitamin (Multivitamin) 1 Each Tablet, 1 EACH PO DAILY Prescribed by: RAOUL AVITIA on 10/06/21 105 Nitroglycerin (Nitroglycerin) 0.4 Mg Tab.subl, 0.4 MG SL NEEDED PRN for CHEST PAIN (ANGINA) Prescribed by: RAOUL AVITIA on 10/06/21 105 Pantoprazole Sodium (Pantoprazole Sodium) 40 Mg Tablet.dr, 40 MG PO DAILY@0700 Prescribed by: RAOUL AVITIA on 10/06/21 105 Pioglitazone HCl (Pioglitazone HCl) 45 Mg Tablet, 45 MG PO DAILY Prescribed by: RAOUL AVITIA on 10/06/21 105 Prednisone (Prednisone) 20 Mg Tab, 40 MG PO DAILY@0700 Prescribed by: RAOUL AVITIA on 10/06/21 105 Ranolazine (Ranolazine ER) 1,000 Mg Tab.er.12h, 1,000 MG PO BID Prescribed by: RAOUL AVITIA on 10/06/21 105 Sertraline HCl (Sertraline HCl) 100 Mg Tablet, 50 MG PO HS Prescribed by: RAOUL AVITIA on 10/06/21 105 Review of Systems Review of Systems Constitutional: No fever EENTM: no symptoms reported Respiratory: see HPI Cardiovascular: no symptoms reported Gastrointestinal: no symptoms reported Genitourinary: no symptoms reported Musculoskeletal: no symptoms reported Skin: no symptoms reported Past Ernwazs-Spdwww-Kkqdwx Hx Patient Social History Tobacco Use?: No Use of E-Cig and/or Vaping dev: No Substance use?: No Alcohol Use?: No Immunizations Up To Date First/Initial COVID19 Vaccinat: SEPTEMBER 2020 Second COVID19 Vaccination Sherif: 2020 Third COVID19 Vaccination Date: 2020 Past Medical History Surgery/Hospitalization HX: ING.HERNIA REPAIR, PROSTATE SURGERY, APPY, TONSILLECTOMY, ANGIOPLASTY, CATARACT SURGERY, Subdural hematoma CABG Sleep Apnea Coronary Artery Disease, Hypertension Stroke, TIA Gastroesophageal Reflux, Hiatal Hernia Diabetes, Insulin dep Prostate Family Medical History No Pertinent Family Hx Physical Exam Vital Signs Vital Signs - First Documented 10/10/22 10/10/22 15:43 16:34 Temp 36.6 Pulse 74 Resp 18 B/P (MAP) 99/50 (66) Pulse Ox 90 O2 Delivery Room Air O2 Flow Rate 2.00 Capillary Refill : Height, Weight, BMI Height: '" Weight: lbs. oz. kg; 21.00 BMI Method: General Appearance: No Apparent Distress, WD/WN Eyes: Bilateral Eye Normal Inspection HEENT: PERRL/EOMI, Normal ENT Inspection, Pharynx Normal Neck: Full Range of Motion, Normal Inspection, Non Tender, Supple Respiratory: Chest Non Tender, No Accessory Muscle Use, No Respiratory Distress, Crackles Cardiovascular: Regular Rate, Rhythm, No Edema, Normal Peripheral Pulses Gastrointestinal: Normal Bowel Sounds, Non Tender, Soft; No Distended, No Guarding Back: Normal Inspection, No CVA Tenderness Extremity: Normal Capillary Refill, Normal Inspection, Normal Range of Motion, Non Tender, No Calf Tenderness, No Pedal Edema Neurologic/Psychiatric: Alert, Oriented x3, No Motor/Sensory Deficits, Normal Mood/Affect Skin: Normal Color, Warm/Dry Focused Exam Sepsis Stage: Sepsis Possible Source: Pulmonary Lactate Level 10/10/22 14:29: Lactic Acid Level 1.94 Time of Focused Exam: 15:10 Respiratory: Chest Non Tender, No Respiratory Distress, Crackles Cardiovascular: Regular Rate, Rhythm, No Edema, Normal Peripheral Pulses Capillary Refill: Less Than 3 Seconds Peripheral Pulses: 2+ Radial Pulses (R), 2+ Radial Pulses (L) Skin: normal color, warm/dry Lactic Acid Level Laboratory Tests Test 10/10/22 14:29 Lactic Acid Level 1.94 MMOL/L (0.50-2.00) Within 3hrs of presentation: Admin fluids, Admin ABX, Blood cultures prior to ABX's, Focus exam, Lactate level, Other (Concern for potential heart failure and the patient's respiratory status, gave less than the 30 cc/kg due to concerns for respiratory compromise if his blood pressure had already started to improve, lactic is normal) Progress/Results/Core Measures Suspected Sepsis SIRS Temperature: Pulse: Respiratory Rate: Laboratory Tests 10/10/22 14:29: White Blood Count 16.6H Blood Pressure / Mean: 10/10/22 14:29: Lactic Acid Level 1.94 Laboratory Tests 10/10/22 14:29: Creatinine 1.58H, INR Comment 1.1, Platelet Count 93L, Total Bilirubin 0.9 Results/Orders Lab Results Laboratory Tests Test 10/10/22 14:29 10/10/22 18:03 Range/Units White Blood Count 16.6 H 4.3-11.0 10^3/uL Red Blood Count 4.53 4.30-5.52 10^6/uL Hemoglobin 13.1 L 13.3-17.7 g/dL Hematocrit 38 L 40-54 % Mean Corpuscular Volume 84 80-99 fL Mean Corpuscular Hemoglobin 29 25-34 pg Mean Corpuscular Hemoglobin Concent 34 32-36 g/dL Red Cell Distribution Width 14.0 10.0-14.5 % Platelet Count 93 L 130-400 10^3/uL Mean Platelet Volume 11.3 9.0-12.2 fL Immature Granulocyte % (Auto) 1 % Neutrophils (%) (Auto) 86 H 42-75 % Lymphocytes (%) (Auto) 6 L 12-44 % Monocytes (%) (Auto) 7 0-12 % Eosinophils (%) (Auto) 0 0-10 % Basophils (%) (Auto) 0 0-10 % Neutrophils # (Auto) 14.3 H 1.8-7.8 X 10^3 Lymphocytes # (Auto) 0.9 L 1.0-4.0 X 10^3 Monocytes # (Auto) 1.1 H 0.0-1.0 X 10^3 Eosinophils # (Auto) 0.0 0.0-0.3 10^3/uL Basophils # (Auto) 0.0 0.0-0.1 10^3/uL Immature Granulocyte # (Auto) 0.1 0.0-0.1 10^3/uL Neutrophils % (Manual) 73 % Lymphocytes % (Manual) 10 % Monocytes % (Manual) 3 % Eosinophils % (Manual) 0 % Basophils % (Manual) 0 % Band Neutrophils 14 % Percent Immature Platelet Fraction 5.2 0.0-7.6 % Prothrombin Time 15.0 H 12.2-14.7 SEC INR Comment 1.1 0.8-1.4 Activated Partial Thromboplast Time 35 24-35 SEC Sodium Level 128 L 135-145 MMOL/L Potassium Level 4.1 3.6-5.0 MMOL/L Chloride Level 95 L 98-107 MMOL/L Carbon Dioxide Level 21 21-32 MMOL/L Anion Gap 12 5-14 MMOL/L Blood Urea Nitrogen 30 H 7-18 MG/DL Creatinine 1.58 H 0.60-1.30 MG/DL Estimat Glomerular Filtration Rate 43 BUN/Creatinine Ratio 19 Glucose Level 235 H 70-105 MG/DL Lactic Acid Level 1.94 0.50-2.00 MMOL/L Calcium Level 8.4 L 8.5-10.1 MG/DL Corrected Calcium 9.1 8.5-10.1 MG/DL Total Bilirubin 0.9 0.1-1.0 MG/DL Aspartate Amino Transf (AST/SGOT) 9 5-34 U/L Alanine Aminotransferase (ALT/SGPT) 10 0-55 U/L Alkaline Phosphatase 74 40-136 U/L Troponin I < 0.30 <0.30 NG/ML Pro-B-Type Natriuretic Peptide 4747.0 H <450.0 PG/ML Total Protein 5.2 L 6.4-8.2 GM/DL Albumin 3.1 L 3.2-4.5 GM/DL Influenza Type A (RT-PCR) Not Detected Not Detecte Influenza Type B (RT-PCR) Not Detected Not Detecte SARS-CoV-2 RNA (RT-PCR) Not Detected Not Detecte Urine Color YELLOW Urine Clarity CLEAR Urine pH 6.0 5-9 Urine Specific [place] 1.010 L 1.016-1.022 Urine Protein NEGATIVE NEGATIVE Urine Glucose (UA) 3+ H NEGATIVE Urine Ketones NEGATIVE NEGATIVE Urine Nitrite NEGATIVE NEGATIVE Urine Bilirubin NEGATIVE NEGATIVE Urine Urobilinogen 0.2 < = 1.0 MG/DL Urine Leukocyte Esterase NEGATIVE NEGATIVE Urine RBC (Auto) NEGATIVE NEGATIVE Urine RBC NONE /HPF Urine WBC 0-2 /HPF Urine Squamous Epithelial Cells NONE /HPF Urine Crystals PRESENT H /LPF Urine Amorphous Sediment FEW LEISA URATES H /LPF Urine Bacteria NEGATIVE /HPF Urine Casts NONE /LPF Urine Mucus NEGATIVE /LPF Urine Culture Indicated NO My Orders Orders - KRUMSICK,TERRENCE K MD Cbc With Automated Diff (10/10/22 14:23) Comprehensive Metabolic Panel (10/10/22 14:23) Blood Culture (10/10/22 14:23) Sputum Culture (10/10/22 14:23) Urinalysis (10/10/22 14:23) Urine Culture (10/10/22 14:23) Protime With Inr (10/10/22 14:23) Partial Thromboplastin Time (10/10/22 14:23) Chest 1 View Ap/Pa Only (10/10/22 14:23) Ed Iv/Invasive Line Start (10/10/22 14:23) Ed Iv/Invasive Line Start (10/10/22 14:23) Ekg Tracing (10/10/22 14:23) Vital Signs Adult Sepsis Patie Q15M (10/10/22 14:23) O2 (10/10/22 14:23) Remove Rings In Anticipation O (10/10/22 14:23) Lactic Acid Analyzer (10/10/22 14:23) Influenza A And B By Pcr (10/10/22 14:23) Cefepime Injection (Maxipime Injection) (10/10/22 14:30) Covid 19 Inhouse Test (10/10/22 14:23) Probnp Fs (10/10/22 14:23) Troponin I Fs (10/10/22 14:23) Manual Differential (10/10/22 14:29) Doxycycline Hyclate Tablet (Vibramycin T (10/10/22 14:58) Ed Admission (Communication) (10/10/22 16:18) Lactated Ringers (Lr 1000 Ml Iv Solution (10/10/22 16:36) Catheter(Urinary) Insert & Ass 03,15 (10/10/22 17:46) Lidocaine 2% (Urojet) (Xylocaine Urojet) (10/10/22 18:00) Medications Given in ED Current Medications Medications Dose Ordered Sig/Fe Route Start Time Stop Time Status Last Admin Dose Admin Cefepime HCl 1000 mg/Sodium Chloride 50 ml @ 100 mls/hr ONCE ONCE IV 10/10/22 14:30 10/10/22 14:59 DC 10/10/22 15:29 100 MLS/HR Lidocaine HCl 10 ml ONCE ONCE TOP 10/10/22 18:00 10/10/22 18:01 DC 10/10/22 18:03 10 ML Vital Signs/I&O 10/10/22 10/10/22 10/10/22 15:43 16:33 16:34 Temp 36.6 36.4 Pulse 74 78 Resp 18 18 B/P (MAP) 99/50 (66) 107/54 Pulse Ox 90 96 O2 Delivery Room Air Nasal Cannula Nasal Cannula O2 Flow Rate 2.00 Capillary Refill : Progress Note : Progress Note 87-year-old male with above history coming in via EMS from the retirement due to low blood pressure and mild confusion. EMS reports blood pressure was 90s over 50s for them. This is similar to what we got as an initial blood pressure. The patient was on 2 L on arrival via EMS for oxygen. I took him off the oxygen and he did desat to roughly 89% which is a new problem for him. He was then placed back on the 2 L. An IV was placed and he was given a bolus of IV fluids. Given the productive cough and concerns for infection, initially given cefepime. Chest x-ray ordered and interpreted by me showing concerns for left lower lobe pneumonia. I did doxycycline after the x-ray was seen. His white blood cell count was elevated at just under 17,000, creatinine around baseline 1.5, sodium low at 128, BNP elevated around 5000, troponin negative, lactic acid normal. I discussed the case with his daughter who states he is still not at his mental baseline. Blood pressure shows a MAP right at 65. Given concerns for heart failure and his respiratory status with his blood pressure being improved from earlier, we will hold off on more aggressive IV fluids since I believe it could be at the detriment to the patient. Called and discussed the case with Dr. Hall. He will admit the patient to the intensive care unit under inpatient status for further evaluation and management. I then contacted the ICU physician to give signout. Of note, there were delays for EMS transfer given multiple transfers that were required throughout the day and [place]. ECG Initial ECG Impression Date: Oct 10, 2022 Initial ECG Impression Time: 14:45 Initial ECG Rate: 75 Initial ECG Rhythm: Normal Sinus Comment Narrow QRS, normal axis, no significant ST changes, T wave inversions in the high lateral leads Diagnostic Imaging Diagonstic Imaging: Xray (chest) Comments [facility] [place], [place] NAME: PHILIP CARRASCO [facility] REC#: [id number] PT STATUS: REG ER : 1935 PHYSICIAN: TERRENCE PARK MD ADMIT DATE: 10/10/22/ER FS Signed Date of Exam:10/10/22 CHEST 1 VIEW AP/PA ONLY INDICATION: Altered mental status. EXAMINATION: Portable chest at 2:32 PM. FINDINGS: There is some patchy infiltrate at the left lung base. There are postop changes from a median sternotomy. There are no effusions or pneumothoraces. IMPRESSION: Left basilar consolidation, suspicious for pneumonia. Dictated by: Dictated on workstation # [id number] Dict: 10/10/22 1438 Trans: 10/10/22 1450 [id number] Interpreted by: EVE CASTRO MD Electronically signed by: EVE CASTRO MD 10/10/22 1450 Departure Impression Primary Impression: Sepsis due to pneumonia Additional Impressions: Respiratory failure Qualified Codes: J96.01 - Acute respiratory failure with hypoxia AMS (altered mental status) Qualified Codes: R41.0 - Disorientation, unspecified Disposition: 30 STILL A PATIENT Condition: Stable Admissions Decision to Admit Reason: Admit from ER (General) Decision to Admit/Date: Oct 10, 2022 Time/Decision to Admit Time: 15:35 Transfer Method of Transfer: EMS Departure-Patient Inst. Referrals: PARVEEN DIXON MD (PCP) Primary Care Physician TERRENCE PARK MD Oct 10, 2022 15:04
[2022-10-10 15:06] LABS: BUN/CREATININE RATIO 19; CARBON DIOXIDE 21 MMOL/L (21-32); CHLORIDE 95 MMOL/L (98-107); CREATININE SERUM 1.58 MG/DL (0.60-1.30); GFR ESTIMATED 43; POTASSIUM 4.1 MMOL/L (3.6-5.0); SODIUM 128 MMOL/L (135-145)
[2022-10-10 15:07] LABS: ALANINE AMINOTRANSFERASE 10 U/L (0-55); ALBUMIN 3.1 GM/DL (3.2-4.5); ALKALINE PHOSPHATASE 74 U/L (40-136); BILIRUBIN,TOTAL 0.9 MG/DL (0.1-1.0); CALCIUM 8.4 MG/DL (8.5-10.1); GLUCOSE 235 MG/DL (70-105); TOTAL PROTEIN 5.2 GM/DL (6.4-8.2)
[2022-10-10 15:17] LABS: BAND NEUTROPHILS 14 %; BASOPHILS % (MANUAL) 0 %; EOSINOPHILS % (MANUAL) 0 %; LYMPHOCYTES % (MANUAL) 10 %; MONOCYTES % (MANUAL) 3 %; NEUTROPHILS % (MANUAL) 73 %
[2022-10-10] MEDS ORDERED: LACTATED RINGERS 1,000 ML IV STA (16:36)
[2022-10-10] MEDS ORDERED: LIDOCAINE UROJET 2% GEL 10 ML PKG TOP ONE (18:00)
[2022-10-10 18:09] LABS: BILIRUBIN,URINE NEGATIVE (NEGATIVE); CLARITY,URINE CLEAR; COLOR,URINE YELLOW; GLUCOSE, URINE (UA) 3+ (NEGATIVE); KETONES,URINE NEGATIVE (NEGATIVE); LEUKOCYTE ESTERASE ,URINE NEGATIVE (NEGATIVE); NITRITE,URINE NEGATIVE (NEGATIVE); PROTEIN,URINE NEGATIVE (NEGATIVE)
[2022-10-10 18:15] LABS: AMORPHOUS SEDIMENT,UR FEW AMOR URATES /LPF; BACTERIA,URINE NEGATIVE /HPF; WBC,URINE 0-2 /HPF
[2022-10-10] MEDS ORDERED: ONDANSETRON 4 MG (ZOFRAN) ORAL DISSOLVE TAB PO PRN (20:30)
[2022-10-10] MEDS ORDERED: ONDANSETRON 4 MG/2 ML (SDV) Z0FRAN IV PRN (20:30)
[2022-10-10] MEDS ORDERED: BISACODYL 10 MG SUPP (DULCOLAX) PR PRN (20:30)
[2022-10-10] MEDS ORDERED: NS IV 500 ML 500 ML IV PRN (20:30)
[2022-10-10] MEDS ORDERED: MELATONIN 3 MG TABLET PO PRN (20:30)
[2022-10-10] MEDS ORDERED: polyethylene glycoL POWDER 17 GM (MIRALAX) PACK PO PRN (20:30)
[2022-10-10] MEDS ORDERED: ANTACID SUSP 30 ML UDC (MYLANTA) PO PRN (20:30)
[2022-10-10] MEDS ORDERED: LACTATED RINGERS 1,000 ML IV ONE (20:45)
[2022-10-10] MEDS: LACTATED RINGERS 1,000 ML IV SCH (20:56)
[2022-10-10 20:59] VITALS: BP 99/50
[2022-10-10] MEDS: DOCUSATE SODIUM 100 MG (COLACE) CAP PO SCH (21:00)
--- NOTE | 2022-10-10 21:57 | Tele-ICU Progress Note ---
Progress Note 87M with CAD, SAH, DM2, GERD, HLD, HTN, dysphagia, recent admit to [facility] for fall, sent from [place] for hypotension. Reportedly developed some confusion mukul, which has been worsening. Has had productive cough x1-2 days and has seemed more labored. BP reported to be in the 80s at [facility]. Per EMS around 100 on their arrival. CXR with small area of left lung infiltrate. Given cefepime and dozy. Gentle hydration due to concerns for heart failure with BNP 5K. BP on arrival 138/60. Available chart/ vitals / labs / Images reviewed. H&P is from ER notes Patient's information available about PMH, Shx, Fhx allergy reviewed inEMR. ROS as per chart and RN report Now in ICU, hemodynamically stable Video assessment done using teleICU camera, rest of exam as per RN Discussed with RN. A/P acute mental status change - TME vs hyponatremia vs hypoperfusion with hypoxix/hypotension - seems improved. Per daughter better than it was when he was sent to ED, but not yet back to baseline. - follow Sepsis without shock - received 1 L NS given elevated BNP with improved hypotension - monitor carefully - cont ABX Acute hypoxic resp failure due to PNA - suppl O2 , monitor PNA, possible LLL given recent cough - smal infiltrate - - covered with empiric abx ( cefepime. doxy ) , await cultures JUANITO - cont hydration Hyponatremia, 128 - mild , cont to minitor with hydration Elv BNP, h/o CAD - stents nd plasty in past , chronic angina - ECHO 09/2021- EF 55% , gd Ii dst dsfnct , RVSP 30 mmHg DM II - ISS JUANITO/ CKD 3 - Cr 1.58 - follow with hydration Thrombocytopenia h/o RODY h/o TIA Prostate cancer multiple skin melanoma removals Plans in collaboration with bedside consultants and IM MDs. Discussed with RN to reach out if any questions or concerns A total of 15 minutes of critical care time was devoted to this patient today, required to treat and/or prevent further deterioration of critical care condition (as above). I am remotely monitoring this patient from another state. I am unable to do the bedside exam, and history/physical and pertinent information is taken from other notes in the computer and bedside staff. Focused Exam Lactate Level 10/10/22 14:29: Lactic Acid Level 1.94 Height, Weight, BMI Height: '" Weight: lbs. oz. kg; 21.73 BMI Method: Time of Focused Exam: 15:10 OTILIO LAUREN MD Oct 10, 2022 21:57
[2022-10-10] MEDS: inSUlin ASPART (NovoLOG) 1 UNIT/0.01 ML (CHARGE PER UNIT) SC SCH (22:29)
[2022-10-10] MEDS: ENOXAPARIN 40 MG/0.4 ML (LOVENOX) SYR SC SCH (22:30)
[2022-10-10] MEDS ORDERED: OLANZapine 5 MG ODT (ZyPREXA ZYDIS) PO ONE (22:45)
[2022-10-10] MEDS: RT-ALBUTEROL SULF 2.5 MG/3 ML PRE-MIX VIAL INH SCH (23:00)
[2022-10-10] MEDS: RT-IPRATROPIUM (ATROVENT) 0.5MG/2.5ML AMP IH SCH (23:00)
[2022-10-11] MEDS ORDERED: RT-ALBUTEROL SULF 2.5 MG/3 ML PRE-MIX VIAL INH PRN
[2022-10-11] MEDS: RT-ALBUTEROL SULF 2.5 MG/3 ML PRE-MIX VIAL INH SCH ×5 (02:12→22:31)
[2022-10-11] MEDS: RT-IPRATROPIUM (ATROVENT) 0.5MG/2.5ML AMP IH SCH ×5 (02:12→22:31)
[2022-10-11] MEDS ORDERED: DOXYCYCLINE 100 MG INJ (VIBRAMYCIN) ONE (02:55)
[2022-10-11] MEDS: DOXYCYCLINE INJECTION 100 MG in NS (IVPB) 100 ML IV SCH ×2 (03:03→15:30)
[2022-10-11 03:53] LABS: BASOPHILS % (AUTO) 0 % (0-10); HEMOGLOBIN 13.3 g/dL (13.3-17.7); LYMPHOCYTES # (AUTO) 1.2 10^3/uL (1.0-4.0); LYMPHOCYTES % (AUTO) 10 % (12-44); MEAN CORPUSCULAR VOLUME 87 fL (80-99); WHITE BLOOD COUNT 12.4 10^3/uL (4.3-11.0)
[2022-10-11 03:55] LABS: EOSINOPHILS % (AUTO) 0 % (0-10); HEMATOCRIT 40 % (40-54); MEAN CORPUSCULAR HEMOGLOBIN 29 pg (25-34); MEAN CORPUSCULAR HGB CONC 33 g/dL (32-36); MONOCYTES # (AUTO) 0.8 10^3/uL (0.0-1.0); MONOCYTES % (AUTO) 6 % (0-12); NEUTROPHILS # (AUTO) 10.3 10^3/uL (1.8-7.8); NEUTROPHILS % (AUTO) 83 % (42-75); PLATELET COUNT 82 10^3/uL (130-400)
[2022-10-11 04:04] LABS: POTASSIUM 4.1 MMOL/L (3.6-5.0)
[2022-10-11 04:06] LABS: CALCIUM 8.7 MG/DL (8.5-10.1)
[2022-10-11 04:10] LABS: CREATININE SERUM 1.44 MG/DL (0.60-1.30); PHOSPHORUS 2.7 MG/DL (2.3-4.7)
[2022-10-11 04:12] LABS: MAGNESIUM 1.6 MG/DL (1.6-2.4)
[2022-10-11] MEDS ORDERED: ZIPRASIDONE 20 MG INJ (GEODON) VIAL IM ONE ×2 (04:45)
[2022-10-11] MEDS ORDERED: WATER (STERILE) FOR INJ 10 ML BTL INJ SCH ×2 (04:45)
[2022-10-11] MEDS: inSUlin ASPART (NovoLOG) 1 UNIT/0.01 ML (CHARGE PER UNIT) SC SCH ×4 (05:07→21:56)
[2022-10-11] MEDS: MAGNESIUM 1 GM/100 ML IVPB 100 ML IV SCH ×2 (05:15→05:16)
[2022-10-11] MEDS ORDERED: MAGNESIUM 1 GM/100 ML IVPB 100 ML IV SCH (06:00)
[2022-10-11] MEDS ORDERED: KCL 20 MEQ TAB (K-DUR) PO SCH (06:00)
[2022-10-11] MEDS ORDERED: POTASSIUM CL 10MEQ/50ML IVPB 50 ML IV SCH (06:00)
[2022-10-11] MEDS: LACTATED RINGERS 1,000 ML IV SCH ×2 (06:23→13:53)
[2022-10-11] MEDS: DOCUSATE SODIUM 100 MG (COLACE) CAP PO SCH ×2 (08:24→20:41)
--- NOTE | 2022-10-11 11:57 | ST Dysphagia Evaluation ---
Speech Evaluation-General Medical Diagnosis LLL Pneumonia Onset Date: Oct 10, 2022 Therapy Diagnosis Therapy Diagnosis: Moderate Pharyngeal Dysphagia (Baseline) Precautions Precautions: Fall, Pressure Ulcer, Aspiration Precautions/Isolations: Aspiration, Fall Prevention, Standard Precautions, Pressure Ulcer Referral Referring Physician: Dr. Hall Reason for Referral: Evaluation/Treatment Medical History Pertinent Medical History: Arthritis, CABG, CAD, DM, GERD, HTN, [place], Neuropathy Reviewed History: Yes Speech PLF/Current-Dysphagia Prior Level of Function Per patient's daughter, the patient was consuming a regular consistency diet with thin liquids at the nursing facility. The patient's daughter stated, "We started trying thickening this week." Subjective The patient is known to the clinician from previous hospital admissions. The patient previously completed a modified barium swallow evaluation in September 2021. The video swallow revealed silent aspiration of thin liquids and nectar- thick liquids, therefore, honey-thick liquids (moderately thick) liquids were recommended and dysphagia therapy was initiated. As the patient displayed silent aspiration of thin liquid and nectar thick liquid, advancement of liquids from honey-thick liquids should not have occurred or been deemed safe without the use of a follow up modified barium swallow evaluation. Per patient's daughter, a repeat modified was not accomplished. The patient was seated upright in bed, awake and alert, upon entrance to the patient's room by the clinician. The patient greeted the clinician appropriately and was agreeable to participation in the clinical bedside swallowing evaluation. Cognitive Status Patient Orientation: Person, Confused Oral Motor Skills Dentition: Natural Denture Type: Full- Upper & Lower Oral Expression Ability: Moderate Impairment Voice Voice Phonatory-Based Quality: Weak Voice Pitch: Normal Voice Loudness: Moderately Soft/Quiet Face Facial Symmetry: Symmetrical (Grossly.) Oral-Facial Assessment Oral-Facial Dentition: Normal Labial Seal Description: Weak Smile: Reduced ROM Puff Cheeks: Reduced Strength Lingual Protrusion: Normal Lingual ROM: Normal Lingual Strength: Abnormal Volitional Dry Swallow: Yes Voluntary Cough: Yes Can Clear Throat Volitionally: Yes Productive Cough: Yes Productive Throat Clear: Yes Dysphagia Evaluation Consistencies Presented: Regular, Thin Liquid (Ice Chip), Honey Thick Liquid, Pureed The patient did not display oral impairments throughout the bedside swallow study. Pharyngeal Phase: Multiple Swallow Attempts Laryngeal elevation present to palpation. Funct. Velo/Pharyngeal Symptom: Cough After Swallow (Ice Chip) The patient displayed an immediate cough following the swallow with ice chips. Overt s/s of suspected aspiration were not displayed with solid, puree, or honey-thick liquids. Dietary Recommendations: Regular Liquid Recommendations: Honey Consistancy Recommendations: - Regular consistency diet with moderately thick liquids, as tolerated. - Fully upright and alert for P.O. intake. - Small, single bites and sips. - Crush medication and place in puree for administration. - Monitor for s/s of suspected aspiration with P.O. intake. If demonstrated, place the patient NPO and contact speech pathology. - Complete a follow up modified barium swallow once the patient displays improved strength and stability to assess for the appropriateness of diet consistency advancement. The results and recommendations were discussed with the patient, the patient's daughter, and the patient's RN. Dysphagia Evaluation Summary The patient presents with moderate pharyngeal dysphagia (baseline). Speech Short Term Goals Short Term Goals Short Term Goals 1. The patient will display safe swallowing precautions with 75% accuracy and mild verbal cueing. Time Frame-STG: Three Days. Speech Toll Collector Supervisor Goals Toll Collector Supervisor Goals 1. The patient will tolerate the least restrictive diet consistency without s/s of suspected aspiration. Time Frame: One Week. Speech-Plan Treatment Plan Speech Therapy Treatment Plan: Continue Plan of Care Treatment Duration: Oct 28, 2022 Frequency: 4 times per week Estimated Hrs Per Day: .25 hour per day Rehab Potential: Fair Pt/Family Agrees to Plan: Yes Safety Risks/Education Teaching Recipient: Patient, Family Teaching Methods: Discussion Response to Teaching: Verbalize Understanding Education Topics Provided: Results, Recommendations, Plan of Care, Safe Swallowing Precautions Time Speech Therapy Time In: 09:29 Speech Therapy Time Out: 09:58 DATE: Oct 11, 2022 Total Billed Time: 29 Billed Treatment Time 1, CURLY YODER [facility] Oct 11, 2022 11:57
[2022-10-11 12:04] VITALS: BP 120/69
--- NOTE | 2022-10-11 12:19 | Tele-ICU Progress Note ---
Subjective Date Seen by a Provider: Oct 11, 2022 Time Seen by a Provider: 08:51 Subjective/Events-last exam (Tele-ICU Physician , Progress Note ) Service provided via interactive audio and video telecommunications E-CARE system to a patient admitted to ICU bed in [facility]. Patient is seen today due to persistent need of ICU care Available chart/ vitals / labs / Images reviewed Video assessment done using teleICU camera, rest of exam as per RN Discussed with RN Events overnight : Afebrile hemodynamically stable Respiratory - I/O = Drips: Pressors- no A/P acute mental status change - TME vs hyponatremia vs hypoperfusion with hypoxix/hypotension - seems improved. Per daughter better than it was when he was sent to ED, but not yet back to baseline. - follow Sepsis without shock - received 1 L NS given elevated BNP with improved hypotension - monitor carefully, on 100 ml/h LR - cont ABX Acute hypoxic resp failure due to PNA - suppl O2 1 l , monitor PNA, possible LLL given recent cough - smal infiltrate - - covered with empiric abx ( cefepime. doxy ) , await cultures - speach eval Hyponatremia, 128 - Nl with hydration Elv BNP, h/o CAD - stents nd plasty in past , chronic angina - ECHO 09/2021- EF 55% , gd Ii dst dsfnct , RVSP 30 mmHg DM II - ISS JUANITO/ CKD 3 - Cr 1.58 - follow with hydration ( ? baseline Thrombocytopenia - ? new ( ? baseline h/o RODY h/o TIA Prostate cancer multiple skin melanoma removals Plans in collaboration with bedside consultants and IM MDs. Discussed with RN to reach out if any questions or concerns A total of 20 minutes of critical care time was devoted to this patient today, required to treat and/or prevent further deterioration of critical care condition (as above). I am remotely monitoring this patient from another state. I am unable to do the bedside exam, and history/physical and pertinent information is taken from other notes in the computer and bedside staff. Sepsis Event Evaluation Height, Weight, BMI Height: '" Weight: lbs. oz. kg; 21.73 BMI Method: Focused Exam Lactate Level 10/10/22 14:29: Lactic Acid Level 1.94 Time of Focused Exam: 15:10 Exam Exam Patient acknowledged, consented, and participated in this virtual visit which w as conducted using real time audio/video Vital Signs Date Time Temp Pulse Resp B/P (MAP) Pulse Ox O2 Delivery O2 Flow Rate FiO2 10/11/22 12:04 36.6 84 18 120/69 (86) 96 Nasal Cannula 1.00 10/11/22 11:05 98 Room Air 10/11/22 11:00 79 26 120/64 (82) 99 Nasal Cannula 1.00 10/11/22 10:00 87 18 130/57 (81) 94 Nasal Cannula 1.00 10/11/22 09:00 84 35 131/68 (89) 100 Nasal Cannula 1.00 10/11/22 08:00 81 19 135/70 (91) 100 Nasal Cannula 1.00 10/11/22 08:00 99 Nasal Cannula 1.00 10/11/22 07:58 35.7 10/11/22 07:27 98 Nasal Cannula 1.00 10/11/22 07:00 82 10/11/22 07:00 82 22 116/61 (79) 98 Nasal Cannula 1.00 10/11/22 06:00 91 30 134/97 (109) 98 Nasal Cannula 1.00 10/11/22 05:00 89 39 126/65 (81) 96 Nasal Cannula 1.00 10/11/22 04:00 99 Nasal Cannula 1.00 10/11/22 04:00 90 16 113/55 (70) 96 Nasal Cannula 1.00 10/11/22 03:05 89 28 130/78 (95) 99 Nasal Cannula 1.00 10/11/22 02:25 94 23 99 Nasal Cannula 1.00 10/11/22 02:22 100 Nasal Cannula 1.00 10/11/22 02:12 100 Nasal Cannula 2.00 10/11/22 02:00 93 15 108/60 (76) 99 Nasal Cannula 2.00 10/11/22 01:00 95 10/11/22 01:00 95 27 140/92 (108) 100 Nasal Cannula 2.00 10/11/22 00:00 86 119/65 (83) 100 Nasal Cannula 2.00 10/11/22 00:00 97 Nasal Cannula 2.00 10/10/22 23:18 36.7 10/10/22 23:10 Nasal Cannula 2.00 10/10/22 23:00 97 Nasal Cannula 2.50 10/10/22 23:00 84 23 121/69 (86) 97 Nasal Cannula 2.50 10/10/22 22:10 84 10/10/22 22:00 82 24 121/64 (83) 96 Nasal Cannula 2.50 10/10/22 21:27 Nasal Cannula 2.50 10/10/22 21:17 Nasal Cannula 2.50 10/10/22 21:17 98 Nasal Cannula 3.00 10/10/22 21:00 79 138/60 (86) 98 Nasal Cannula 3.00 10/10/22 20:59 36.6 74 90 21 10/10/22 20:35 99 Nasal Cannula 3.00 10/10/22 20:30 Nasal Cannula 3.00 10/10/22 20:30 80 16 134/65 (88) 99 Nasal Cannula 3.00 10/10/22 20:00 36.3 85 16 139/70 (93) 88 Nasal Cannula 2.00 10/10/22 20:00 Nasal Cannula 3.00 10/10/22 20:00 88 Nasal Cannula 2.00 10/10/22 16:34 Nasal Cannula 2.00 10/10/22 16:33 36.4 78 18 107/54 96 Nasal Cannula 10/10/22 15:43 36.6 74 18 99/50 (66) 90 Room Air I & O 10/11/22 07:00 Intake Total 2150 ml Output Total 1350 ml Balance 800 ml Height & Weight Height: '" Weight: lbs. oz. kg; 21.73 BMI Method: General Appearance: No Apparent Distress, WD/WN HEENT: PERRL/EOMI, Normal ENT Inspection, Pharynx Normal Neck: Full Range of Motion, Normal Inspection, Non Tender, Supple Respiratory: Chest Non Tender, No Respiratory Distress, Crackles Cardiovascular: Regular Rate, Rhythm, No Edema, Normal Peripheral Pulses Capillary Refill: Less Than 3 Seconds Peripheral Pulses: 2+ Radial Pulses (R), 2+ Radial Pulses (L) Extremity: Normal Capillary Refill, Normal Inspection, Normal Range of Motion, Non Tender, No Calf Tenderness, No Pedal Edema Neurologic/Psychiatric: Alert, Oriented x3, No Motor/Sensory Deficits, Normal Mood/Affect Skin: Normal Color, Warm/Dry Results Lab Laboratory Tests 10/10/22 14:29 10/11/22 03:42 Assessment/Plan Assessment/Plan 1 SHULZHENKO,LEO V MD Oct 11, 2022 12:19
[2022-10-11] MEDS ORDERED: POLY17PO6 PO (13:13)
[2022-10-11] MEDS ORDERED: RANO10003 PO (13:13)
[2022-10-11] MEDS ORDERED: ACET325T38 PO (13:13)
[2022-10-11] MEDS ORDERED: EMPA25TA PO (13:13)
[2022-10-11] MEDS ORDERED: INSU100I10 SQ (13:13)
[2022-10-11] MEDS ORDERED: FLUT9.9S NSEACH (13:13)
[2022-10-11] MEDS ORDERED: METO50TA15 PO (13:13)
[2022-10-11] MEDS ORDERED: POLY15DR27 OU (13:13)
[2022-10-11] MEDS ORDERED: ATOR40TA70 PO (13:13)
[2022-10-11] MEDS ORDERED: DOCU100C37 PO (13:13)
[2022-10-11] MEDS ORDERED: NF-SODBICA PO (13:13)
[2022-10-11] MEDS ORDERED: SEMA1PEN3 SQ (13:13)
[2022-10-11] MEDS ORDERED: GUAI10LI14 PO (13:13)
[2022-10-11] MEDS ORDERED: MELA10TA2 PO (13:13)
[2022-10-11] MEDS ORDERED: SERT-413 PO (13:13)
[2022-10-11] MEDS ORDERED: LEVE750T5 PO (13:13)
[2022-10-11] MEDS ORDERED: LANS15CA5 PO (13:13)
--- NOTE | 2022-10-11 13:59 | History & Physical-Hospitalist ---
MISSAEL DUNHAM 10/11/22 1358: History of Present Illness HPI/Chief Complaint Demetri Carrasco is a 87yo male poor historian with a past medical history of Arthritis, CABG, CAD, DM, GERD, HTN, [place], Neuropathy presenting with community acquired pneumonia. Pt is accompanied by daughter Henny. Pt's daughter states that he was hospitalized recently due to fall 09/14/22, and was at [facility] for Rehab before episode of Hypotension around noon on 10/10/22 which led to ED visit. Upon admission pt was diagnosed with Pneumonia which daughter thinks could be due to aspiration since he has been having trouble swallowing pills lately. Pt has been experiencing headaches lately, and today is experiencing chest pain. Daughter also notes that pt has been having vivid nightmares and mental decline. Source: family Date Seen 10/11/22 Attending Physician Fide Morocho DO PCP Admitting Physician: Lian Morales MD Attending Physician: Lian Morales MD Referring Physician Date of Admission Oct 10, 2022 at 16:19 Home Medications & Allergies Home Medications Reviewed patient Home Medication Reconciliation performed by pharmacy medication reconciliations echo technician and/or nursing. Patients Allergies have been reviewed. Allergies Allergies Coded Allergies ciprofloxacin (Verified Allergy, Severe, 08/17/21) Sulfa (Sulfonamide Antibiotics) (Verified Allergy, Unknown, 08/17/21) bacitracin (Verified Allergy, Unknown, 08/17/21) metformin (Verified Allergy, Unknown, 08/17/21) neomycin (Verified Allergy, Unknown, 08/17/21) polymyxin B (Verified Allergy, Unknown, 08/17/21) Past Vwytlli-Lddtvi-Pmjkez Hx Patient Social History Marrital Status: Tobacco Use?: No Smoking Status: Former Smoker Use of E-Cig and/or Vaping dev: No Substance use?: No Alcohol Use?: No Pt feels they are or have been: No Immunizations Up To Date Date of Influenza Vaccine: Jul 29, 2021 First/Initial COVID19 Vaccinat: SEPTEMBER 2020 Second COVID19 Vaccination Sherif: 2020 Tetanus Booster (TDap): More Than 5 Years Hepatitis A: No Hepatitis B: No Current Status Advance Directives: No Communicates: Verbally Primary Language: Nicaraguan Preferred Spoken Language: Nicaraguan Is interpretation needed?: No Sensory deficits: Vision impairment Past Medical History Surgeries: CABG Sleep Apnea Coronary Artery Disease, Hypertension Stroke, TIA Gastroesophageal Reflux, Hiatal Hernia Diabetes, Insulin dep Prostate Family Medical History No Pertinent Family Hx Review of Systems Constitutional: No chills, No fever Respiratory: cough; No short of breath Cardiovascular: chest pain Gastrointestinal: No abdominal pain, No diarrhea; dysphagia; No nausea, No vomiting Psychiatric/Neurological: Headache Physical Exam Physical Exam Vital Signs Vital Signs - First Documented 10/10/22 10/10/22 10/10/22 15:43 16:34 20:59 Temp 36.6 Pulse 74 Resp 18 B/P (MAP) 99/50 (66) Pulse Ox 90 O2 Delivery Room Air O2 Flow Rate 2.00 FiO2 21 Capillary Refill : Less Than 3 Seconds Height, Weight, BMI Height: '" Weight: lbs. oz. kg; 21.73 BMI Method: General Appearance: Thin Respiratory: Lungs Clear, Normal Breath Sounds Cardiovascular: Regular Rate, Rhythm, Normal Peripheral Pulses, Systolic Murmur Gastrointestinal: Normal Bowel Sounds, Non Tender, Soft Extremity: Non Tender, No Calf Tenderness, No Pedal Edema Neurologic/Psychiatric: Alert Skin: Normal Color, Warm/Dry Results Results/Procedures Labs Laboratory Tests 10/10/22 14:29 10/11/22 03:42 Patient resulted labs reviewed. Imaging CHEST 1 VIEW AP/PA ONLY INDICATION: Altered mental status. EXAMINATION: Portable chest at 2:32 PM. FINDINGS: There is some patchy infiltrate at the left lung base. There are postop changes from a median sternotomy. There are no effusions or pneumothoraces. IMPRESSION: Left basilar consolidation, suspicious for pneumonia. Assessment/Plan Admission Diagnosis Sepsis Secondary to Pneumonia Admission Status: Inpatient Order (span 2 midnights) Assessment and Plan Rajan Carrasco is a 87yo male presenting with Sepsis Secondary to Pneumonia Acute Delirium Underlying Dementia Worsening Confusion Continue Donepezil Monitor Mental Status for Improvement or Decline Sepsis Route: Pneumonia IV Fluids Sliding Scale Insulin Aspiration Pneumonia CXR: Left basilar consolidation Consider Repeat CXR tomorrow Acute Kidney Injury Elevated BUN and Cr IV Fluids Monitor Repeat Chemistry tomorrow Dysphagia Swallow Study Thickened Liquids w/ Medication Regular Diet Frequent Falls Diagnosis/Problems Diagnosis/Problems (1) Acute kidney injury Status: Acute (2) Sepsis due to pneumonia (3) Pneumonia Status: Acute Qualifiers: Pneumonia type: due to unspecified organism Laterality: left Lung lo cation: lower lobe of lung Qualified Codes: J18.9 - Pneumonia, unspecified organism (4) Dysphagia Status: Acute (5) Delirium Status: Acute LIAN MORALES MD 10/11/22 1628: History of Present Illness Source: patient, family Exam Limitations: clinical condition Time Seen by a Provider: 10:45 Past Tputsjn-Uritah-Dxizau Hx Patient Social History Tobacco Use?: No Use of E-Cig and/or Vaping dev: No Alcohol Use?: No Past Medical History Sleep Apnea Coronary Artery Disease, High Cholesterol, Hypertension Renal Failure Gastroesophageal Reflux Prostate Family Medical History No Pertinent Family Hx Review of Systems Constitutional: see HPI Physical Exam Physical Exam General Appearance: No Apparent Distress, Chronically ill HEENT: PERRL/EOMI, Pharynx Normal Neck: Normal Inspection, Supple Respiratory: No Respiratory Distress, Decreased Breath Sounds Cardiovascular: Regular Rate, Rhythm, No Murmur Gastrointestinal: Normal Bowel Sounds, Soft Extremity: Normal Inspection, No Pedal Edema Neurologic/Psychiatric: Alert, Disoriented Skin: Normal Color, Warm/Dry Results Results/Procedures Imaging: Reviewed Imaging Report Assessment/Plan Admission Diagnosis Admission Status: Inpatient Order (span 2 midnights) Reason for Inpatient Admission: pneumonia Assessment and Plan Admitted with sepsis due to pneumonia. Continue antibiotics. Attempted to call for goals of care discussion. Diagnosis/Problems Diagnosis/Problems (1) Sepsis due to pneumonia (2) Pneumonia Status: Acute Qualifiers: Pneumonia type: due to unspecified organism Laterality: left Lung location: lower lobe of lung Qualified Codes: J18.9 - Pneumonia, unspecified organism (3) Acute kidney injury Status: Acute (4) Dysphagia Status: Acute (5) Delirium Status: Acute (6) Dementia Status: Chronic Supervisory-Addendum Brief Verification & Attestation Participated in pt care: history, MDM, physical Personally performed: exam, history, MDM, supervision of care Care discussed with: Medical Student Procedures: n/a Results interpretation: Verified all documentation A medical student performed and documented this service in my presence. I reviewed and verified all information documented by the medical student and made modifications to such information, when appropriate. I personally performed the physical exam and medical decision making. MISSAEL DUNHAM Oct 11, 2022 13:58 LIAN MORALES MD Oct 11, 2022 16:28
[2022-10-11] MEDS ORDERED: HALOPERIDOL 5 MG/ML (HALDOL) VIAL IM PRN (16:30)
[2022-10-11 16:32] VITALS: BP 135/63
[2022-10-11] MEDS: AUGMENTIN 875 MG TAB (AMOXICILLIN/CLAVULANATE) PO SCH (17:45)
[2022-10-11 20:23] VITALS: BP 140/63
[2022-10-11] MEDS: ENOXAPARIN 40 MG/0.4 ML (LOVENOX) SYR SC SCH (20:41)
[2022-10-11] MEDS: OLANZapine 5 MG ODT (ZyPREXA ZYDIS) PO SCH (20:41)
[2022-10-11 22:43] VITALS: BP 140/63
[2022-10-11 23:12] VITALS: BP 121/68
[2022-10-11] MEDS ORDERED: CEFEPIME INJECTION 1,000 MG in NS (IVPB) 50 ML IV SCH (23:30)
[2022-10-12] MEDS: ACETAMINOPHEN 325 MG TABLET PO PRN ×3 (02:20→15:06)
[2022-10-12 03:48] VITALS: BP 131/73
[2022-10-12 05:36] LABS: BASOPHILS % (AUTO) 0 % (0-10)
[2022-10-12 05:38] LABS: EOSINOPHILS # (AUTO) 0.1 10^3/uL (0.0-0.3); EOSINOPHILS % (AUTO) 1 % (0-10); HEMATOCRIT 38 % (40-54); HEMOGLOBIN 12.6 g/dL (13.3-17.7); LYMPHOCYTES # (AUTO) 0.9 10^3/uL (1.0-4.0); LYMPHOCYTES % (AUTO) 12 % (12-44); MEAN CORPUSCULAR HEMOGLOBIN 29 pg (25-34); MEAN CORPUSCULAR HGB CONC 34 g/dL (32-36); MEAN CORPUSCULAR VOLUME 87 fL (80-99); MEAN PLATELET VOLUME 10.7 fL (9.0-12.2); MONOCYTES # (AUTO) 0.6 10^3/uL (0.0-1.0); MONOCYTES % (AUTO) 7 % (0-12); NEUTROPHILS # (AUTO) 6.2 10^3/uL (1.8-7.8); NEUTROPHILS % (AUTO) 80 % (42-75); PLATELET COUNT 97 10^3/uL (130-400); WHITE BLOOD COUNT 7.8 10^3/uL (4.3-11.0)
[2022-10-12 06:00] LABS: CALCIUM 8.5 MG/DL (8.5-10.1); CREATININE SERUM 1.36 MG/DL (0.60-1.30); MAGNESIUM 1.9 MG/DL (1.6-2.4); PHOSPHORUS 3.4 MG/DL (2.3-4.7); POTASSIUM 3.6 MMOL/L (3.6-5.0)
[2022-10-12] MEDS: inSUlin ASPART (NovoLOG) 1 UNIT/0.01 ML (CHARGE PER UNIT) SC SCH ×4 (06:22→20:27)
[2022-10-12] MEDS: RT-ALBUTEROL SULF 2.5 MG/3 ML PRE-MIX VIAL INH SCH ×4 (07:23→23:17)
[2022-10-12 08:17] VITALS: BP 125/67
[2022-10-12] MEDS: AUGMENTIN 875 MG TAB (AMOXICILLIN/CLAVULANATE) PO SCH ×2 (09:25→17:42)
[2022-10-12] MEDS: DOCUSATE SODIUM 100 MG (COLACE) CAP PO SCH ×2 (09:25→20:10)
--- NOTE | 2022-10-12 10:37 | Speech Therapy Daily Note ---
Speech Daily Progress Note Subjective Date Seen by Provider: Oct 12, 2022 Time Seen by Provider: 10:08 The patient was lying in bed, awake and alert, upon entrance to the patient's room by the clinician. The patient was seated upright for safe swallowing and greeted the clinician appropriately. The patient is agreeable to participation in the dysphagia treatment session. The patient's daughter is present at bedside and remains for the treatment session. Objective The patient denied difficulties or concerns with his oropharyngeal swallowing function throughout the past 24 hours on the modified diet consistency. The patient's daughter has provided the patient with small medicine cups of moderately-thick liquids which does appear to benefit the patient with small sip size. The patient consumes eight cup edge drinks of moderately thick liquids for the clinician. The patient does not display s/s of suspected aspiration with any P.O. trial consumed. The clinician discussed an effortful swallow exercise which the patient was able to complete with maximum clinician cueing (direct modeling). As the patient has continued to progress and is currently on the medical/surgical floor (transferred out of the ICU), the clinician agrees to his appropriateness for completion of the modified barium swallow study. The patient and daughter agree to completion of the study to most safely decipher the appropriate diet consistency for the patient (due to previous silent aspiration of thin liquids and mildly thick liquids). The clinician was able to schedule the swallow study for 10/13/22 at 1115. Continue with the current plan of care pending completion of the swallow study. Assessment Assessment Current Status: Fair Progress Treatment Plan Continue Plan of Care Speech Short Term Goals Short Term Goals Short Term Goals 1. The patient will display safe swallowing precautions with 75% accuracy and mild verbal cueing. Time Frame-STG: Three Days. Speech Pediatrician/Medical Doctor Goals Pediatrician/Medical Doctor Goals 1. The patient will tolerate the least restrictive diet consistency without s/s of suspected aspiration. Time Frame: One Week. Speech-Plan Treatment Plan Speech Therapy Treatment Plan: Continue Plan of Care Treatment Duration: Oct 28, 2022 Frequency: 4 times per week Estimated Hrs Per Day: .25 hour per day Rehab Potential: Fair Pt/Family Agrees to Plan: Yes Safety Risks/Education Teaching Recipient: Patient, Family Teaching Methods: Discussion Response to Teaching: Verbalize Understanding Education Topics Provided: Results, Recommendations, Safe Swallowing Precautions Time Speech Therapy Time In: 10:08 Speech Therapy Time Out: 10:22 DATE: Oct 12, 2022 Total Billed Time: 14 Billed Treatment Time 1, DYST [facility]SIEL [facility]SE Oct 12, 2022 10:37
[2022-10-12 12:09] VITALS: BP 127/72
--- NOTE | 2022-10-12 13:06 | Progress Note - Hospitalist ---
Subjective HPI/CC On Admission Date Seen by Provider: Oct 12, 2022 Time Seen by Provider: 11:40 Subjective/Events-last exam He reports headache. He complains of nausea and abdominal pain, but none at this time. Focused Exam Lactate Level 10/10/22 14:29: Lactic Acid Level 1.94 Time of Focused Exam: 15:10 Objective Exam Vital Signs Vital Signs Date Time Temp Pulse Resp B/P (MAP) Pulse Ox O2 Delivery O2 Flow Rate FiO2 10/12/22 12:09 36.4 89 20 127/72 (90) 96 NIV Bilevel 1.00 10/11/22 22:43 24 Capillary Refill : Less Than 3 Seconds General Appearance: No Apparent Distress, Chronically ill Respiratory: No Respiratory Distress, Crackles Cardiovascular: Regular Rate, Rhythm, No Murmur Gastrointestinal: Normal Bowel Sounds, Soft Extremity: Normal Inspection, Pedal Edema Neurologic/Psychiatric: Alert, Disoriented Skin: Normal Color, Warm/Dry Results/Procedures Lab Laboratory Tests 10/12/22 05:20 Patient resulted labs reviewed. Imaging: Reviewed Imaging Report Assessment/Plan Assessment and Plan Assess & Plan/Chief Complaint Likely aspiration pneumonia Dysphagia Augmentin Speech therapy consulted, planning for barium swallow tomorrow General diet with thickened liquids JUANITO on CKD Improving Likely dementia Delirium Debility Poor prognosis Goals of care discussion Reorient as needed Dysphagia likely associated with progressing dementia Again attempted to call by telephone, no answer Consult palliative care T2DM Blood sugars well controlled Hold home meds Seizure disorder HTN HLD CAD GERD Continue home meds as able DVT prophylaxis: Lovenox Sepsis due to pneumonia, resolved Diagnosis/Problems Diagnosis/Problems (1) Sepsis due to pneumonia Status: Resolved Resolution Date/Time: 10/12/22 @ 13:19 (2) Pneumonia Status: Acute Qualifiers: Pneumonia type: due to unspecified organism Laterality: left Lung location: lower lobe of lung Qualified Codes: J18.9 - Pneumonia, unspecified organism (3) Acute kidney injury Status: Resolved Resolution Date/Time: 10/12/22 @ 13:20 (4) Dysphagia Status: Acute (5) Delirium Status: Acute (6) Dementia Status: Chronic (7) CKD (chronic kidney disease) Status: Chronic Qualifiers: Chronic kidney disease stage: stage 3 (moderate) Chronic kidney disease stage 3 subtype: stage 3a (GFR 45-59) Qualified Codes: N18.31 - Chronic kidney disease, stage 3a (8) HTN (hypertension) Status: Chronic (9) HLD (hyperlipidemia) Status: Chronic (10) GERD (gastroesophageal reflux disease) Status: Chronic (11) T2DM (type 2 diabetes mellitus) Status: Chronic (12) CAD (coronary artery disease) Status: Chronic LIAN MORALES MD Oct 12, 2022 13:05
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
[2022-10-12 16:21] VITALS: BP 125/73
[2022-10-12 19:53] VITALS: BP 124/71
[2022-10-12] MEDS: SERTRALINE 50 MG (ZOLOFT) TABLET PO SCH (20:11)
[2022-10-12] MEDS: MELATONIN 10 MG TABLET PO SCH (20:12)
[2022-10-12] MEDS: OLANZapine 5 MG ODT (ZyPREXA ZYDIS) PO SCH (20:12)
[2022-10-12] MEDS: SODIUM BICARBONATE 650 MG TABLET PO SCH (20:12)
[2022-10-12] MEDS: RANOLAZINE ER 500 MG TAB (RANEXA) PO SCH (20:13)
[2022-10-12] MEDS: meTOprolol TARTRATE 50 MG (LOPRESSOR) TAB PO SCH (20:13)
[2022-10-12] MEDS: ENOXAPARIN 40 MG/0.4 ML (LOVENOX) SYR SC SCH (20:15)
[2022-10-12] MEDS: ARTIFICAL TEARS 0.4 ML UNIT DOSE (REFRESH PLUS) OU SCH (20:16)
[2022-10-12] MEDS ORDERED: NON-FORMULARY MEDICATION 1 EA EA (Levetiracetam 750 MG) PO SCH (21:00)
[2022-10-12] MEDS ORDERED: NON-FORMULARY MEDICATION 1 EA EA (Artificial Tears 1 DROP) OU SCH (21:00)
[2022-10-12] MEDS ORDERED: NON-FORMULARY MEDICATION 1 EA EA (Ranolazine (Ranexa) 1,000 MG) PO SCH (21:00)
[2022-10-12 23:40] VITALS: BP 123/69
[2022-10-13 03:43] VITALS: BP 133/75
[2022-10-13] MEDS: ACETAMINOPHEN 325 MG TABLET PO PRN (03:45)
[2022-10-13] MEDS: inSUlin ASPART (NovoLOG) 1 UNIT/0.01 ML (CHARGE PER UNIT) SC SCH ×4 (05:46→20:41)
[2022-10-13 05:55] LABS: BASOPHILS % (AUTO) 0 % (0-10); EOSINOPHILS # (AUTO) 0.2 10^3/uL (0.0-0.3); EOSINOPHILS % (AUTO) 3 % (0-10); HEMATOCRIT 38 % (40-54); HEMOGLOBIN 12.5 g/dL (13.3-17.7); LYMPHOCYTES # (AUTO) 0.9 10^3/uL (1.0-4.0); LYMPHOCYTES % (AUTO) 15 % (12-44); MEAN CORPUSCULAR HEMOGLOBIN 29 pg (25-34); MEAN CORPUSCULAR HGB CONC 33 g/dL (32-36); MEAN CORPUSCULAR VOLUME 87 fL (80-99); MEAN PLATELET VOLUME 10.3 fL (9.0-12.2); MONOCYTES # (AUTO) 0.6 10^3/uL (0.0-1.0); MONOCYTES % (AUTO) 9 % (0-12); NEUTROPHILS # (AUTO) 4.6 10^3/uL (1.8-7.8); NEUTROPHILS % (AUTO) 72 % (42-75); PLATELET COUNT 109 10^3/uL (130-400); WHITE BLOOD COUNT 6.4 10^3/uL (4.3-11.0)
[2022-10-13 06:12] LABS: POTASSIUM 3.5 MMOL/L (3.6-5.0)
[2022-10-13 06:14] LABS: CALCIUM 8.3 MG/DL (8.5-10.1)
[2022-10-13 06:18] LABS: CREATININE SERUM 1.34 MG/DL (0.60-1.30)
[2022-10-13 06:20] LABS: MAGNESIUM 1.8 MG/DL (1.6-2.4)
[2022-10-13] MEDS: RT-ALBUTEROL SULF 2.5 MG/3 ML PRE-MIX VIAL INH SCH ×4 (07:54→19:21)
[2022-10-13] MEDS: AUGMENTIN 875 MG TAB (AMOXICILLIN/CLAVULANATE) PO SCH ×2 (08:43→16:35)
[2022-10-13] MEDS: meTOprolol TARTRATE 50 MG (LOPRESSOR) TAB PO SCH ×2 (08:43→20:18)
[2022-10-13] MEDS: PANTOPRAZOLE 20 MG TABLET (PROTONIX) PO SCH (08:43)
[2022-10-13] MEDS: SODIUM BICARBONATE 650 MG TABLET PO SCH ×3 (08:43→20:18)
[2022-10-13] MEDS: RANOLAZINE ER 500 MG TAB (RANEXA) PO SCH ×2 (08:43→20:18)
[2022-10-13] MEDS: DOCUSATE SODIUM 100 MG (COLACE) CAP PO SCH ×2 (08:44→20:18)
[2022-10-13] MEDS: ARTIFICAL TEARS 0.4 ML UNIT DOSE (REFRESH PLUS) OU SCH ×2 (08:44→20:18)
[2022-10-13] MEDS: FLUTICASONE NASAL SPRAY (FLONASE) 16 GM BTL NS SCH (08:44)
[2022-10-13] MEDS ORDERED: NON-FORMULARY MEDICATION 1 EA EA (Lansoprazole 15 MG) PO SCH (09:00)
[2022-10-13] MEDS ORDERED: NON-FORMULARY MEDICATION 1 EA EA (Fluticasone Propionate (Flonase Allergy Relief) 2 SPRAY) NSEACH SCH (09:00)
[2022-10-13 09:33] VITALS: BP 116/54
--- NOTE | 2022-10-13 10:34 | Physical Therapy Progress Note ---
Therapy Progress Note PT has attempted x 2 this morning. Patient has been up with nursing to shower ambulating to and from. Upon each PT attempt, patient has been sleeping with family present declining at this time. RN is aware. 2 visits BRENTON DUNBAR PT Oct 13, 2022 10:34
[2022-10-13 12:16] VITALS: BP 136/62
--- NOTE | 2022-10-13 14:27 | Progress Note - Hospitalist ---
Subjective HPI/CC On Admission Date Seen by Provider: Oct 13, 2022 Time Seen by Provider: 11:55 Subjective/Events-last exam He is sleeping. His daughter is at the bedside. She says he has been up to the bathroom. He has been able to talk to her when he's been awake. Focused Exam Lactate Level 10/10/22 14:29: Lactic Acid Level 1.94 Time of Focused Exam: 15:10 Objective Exam Vital Signs Vital Signs Date Time Temp Pulse Resp B/P (MAP) Pulse Ox O2 Delivery O2 Flow Rate FiO2 10/13/22 12:16 36.2 85 18 136/62 (86) 96 Room Air 10/13/22 10:58 0.00 10/11/22 22:43 24 Capillary Refill : Less Than 3 Seconds General Appearance: No Apparent Distress, WD/WN Respiratory: Lungs Clear, No Respiratory Distress Cardiovascular: Regular Rate, Rhythm, No Murmur Gastrointestinal: Normal Bowel Sounds, Soft Extremity: Normal Inspection, No Pedal Edema Neurologic/Psychiatric: Other (sleeping) Skin: Normal Color, Warm/Dry Results/Procedures Lab Laboratory Tests 10/13/22 05:20 10/13/22 05:40 Patient resulted labs reviewed. Imaging: Reviewed Imaging Report Assessment/Plan Assessment and Plan Assess & Plan/Chief Complaint Likely aspiration pneumonia Dysphagia Augmentin Speech therapy consulted, barium swallow pushed back to tomorrow General diet with thickened liquids JUANITO on CKD Improving, likely at baseline Likely dementia Delirium Debility Poor prognosis Goals of care discussion Reorient as needed Dysphagia likely associated with progressing dementia Palliative care consulted Planning for discharge back to SNF and will pursue hospice if skilled treatments fail T2DM Blood sugars well controlled Hold home meds Seizure disorder HTN HLD CAD GERD Continue home meds as able DVT prophylaxis: Lovenox Sepsis due to pneumonia, resolved Diagnosis/Problems Diagnosis/Problems (1) Sepsis due to pneumonia Status: Resolved Resolution Date/Time: 10/12/22 @ 13:19 (2) Pneumonia Status: Acute Qualifiers: Pneumonia type: due to unspecified organism Laterality: left Lung location: lower lobe of lung Qualified Codes: J18.9 - Pneumonia, unspecified organism (3) Acute kidney injury Status: Resolved Resolution Date/Time: 10/12/22 @ 13:20 (4) Dysphagia Status: Acute (5) Delirium Status: Acute (6) Dementia Status: Chronic (7) CKD (chronic kidney disease) Status: Chronic Qualifiers: Chronic kidney disease stage: stage 3 (moderate) Chronic kidney disease stage 3 subtype: stage 3a (GFR 45-59) Qualified Codes: N18.31 - Chronic kidney disease, stage 3a (8) HTN (hypertension) Status: Chronic (9) HLD (hyperlipidemia) Status: Chronic (10) GERD (gastroesophageal reflux disease) Status: Chronic (11) T2DM (type 2 diabetes mellitus) Status: Chronic (12) CAD (coronary artery disease) Status: Chronic LIAN MORALES MD Oct 13, 2022 14:27
[2022-10-13 16:17] VITALS: BP 150/70
[2022-10-13 19:35] VITALS: BP 136/65
[2022-10-13] MEDS: ENOXAPARIN 40 MG/0.4 ML (LOVENOX) SYR SC SCH (20:18)
[2022-10-13] MEDS: MELATONIN 10 MG TABLET PO SCH (20:18)
[2022-10-13] MEDS: OLANZapine 5 MG ODT (ZyPREXA ZYDIS) PO SCH (20:18)
[2022-10-13] MEDS: SERTRALINE 50 MG (ZOLOFT) TABLET PO SCH (20:19)
[2022-10-13] MEDS ORDERED: BENZONATATE 100 MG (TESSALON) CAPSULE PO PRN (20:30)
[2022-10-13] MEDS ORDERED: guaiFENesin/CODEINE (ROBITUSSIN AC) 10ML UDC PO PRN (20:30)
[2022-10-13] MEDS ORDERED: BENZONATATE 100 MG (TESSALON) CAPSULE PO ONE ×2 (20:37→20:39)
[2022-10-13] MEDS ORDERED: guaiFENesin/CODEINE (ROBITUSSIN AC) 10ML UDC ONE (20:37)
[2022-10-14 00:08] VITALS: BP 136/70
[2022-10-14 05:50] LABS: EOSINOPHILS # (AUTO) 0.2 10^3/uL (0.0-0.3); EOSINOPHILS % (AUTO) 4 % (0-10)
[2022-10-14 05:51] LABS: BASOPHILS % (AUTO) 0 % (0-10); HEMATOCRIT 37 % (40-54); HEMOGLOBIN 12.5 g/dL (13.3-17.7); LYMPHOCYTES # (AUTO) 1.5 10^3/uL (1.0-4.0); LYMPHOCYTES % (AUTO) 26 % (12-44); MEAN CORPUSCULAR HEMOGLOBIN 29 pg (25-34); MEAN CORPUSCULAR HGB CONC 34 g/dL (32-36); MEAN CORPUSCULAR VOLUME 87 fL (80-99); MEAN PLATELET VOLUME 10.7 fL (9.0-12.2); MONOCYTES # (AUTO) 0.6 10^3/uL (0.0-1.0); MONOCYTES % (AUTO) 10 % (0-12); NEUTROPHILS # (AUTO) 3.4 10^3/uL (1.8-7.8); NEUTROPHILS % (AUTO) 59 % (42-75); PLATELET COUNT 129 10^3/uL (130-400); WHITE BLOOD COUNT 5.8 10^3/uL (4.3-11.0)
[2022-10-14 06:23] LABS: CALCIUM 8.5 MG/DL (8.5-10.1); CREATININE SERUM 1.26 MG/DL (0.60-1.30); MAGNESIUM 1.7 MG/DL (1.6-2.4); PHOSPHORUS 2.8 MG/DL (2.3-4.7); POTASSIUM 3.7 MMOL/L (3.6-5.0)
[2022-10-14] MEDS: inSUlin ASPART (NovoLOG) 1 UNIT/0.01 ML (CHARGE PER UNIT) SC SCH ×2 (06:25→11:20)
[2022-10-14 07:18] VITALS: BP 98/57
[2022-10-14] MEDS: RT-ALBUTEROL SULF 2.5 MG/3 ML PRE-MIX VIAL INH SCH (07:42)
[2022-10-14] MEDS: RANOLAZINE ER 500 MG TAB (RANEXA) PO SCH (09:15)
[2022-10-14] MEDS: SODIUM BICARBONATE 650 MG TABLET PO SCH (09:16)
[2022-10-14] MEDS: PANTOPRAZOLE 20 MG TABLET (PROTONIX) PO SCH (09:17)
[2022-10-14] MEDS: AUGMENTIN 875 MG TAB (AMOXICILLIN/CLAVULANATE) PO SCH (09:17)
[2022-10-14] MEDS: ARTIFICAL TEARS 0.4 ML UNIT DOSE (REFRESH PLUS) OU SCH (09:17)
[2022-10-14] MEDS: meTOprolol TARTRATE 50 MG (LOPRESSOR) TAB PO SCH (09:18)
[2022-10-14] MEDS: DOCUSATE SODIUM 100 MG (COLACE) CAP PO SCH (09:26)
[2022-10-14] MEDS: FLUTICASONE NASAL SPRAY (FLONASE) 16 GM BTL NS SCH (09:27)
--- NOTE | 2022-10-14 10:00 | Physical Therapy Daily Note ---
PT Daily Note-Current Subjective Patient more alert and active on this date. Agrees to PT. Pain Section J - Health Conditions 1. Rarely or not at all 2. Occasionally 3. Frequently 4. Almost constantly 8. Unable to answer Pain Effect on Sleep: 1 Pain Interference with Therapy: 1 Pain Interference w/Day-to-Day: 1 Mental Status Patient Orientation: Person Transfers SCALE: Activities may be completed with or without assistive devices. 4-Mdboqgtvas-qprvbgi completes the activity by him/herself with no assistance from a helper. 5-Set-up or Clean-up Assistance-helper sets up or cleans up; patient completes activity. [place] assists only prior to or following the activity. 4-Supervision or Touching Assistance-helper provides verbal cues and/or touching/steadying and/or contact guard assistance as patient completes activity. Assistance may be provided throughout the activity or intermittently. 3-Partial/Moderate Assistance-helper does LESS THAN HALF the effort. [place] lifts, holds or supports trunk or limbs, but provides less than half the effort. 2-Substantial/Maximal Assistance-helper does MORE THAN HALF the effort. [place] lifts or holds trunk or limbs and provides more than half the effort. 0-Vjsaenlda-uvqetl does ALL the effort. Patient does none of the effort to complete the activity. Or, the assistance of 2 or more helpers is required for the patient to complete the activity. If activity was not attempted, code reason: 7-Patient Refused. 9-Not Applicable-not attempted and the patient did not perform the activity before the current illness, exacerbation or injury. 10-Not Attempted due to Environmental Limitations-(lack of equipment, weather restraints, etc.). 88-Not Attempted due to Medical Conditions or Safety Concerns. Lying to Sitting/Side of Bed(Q: 4 Sit to Stand (QC): 3 Chair/Ssx-ba-Pgxfo Xfer(QC): 3 Toilet Transfer (QC): 3 Gait Training Distance: 200' Walk 10 feet (QC): 4 Walk 50 ft with 2 Turns(QC): 4 Walk 150 ft (QC): 4 Gait Assistive Device: FWW functional gait sequence with FWW use Assessment Patient tolerated treatment well and is up in recliner with family present. Plan dismissal to [place], per family report, on this date. PT Laundry Presser Goals Laundry Presser Goals PT Nursing Home Goals Time Frame: Oct 19, 2022 Roll Left & Right (QC): 6 Sit to Lying (QC): 6 Lying-Sitting on Side/Bed(QC): 6 Sit to Stand (QC): 4 (SBA) Chair/Ezk-bm-Uxklx Xfer(QC): 4 (SBA) Walk 10 feet (QC): 4 (SBA) Walk 50ft with 2 Turns (QC): 4 (SBA) PT Plan Treatment/Plan Treatment Plan: Continue Plan of Care Treatment Plan: Bed Mobility, Education, Functional Activity Varun, Functional Strength, Gait, Safety, Therapeutic Exercise, Transfers Treatment Duration: Oct 19, 2022 Frequency: 6 times per week Estimated Hrs Per Day: .25 hour per day Patient and/or Family Agrees t: Yes Time Time In: 800 Time Out: 810 DATE: Oct 14, 2022 Total Billed Treatment Time: 10 Total Billed Treatment 1 visit FA 10 min BRENTON DUNBAR PT Oct 14, 2022 10:00
[2022-10-14] MEDS ORDERED: AMOX1TAB12 PO (11:06)
--- NOTE | 2022-10-14 11:20 | Discharge Summary ---
Discharge Summary Reconcile Patient Problems Problems Reviewed?: Yes Hospital Course Hospital Course Date of Admission: Oct 10, 2022 at 16:19 Admission Diagnosis : Sepsis due to pneumonia Family Physician/Provider: Fide Morocho DO Date of Discharge: 10/14/22 Discharge Diagnosis: Sepsis due to pneumonia, likely aspiration pneumonia, JUANITO on CKD, delirium Hospital Course: Rajan Carrasco is an 87 year old male who was admitted with sepsis due to pneumonia. He was started on IV antibiotics and improved. He was transitioned to oral Augmentin. There was concern for aspiration. He underwent a bedside swallow and was placed on thickened liquids. He had a barium swallow without overt signs of aspiration. He can have a regular diet, no straws, meds in applesauce, and fully upright for meals. He also had delirium on underlying dementia. He was given Zyprexa and his symptoms improved. This should be considered if his symptoms return/persist. He also had an JUANITO on CKD 3a which resolved with fluids . He was discharged back to [facility] in stable condition. Labs and Pending Lab Test: Laboratory Tests 10/13/22 16:15: Glucometer 251H 10/13/22 20:22: Glucometer 219H 10/14/22 05:34: White Blood Count 5.8, Red Blood Count 4.26L, Hemoglobin 12.5L, Hematocrit 37L, Mean Corpuscular Volume 87, Mean Corpuscular Hemoglobin 29, Mean Corpuscular Hemoglobin Concent 34, Red Cell Distribution Width 13.9, Platelet Count 129L, Mean Platelet Volume 10.7, Immature Granulocyte % (Auto) 2, Neutrophils (%) (Auto) 59, Lymphocytes (%) (Auto) 26, Monocytes (%) (Auto) 10, Eosinophils (%) (Auto) 4, Basophils (%) (Auto) 0, Neutrophils # (Auto) 3.4, Lymphocytes # (Auto) 1.5, Monocytes # (Auto) 0.6, Eosinophils # (Auto) 0.2, Basophils # (Auto) 0.0, Immature Granulocyte # (Auto) 0.1, Percent Immature Platelet Fraction 3.2, Sodium Level 137, Potassium Level 3.7, Chloride Level 106, Carbon Dioxide Level 21, Anion Gap 10, Blood Urea Nitrogen 24H, Creatinine 1.26, Estimat Glomerular Filtration Rate 56, BUN/Creatinine Ratio 19, Glucose Level 176H, Calcium Level 8.5, Phosphorus Level 2.8, Magnesium Level 1.7 10/14/22 11:11: Glucometer 211H Microbiology 10/10/22 MRSA Screen - Final, Complete MRSA not isolated 10/10/22 Urine Culture - Final, Complete Aerococcus urinae See Comments 10/10/22 Blood Culture - Preliminary, Resulted No growth Home Meds Active Amox Tr-K Clv 875-125 mg Tab (Amoxicillin/Potassium Clav) 875 Mg-125 Mg Tablet 875 Mg PO BID WITH MEALS 4 Days Reported Sodium Bicarbonate 650 Mg Tablet 650 Mg PO TID Sertraline HCl 50 Mg Tablet 75 Mg PO HS TAKES 1 & (50MG) TABS Guaifenesin-Dm 200-20 mg/10 ml (Guaifenesin/Dextromethorphan) 100 Mg-10 Mg/5 Ml Liquid 20 Ml PO Q6H PRN Ranexa (Ranolazine) 1,000 Mg Tab.er.12h 1,000 Mg PO BID Ozempic (Semaglutide) 1 Mg/0.75 Ml (4 Mg/3 Ml) Pen.injctr 0.5 Ml SQ WEEK Miralax (Polyethylene Glycol 3350) 17 Gram Powd.pack 17 Gm PO DAILY Metoprolol Tartrate 50 Mg Tablet 50 Mg PO BID HOLD FOR SBP<100 OR HR<60 Melatonin 10 Mg Tablet 10 Mg PO HS Levetiracetam 750 Mg Tablet 750 Mg PO BID Lansoprazole 15 Mg Capsule.dr 15 Mg PO DAILY Jardiance (Empagliflozin) 25 Mg Tablet 12.5 Mg PO DAILY TAKES OF A 25MG TAB Lantus Solostar (Insulin Glargine,Hum.rec.anlog) 100 Unit/Ml (3 Ml) Insuln.pen 10 Unit SQ HS NOTIFY PHYSICIAN FOR BLOOD GLUCOSE <60 OR >400 Flonase Allergy Relief (Fluticasone Propionate) 50 Mcg/Actuation [place].susp 2 [place] NSEACH DAILY Docusate Sodium 100 Mg Capsule 200 Mg PO BID TAKES 2 (100MG) CAPS Atorvastatin Calcium 40 Mg Tablet 40 Mg PO HS Artificial Tears 1.4 % Soln 1 Drop OU BID Tylenol (Acetaminophen) 325 Mg Tablet 650 Mg PO Q6H PRN Instructions to Patient/Family Assessment/Instructions Take medications as prescribed. Follow up with your PCP in a week or two. Return with worsening shortness of breath, pain, or if you feel like you are getting worse. Follow Up Appt.: PCP 1-2 weeks Skilled NF Admit to: [facility] (SNF) I certify that SNF services are required to be given on an inpatient basis because of the above named patient's need for care home care on a continuing basis for the conditions(s) for which he/she was receiving inpatient hospital services prior to his/her transfer to the SNF. [facility] Facility Order: Nursing Services, Environmental Adviser-Evaluate & Treat, Physical Therapy-Evaluate & Treat, Speech Language-Evaluate & Treat Oxygen Delivery Method: Room Air Discharge Diet: Other Diet (meds in applesauce, no straws, fully upright for meals) Daily Activity as Tolerated: Yes Resuscitation Status: Full Code Lian Morales Oct 14, 2022 11:13 Discharge Physical Exam General: Alert, No Acute Distress Lungs: Clear to Auscultation, Normal Air Movement Heart: Regular Rate, No Murmurs Abdomen: Normal Bowel Sounds, Soft, No Tenderness Extremities: No Edema, No Tenderness/Swelling Skin: No Rashes, No Significant Lesion Neuro: Normal Speech, Other (motor weakness, no focal weakness) Psych/Mental Status: Mood NL LIAN MORALES MD Oct 14, 2022 11:20
--- NOTE | 2022-10-14 11:27 | ST Mod Barium Swallow ---
Speech Evaluation-General Medical Diagnosis LLL Pneumonia Onset Date: Oct 10, 2022 Therapy Diagnosis Therapy Diagnosis: Mild Oropharyngeal Dysphagia Precautions Precautions: Fall, Pressure Ulcer, Aspiration Precautions/Isolations: Aspiration, Fall Prevention, Standard Precautions, Pressure Ulcer Referral Referring Physician: Dr. Hall Reason for Referral: Evaluation/Treatment Medical History Pertinent Medical History: Arthritis, CABG, CAD, DM, GERD, HTN, [place], Neuropathy Reviewed History: Yes Social History Home: [facility] Speech Mod Barium Swallow Prior Level of Function Please refer to the patient's inpatient clinical bedside swallowing evaluation for full information and details regarding prior level of function. At this time, the patient is receiving a regular consistency diet with moderately thick liquids. Oral Motor Skills Dentition Natural Dentures: Full (Natural.) Lingual Protrusion: Normal Lingual ROM: Normal Lingual Strength: Normal Volitional Dry Swallow: Yes Voluntary Cough: Yes (Weak, breathy cough and vocal quality.) Can Clear Throat Volitionally: Yes Textures-Lateral View Lateral View Food Presentation: Thin Liquid via Spoon, Thin Liquid via Cup, Thin Liquid via Straw, Pureed Solids, Regular Solids Oral Phase Labial Closure: No Impairment (WFL) Bolus Formation Pooling L/R: Mild Impairment Bolus Formation Placement: Mild Impairment Mastication Rotary Chew: Minimal Impairment (Minimally prolonged.) A/P Lingual Propulsion: Mild Impairment Lingual Movement: Mild Impairment Oral Phase Residue: Mild Impairment The patient was able to adequately draw material from the teaspoon, cup edge, and straw independently. Reduced lingual coordination was visualized through prolonged bolus formation, prolonged posterior transfer, and premature loss of thin liquids to the pyriform sinuses. Pharyngeal Phase Swallow Response: Moderate Impairment Base of Tongue: Mild Impairment Epiglottic Movement: No Impairment (WFL) Laryngeal Elevation: No Impairment (WFL) Vallecular Residue: Mild Pharyngeal Wall Residue: Mild Piriform Sinus Residue: Mild Laryngeal Penetration: Mild (Transient, with straws only.) Aspiration Observations: None The patient displayed a moderately delayed onset of the pharyngeal swallow, with bolus material reaching the pyriform sinuses prior to the onset of the swallow trigger. One occurrence of transient laryngeal penetration occurred during the swallow with a straw drink of thin liquid which appeared secondary to the pharyngeal swallow delay. No laryngeal penetration occurred with cup edge drinks of thin liquid. No aspiration occurred with any consistency tested. Mildly decreased base of tongue retraction and pharyngeal contractions were present which resulted in mild vallecular and pyriform sinus residue following the swallow. Suspected osteophytes were visualized at cervical vertebrae four through six. Summary/Impressions The patient demonstrated mild oropharyngeal dysphagia characterized by decreased lingual coordination, a delayed onset of the pharyngeal swallow, reduced base of tongue retraction, and decreased pharyngeal contractions. No aspiration occurred with any consistency tested. One episode of transient laryngeal penetration occurred with straw drinks of thin liquid. Recommendations: - Regular consistency diet with thin liquids, as tolerated. - Fully upright and alert for P.O. intake. - Small, single bites and sips (only). - No straws. - Crush medication and place in puree for administration. - Monitor for clinical and medical s/s of suspected aspiration with P.O. intake. If demonstrated, contact the treating speech pathologist or physician. - Initiate skilled speech pathology dysphagia treatment in the post acute setting. The results and recommendations were discussed extensively with the patient and the patient's daughter. Additionally, a handout was provided to the patient with recommendations and the physician was present when recommendations were provided. The clinician contacted the RN with the recommendations following completion. Speech Short Term Goals Short Term Goals Short Term Goals 1. The patient will display safe swallowing precautions with 75% accuracy and mild verbal cueing. Time Frame-STG: Three Days. Speech [employer] Marketing Goals [employer] Goals 1. The patient will tolerate the least restrictive diet consistency without s/s of suspected aspiration. Time Frame: One Week. Speech-Plan Treatment Plan Speech Therapy Treatment Plan: Discontinue ST (Patient to discharge on this date from acute inpatient hospitalization.) Treatment Duration: Oct 28, 2022 Frequency: 4 times per week Estimated Hrs Per Day: .25 hour per day Rehab Potential: Guarded Pt/Family Agrees to Plan: Yes Safety Risks/Education Teaching Recipient: Patient, Family (Daughter) Teaching Methods: Handout, Discussion Response to Teaching: Verbalize Understanding, Reinforcement Needed Education Topics Provided: Results, Recommendations, Plan of Care, Safe Swallowing Precautions Time Speech Therapy Time In: 11:00 Speech Therapy Time Out: 11:30 DATE: Oct 14, 2022 Total Billed Time: 30 Billed Treatment Time 1, MOD, MASSIEL RENTERIA Oct 14, 2022 11:27
--- NOTE | 2022-10-14 12:16 | Diagnostic Imaging Report ---
INDICATION: Dysphagia. Procedure was performed in conjunction with Speech Pathology. Video fluoroscopy was performed during the swallowing of barium at multiple consistencies. 53 seconds of fluoroscopic time was utilized. FINDINGS: Patient ingested thin liquid as well as puree and solid consistency. There was an episode of flash penetration during the swallowing of thin barium. No aspiration was observed. No vallecular or piriform sinus residue was noted. IMPRESSION: Unremarkable modified barium swallow apart from a single episode of flash penetration when swallowing thin barium. There was early spillover noted. Dictated by: Dictated on workstation # [id number]
[2022-10-14 13:05] VITALS: BP 98/57
--- NOTE | 2022-10-14 17:53 | Physician Query Clarification ---
Physician Query-General Query to Physician: The medical record reflects the following clinical evidence: Clinical Indicators: "SOA at rest" per nursing Documentation. 02 Sat 90% on RA on admission was started on 2L NC 02 sat decreased to 88 % on 2L a few hours later (P/F=196), increased to 3L, Remained on 02 for greater than 48 hours max of 3L , RR 18 on admission RR increased to mid 20-30 consistently for greater than 24 hours. Risk Factor(s): Sepsis and Pneumonia Treatment: Supplemental 02 for several days, Breathing Rx , IV ABX, Respiratory monitoring, 1. Acute respiratory failure with hypoxia, present on admission 2. Other explanation of clinical findings 3. Unable to determine (no explanation for clinical findings) Please clarify and document your clinical opinion in the progress notes and discharge summary including the definitive and/or presumptive diagnosis, (suspected or probable), related to the above clinical findings. Please include clinical findings supporting your diagnosis. Jennifer Lorenz, MSN, RN Clinical Business Systems Analyst [phone] [email or web address] PHYSICIAN RESPONSE: Based on the clinical findings in the record, please respond to the query above on this document as an addendum. Physician Response: Physician Response 1 If you have questions please contact: Store Detective: Ext: Thank you for your time and cooperation. Clinical Business Systems Analyst/Store Detective This is a permanent part of the medical record JENNIFER LORENZ Oct 14, 2022 17:53 LIAN MORALES MD Oct 15, 2022 13:15
== END 2022-10-14 13:10 | DRG 871 ==
LOC: EDUNIT# 14:15 → ER FS 14:16 → ICU 16:19 → 4TH 10-11 11:54
PROVIDERS: ADMIT Internal Medicine; ATTEND Internal Medicine
DX: A41.9 Sepsis, unspecified organism (principal); J69.0 Pneumonitis due to inhalation of food and vomit; J96.01 Acute respiratory failure with hypoxia; R65.21 Severe sepsis with septic shock; N17.9 Acute kidney failure, unspecified; E87.1 Hypo-osmolality and hyponatremia; Z95.1 Presence of aortocoronary bypass graft; G47.30 Sleep apnea, unspecified; I25.10 Atherosclerotic heart disease of native coronary artery without angina pectoris; Z86.73 Personal history of transient ischemic attack (TIA), and cerebral infarction without residual deficits; K21.9 Gastro-esophageal reflux disease without esophagitis; Z79.82 Long term (current) use of aspirin; Z79.4 Long term (current) use of insulin; Z79.899 Other long term (current) drug therapy; E11.22 Type 2 diabetes mellitus with diabetic chronic kidney disease; G47.33 Obstructive sleep apnea (adult) (pediatric); D69.6 Thrombocytopenia, unspecified; I12.9 Hypertensive chronic kidney disease with stage 1 through stage 4 chronic kidney disease, or unspecified chronic kidney disease; N18.31 Chronic kidney disease, stage 3a; F03.90 Unspecified dementia, unspecified severity, without behavioral disturbance, psychotic disturbance, mood disturbance, and anxiety; R53.81 Other malaise; G40.909 Epilepsy, unspecified, not intractable, without status epilepticus; E78.5 Hyperlipidemia, unspecified; Z20.822 Contact with and (suspected) exposure to COVID-19
CPT/HCPCS: 36415; 51702; 71045; 74230; 80048; 80053; 81000; 82947; 83605; 83735; 83880; 84100; 84484; 85007; 85025; 85027; 85610; 85730; 87040; 87077; 87081; 87088; 87636; 93005; 94640; 94664; 94760